=== PATIENT | male | born 1960 | race Caucasian/White ===

== ENCOUNTER 2017-12-20 05:23 | Inpatient (IN) ==
[2017-12-20 05:42] LABS: Basophils # 0.1 K/mm3 (0-0.2); Basophils % 0.7 % (0.1-2.0); Eosinophils # 0.3 K/mm3 (0.0-0.4); Eosinophils % 3.2 % (0.1-12.0); Hematocrit 41.3 % (42.0-52.0); Lymphocytes % 49.5 K/mm3 (10-50); Mean Corpuscular HGB Conc 31.5 g/dL (31.8-35.4); Mean Corpuscular Hemoglobin 30.2 pg (27.0-31.2); Mean Corpuscular Volume 95.9 fl (80-94); Mean Platelet Volume 9.1 fl (7.4-10.4); Monocytes # 0.5 K/mm3 (0.1-1.0); Monocytes % 4.7 % (1.7-9.3); Neutrophils # 4.3 K/mm3 (1.8-7.8); Neutrophils % 41.9 % (37.0-80.0); Platelet Count 260 K/mm3 (142-424); Red Cell Distribution Width 13.2 % (11.5-17.5); White Blood Count 10.2 K/mm3 (4.8-10.8)
[2017-12-20 05:54] LABS: Albumin Level 3.9 gm/dL (3.4-5.0); Albumin/Globulin Ratio 1.1 (1.1-1.8); Anion Gap 10.7 mEq/L (5-15); Bilirubin,Total 0.2 mg/dL (0.2-1.0); Calcium 9.6 mg/dL (8.5-10.1); Globulin 3.5 gm/dl (1.3-3.2); Potassium 3.7 mmoL/L (3.5-5.1); Total Protein,Serum 7.4 gm/dL (6.4-8.2)
[2017-12-20 06:07] LABS: Creatine Kinase 69 U/L (39-308)
--- NOTE | 2017-12-20 08:06 | Emergency Department Note ---
ED Disposition Clinical Impression: Spontaneous pneumothorax Disposition: Admitted As Inpatient Condition on Discharge: Good Time of Disposition: 08:30 - Critical Care Critical Care Time: No Attestation: On 12/20/17, the high probability of a clinically significant, sudden or life threatening deterioration of the following system(s) required my full and direct attention, intervention and personal management. The time I documented below is in addition to time spent performing reported procedures but includes the following listed in this critical care notation. Total Critical Care Time: 45 Vital system(s) involved:: Respiratory Failure My critical care processes included: Assessment & monitoring of V/S, Initial and Re-exams, Data Review/Interpretation, Coordinating Care, Medication Orders and management, Documentation Medical Decision Making - Medical Records Medical records reviewed: Yes: I reviewed the patient's medical records. - Dinesh Inquiry Pt receiving controlled substance: No Vital Signs: 12/20/17 05:24 12/20/17 06:25 12/20/17 07:30 Temperature 978.9 F H Temperature Source Oral Pulse Rate [Right Radial] 99 H 67 62 Respiratory Rate 13 18 16 Blood Pressure [Right Arm] 144/71 115/67 138/64 Blood Pressure Mean [Right Arm] 95 83 88 Blood Pressure Source [Right Arm] Automatic Cuff Automatic Cuff Automatic Cuff Blood Pressure Position [Right Arm] Sitting Sitting Sitting 02 Sat by Pulse Oximetry 94 L 99 97 Oxygen Delivery Method Room Air Room Air Room Air 12/20/17 07:55 12/20/17 08:25 12/20/17 08:27 Temperature 97.6 F Temperature Source Oral Pulse Rate [Right Radial] 60 72 82 Respiratory Rate 16 20 16 Blood Pressure [Right Arm] 123/63 112/70 112/70 Blood Pressure Mean [Right Arm] 83 84 84 Blood Pressure Source [Right Arm] Automatic Cuff Automatic Cuff Automatic Cuff Blood Pressure Position [Right Arm] Sitting Sitting Sitting 02 Sat by Pulse Oximetry 96 97 97 Oxygen Delivery Method Room Air Room Air Room Air - Lab Data Lab results reviewed: Yes: I reviewed the patient's lab results. Lab Results 12/20/17 05:30: WBC 10.2, RBC 4.30 L, Hgb 13.0 L, Hct 41.3 L, MCV 95.9 H, MCH 30.2, MCHC 31.5 L, RDW 13.2, Plt Count 260, MPV 9.1, Neut % (Auto) 41.9, Lymph % (Auto) 49.5, [place] % (Auto) 4.7, Eos % (Auto) 3.2, Baso % (Auto) 0.7, Neut # ( Auto) 4.3, Lymph # (Auto) 5.0 H, [place] # (Auto) 0.5, Eos # (Auto) 0.3, Baso # ( Auto) 0.1 12/20/17 05:30: Sodium 144, Potassium 3.7, Chloride 107, Carbon Dioxide 30, Anion Gap 10.7, BUN 16, Creatinine 0.93, Estimated Creat Clear 84, Estimated GFR 84, Est GFR ( Amer) 101, Glucose 134 H, Calcium 9.6, Total Bilirubin 0.2, AST 11 L, ALT 15, Alkaline Phosphatase 79, Total Protein 7.4, Albumin 3.9, Globulin 3.5 H, Albumin/Globulin Ratio 1.1 12/20/17 05:30: B-Natriuretic Peptide 28 12/20/17 05:30: Total Creatine Kinase 69, CK-MB (CK-2) 0.7, CK-MB (CK-2) Rel Index 1.0, Troponin I < 0.02 12/20/17 07:45: Troponin I < 0.02 Result diagrams: 12/20/17 05:30 12/20/17 05:30 Orders (Tests/Meds): ED MEDICATIONS Discontinued Medications Generic Name Dose Route Start Last Admin Trade Name Freq PRN Reason Stop Dose Admin Aspirin 324 mg 12/20/17 05:30 12/20/17 05:32 Aspirin 81mg Chewable Tablet PO 12/20/17 05:31 324 mg ONCE ONE Administration - Radiology Data #1 Image(s): Chest Image Reviewed: Yes I reviewed the patient's radiology image 50% spontaneous pneumothorax - ECG Data Tracing #1 I reviewed this ECG and interpreted as documented below: Heart rate 88, no acute ischemic ECG normal with no acute: arrhythmias, ischemia, conduction abnormalities, chamber hypertrophy Normal Sinus Rhythm: Yes - Physician Consults Physician Consulted: Dr Camarillo Time: 08:20 Reason -: Admission, Pt condition, Surgical Eval/Care Comment/Response: will come down to the emergency room in order to place a chest tube into patient's right thoracic cavity. The surgeon requested patient be admitted to medical service. Additional Consult: Dr Blue Time: 08:25 Reason -: Admission, Pt condition Comment/Response: Advise of patient presentation findings, agreeable with admission. - Reevaluation(s) Time: 08:06 Reevaluation #1: Patient is in no acute distress, denies any discomfort, denies any symptoms, asleep. Chest Pain HPI - General Chief Complaint: Chest Pain Stated Complaint: chest pain Time Seen by Provider: 12/20/17 06:00 Mode of Arrival: Ambulatory Source of Information: Patient Limitations: No Limitations Description of Symptoms (Recalled from ER Triage Doc. by RN): chest pain, started about 0500 - History of Present Illness HPI narrative: Patient is a 57-year-old smoker presented emergency room with chest pain onset 1 hour ago, while getting ready for work, located on the right side, exertional , described as pressure, radiates to the right jaw, right neck, without any associated diaphoresis or shortness of breath. Patient denies any previous similar episodes in the past. At time of patient's arrival to the emergency room the pain is completely resolved. He stated that he has a history of anxiety, and he believes this could have been the culprit for his chest pain this morning. MD complaint: chest pain Onset (ago): hour(s) (1) Duration: now resolved Activity at onset: light activity Pain location: right chest Severity: moderate Severity scale (1-10): 4 Quality: tightness Pain radiation: RUE, jaw/teeth Relieving factors: remaining still Exacerbating factors: movement Risk Factors for CAD: Hypertension Treatments prior to or on arrival for Cardiac Chest Pain: none - Related Data Home Medications Medication Instructions Recorded Confirmed Buprenorphine HCl/Naloxone HCl 2 tab SL DAILY 12/20/17 12/20/17 [Buprenorphin-Naloxon 8-2 mg Sl] Allergies Allergy/AdvReac Type Severity Reaction Status Date / Time No Known Allergies Allergy Unverified 05/25/17 15:01 [facility] History I have reviewed the patient's past medical history: Yes Medical History: Denies:: Cancer, Diabetes Mellitus Type 1, Diabetes Mellitus Type 2, MRSA Amputation: No Fractures: No - Social History Smoking Status: Current every day smoker Tobacco Type: cigarettes # Packs/Day (cigarettes): 1 Alcohol Intake: never Substance Use Type: prescription drug - Psychiatric History Expresses thoughts of harming self/others: None Suicide Plan Description: No Plan ROS Obtained: Yes All systems reviewed & no additional complaints, Yes Systems reviewed as appropriate & no additional complaints - Cardiovascular Cardiovascular: Reports system reviewed and no additional complaints, except as docu, Reports as per HPI, Reports chest pain Physical Exam - General General appearance: alert, in no apparent distress - Head Head exam: atraumatic, normocephalic, normal inspection - ENT ENT exam: Present: normal exam, normal oropharynx, mucous membranes moist, TM's normal bilaterally, normal external ear exam - Neck Neck exam: Present: normal inspection, full ROM, trachea midline. Absent: meningismus, lymphadenopathy - Chest Chest inspection: Present: normal inspection, symmetric chest wall rise. Absent : tenderness - Respiratory Respiratory exam: Present: normal lung sounds bilaterally. Absent: respiratory distress - Cardiovascular Cardiovascular exam: Present: regular rate, normal rhythm. Absent: JVD - Abdominal Exam Abdominal exam: Present: soft, normal bowel sounds. Absent: distention, tenderness, guarding - Extremities Exam Extremities exam: Present: normal inspection, full ROM, normal capillary refill. Absent: calf tenderness - Back Exam Back exam: Present: normal inspection. Absent: tenderness - Neurological Exam Neurological exam: Present: alert, oriented X3 - Psychiatric Psychiatric exam: Present: normal affect, normal mood - Skin Skin exam: Present: warm, dry, intact, normal color - Lymphatic Lymphatic Findings: no adenopathy
--- NOTE | 2017-12-20 09:26 | Consult Report ---
*Admission Date: 12/20/17 *Chief complaint: CHEST PAIN *History of present illness: Patient is a 57-year-old white male with a long-standing history of smoking. He states that he was in his usual state of health until approximately 430-445 this morning at which time he had some right-sided chest pain. He presented to the emergency department. Chest x-ray revealed significant right-sided pneumothorax. Surgery was consulted. Review of Systems - Constitutional Denies anorexia - Eyes Denies change in vision - ENT Denies dizziness - *Cardiovascular Reports chest pain - *Respiratory Reports cough - *Gastrointestinal Denies abdominal pain - *Genitourinary Denies difficulty urinating - *Musculoskeletal Denies abnormal walking [facility] History Medical History: Denies:: Cancer, Diabetes Mellitus Type 1, Diabetes Mellitus Type 2, MRSA Amputation: No Fractures: No - *Social History Smoking Status: Current every day smoker Tobacco Type: cigarettes # Packs/Day (cigarettes): 1 Alcohol Intake: never Substance Use Type: prescription drug - Psychiatric History Expresses thoughts of harming self/others: None Suicide Plan Description: No Plan Meds Home Medications Medication Instructions Recorded Confirmed Type Buprenorphine HCl/Naloxone HCl 2 tab SL DAILY 12/20/17 12/20/17 History [Buprenorphin-Naloxon 8-2 mg Sl] Allergies Allergy/AdvReac Type Severity Reaction Status Date / Time No Known Allergies Allergy Unverified 05/25/17 15:01 Exam Vital signs and Labs for Last 24 Hours: Temp Pulse Resp BP Pulse Ox 97.6 F 81 16 131/66 98 12/20/17 08:25 12/20/17 08:50 12/20/17 08:50 12/20/17 08:50 12/20/17 08:50 Laboratory Results - last 24 hr 12/20/17 05:30: WBC 10.2, RBC 4.30 L, Hgb 13.0 L, Hct 41.3 L, MCV 95.9 H, MCH 30.2, MCHC 31.5 L, RDW 13.2, Plt Count 260, MPV 9.1, Neut % (Auto) 41.9, Lymph % (Auto) 49.5, [place] % (Auto) 4.7, Eos % (Auto) 3.2, Baso % (Auto) 0.7, Neut # ( Auto) 4.3, Lymph # (Auto) 5.0 H, [place] # (Auto) 0.5, Eos # (Auto) 0.3, Baso # ( Auto) 0.1 12/20/17 05:30: Sodium 144, Potassium 3.7, Chloride 107, Carbon Dioxide 30, Anion Gap 10.7, BUN 16, Creatinine 0.93, Estimated Creat Clear 84, Estimated GFR 84, Est GFR ( Amer) 101, Glucose 134 H, Calcium 9.6, Total Bilirubin 0.2, AST 11 L, ALT 15, Alkaline Phosphatase 79, Total Protein 7.4, Albumin 3.9, Globulin 3.5 H, Albumin/Globulin Ratio 1.1 12/20/17 05:30: B-Natriuretic Peptide 28 12/20/17 05:30: Total Creatine Kinase 69, CK-MB (CK-2) 0.7, CK-MB (CK-2) Rel Index 1.0, Troponin I < 0.02 12/20/17 07:45: Troponin I < 0.02 I & O for Last 24 hours: Intake & Output 12/17/17 12/18/17 12/19/17 12/20/17 11:59 11:59 11:59 11:59 Weight 150 lb - Constitutional thin - *Routine Respiratory Exam Present: decreased breath sounds - *Routine Cardiovascular Exam Present: RRR - *Routine Abdominal Exam Present: soft. Absent: tenderness Results - Labs 12/20/17 05:30 12/20/17 05:30 Laboratory Results - last 24 hr 12/20/17 05:30: WBC 10.2, RBC 4.30 L, Hgb 13.0 L, Hct 41.3 L, MCV 95.9 H, MCH 30.2, MCHC 31.5 L, RDW 13.2, Plt Count 260, MPV 9.1, Neut % (Auto) 41.9, Lymph % (Auto) 49.5, [place] % (Auto) 4.7, Eos % (Auto) 3.2, Baso % (Auto) 0.7, Neut # ( Auto) 4.3, Lymph # (Auto) 5.0 H, [place] # (Auto) 0.5, Eos # (Auto) 0.3, Baso # ( Auto) 0.1 12/20/17 05:30: Sodium 144, Potassium 3.7, Chloride 107, Carbon Dioxide 30, Anion Gap 10.7, BUN 16, Creatinine 0.93, Estimated Creat Clear 84, Estimated GFR 84, Est GFR ( Amer) 101, Glucose 134 H, Calcium 9.6, Total Bilirubin 0.2, AST 11 L, ALT 15, Alkaline Phosphatase 79, Total Protein 7.4, Albumin 3.9, Globulin 3.5 H, Albumin/Globulin Ratio 1.1 12/20/17 05:30: B-Natriuretic Peptide 28 12/20/17 05:30: Total Creatine Kinase 69, CK-MB (CK-2) 0.7, CK-MB (CK-2) Rel Index 1.0, Troponin I < 0.02 12/20/17 07:45: Troponin I < 0.02 Assessment and Plan - Assessment and plan all Dx Assessment and Plan for all problems:: Patient has a relatively large symptomatic right sided pneumothorax. Plan will be for chest tube placement.
--- NOTE | 2017-12-20 09:29 | Procedure Note ---
[facility] Procedure Note Procedure Note:: Consent was obtained. Patient was given 1 mg Versed and 2 mg morphine for the procedure. He was positioned in a supine position. The right anterior lateral chest is prepped and draped in the standard surgical fashion. Local anesthetic was infiltrated superficially and then deeply to the periosteum and intercostal space. Approximately 2 cm incision was made. Dissection was carried down over the rib and the intercostal space was entered. A 24 [place] chest tube was inserted into the right pleural space. It was secured with 0 Surgilon horizontal mattress suture. Clean dry sterile dressing was applied. It was attached to Pleur-evac. There was small to moderate air leak. Portable chest x -ray revealed good position with significant reexpansion of lung.
--- NOTE | 2017-12-20 11:31 | Pharmacy Consult Notes ---
[facility] Pharmacy VTE Monitoring - Patient Demographics Admission date: 12/20/17 Report Date: 12/20/17 Time: 11:30 Allergies/Adverse Reactions: Patient Allergies No Known Allergies Allergy (Unverified 05/25/17 15:01) Height: 1.65 m Weight: 54.204 kg Patient Problems: Current Active Problems Spontaneous pneumothorax (Acute) - VTE Risk Labs: VTE Related Lab Results Hgb 13.0 g/dL (14.1-18.0) L 12/20/17 05:30 Hct 41.3 % (42.0-52.0) L 12/20/17 05:30 Plt Count 260 K/mm3 (142-424) 12/20/17 05:30 BUN 16 mg/dL (7-18) 12/20/17 05:30 Creatinine 0.93 mg/dL (0.70-1.30) 12/20/17 05:30 Estimated Creat Clear 84 mL/min (0-300) 12/20/17 05:30 Was VTE Risk Assessment Performed: No VTE Score: 1 - Prophylaxis VTE Prophylaxis Ordered?: Yes Types of VTE Prophylaxis: TEDS Knee High Location of Applied Device: Bilateral Lower Extremeties - VTE Diagnosis Confirmed Treatment or plan recommended: Continue Current Treatment
--- NOTE | 2017-12-20 13:00 | History & Physical Report ---
*Admission Date: 12/20/17 *Chief complaint: sob *History of present illness: Patient is a 57-year-old white male with a long-standing history of smoking. He states that he was in his usual state of health until approximately 430-445 this morning at which time he had some right-sided chest pain. He presented to the emergency department. Chest x-ray revealed significant right-sided pneumothorax. Surgery was consulted. [facility] History I have reviewed the patient's past medical history: Yes Medical History: Denies:: Cancer, Diabetes Mellitus Type 1, Diabetes Mellitus Type 2, MRSA Amputation: No Fractures: No - *Social History Educational Level: Attended High School Smoking Status: Current every day smoker Tobacco Type: cigarettes # Packs/Day (cigarettes): 1 Alcohol Intake: never Substance Use Type: other Last Used Substance: days (ago) Occupational Status: other Household Members: spouse - Psychiatric History Expresses thoughts of harming self/others: None Suicide Plan Description: No Plan *Family Hx:: No significant family history Review of Systems - Review of Systems Review of systems:: pertinent systems reviewed and negative unless documented below - Constitutional Denies fever(s) - Eyes Denies change in vision - ENT Denies sore throat - *Cardiovascular Reports chest pain - *Respiratory Reports shortness of breath - *Gastrointestinal Denies abdominal pain - *Genitourinary Denies blood in urine - *Musculoskeletal Denies joint pain - Integumentary/Breasts Denies rash - *Neurologic Denies abnormal walking, Denies dizziness - Psychiatric Denies anxiety Meds Home Medications Medication Instructions Recorded Confirmed Type Buprenorphine HCl/Naloxone HCl 2 tab SL DAILY 12/20/17 12/20/17 History [Buprenorphin-Naloxon 8-2 mg Sl] Allergies Allergy/AdvReac Type Severity Reaction Status Date / Time No Known Allergies Allergy Unverified 05/25/17 15:01 Exam Vital signs and Labs for Last 24 Hours: Temp Pulse Resp BP Pulse Ox 98.3 F 72 20 119/69 99 12/20/17 10:26 12/20/17 10:41 12/20/17 10:41 12/20/17 10:41 12/20/17 10:41 Laboratory Results - last 24 hr 12/20/17 05:30: WBC 10.2, RBC 4.30 L, Hgb 13.0 L, Hct 41.3 L, MCV 95.9 H, MCH 30.2, MCHC 31.5 L, RDW 13.2, Plt Count 260, MPV 9.1, Neut % (Auto) 41.9, Lymph % (Auto) 49.5, [place] % (Auto) 4.7, Eos % (Auto) 3.2, Baso % (Auto) 0.7, Neut # ( Auto) 4.3, Lymph # (Auto) 5.0 H, [place] # (Auto) 0.5, Eos # (Auto) 0.3, Baso # ( Auto) 0.1 12/20/17 05:30: Sodium 144, Potassium 3.7, Chloride 107, Carbon Dioxide 30, Anion Gap 10.7, BUN 16, Creatinine 0.93, Estimated Creat Clear 84, Estimated GFR 84, Est GFR ( Amer) 101, Glucose 134 H, Calcium 9.6, Total Bilirubin 0.2, AST 11 L, ALT 15, Alkaline Phosphatase 79, Total Protein 7.4, Albumin 3.9, Globulin 3.5 H, Albumin/Globulin Ratio 1.1 12/20/17 05:30: B-Natriuretic Peptide 28 12/20/17 05:30: Total Creatine Kinase 69, CK-MB (CK-2) 0.7, CK-MB (CK-2) Rel Index 1.0, Troponin I < 0.02 12/20/17 07:45: Troponin I < 0.02 I & O for Last 24 hours: Intake & Output 12/18/17 12/19/17 12/20/17 12/21/17 11:59 11:59 11:59 11:59 Weight 119 lb 8 oz - Constitutional no acute distress - *Routine HEENT Exam Head: Present: normocephalic Eye: Present: EOMI, PERRL ENT: Present: mucous membranes dry - *Routine Neck Exam Present: supple - *Routine Respiratory Exam Present: CTA bilaterally (has chest tube ) - *Routine Cardiovascular Exam Present: RRR, murmur - *Routine Abdominal Exam Present: soft - *Routine Extremities Exam Absent: calf tenderness - *Routine Skin Exam Present: intact - *Routine Neurological Exam Present: alert, oriented X3, CN II-XII intact - Routine Psychiatric Exam Present: normal affect H&P: Result - Labs Labs: Short CBC 12/20/17 Range/Units 05:30 WBC 10.2 (4.8-10.8) K/mm3 Hgb 13.0 L (14.1-18.0) g/dL Hct 41.3 L (42.0-52.0) % Plt Count 260 (142-424) K/mm3 BMP 12/20/17 05:30 Sodium 144 Potassium 3.7 Chloride 107 Carbon Dioxide 30 BUN 16 Creatinine 0.93 Glucose 134 H Calcium 9.6 Cardiac Enzymes 12/20/17 12/20/17 Range/Units 05:30 07:45 Total Creatine Kinase 69 (39-308) U/L CK-MB (CK-2) 0.7 (0.0-3.6) ng/ml Troponin I < 0.02 < 0.02 (0.00-0.06) ng/ml Liver Function 12/20/17 Range/Units 05:30 Total Bilirubin 0.2 (0.2-1.0) mg/dL AST 11 L (15-37) U/L ALT 15 (12-78) U/L Alkaline Phosphatase 79 (46-116) U/L Albumin 3.9 (3.4-5.0) gm/dL Assessment and Plan (1) Spontaneous pneumothorax Current visit: Yes Status: Acute Category: Medical Code(s): J93.83 - Other pneumothorax
--- NOTE | 2017-12-21 06:50 | Progress Note ---
Subjective Patient reports: no new complaints Exam Vital signs and Labs for Last 24 Hours: Temp Pulse Resp BP Pulse Ox 98.4 F 60 16 135/72 99 12/21/17 04:00 12/21/17 04:00 12/21/17 04:00 12/21/17 04:00 12/21/17 04:00 Laboratory Results - last 24 hr 12/20/17 07:45: Troponin I < 0.02 I & O for Last 24 hours: Intake & Output 12/18/17 12/19/17 12/20/17 12/21/17 11:59 11:59 11:59 11:59 Intake Total 400 / 400 420 / 420 Output Total 700 / 700 Balance 400 / 400 -280 / -280 Weight 119 lb 8 oz - *Routine Respiratory Exam Present: distant breath sounds Progress Note: A&P Assessment and Plan for All Diagnoses:: Still with relatively consistent air leak. Continue suction. Check CXR today.
--- NOTE | 2017-12-21 08:54 | Progress Note ---
Internal Medicine - PN: Subj *Date: 12/21/17 *Time: 08:52 Interval history: pt w/o c/o - dr gore has seen pt Exam Vital signs and Labs for Last 24 Hours: Temp Pulse Resp BP Pulse Ox 98.2 F 57 L 18 122/68 95 12/21/17 08:00 12/21/17 08:00 12/21/17 08:00 12/21/17 08:00 12/21/17 08:00 I & O for Last 24 hours: Intake & Output 12/18/17 12/19/17 12/20/17 12/21/17 11:59 11:59 11:59 11:59 Intake Total 400 / 400 540 / 540 Output Total 700 / 700 Balance 400 / 400 -160 / -160 Weight 119 lb 8 oz - Constitutional no acute distress - *Routine HEENT Exam Head: Present: normocephalic Eye: Present: EOMI, PERRL ENT: Present: mucous membranes dry - *Routine Neck Exam Present: supple - *Routine Respiratory Exam Comments: has rt sided chest tube - *Routine Cardiovascular Exam Present: RRR, murmur - *Routine Abdominal Exam Present: soft - *Routine Extremities Exam Absent: calf tenderness - *Routine Skin Exam Present: intact - *Routine Neurological Exam Present: alert, oriented X3, CN II-XII intact - Routine Psychiatric Exam Present: normal affect Assessment and Plan (1) Spontaneous pneumothorax Current visit: Yes Status: Acute Category: Medical Code(s): J93.83 - Other pneumothorax
[2017-12-21 10:28] LABS: Hepatitis B Core Antibody IgM Negative (Negative); Hepatitis B Surface Antigen Negative (Negative)
[2017-12-21 19:22] LABS: Hepatitis C Antibody <0.1 s/co ratio (0.0-0.9)
--- NOTE | 2017-12-22 06:56 | Progress Note ---
Subjective Patient reports: no new complaints Exam Vital signs and Labs for Last 24 Hours: Temp Pulse Resp BP Pulse Ox 98.1 F 71 20 134/75 98 12/22/17 04:00 12/22/17 04:00 12/22/17 04:00 12/22/17 04:00 12/22/17 04:00 Laboratory Results - last 24 hr 12/20/17 05:30: Hepatitis A IgM Ab Negative, Hep Bs Antigen Negative, Hep B Core IgM Ab Negative, Hepatitis C Antibody <0.1 I & O for Last 24 hours: Intake & Output 12/19/17 12/20/17 12/21/17 12/22/17 11:59 11:59 11:59 11:59 Intake Total 400 / 400 540 / 540 Output Total 700 / 700 200 / 200 Balance 400 / 400 -160 / -160 -200 / -200 Weight 119 lb 8 oz - *Routine Respiratory Exam Present: distant breath sounds Progress Note: A&P (1) Spontaneous pneumothorax Status: Acute Assessment and plan: Still with moderate air leak. Continue chest tube to suction. Current Visit: Yes
--- NOTE | 2017-12-22 08:59 | Progress Note ---
Internal Medicine - PN: Subj *Date: 12/22/17 *Time: 08:58 Interval history: doing better - reviewed dr goer note Exam Vital signs and Labs for Last 24 Hours: Temp Pulse Resp BP Pulse Ox 98.7 F 76 18 133/71 97 12/22/17 07:54 12/22/17 07:54 12/22/17 07:54 12/22/17 07:54 12/22/17 07:54 Laboratory Results - last 24 hr 12/20/17 05:30: Hepatitis A IgM Ab Negative, Hep Bs Antigen Negative, Hep B Core IgM Ab Negative, Hepatitis C Antibody <0.1 I & O for Last 24 hours: Intake & Output 12/19/17 12/20/17 12/21/17 12/22/17 11:59 11:59 11:59 11:59 Intake Total 400 / 400 540 / 540 240 / 240 Output Total 700 / 700 400 / 400 Balance 400 / 400 -160 / -160 -160 / -160 Weight 119 lb 8 oz - Constitutional no acute distress - *Routine HEENT Exam Head: Present: normocephalic Eye: Present: EOMI, PERRL ENT: Absent: mucous membranes dry - *Routine Neck Exam Present: supple - *Routine Respiratory Exam Present: CTA bilaterally Comments: has rt chest tube - *Routine Cardiovascular Exam Present: RRR - *Routine Abdominal Exam Present: soft - *Routine Extremities Exam Absent: full ROM - *Routine Skin Exam Present: intact - *Routine Neurological Exam Present: alert, CN II-XII intact - Routine Psychiatric Exam Present: normal affect Assessment and Plan (1) Spontaneous pneumothorax Current visit: Yes Status: Acute Category: Medical Code(s): J93.83 - Other pneumothorax
--- NOTE | 2017-12-23 06:37 | Progress Note ---
Subjective Patient reports: no new complaints Exam Vital signs and Labs for Last 24 Hours: Temp Pulse Resp BP Pulse Ox 98.5 F 76 22 112/71 97 12/23/17 04:00 12/23/17 04:00 12/23/17 04:00 12/23/17 04:00 12/23/17 04:00 I & O for Last 24 hours: Intake & Output 12/20/17 12/21/17 12/22/17 12/23/17 11:59 11:59 11:59 11:59 Intake Total 400 / 400 540 / 540 240 / 240 240 / 240 Output Total 700 / 700 400 / 400 200 / 200 Balance 400 / 400 -160 / -160 -160 / -160 40 / 40 Weight 119 lb 8 oz 119 lb 7.99 oz - Constitutional no acute distress - *Routine Respiratory Exam Absent: respiratory distress Comments: chest tube with continued leak on suction Progress Note: A&P (1) Spontaneous pneumothorax Status: Acute Assessment and plan: Persistent leak Continue chest tube to suction Chest x-ray this a.m. If the patient continues to have a prolonged/persistent leak, he may require transfer to a tertiary care center for thoracic surgery evaluation Current Visit: Yes
[2017-12-23 07:35] VITALS: BP 122/67
--- NOTE | 2017-12-23 09:23 | Discharge Summary ---
General - General Admission date:: 12/20/17 Discharge date: 12/23/17 HPI HPI: Patient is a 57-year-old white male with a long-standing history of smoking. He states that he was in his usual state of health until approximately 430-445 this morning at which time he had some right-sided chest pain. He presented to the emergency department. Chest x-ray revealed significant right-sided pneumothorax. Surgery was consulted. Hospital Course Hospital Course: x ray to ed:IMPRESSION: Moderate size right tension pneumothorax, surgery consult- see notes xray after chest tube shows good expansion, per surgery's note patient has a small leak and needs to be transferred to tertiary care center. Spoke with Dr. Morris office he is excepted transfer to admit to [facility]. Objective Vital signs: Temp Pulse Resp BP Pulse Ox 98.4 F 82 18 122/67 97 12/23/17 07:34 12/23/17 07:34 12/23/17 07:34 12/23/17 07:34 12/23/17 07:34 no acute distress - *Routine HEENT Exam Head: Present: normocephalic Eye: Present: PERRL ENT: Present: mucous membranes moist - *Routine Neck Exam Present: full ROM - *Routine Respiratory Exam Present: CTA bilaterally Comments: chest tube to rt chest - *Routine Cardiovascular Exam Present: RRR - *Routine Abdominal Exam Present: soft, normoactive bowel sounds - *Routine Extremities Exam Present: full ROM - Routine Back/Spine/Pelvis Exam Back/Spine: Present: full ROM - *Routine Skin Exam Present: intact - *Routine Neurological Exam Present: alert, oriented X3, CN II-XII intact - Routine Psychiatric Exam Present: normal affect, normal thought process Results - Additional Comments Rounded with Dr. Camilo all orders per Ton DS: Diagnosis - Discharge Diagnosis (1) Spontaneous pneumothorax Status: Acute Discharge Plan - Patient Discharge Instructions ACTIVITY: Continue current activity DIET: continue same diet - Follow up Plan Follow up with: Alan Camilo MD [Family Provider] - Disposition: Xfer Short-Term Hosp Home Medications: Home Medications Medication Instructions Recorded Confirmed Type Buprenorphine HCl/Naloxone HCl 2 tab SL DAILY 12/20/17 12/20/17 History [Buprenorphin-Naloxon 8-2 mg Sl] Prescriptions/Medication Reconciliation: Continue Buprenorphine HCl/Naloxone HCl [Buprenorphin-Naloxon 8-2 mg Sl] 2 tab SL DAILY
== END 2017-12-23 12:24 | disposition short-term general hospital (02) ==
LOC: ER 05:23 → 2ND 05:23 → OBSVTOIN 08:42 → 2ND 10:05
PROVIDERS: ADMIT Emergency Medicine; ATTEND Emergency Medicine

== ENCOUNTER → 2021-02-11 10:42 | Outpatient (CLI) | payer OTHER, SELFPAY ==
[2021-02-11 11:37] LABS: Adenovirus,PCR Not Detected (NotDetected); Bordetella Pertussis Not Detected (NotDetected); Chlamydophila Pneumoniae, PCR Not Detected (NotDetected); Coronavirus 229E Not Detected (NotDetected); Coronavirus NL63 Not Detected (NotDetected); Coronavirus OC43 Not Detected (NotDetected); Coronovirus HKU1,PCR Not Detected (NotDetected); Human Metapneumovirus Not Detected (NotDetected); Influenza A, PCR Not Detected (NotDetected); Influenza AH1, 2009 Not Detected (NotDetected); Influenza AH1, PCR Not Detected (NotDetected); Influenza AH3,PCR Not Detected (NotDetected); Influenza B, PCR Not Detected (NotDetected); Mycoplasma Pneumoniae, PCR Not Detected (NotDetected); Parainfluenza 1, PCR Not Detected (NotDetected); Parainfluenza 2, PCR Not Detected (NotDetected); Parainfluenza 3, PCR Not Detected (NotDetected); Parainfluenza 4, PCR Not Detected (NotDetected); Respiratory Syncytial Virus Not Detected (NotDetected); Rhinovirus/Enterovirus Not Detected (NotDetected)
[2021-02-11 19:19] LABS: Coronavirus 19, PCR Detected (NotDetected)
== END ==
PROVIDERS: PCP Nurse Practitioner Family; Visit Provider Nurse Practitioner Family
DX: Z20.822 Contact with and (suspected) exposure to COVID-19 (principal); U07.1 COVID-19
CPT/HCPCS: 87581; 87633; 87798

== ENCOUNTER 2021-02-15 10:53 | Inpatient (IN) | payer OTHER, SELFPAY ==
[2021-02-15] VITALS (14 sets, daily range): BP systolic 112–144; BP diastolic 66–78; PULSE 79–100; RESP 10–20; TEMP 36.4–36.8; O2SAT 71–100; BMI 24.3; BMI 24.5
--- NOTE | 2021-02-15 11:23 | CT_ITS ---
PROCEDURE INFORMATION: Exam: CTA Chest With Contrast Exam date and time: 02/15/2021 11:23 AM Age: 60 years old Clinical indication: Cough and shortness of breath; Chest pressure; Patient HX: Covid positive SOB and chest pain; Additional info: Concern for pe, hypoxia, covid19 diagnosis TECHNIQUE: Imaging protocol: Computed tomographic angiography of the chest with contrast. 3D rendering (Not supervised by radiologist): MIP and/or 3D reconstructed images were created by the technologist. Radiation optimization: All CT scans at this facility use at least one of these dose optimization techniques: automated exposure control; mA and/or kV adjustment per patient size (includes targeted exams where dose is matched to clinical indication); or iterative reconstruction. Contrast material: ISOVUE 370; Contrast volume: 70 ml; Contrast route: INTRAVENOUS (IV); COMPARISON: CR CXR1VP XR chest portable 12/23/2017 8:49 AM FINDINGS: Pulmonary arteries: No pulmonary emboli. Aorta: No aortic aneurysm. No aortic dissection. Lungs: There is extensive bilateral ground-glass airspace disease consistent with an atypical pneumonia including viral pneumonia. Pleural spaces: No pneumothorax. No pleural effusion. Heart: There are coronary artery calcifications. Mediastinal space: There is a small hiatal hernia. Lymph nodes: No enlarged lymph nodes. Liver: There is fatty infiltration of the liver. Bones/joints: There are degenerative changes of the spine. Soft tissues: Unremarkable. IMPRESSION: 1. No pulmonary embolism. 2. Extensive bilateral airspace disease consistent with atypical pneumonia, including viral pneumonia.
--- NOTE | 2021-02-15 11:30 | HMH.EDGENADL ---
ED Disposition Clinical Impression: Pneumonia due to COVID-19 virus Disposition: Admitted As Inpatient Condition on Discharge: Serious Referrals: Alan Camilo MD [Primary Care Provider] - - Critical Care Critical Care Time: Yes Attestation: On 02/15/21, the high probability of a clinically significant, sudden or life threatening deterioration of the following system(s) required my full and direct attention, intervention and personal management. The time I documented below is in addition to time spent performing reported procedures but includes the following listed in this critical care notation. Total Critical Care Time: 30 Vital system(s) involved:: Respiratory Failure My critical care processes included: Assessment & monitoring of V/S, Initial and Re-exams, Data Review/Interpretation, Coordinating Care, Medication Orders and management, Documentation Medical Decision Making - Medical Records Medical records reviewed: Yes: I reviewed the patient's medical records. - Dinesh Inquiry Pt receiving controlled substance: No Vital Signs: 02/15/21 10:54 02/15/21 10:55 Temperature 98.3 F Temperature Source Oral Pulse Rate [Left Radial] 91 H Respiratory Rate 12 Blood Pressure [Right Arm] 128/78 Blood Pressure Mean [Right Arm] 94 Blood Pressure Source [Right Arm] Automatic Cuff Blood Pressure Position [Right Arm] Sitting 02 Sat by Pulse Oximetry 83 L 94 L Oxygen Delivery Method Nasal Cannula Non-Rebreather - Lab Data Lab Results 02/15/21 11:23: WBC 3.9 L, RBC 4.98, Hgb 14.9, Hct 44.6, MCV 89.6, MCH 29.8, MCHC 33.3, RDW 13.1, Plt Count 176, MPV 9.2, Neut % (Auto) 67.1, Lymph % (Auto) 25.7, Montgomery % (Auto) 6.6, Eos % (Auto) 0.0 L, Baso % (Auto) 0.4, Neut # (Auto) 2.6, Lymph # (Auto) 1.0, Montgomery # (Auto) 0.3, Eos # (Auto) 0.0, Baso # (Auto) 0.0 02/15/21 11:23: D-Dimer 0.81 H 02/15/21 11:23: Sodium 136, Potassium 3.2 L, Chloride 93 L, Carbon Dioxide 32 H, Anion Gap 14.2, BUN 30 H, Creatinine 1.10, Estimated Creat Clear 73, Estimated GFR 68, Est GFR ( Amer) 83, Glucose 143 H, Calcium 8.9, Ferritin 1990 H, Total Bilirubin 0.8, AST 157 H, ALT 51, Alkaline Phosphatase 110, Total Protein 7.3, Albumin 3.9, Globulin 3.4 H, Albumin/Globulin Ratio 1.1 Result diagrams: 02/15/21 11:23 02/15/21 11:23 Orders (Tests/Meds): ED MEDICATIONS Generic Name Dose Route Start Last Admin Trade Name Atr PRN Reason Stop Dose Admin Acetaminophen 650 mg 02/15/21 13:21 Acetaminophen 325mg Tab PO 03/17/21 13:20 Q6HP PRN Mild pain,fever,headache Ascorbic Acid 500 mg 02/15/21 17:00 Ascorbic Acid 500mg Tab PO 03/17/21 16:59 QID GI Dexamethasone 6 mg 02/15/21 13:30 Dexamethasone 4mg Tablet PO 03/17/21 13:29 DAILY GI Docusate Sodium 100 mg 02/16/21 09:00 Docusate Sodium 100 Mg Capsule PO 03/18/21 08:59 DAILY GI Enoxaparin Sodium 60 mg 02/15/21 13:30 Enoxaparin 60mg/0.6ml Syringe SQ 03/17/21 13:29 DAILY GI Ergocalciferol 50,000 unit 02/15/21 13:30 Ergocalciferol 50,000 Units (1.25mg) Capsule PO 03/17/21 13:29 WEEKLY GI Famotidine 20 mg 02/15/21 13:30 Famotidine 20mg Tablet PO 03/17/21 13:29 BID GI Sodium Chloride 3 ml 02/15/21 13:21 Sodium Chloride 3% 15ml Neb IH 03/17/21 13:20 ONCE PRN INDUCE SPUTUM COLLECTION Zinc Sulfate 220 mg 02/15/21 13:30 Zinc Sulfate 220mg Capsule PO 03/17/21 13:29 DAILY GI Discontinued Medications Generic Name Dose Route Start Last Admin Trade Name Art PRN Reason Stop Dose Admin Iopamidol 70 ml 02/15/21 12:17 02/15/21 12:19 Iopamidol-370 (76%);100ml Bottle IV 02/15/21 12:18 70 ml ONCE ONE Administration Miscellaneous 0 each 02/15/21 13:21 Remdesivir Pharmacy Consult Request NOTAPPLIC 02/15/21 13:22 CONSULT PHARMACY ONE Sodium Chloride 10 ml 02/15/21 12:17 02/15/21 12:18 Sodium Chloride 0.9% 10ml Syr (Rad Only) IV 02/15/21 12:18 10 ml
[2021-02-15 11:33] LABS: Basophils % 0.4 % (0.1-2.0); Hematocrit 44.6 % (42.0-52.0); Hemoglobin 14.9 g/dL (14.1-18.0); Lymphocytes % 25.7 % (10-50); Mean Corpuscular HGB Conc 33.3 g/dL (31.8-35.4); Mean Corpuscular Hemoglobin 29.8 pg (27.0-31.2); Mean Corpuscular Volume 89.6 fl (80-94); Mean Platelet Volume 9.2 fl (7.4-10.4); Monocytes # 0.3 K/mm3 (0.1-1.0); Monocytes % 6.6 % (1.7-9.3); Neutrophils # 2.6 K/mm3 (1.8-7.8); Neutrophils % 67.1 % (37.0-80.0); Platelet Count 176 K/mm3 (142-424); Red Blood Count 4.98 M/mm3 (4.60-6.20); Red Cell Distribution Width 13.1 % (11.5-17.5); White Blood Count 3.9 K/mm3 (4.8-10.8)
[2021-02-15 11:42] LABS: Chloride 93 mmol/L (98-107); Potassium 3.2 mmoL/L (3.5-5.1); Sodium 136 mmol/L (136-145)
[2021-02-15 11:45] LABS: Alanine Aminotransferase 51 U/L (12-78); Albumin Level 3.9 g/dl (3.5-5.0); Albumin/Globulin Ratio 1.1 (1.1-1.8); Alkaline Phosphatase 110 U/L (38-126); Anion Gap 14.2 mEq/L (5-15); Aspartate Amino Transferase 157 U/L (17-59); Bilirubin,Total 0.8 mg/dl (0.2-1.3); Blood Urea Nitrogen 30 mg/dl (9-20); Carbon Dioxide 32 mmol/L (22.0-30.0); Creatinine Clearance Estimated 73 mL/min (50-200); Estimated Glomerular Filt Rate 68 ml/min (>60); GFR (African American) 83 ML/MIN (>60); Globulin 3.4 g/dL (1.3-3.2); Total Protein,Serum 7.3 g/dl (6.3-8.2)
[2021-02-15 11:46] LABS: Calcium 8.9 mg/dl (8.4-10.2); Glucose 143 mg/dl (74-100)
[2021-02-15 12:18] LABS: D-Dimer 0.81 ug/mL (0.0-0.5)
[2021-02-15 13:16] LABS: Ferritin 1990 ng/ml (17.9-464)
--- NOTE | 2021-02-15 14:13 | PC.NURSE ---
Report called to Mahad ULLOA
--- NOTE | 2021-02-15 15:05 | HMH.PHAINT ---
MEDICATION RECONCILIATION COMPLETE USING EXTERNAL PHARMACY FILL HISTORY. CONFIRMED SUBOXONE DOSE WITH CALL TO CLINIC PHARMACY.
--- NOTE | 2021-02-15 15:06 | HMH.PHAVTE ---
[facility] Pharmacy VTE Monitoring - Patient Demographics Admission date: 02/15/21 Report Date: 02/15/21 Time: 15:06 Allergies/Adverse Reactions: Patient Allergies No Known Allergies Allergy (Verified 10/25/18 11:18) Height: 1.73 m Weight: 72.575 kg Patient Problems: Current Active Problems Pneumonia due to COVID-19 virus (Acute) - VTE Risk Labs: VTE Related Lab Results Hgb 14.9 g/dL (14.1-18.0) 02/15/21 11:23 Hct 44.6 % (42.0-52.0) 02/15/21 11:23 Plt Count 176 K/mm3 (142-424) 02/15/21 11:23 BUN 30 mg/dl (9-20) H 02/15/21 11:23 Creatinine 1.10 mg/dl (0.66-1.25) 02/15/21 11:23 Estimated Creat Clear 73 mL/min (50-200) 02/15/21 11:23 Was VTE Risk Assessment Performed: No Clinical Trial Participant: No - Prophylaxis VTE Prophylaxis Ordered?: Yes Types of VTE Prophylaxis: TEDS Knee High Pharmacologic Type: Enoxaparin
--- NOTE | 2021-02-15 17:13 | PC.NURSE ---
NEW ADMIT TODAY. HE HAS REQUIRED O2 VIA NON-REBREATHER. RT ATTEMPTED TO PLACE PT ON VENTI MASK BUT HER DID NOT TOLERATED WELL AND O2 SATS DROPPED INTO THE MID 80'S. HE HAS NOT C/O PAIN AND DENIES N/V/D. VITAL SIGNS HAVE BEEN STABLE SINCE ARRIVAL TO UNIT. NO NEEDS AT THIS TIME.
--- NOTE | 2021-02-15 22:01 | PC.NURSE ---
RESPIRATORY CARE NOTE: 2200-PT WAS ENCOURAGED TO LAY PRONE, OR ROTATE SIDE TO SIDE, WHILE SLEEPING. IT WAS EXPLAINED THAT REMOVING PRESSURE FROM THE BACK SIDE OF THE LUNGS IS IMPERATIVE IN IMPROVING OXYGENATION. PT CURRENTLY LAYING ON HIS RIGHT SIDE.
[2021-02-16] VITALS (8 sets, daily range): BP systolic 98–143; BP diastolic 53–79; PULSE 67–96; RESP 15–22; TEMP 36.4–36.7; O2SAT 92–97; BMI 24.3
--- NOTE | 2021-02-16 05:25 | PC.NURSE ---
Pt had an uneventful night. He remained on 15L non-rebreather and 02 saturations remained 95-98% t/o the night. Pt had no c/o SOA, pain t/o the night. Pt call [facility] within reach, will continue to monitor.
[2021-02-16 06:09] LABS: Basophils % 0.1 % (0.1-2.0); Hematocrit 42.7 % (42.0-52.0); Lymphocytes # 0.5 K/mm3 (0.7-4.5); Lymphocytes % 11.6 % (10-50); Mean Corpuscular HGB Conc 32.8 g/dL (31.8-35.4); Mean Corpuscular Hemoglobin 29.6 pg (27.0-31.2); Mean Corpuscular Volume 90.2 fl (80-94); Mean Platelet Volume 8.6 fl (7.4-10.4); Monocytes # 0.3 K/mm3 (0.1-1.0); Monocytes % 8.2 % (1.7-9.3); Neutrophils # 3.2 K/mm3 (1.8-7.8); Neutrophils % 80.1 % (37.0-80.0); Platelet Count 195 K/mm3 (142-424); Red Blood Count 4.74 M/mm3 (4.60-6.20); Red Cell Distribution Width 13.2 % (11.5-17.5)
[2021-02-16 06:24] LABS: Alanine Aminotransferase 46 U/L (12-78); Albumin Level 3.4 g/dl (3.5-5.0); Albumin/Globulin Ratio 1.1 (1.1-1.8); Alkaline Phosphatase 102 U/L (38-126); Anion Gap 12.9 mEq/L (5-15); Aspartate Amino Transferase 135 U/L (17-59); Bilirubin,Total 0.6 mg/dl (0.2-1.3); Blood Urea Nitrogen 21 mg/dl (9-20); Calcium 8.9 mg/dl (8.4-10.2); Carbon Dioxide 34 mmol/L (22.0-30.0); Chloride 96 mmol/L (98-107); Creatinine Clearance Estimated 135 mL/min (50-200); Estimated Glomerular Filt Rate 137 ml/min (>60); GFR (African American) 166 ML/MIN (>60); Globulin 3.2 g/dL (1.3-3.2); Glucose 143 mg/dl (74-100); Potassium 3.9 mmoL/L (3.5-5.1); Sodium 139 mmol/L (136-145); Total Protein,Serum 6.6 g/dl (6.3-8.2)
--- NOTE | 2021-02-16 06:52 | XR_ITS ---
PROCEDURE INFORMATION: Exam: XR Chest Exam date and time: 02/16/2021 6:52 AM Age: 60 years old Clinical indication: Shortness of breath; Additional info: SOB TECHNIQUE: Imaging protocol: XR of the chest. Views: 1 view. COMPARISON: CT ANGIO CHEST PE PROTOCOL 02/15/2021 12:06 PM FINDINGS: Lungs: There continues to be airspace disease in both lungs, unchanged. The examination is obtained at low lung volumes. Pleural spaces: Unremarkable. No pleural effusion. No pneumothorax. Heart/Mediastinum: Unremarkable. No cardiomegaly. Bones/joints: Unremarkable. IMPRESSION: Stable chest.
--- NOTE | 2021-02-16 09:09 | HMH.HP ---
*Admission Date: 02/15/21 *Chief complaint: sob *History of present illness: this pt presented to the ed -atanna is a 60-year-old male presented to the ED today for hypoxia at home. Patient has been measuring his oxygen saturations, states they were below ED today he presents the ED today today for further evaluation of this. Patient is recently diagnosed with Covid on the seventh of this month via ER visit. States that he lives with his at home, has been otherwise well with no significant shortness of breath, chest pain, nausea or vomiting. Patient states that he is otherwise asymptomatic but comes in for his low oxygen saturation. Patient states that he has no prior heart disease, was a former smoker takes no inhalers for this currently. States that he has had a pneumothorax several years ago, but no issues with this ever since that time.yessenia is a 60-year-old male presents to the ED today for hypoxia. Differential diagnosis includes pulmonary embolism, atypical pneumonia, bacterial pneumonia. Will further evaluate with CBC CMP, blood cultures and will obtain a CT pulmonary embolism study. Patient arrives hypoxic, unwell appearing, however in no significant subjective respiratory distress. Initial oxygen saturation 71% on room air, initially placed on nasal cannula, however only carlita patient's oxygen saturations on 6 L to 83%, we have placed him on 15 L nonrebreather. Have asked respiratory for high flow nasal cannula, however we do not have any more in the hospital as they are all being used upstairs for other Covid patients. Patient is 93% on 15 L nonrebreather, will be reassessed closely, nonrebreather is not my chosen modality, however BiPAP is not required at this time, and patient is unlikely to be able to be stepdown to Ventimask, not requiring intubation at this time although we will closely reassess. On nonrebreather. CT scan of the chest has been obtained, no evidence of pulmonary embolism, groundglass opacities bilaterally on independent interpretation. No pneumothorax. Stable, mildly tachypneic on reassessment but otherwise no acute distress. Given patient's profound hypoxia will require admit to the hospital. Have discussed this case with Dr. Sesay, will start dexamethasone, remdesivir, per hospital protocol. Patient with no evidence of consolidation will defer antibiotic management at this time. pt admitted to covid-19 unit [facility] History I have reviewed the patient's past medical history: Yes Medical History: Reports:: Gastroesophageal Reflux Disease(GERD) Denies:: Cancer, Diabetes Mellitus Type 1, Diabetes Mellitus Type 2, MRSA *Have you ever received a pneumonia vaccine?: No *Have you received a flu vaccine this season?: No Other Surgeries: Yes: Other Amputation: No Fractures: No - *Social History Last grade of school completed: High school graduate Smoking Status: Former smoker # Packs/Day (cigarettes): 1 Alcohol Intake: former Substance Use Type: prescription drug *Occupational Status:: other Household Members: spouse *Travel in the last 8 weeks: None Family Hx:: No significant family history Review of Systems - Review of Systems Review of systems:: pertinent systems reviewed and negative unless documented below - Constitutional Denies fever(s) - Eyes Denies change in vision - ENT Denies dizziness - *Cardiovascular Denies chest pain - *Respiratory Denies cough - *Gastrointestinal Denies abdominal pain - *Genitourinary Denies difficulty urinating - *Musculoskeletal Denies joint pain - Integumentary/Breasts Denies rash - *Neurologic Denies seizure-like activity - Psychiatric Denies anxiety Meds Home Medications Medication Instructions Recorded Confirmed Type Buprenorphine HCl/Naloxone HCl 1.5 tab SL DAILY 12/20/17 02/15/21 History [Buprenorphine-Nalox 8-2 mg Tab] Allergies Allergy/AdvReac Type Severity Reaction Status Date / Time No Known Allergies Allergy
[2021-02-16 18:50] LABS: ABG Base Excess 2.9 mmol/L (-2.4-2.3); ABG HCO3 26.1 mmhg (22.0-26.0); ABG Oxygen Saturation 95 % (90-100); ABG PCO2 34.3 mmhg (35.0-45.0); ABG PO2 77.5 mmhg (80-100); ABG TCO2 27.1 mmhg (23-27)
[2021-02-16 18:56] LABS: Oxygen NRB %; Source R BRACHIAL
--- NOTE | 2021-02-16 19:31 | PC.NURSE ---
Addendum entered by Kevin Castro RN 02/16/21 19:36: Correction : ABG had no critical findings. Original Note: Called and spoke with Dr. Sesay in RE to pt not wanting temp taken and stating he didn't need to be here and resistive when attempting care. VSS. He agreed to do an abg, it was WNL. Pt is acting more to baseline at this time. Have encouraged po intake. Pt pulled out IV, new one placed in L hand and is saline locked at this time. Pt continues to be on nonrebreather @ 15 L. Hace update on status this shift.
--- NOTE | 2021-02-16 20:20 | PC.NURSE ---
Dr. Grissom notified of abg results.
[2021-02-17] VITALS (8 sets, daily range): BP systolic 89–117; BP diastolic 55–71; PULSE 63–86; RESP 18–20; TEMP 36.5–36.7; O2SAT 88–98; BMI 23.8; BMI 23.7
--- NOTE | 2021-02-17 02:37 | PC.NURSE ---
Pt pulled IV out at 0130. Bleeding was controlled, new 20g IV placed in R ac.
--- NOTE | 2021-02-17 05:32 | PC.NURSE ---
0519 chest x-ray r/t incorrect order.
--- NOTE | 2021-02-17 06:00 | XR_ITS ---
PROCEDURE INFORMATION: Exam: XR Chest Exam date and time: 02/17/2021 6:00 AM Age: 60 years old Clinical indication: Shortness of breath; Additional info: Covid pna TECHNIQUE: Imaging protocol: XR of the chest. Views: 1 view. COMPARISON: CR XR CHEST PORTABLE 02/16/2021 7:00 AM FINDINGS: Lungs: Stable patchy left greater than right lower lung infiltrates. Pleural spaces: Unremarkable. No pleural effusion. No pneumothorax. Heart/Mediastinum: Unremarkable. No cardiomegaly. Bones/joints: Unremarkable. IMPRESSION: Essentially stable appearance compared to exam from the previous day, with findings above.
--- NOTE | 2021-02-17 06:53 | PC.NURSE ---
Pt has been uncooperative with care and has altered LOC. Pt has been taking oxygen off, pulse ox, and IV's. Dr. Sesay notified of patients condition. Orders have been given for halidol 5mg IM once. Will continue to monitor.
--- NOTE | 2021-02-17 10:00 | CA_ITS ---
APPROVED REPORT Bilateral Lower Extremity Venous Study for DVT. Site Specialist: LYNDA SwiftT Indications Shortness of breath History of Smoking Hypoxia,COVID Risk Factors Bed Rest History of Smoking Vein Imaging CFV (R): compressive, spontaneous, phasic, augmentation FEM (R): compressive, spontaneous, phasic, augmentation POP (R): compressive, spontaneous, phasic, augmentation PTV (R): Compressible GSV (R): Compressible Peroneals (R):Compressible GAS (R): Compressible CFV (L): compressive, spontaneous, phasic, augmentation FEM (L): compressive, spontaneous, phasic, augmentation POP (L): compressive, spontaneous, phasic, augmentation PTV (L): Compressible GSV (L): Compressible Peroneals (L):Compressible GAS (L): Compressible Findings Study suggests no evidence of DVT or SVT of the bilateral lower extremities. Conclusion Study suggests no evidence of DVT or SVT of the bilateral lower extremities. Electronically signed by : Reno Alonso MD 02/17/2021 15:35:10
[2021-02-17 10:06] LABS: Alanine Aminotransferase 69 U/L (12-78); Albumin Level 3.7 g/dl (3.5-5.0); Alkaline Phosphatase 113 U/L (38-126); Aspartate Amino Transferase 135 U/L (17-59); Bilirubin,Direct 0.3 mg/dl (0.0-0.4); Bilirubin,Indirect 0.6 mg/dL (0.0-0.9); Bilirubin,Total 0.9 mg/dl (0.2-1.3); Bilirubin,Unconjugated 0.5 mg/dL (0.0-1.1)
[2021-02-17 10:42] LABS: C-Reactive Protein 21.4 mg/L (0-4)
[2021-02-17 10:52] LABS: Chloride 100 mmol/L (98-107); Potassium 3.8 mmoL/L (3.5-5.1); Sodium 143 mmol/L (136-145)
[2021-02-17 10:55] LABS: Alanine Aminotransferase 60 U/L (12-78); Albumin Level 3.6 g/dl (3.5-5.0); Albumin/Globulin Ratio 1.3 (1.1-1.8); Alkaline Phosphatase 110 U/L (38-126); Anion Gap 18.8 mEq/L (5-15); Aspartate Amino Transferase 121 U/L (17-59); Bilirubin,Total 0.8 mg/dl (0.2-1.3); Blood Urea Nitrogen 31 mg/dl (9-20); Calcium 9.1 mg/dl (8.4-10.2); Carbon Dioxide 28 mmol/L (22.0-30.0); Creatinine Clearance Estimated 99 mL/min (50-200); Estimated Glomerular Filt Rate 99 ml/min (>60); GFR (African American) 119 ML/MIN (>60); Globulin 2.8 g/dL (1.3-3.2); Glucose 138 mg/dl (74-100); Total Protein,Serum 6.4 g/dl (6.3-8.2)
[2021-02-17 11:08] LABS: Basophils % 0.3 % (0.1-2.0); Hematocrit 41.6 % (42.0-52.0); Hemoglobin 13.2 g/dL (14.1-18.0); Lymphocytes # 0.6 K/mm3 (0.7-4.5); Lymphocytes % 9.6 % (10-50); Mean Corpuscular HGB Conc 31.7 g/dL (31.8-35.4); Mean Corpuscular Hemoglobin 29.1 pg (27.0-31.2); Mean Corpuscular Volume 91.7 fl (80-94); Mean Platelet Volume 8.8 fl (7.4-10.4); Monocytes # 0.4 K/mm3 (0.1-1.0); Monocytes % 7.1 % (1.7-9.3); Neutrophils # 5.2 K/mm3 (1.8-7.8); Platelet Count 261 K/mm3 (142-424); Red Blood Count 4.53 M/mm3 (4.60-6.20); Red Cell Distribution Width 13.3 % (11.5-17.5); White Blood Count 6.3 K/mm3 (4.8-10.8)
--- NOTE | 2021-02-17 11:55 | HMH.PULMCON ---
*Admission Date: 02/15/21 *Reason for consult:: Acute hypoxic respiratory failure, COVID-19 pneumonia *History of present illness: History and physical was limited as patient was sedated as he just received Haldol and Ativan for his agitation. Much of the information obtained on HPI. Mr. Tanner is a 60-year-old male presented to the hospital with progressively worsening respiratory distress and found to be COVID-19 positive. Patient also admits remote history of pneumothorax. [facility] History Medical History: Reports:: Gastroesophageal Reflux Disease(GERD) Denies:: Cancer, Diabetes Mellitus Type 1, Diabetes Mellitus Type 2, MRSA *Have you ever received a pneumonia vaccine?: No *Have you received a flu vaccine this season?: No Other Surgeries: Yes: Other Amputation: No Fractures: No - *Social History Last grade of school completed: High school graduate Smoking Status: Former smoker # Packs/Day (cigarettes): 1 Alcohol Intake: former Substance Use Type: prescription drug *Occupational Status:: other Household Members: spouse *Travel in the last 8 weeks: None Family Hx:: No significant family history ROS - Review of Systems Unable to obtain as patient was obtunded, unable to wake up to have an appropriate meaningful conversation. Meds Home Medications Medication Instructions Recorded Confirmed Type Buprenorphine HCl/Naloxone HCl 1.5 tab SL DAILY 12/20/17 02/15/21 History [Buprenorphine-Nalox 8-2 mg Tab] Allergies Allergy/AdvReac Type Severity Reaction Status Date / Time No Known Allergies Allergy Verified 10/25/18 11:18 Exam - Constitutional Constitutional:: Present: no acute distress, comfortable - HENMT Exam HENMT: Present: normocephalic - Eye Exam Eyes:: Present: normal appearance both eyes and related structures - Neck Exam Neck:: Present: normal visual inspection - Respiratory Exam Respiratory:: Present: respiratory distress - Cardiovascular Exam Cardiac:: Present: S1, S2 - GI Exam GI:: Present: soft - Skin Exam Skin: Present: warm - Neurological Exam Neurological: Absent: alert, awake, normal cognition - Extremities Exam Extremities: Present: no cyanosis, no clubbing, no edema Internal Medicine - CN: Reslt - Labs CBC & Chem 7: 02/17/21 10:59 02/17/21 09:24 Labs: Short CBC 02/17/21 Range/Units 10:59 WBC 6.3 D (4.8-10.8) K/mm3 Hgb 13.2 L (14.1-18.0) g/dL Hct 41.6 L (42.0-52.0) % Plt Count 261 D (142-424) K/mm3 BMP 02/17/21 09:24 Sodium 143 Potassium 3.8 Chloride 100 Carbon Dioxide 28 BUN 31 H D Creatinine 0.80 D Glucose 138 H Calcium 9.1 Liver Function 02/17/21 02/17/21 Range/Units 09:24 09:24 Total Bilirubin 0.8 0.9 (0.2-1.3) mg/dl Direct Bilirubin 0.3 (0.0-0.4) mg/dl AST 121 H 135 H (17-59) U/L ALT 60 D 69 (12-78) U/L Alkaline Phosphatase 110 113 (38-126) U/L Albumin 3.6 3.7 (3.5-5.0) g/dl - ABG Interpretation ABG results: 02/16/21 18:47 ABG pH 7.50 H ABG pCO2 34.3 L ABG pO2 77.5 L ABG HCO3 26.1 H ABG Total CO2 27.1 H ABG O2 Saturation 95 ABG Base Excess 2.9 H Assessment and Plan (1) Tobacco use Status: Acute Category: Social Hx Code(s): Z72.0 - Tobacco use (2) Pneumonia due to COVID-19 virus Status: Acute Category: Medical Code(s): U07.1 - COVID-19; J12.82 - Pneumonia due to coronavirus disease 2019 (3) GERD (gastroesophageal reflux disease) Status: Acute Qualifiers: Esophagitis presence: esophagitis presence not specified Qualified Code(s): K21.9 - Gastro-esophageal reflux disease without esophagitis Category: Medical Code(s): K21.9 - Gastro-esophageal reflux disease without esophagitis (4) COPD (chronic obstructive pulmonary disease) Status: Acute Qualifiers: COPD type: unspecified COPD Qualified Code(s): J44.9 - Chronic obstructive pulmonary disease, unspecified Category: Medical Code(s): J44
--- NOTE | 2021-02-17 12:59 | HMH.ACPN2 ---
Internal Medicine - PN: Subj *Date: 02/17/21 *Time: 19:03 Interval history: Pt with confusion this morning. Containing decent saturations on a nonrebreather. Exam Vital signs and Labs for Last 24 Hours: Temp Pulse Resp BP Pulse Ox 97.9 F 63 20 93/61 L 88 L 02/17/21 04:00 02/17/21 11:50 02/17/21 11:50 02/17/21 11:50 02/17/21 11:50 Laboratory Results - last 24 hr 02/16/21 18:47: Specimen Source R brachial, O2 % Nrb, ABG pH 7.50 H, ABG pCO2 34.3 L, ABG pO2 77.5 L, ABG HCO3 26.1 H, ABG Total CO2 27.1 H, ABG O2 Saturation 95, ABG Base Excess 2.9 H 02/17/21 09:24: Sodium 143, Potassium 3.8, Chloride 100, Carbon Dioxide 28, Anion Gap 18.8 H, BUN 31 H D, Creatinine 0.80 D, Estimated Creat Clear 99, Estimated GFR 99, Est GFR ( Amer) 119 D, Glucose 138 H, Calcium 9.1, Total Bilirubin 0.8, AST 121 H, ALT 60 D, Alkaline Phosphatase 110, Total Protein 6.4, Albumin 3.6, Globulin 2.8, Albumin/Globulin Ratio 1.3 02/17/21 09:24: Total Bilirubin 0.9, Direct Bilirubin 0.3, Conjugated Bilirubin 0.0, Indirect Bilirubin 0.6, Unconjugated Bilirubin 0.5, AST 135 H, ALT 69, Alkaline Phosphatase 113, Total Protein 7.0, Albumin 3.7 02/17/21 09:24: C-Reactive Protein 21.4 H 02/17/21 10:59: WBC 6.3 D, RBC 4.53 L, Hgb 13.2 L, Hct 41.6 L, MCV 91.7, MCH 29.1, MCHC 31.7 L, RDW 13.3, Plt Count 261 D, MPV 8.8, Neut % (Auto) 83.0 H, Lymph % (Auto) 9.6 L, Parker % (Auto) 7.1, Eos % (Auto) 0.0 L, Baso % (Auto) 0.3, Neut # (Auto) 5.2, Lymph # (Auto) 0.6 L, Parker # (Auto) 0.4, Eos # (Auto) 0.0, Baso # (Auto) 0.0 I & O for Last 24 hours: Intake & Output 02/14/21 02/15/21 02/16/21 02/17/21 23:59 23:59 23:59 23:59 Intake Total 560 / 560 150 / 150 Output Total 1200 / 1400 200 / 200 Balance 560 / -140 -1050 / -1250 -200 / -200 Weight 162 lb 160 lb 6.4 oz 156 lb 8.451 oz - Constitutional no acute distress, thin, disheveled, agitated - *Routine HEENT Exam Head: Present: normocephalic Eye: Present: EOMI, PERRL ENT: Present: mucous membranes moist - *Routine Neck Exam Present: supple. Absent: lymphadenopathy - *Routine Respiratory Exam Present: rhonchi. Absent: accessory muscle use, respiratory distress, stridor, wheezes - *Routine Cardiovascular Exam Present: RRR - *Routine Abdominal Exam Present: soft, normoactive bowel sounds. Absent: tenderness - *Routine Extremities Exam Absent: cyanosis, clubbing, edema - *Routine Skin Exam Present: warm. Absent: rash - *Routine Neurological Exam Present: alert, moving all extremities. Absent: oriented X3, tremors - Routine Psychiatric Exam Present: anxious, agitated, paranoid. Absent: normal affect, normal thought process, cooperative, good insight, good judgment Assessment and Plan (1) Tobacco use Status: Acute Category: Social Hx Code(s): Z72.0 - Tobacco use (2) Pneumonia due to COVID-19 virus Status: Acute Category: Medical Code(s): U07.1 - COVID-19; J12.82 - Pneumonia due to coronavirus disease 2019 (3) GERD (gastroesophageal reflux disease) Status: Acute Qualifiers: Esophagitis presence: esophagitis presence not specified Qualified Code(s): K21.9 - Gastro-esophageal reflux disease without esophagitis Category: Medical Code(s): K21.9 - Gastro-esophageal reflux disease without esophagitis (4) COPD (chronic obstructive pulmonary disease) Status: Acute Qualifiers: COPD type: unspecified COPD Qualified Code(s): J44.9 - Chronic obstructive pulmonary disease, unspecified Category: Medical Code(s): J44.9 - Chronic obstructive pulmonary disease, unspecified (5) COVID-19 Status: Acute Category: Medical Code(s): U07.1 - COVID-19 (6) Respiratory failure with hypoxia Status: Acute Qualifiers: Chronicity: acute Qualified Code(s): J96.01 - Acute respiratory failure with hypoxia Category: Medical Code(s): J96.91 - Respiratory failure, unspecified with hypoxia - Assessment and plan all Dx Assessment
--- NOTE | 2021-02-17 18:33 | PC.NURSE ---
Pt has been restless, confused, uncooperative with staff and treatment. Pt pulling out IV's and continuously removes oxygen mask. Notified MD of patient's behavior. Alcohol withdrawl protocol initiated. Pt was medicated per MAR and has remained stable and resting in room comfortably. No distress noted. No further uncooperative behavior noted. Will continue to monitor.
--- NOTE | 2021-02-17 18:40 | PC.NURSE ---
PATIENT UNABLE TO FOLLOW DIRECTIONS FOR SPUTUM COLLECTION
[2021-02-17 22:16] LABS: Ferritin 1470 ng/ml (17.9-464)
[2021-02-18] VITALS (8 sets, daily range): BP systolic 75–113; BP diastolic 52–90; PULSE 71–114; RESP 20–22; TEMP 36.1–36.9; O2SAT 86–96; BMI 24.4
[2021-02-18 01:12] LABS: Microscopic, Urine URINE MICROSCOPIC (MICROSCOPIC)
[2021-02-18 01:22] LABS: Appearance,Urine CLEAR (Clear); Bilirubin,Urine Negative (Negative); Blood, Urine Negative (Negative); Color,Urine YELLOW (Yellow); Glucose,Urine (UA) Negative (Negative); Ketones,Urine Negative (Negative); Leukocyte Esterase,Urine Negative (Negative); Nitrate,Urine Negative (Negative); Protein,Urine TRACE (Negative); Specific Gravity, Urine 1.025 (1.005-1.030)
[2021-02-18 01:59] LABS: Bacteria,Urine Trace /lpf
--- NOTE | 2021-02-18 04:53 | PC.NURSE ---
Pt has been restless at times. Safety measures in place. F/C placed due to urinary retention. Urinary output 600 ml this shift. Pt remains on 100% NRB with O2 sats low to mid 90s. VSS. Medications administered per mar. Will continue to monitor.
--- NOTE | 2021-02-18 06:00 | XR_ITS ---
PROCEDURE INFORMATION: Exam: XR Chest Exam date and time: 02/18/2021 6:00 AM Age: 60 years old Clinical indication: Shortness of breath; Additional info: Covid pna TECHNIQUE: Imaging protocol: XR of the chest. Views: 1 view. COMPARISON: 1. CR XR CHEST PORTABLE 02/17/2021 5:[address] ANGIO CHEST PE PROTOCOL 02/15/2021 12:06:54 PM FINDINGS: Lungs: Bilateral ground-glass pulmonary infiltrates are stable and consistent with COVID-19 pneumonia. There is bilateral lower lobe involvement and extensive left upper lobe involvement on CT of 02/15/2021 explaining the asymmetric appearance. Pleural spaces: Unremarkable. No pleural effusion. No pneumothorax. Heart/Mediastinum: Unremarkable. No cardiomegaly. Bones/joints: Unremarkable. IMPRESSION: Bilateral ground-glass pulmonary infiltrates are stable and consistent with COVID-19 pneumonia. There is bilateral lower lobe involvement and extensive left upper lobe involvement on CT of 02/15/2021 explaining the asymmetric appearance.
[2021-02-18 06:46] LABS: Basophils % 0.1 % (0.1-2.0); Hematocrit 35.2 % (42.0-52.0); Lymphocytes # 0.8 K/mm3 (0.7-4.5); Lymphocytes % 17.6 % (10-50); Mean Corpuscular HGB Conc 31.9 g/dL (31.8-35.4); Mean Corpuscular Hemoglobin 29.4 pg (27.0-31.2); Mean Platelet Volume 8.9 fl (7.4-10.4); Monocytes # 0.3 K/mm3 (0.1-1.0); Monocytes % 6.9 % (1.7-9.3); Neutrophils # 3.4 K/mm3 (1.8-7.8); Neutrophils % 75.3 % (37.0-80.0); Platelet Count 288 K/mm3 (142-424); Red Blood Count 3.82 M/mm3 (4.60-6.20); Red Cell Distribution Width 13.4 % (11.5-17.5); White Blood Count 4.5 K/mm3 (4.8-10.8)
[2021-02-18 07:14] LABS: Anion Gap 6.6 mEq/L (5-15); Blood Urea Nitrogen 28 mg/dl (9-20); Calcium 7.7 mg/dl (8.4-10.2); Carbon Dioxide 34 mmol/L (22.0-30.0); Chloride 106 mmol/L (98-107); Creatinine Clearance Estimated 135 mL/min (50-200); Estimated Glomerular Filt Rate 137 ml/min (>60); GFR (African American) 166 ML/MIN (>60); Glucose 114 mg/dl (74-100); Potassium 3.6 mmoL/L (3.5-5.1); Sodium 143 mmol/L (136-145)
[2021-02-18 07:29] LABS: Hemoglobin 11.2 g/dL (14.1-18.0)
[2021-02-18 08:20] LABS: Alanine Aminotransferase 62 U/L (12-78); Albumin Level 2.7 g/dl (3.5-5.0); Alkaline Phosphatase 52 U/L (38-126); Aspartate Amino Transferase 171 U/L (17-59); Bilirubin,Direct 0.5 mg/dl (0.0-0.4); Bilirubin,Indirect 0.3 mg/dL (0.0-0.9); Bilirubin,Total 0.8 mg/dl (0.2-1.3); Bilirubin,Unconjugated 0.3 mg/dL (0.0-1.1); Total Protein,Serum 5.6 g/dl (6.3-8.2)
--- NOTE | 2021-02-18 10:22 | HMH.ACPN2 ---
Internal Medicine - PN: Subj *Date: 02/18/21 *Time: 12:52 Interval history: 60-year-old male patient sitting up in bed, oxygenation 90% on nonrebreather. He is not appropriate to most questioning, but will answer yes or no at times. Exam Vital signs and Labs for Last 24 Hours: Temp Pulse Resp BP Pulse Ox 97.2 F L 99 H 20 113/59 L 88 L 02/18/21 08:00 02/18/21 08:00 02/18/21 08:00 02/18/21 08:00 02/18/21 08:00 Laboratory Results - last 24 hr 02/17/21 09:24: Sodium 143, Potassium 3.8, Chloride 100, Carbon Dioxide 28, Anion Gap 18.8 H, BUN 31 H D, Creatinine 0.80 D, Estimated Creat Clear 99, Estimated GFR 99, Est GFR ( Amer) 119 D, Glucose 138 H, Calcium 9.1, Total Bilirubin 0.8, AST 121 H, ALT 60 D, Alkaline Phosphatase 110, Total Protein 6.4, Albumin 3.6, Globulin 2.8, Albumin/Globulin Ratio 1.3 02/17/21 09:24: AST 135 H, ALT 69, Total Protein 7.0, Albumin 3.7 02/17/21 09:24: Ferritin 1470 H D, C-Reactive Protein 21.4 H 02/17/21 10:59: WBC 6.3 D, RBC 4.53 L, Hgb 13.2 L, Hct 41.6 L, MCV 91.7, MCH 29.1, MCHC 31.7 L, RDW 13.3, Plt Count 261 D, MPV 8.8, Neut % (Auto) 83.0 H, Lymph % (Auto) 9.6 L, [place] % (Auto) 7.1, Eos % (Auto) 0.0 L, Baso % (Auto) 0.3, Neut # (Auto) 5.2, Lymph # (Auto) 0.6 L, [place] # (Auto) 0.4, Eos # (Auto) 0.0, Baso # (Auto) 0.0 02/18/21 00:46: Urine Color Yellow, Urine Appearance Clear, Urine pH 6.0, Ur Specific Sikes 1.025, Urine Protein Trace, Urine Glucose (UA) Negative, Urine Ketones Negative, Urine Blood Negative, Urine Nitrate Negative, Urine Bilirubin Negative, Urine Urobilinogen 1.0, Ur Leukocyte Esterase Negative, Urine Bacteria Trace 02/18/21 06:00: Total Bilirubin 0.8, Direct Bilirubin 0.5 H, Conjugated Bilirubin 0.0, Indirect Bilirubin 0.3, Unconjugated Bilirubin 0.3, AST 171 H D, ALT 62, Alkaline Phosphatase 52, Total Protein 5.6 L, Albumin 2.7 L D 02/18/21 06:00: WBC 4.5 L D, RBC 3.82 L, Hgb 11.2 L D, Hct 35.2 L, MCV 92.0, MCH 29.4, MCHC 31.9, RDW 13.4, Plt Count 288, MPV 8.9, Neut % (Auto) 75.3, Lymph % (Auto) 17.6, [place]atte % (Auto) 6.9, Eos % (Auto) 0.0 L, Baso % (Auto) 0.1, Neut # (Auto) 3.4, Lymph # (Auto) 0.8, [place] # (Auto) 0.3, Eos # (Auto) 0.0, Baso # (Auto) 0.0 02/18/21 06:00: Sodium 143, Potassium 3.6, Chloride 106, Carbon Dioxide 34 H, Anion Gap 6.6, BUN 28 H, Creatinine 0.60 L D, Estimated Creat Clear 135, Estimated GFR 137, Est GFR ( Amer) 166 D, Glucose 114 H, Calcium 7.7 L I & O for Last 24 hours: Intake & Output 02/15/21 02/16/21 02/17/21 02/18/21 23:59 23:59 23:59 23:59 Intake Total 560 / 560 150 / 150 540 / 540 Output Total 1200 / 1400 200 / 600 600 / 600 Balance 560 / -140 -1050 / -1250 340 / -60 -600 / -600 Weight 162 lb 160 lb 6.4 oz 156 lb 8.451 oz 161 lb - Constitutional mild distress, chronically ill appearing - *Routine HEENT Exam Head: Present: normocephalic Eye: Present: EOMI ENT: Present: mucous membranes moist - *Routine Neck Exam Present: trachea midline. Absent: tracheal deviation - *Routine Respiratory Exam Present: decreased breath sounds. Absent: accessory muscle use - *Routine Cardiovascular Exam Present: RRR - *Routine Abdominal Exam Present: soft, normoactive bowel sounds. Absent: tenderness, firm - *Routine Extremities Exam Present: full ROM, pulses intact. Absent: cyanosis, clubbing - *Routine Skin Exam Present: intact, dry, warm. Absent: cyanosis, erythema - *Routine Neurological Exam Present: alert, altered mental status - Routine Psychiatric Exam Present: unable to assess Assessment and Plan (1) Tobacco use Status: Acute Category: Social Hx Code(s): Z72.0 - Tobacco use (2) Pneumonia due to COVID-19 virus Status: Acute Category: Medical Code(s): U07.1 - COVID-19; J12.82 - Pneumonia due to coronavirus disease 2019 (3) GERD (gastroesophageal reflux disease) Status: Acute Qualifiers: Esophagitis presence: esophagitis presence not specified Qualified Code(s): K21.9 - Gastro-esoph
--- NOTE | 2021-02-18 12:25 | HMH.PULMPN ---
Internal Medicine - PN: Subj *Date: 02/18/21 *Time: 12:25 Interval history: No acute respiratory events overnight. Exam - Constitutional Constitutional:: Present: no acute distress, comfortable - HENMT Exam HENMT: Present: normocephalic, atraumatic - Eye Exam Eyes:: Present: normal appearance both eyes and related structures - Neck Exam Neck:: Present: normal visual inspection - Respiratory Exam Respiratory:: Present: no respiratory distress - Cardiovascular Exam Cardiac:: Present: S1, S2 - GI Exam GI:: Present: soft - Skin Exam Skin: Present: warm - Neurological Exam Neurological: Absent: alert, awake, normal cognition - Extremities Exam Extremities: Present: no cyanosis, no clubbing, no edema Assessment and Plan (1) Tobacco use Status: Acute Category: Social Hx Code(s): Z72.0 - Tobacco use (2) Pneumonia due to COVID-19 virus Status: Acute Category: Medical Code(s): U07.1 - COVID-19; J12.82 - Pneumonia due to coronavirus disease 2019 (3) GERD (gastroesophageal reflux disease) Status: Acute Qualifiers: Esophagitis presence: esophagitis presence not specified Qualified Code(s): K21.9 - Gastro-esophageal reflux disease without esophagitis Category: Medical Code(s): K21.9 - Gastro-esophageal reflux disease without esophagitis (4) COPD (chronic obstructive pulmonary disease) Status: Acute Qualifiers: COPD type: unspecified COPD Qualified Code(s): J44.9 - Chronic obstructive pulmonary disease, unspecified Category: Medical Code(s): J44.9 - Chronic obstructive pulmonary disease, unspecified (5) COVID-19 Status: Acute Category: Medical Code(s): U07.1 - COVID-19 (6) Respiratory failure with hypoxia Status: Acute Qualifiers: Chronicity: acute Qualified Code(s): J96.01 - Acute respiratory failure with hypoxia Category: Medical Code(s): J96.91 - Respiratory failure, unspecified with hypoxia - Assessment and plan all Dx Assessment and Plan for all problems:: #Acute hypoxic respiratory failure: #COVID-19 pneumonia: CT on admission did not show any onset pulmonary exam however showed diffuse bilateral patchy pulmonary infiltrates. D-dimer elevated at 0.81. CRP at 21.4 Patient was initiated on remdesivir and dexamethasone along with ceftriaxone and azithromycin. Patient currently needing nonrebreather to maintain his saturations at 90% and above. Resp status remianed stable from prior. No evidence of DVT Plan: Continue nonrebreather oxygen supplementation to maintain O2 saturation goal of 90 and above. We will closely monitor and escalate to BiPAP if needed Continue remdesivir and dexamethasone for COVID-19 pneumonia. Continue barcitinib Continue ceftriaxone and azithromycin for COVID-19 pneumonia. DuoNebs every 6 hours scheduled #Thank you for involving pulmonary in this patient care. We will continue to follow.
--- NOTE | 2021-02-18 17:43 | PC.NURSE ---
pt has remained restless and confused throughout the shift despite PRN medication. pt has removed nonrebreather mask and monitors very frequently despite mittens in place. O2 sats frequently dropping r/t pt being uncooperative and removing O2 mask. staff frequently in room to replace monitors and O2 mask and remind the patient to leave mask in place. pt mental status remains very confused. bed alarm activated. f/c patent and draining at bedside. IV patent and infusing to right hand. will continue to monitor.
[2021-02-19] VITALS (29 sets, daily range): BP systolic 72–165; BP diastolic 43–100; PULSE 67–115; RESP 19–30; TEMP 37.2–38.4; O2SAT 82–100; BMI 25.0
--- NOTE | 2021-02-19 04:00 | PC.NURSE ---
Pt has been less restless. He remains confused. Remains on NRB with O2 sats low to mid 90s. VSS. Will continue to monitor.
--- NOTE | 2021-02-19 06:00 | XR_ITS ---
PROCEDURE INFORMATION: Exam: XR Chest Exam date and time: 02/19/2021 6:00 AM Age: 60 years old Clinical indication: Shortness of breath; Additional info: Covid pna TECHNIQUE: Imaging protocol: XR of the chest. Views: 1 view. COMPARISON: CR XR CHEST PORTABLE 02/18/2021 5:16 AM FINDINGS: Lungs: Large, geographic airspace opacities centered in the left mid lung and right lower lung. Degree of airspace disease appears mildly worsened/more confluent since most recent prior. Pleural spaces: No pleural effusion. No pneumothorax. Heart/Mediastinum: Normal heart size. Bones/joints: Spondylosis. IMPRESSION: Bilateral pneumonia, with mild imaging progression/worsening compared to 02/18/2021.
[2021-02-19 08:03] LABS: Anion Gap 6.7 mEq/L (5-15); Blood Urea Nitrogen 18 mg/dl (9-20); Calcium 7.5 mg/dl (8.4-10.2); Carbon Dioxide 31 mmol/L (22.0-30.0); Chloride 110 mmol/L (98-107); Creatinine Clearance Estimated 139 mL/min (50-200); Estimated Glomerular Filt Rate 137 ml/min (>60); GFR (African American) 166 ML/MIN (>60); Glucose 89 mg/dl (74-100); Potassium 3.7 mmoL/L (3.5-5.1); Sodium 144 mmol/L (136-145)
--- NOTE | 2021-02-19 08:41 | P.PN_ITS ---
Internal Medicine - PN: Subj *Date: 02/19/21 *Time: 12:44 Interval history: 60-year-old male patient lying in bed does not answer questions but will occasionally say yes or no. Nonrebreather in place with oxygenation of 94% Exam Vital signs and Labs for Last 24 Hours: Temp Pulse Resp BP Pulse Ox 99.0 F 69 20 108/59 L 92 L 02/19/21 04:00 02/19/21 06:40 02/19/21 04:00 02/19/21 04:00 02/19/21 04:00 Laboratory Results - last 24 hr 02/19/21 05:55: Sodium 144, Potassium 3.7, Chloride 110 H, Carbon Dioxide 31 H, Anion Gap 6.7, BUN 18 D, Creatinine 0.60 L, Estimated Creat Clear 139, Estimated GFR 137, Est GFR ( Amer) 166, Glucose 89 D, Calcium 7.5 L I & O for Last 24 hours: Intake & Output 02/16/21 02/17/21 02/18/21 02/19/21 23:59 23:59 23:59 23:59 Intake Total 150 / 150 540 / 540 Output Total 1200 / 1400 200 / 600 1052 / 1352 900 / 900 Balance -1050 / -1250 340 / -60 -1052 / -1352 -900 / -900 Weight 160 lb 6.4 oz 156 lb 8.451 oz 161 lb 165 lb 3 oz - Constitutional no acute distress, chronically ill appearing, disheveled - *Routine HEENT Exam Head: Present: normocephalic Eye: Present: EOMI ENT: Present: mucous membranes moist - *Routine Neck Exam Present: trachea midline. Absent: tracheal deviation - *Routine Respiratory Exam Present: crackles. Absent: accessory muscle use - *Routine Cardiovascular Exam Present: RRR - *Routine Abdominal Exam Present: soft, normoactive bowel sounds. Absent: tenderness, firm - *Routine Extremities Exam Present: full ROM, pulses intact. Absent: cyanosis, clubbing, edema - *Routine Skin Exam Present: intact, dry, warm. Absent: cyanosis, erythema - *Routine Neurological Exam Present: alert, altered mental status - Routine Psychiatric Exam Present: unable to assess Assessment and Plan (1) Tobacco use Status: Acute Category: Social Hx Code(s): Z72.0 - Tobacco use (2) Pneumonia due to COVID-19 virus Status: Acute Category: Medical Code(s): U07.1 - COVID-19; J12.82 - Pneumonia due to coronavirus disease 2019 (3) GERD (gastroesophageal reflux disease) Status: Acute Qualifiers: Esophagitis presence: esophagitis presence not specified Qualified Code(s): K21.9 - Gastro-esophageal reflux disease without esophagitis Category: Medical Code(s): K21.9 - Gastro-esophageal reflux disease without esophagitis (4) COPD (chronic obstructive pulmonary disease) Status: Acute Qualifiers: COPD type: unspecified COPD Qualified Code(s): J44.9 - Chronic obstructive pulmonary disease, unspecified Category: Medical Code(s): J44.9 - Chronic obstructive pulmonary disease, unspecified (5) COVID-19 Status: Acute Category: Medical Code(s): U07.1 - COVID-19 (6) Respiratory failure with hypoxia Status: Acute Qualifiers: Chronicity: acute Qualified Code(s): J96.01 - Acute respiratory failure wi th hypoxia Category: Medical Code(s): J96.91 - Respiratory failure, unspecified with hypoxia - Assessment and plan all Dx Assessment and Plan for all problems:: Rounded with Dr. Camilo, all orders per Dr. Camilo: 1. Pulmonology following 2. Continue to wean oxygen as tolerated
[2021-02-19 08:55] LABS: Alanine Aminotransferase 98 U/L (12-78); Albumin Level 2.5 g/dl (3.5-5.0); Alkaline Phosphatase 85 U/L (38-126); Aspartate Amino Transferase 227 U/L (17-59); Bilirubin,Direct 0.2 mg/dl (0.0-0.4); Bilirubin,Indirect 0.5 mg/dL (0.0-0.9); Bilirubin,Total 0.7 mg/dl (0.2-1.3); Bilirubin,Unconjugated 0.5 mg/dL (0.0-1.1); Total Protein,Serum 5.2 g/dl (6.3-8.2)
[2021-02-19 09:16] LABS: ABG HCO3 25.9 mmhg (22.0-26.0); ABG Oxygen Saturation 83 % (90-100); ABG PCO2 33.1 mmhg (35.0-45.0); ABG PH 7.51 mmol/L (7.35-7.45)
[2021-02-19 09:17] LABS: Oxygen NRB %
[2021-02-19 09:18] LABS: ABG PO2 43.8 mmhg (80-100); Source R BRACHIAL
--- NOTE | 2021-02-19 09:23 | XR_ITS ---
PROCEDURE: XR CHEST PORTABLE CLINICAL HISTORY: SHORTNESS OF BREATH COMPARISON: CT CT ANGIO CHEST PE PROTOCOL from 02/15/2021 CR XR CHEST PORTABLE from 02/17/2021 CR XR CHEST PORTABLE from 02/18/2021 CR XR CHEST PORTABLE from 02/19/2021 FINDINGS: Two images submitted 1 at 9:50 a.m. showing an endotracheal tube 1 cm above the yandy. Image number 2 at 9:52 a.m. shows endotracheal tube 2.5 cm above the yandy. There remains bilateral pneumonia not significantly changed in the left lung and right lower lobe. IMPRESSION: Interval insertion of endotracheal tube. The tube tip is 2.5 cm above the yandy on the final image. No change bilateral pneumonia. Dictated by: Reno Alonso MD 02/19/2021 10:15 Reno Alonso MD in OV 02/19/2021 10:15
--- NOTE | 2021-02-19 09:26 | PC.NURSE ---
[id number]: DR. PRICE ARRIVED TO [facility] FOR RAPID RESPONSE.
--- NOTE | 2021-02-19 10:43 | XR_ITS ---
PROCEDURE: XR CHEST PORTABLE CLINICAL HISTORY: OG placement COMPARISON: CT CT ANGIO CHEST PE PROTOCOL from 02/15/2021 CR XR CHEST PORTABLE from 02/18/2021 CR XR CHEST PORTABLE from 02/19/2021 CR XR CHEST PORTABLE from 02/19/2021 FINDINGS: 11:46 a.m.. Endotracheal tube tip is 2 cm above the yandy. Nasogastric tube tip is in the region of the body of the stomach. No change right lower lobe left upper and left lower lobe pneumonia. No evidence of pneumothorax. No effusions. IMPRESSION: Nasogastric tube has been placed with tip in the region the body stomach. Endotracheal tube tip in good position. No change bilateral pneumonia Dictated by: Reno Alonso MD 02/19/2021 12:05 Reno Alonso MD in OV 02/19/2021 12:05
[2021-02-19 10:44] LABS: ABG Base Excess 0.1 mmol/L (-2.4-2.3); ABG HCO3 25.4 mmhg (22.0-26.0); ABG Oxygen Saturation 97 % (90-100); ABG PCO2 45.5 mmhg (35.0-45.0); ABG PH 7.37 mmol/L (7.35-7.45); ABG PO2 103.2 mmhg (80-100); ABG TCO2 26.8 mmhg (23-27)
--- NOTE | 2021-02-19 10:46 | PC.NURSE ---
0920-Perla ULLOA, primary nurse, called rapid response d/t low o2 sats and increase in agitation. 0924-Dr. Lamas, ED MD, at bedside r/t rapid response. Respiratory team at BS, PharmD, [employer]. 0934-Pt initiated on Bipap per Respiratory team. Patient continues with agitation. O2 sats 84% with Bipap. 0938-Dr Lamas ready for intubation, Etom 30mg given per IV per . 0939-Rocuronium 100mg given per IV per . 0940-Dr. Lamas intubated patient with 7.5 ET tube, 23cm at the gum. Color change confirmed and breath sounds confirmed. Vent settings: Tidal Volume 440, FiO2 100%, PEEP 16, Rate 26. 0954-Radiology at bedside for CXR with confirmation of placement. 1015-BP 165/79, HR 121, R 20, end tidal 37, 97% O2 sats. Rectal temp 101.2, PRN tylenol supp. given per rectum. 2nd 20g IV placed to left forearm. 1020-manual BP: left arm: 140/100, right arm: 155/98. 1030-18fr OG placed at bedside. 1044-Fentanyl 25mcg drip and propofol 5mcg drip initiated per VO Dr. Bates for sedation. 1045-Dark yellow urine draining to bedside catheter bag. Heel protectors in place. Pressure relieving measures in place. 1050-Dr. Bates at bedside reviewing vent settings. MD wants vent settings as follows: A/C, TV 440, RR 22, PEEP 12, FiO2 100%. Patient sedating and resting comfortably, VS as follows: BP 144/88, Pulse 100, RR 22, O2 sats 96%. [employer] consult ordered for tube feedings per verbal order.
--- NOTE | 2021-02-19 11:22 | PC.NURSE ---
1122-BP 161/100, pulse 105, pt with increased involuntary movements noted. Increased fentanyl to 30 mcg and proprfol to 15mcg. Temp 99.1 axillary.
--- NOTE | 2021-02-19 11:27 | PC.NURSE ---
1128-Pt arousable, increased propofol to 20mcg and fentanyl 50mcg. Soft mittens applied to both hands. Will continue to observe.
--- NOTE | 2021-02-19 11:30 | P.PN_ITS ---
Internal Medicine - PN: Subj *Date: 02/19/21 *Time: 11:30 Exam Vital signs and Labs for Last 24 Hours: Temp Pulse Resp BP Pulse Ox 99.1 F 115 H 22 147/100 H 95 02/19/21 11:22 02/19/21 11:00 02/19/21 11:00 02/19/21 11:00 02/19/21 11:00 Laboratory Results - last 24 hr 02/19/21 05:55: Total Bilirubin 0.7, Direct Bilirubin 0.2, Conjugated Bilirubin 0.0, Indirect Bilirubin 0.5, Unconjugated Bilirubin 0.5, AST 227 H D, ALT 98 H D , Alkaline Phosphatase 85, Total Protein 5.2 L, Albumin 2.5 L 02/19/21 05:55: Sodium 144, Potassium 3.7, Chloride 110 H, Carbon Dioxide 31 H, Anion Gap 6.7, BUN 18 D, Creatinine 0.60 L, Estimated Creat Clear 139, Estimated GFR 137, Est GFR ( Amer) 166, Glucose 89 D, Calcium 7.5 L 02/19/21 09:14: Specimen Source R brachial, O2 % Nrb, ABG pH 7.51 H, ABG pCO2 33.1 L, ABG pO2 43.8 L, ABG HCO3 25.9, ABG Total CO2 27.0, ABG O2 Saturation 83 L*, ABG Base Excess 3.0 H I & O for Last 24 hours: Intake & Output 02/16/21 02/17/21 02/18/21 02/19/21 23:59 23:59 23:59 23:59 Intake Total 150 / 150 540 / 540 Output Total 1200 / 1400 200 / 600 1052 / 1352 900 / 900 Balance -1050 / -1250 340 / -60 -1052 / -1352 -900 / -900 Weight 72.756 kg 71 kg 73.028 kg 75 kg Assessment and Plan (1) Tobacco use Status: Acute Category: Social Hx Code(s): Z72.0 - Tobacco use (2) Pneumonia due to COVID-19 virus Status: Acute Category: Medical Code(s): U07.1 - COVID-19; J12.82 - Pneumonia due to coronavirus disease 2019 (3) GERD (gastroesophageal reflux disease) Status: Acute Qualifiers: Qualified Code(s): K21.9 - Gastro-esophageal reflux disease without esophagitis Category: Medical Code(s): K21.9 - Gastro-esophageal reflux disease without esophagitis (4) COPD (chronic obstructive pulmonary disease) Status: Acute Qualifiers: Qualified Code(s): J44.9 - Chronic obstructive pulmonary disease, unspecified Category: Medical Code(s): J44.9 - Chronic obstructive pulmonary disease, unspecified (5) COVID-19 Status: Acute Category: Medical Code(s): U07.1 - COVID-19 (6) Respiratory failure with hypoxia Status: Acute Qualifiers: Qualified Code(s): J96.01 - Acute respiratory failure with hypoxia Category: Medical Code(s): J96.91 - Respiratory failure, unspecified with hypoxia The patient's infection will respond to the chosen ABx?: Yes Is the patient receiving the right drug, dose, and route?: Yes Could a more targeted ABx be ordered?: No
--- NOTE | 2021-02-19 12:03 | PC.NURSE ---
1140 -INCREASED PROPOFOL 25 & FENTANYL 55 1150-INCREASED PROPOFOL 30 & FENTANYL 60 1155 - INCREASED PROPOFOL 35 & FENTANYL 65 1200 - INCREASED PROPOFOL 40 & FENTANYL 70 1205 - INCREASED PROPOFOL 45 & FENTANYL 75
--- NOTE | 2021-02-19 13:17 | HMH.PULMPN ---
Internal Medicine - PN: Subj *Date: 02/19/21 *Time: 13:17 Interval history: Patient respiratory status continued to decline with worsening oxygen respiratory distress eventually needing mechanical ventilatory support this morning. Exam - Constitutional Constitutional:: Present: comfortable - HENMT Exam HENMT: Present: normocephalic - Eye Exam Eyes:: Present: normal appearance both eyes and related structures - Neck Exam Neck:: Present: normal visual inspection - Respiratory Exam Respiratory:: Present: crackles - Cardiovascular Exam Cardiac:: Present: S1, S2 - GI Exam GI:: Present: soft - Skin Exam Skin: Present: warm - Neurological Exam Intubated and sedated - Extremities Exam Extremities: Present: no cyanosis, no clubbing, no edema Assessment and Plan (1) Tobacco use Status: Acute Category: Social Hx Code(s): Z72.0 - Tobacco use (2) Pneumonia due to COVID-19 virus Status: Acute Category: Medical Code(s): U07.1 - COVID-19; J12.82 - Pneumonia due to coronavirus disease 2019 (3) GERD (gastroesophageal reflux disease) Status: Acute Qualifiers: Esophagitis presence: esophagitis presence not specified Qualified Code(s): K21.9 - Gastro-esophageal reflux disease without esophagitis Category: Medical Code(s): K21.9 - Gastro-esophageal reflux disease without esophagitis (4) COPD (chronic obstructive pulmonary disease) Status: Acute Qualifiers: COPD type: unspecified COPD Qualified Code(s): J44.9 - Chronic obstructive pulmonary disease, unspecified Category: Medical Code(s): J44.9 - Chronic obstructive pulmonary disease, unspecified (5) COVID-19 Status: Acute Category: Medical Code(s): U07.1 - COVID-19 (6) Respiratory failure with hypoxia Status: Acute Qualifiers: Chronicity: acute Qualified Code(s): J96.01 - Acute respiratory failure with hypoxia Category: Medical Code(s): J96.91 - Respiratory failure, unspecified with hypoxia - Assessment and plan all Dx Assessment and Plan for all problems:: #Acute hypoxic respiratory failure: #COVID-19 pneumonia: CT on admission did not show any onset pulmonary embolism however showed diffuse bilateral patchy pulmonary infiltrates. No evidence of DVT D-dimer elevated at 0.81. CRP at 21.4 Patient was initiated on remdesivir and dexamethasone along with ceftriaxone and azithromycin. Patient respiratory status continued to decline with worsening respiratory distress and worsening oxygenation status eventually needing mechanical ventilatory support this morning. Plan: - Continue mechanical ventilatory support - Continue AnalgoSedation with Propofol and Fentanyl with CPOT gal less than or euqal to 2 and RASS goal of 1 to 2 - VAP bundle Elevate head of the bed at 30 to 45 degrees Oral care with chlorhexidne GI ulcer prophylaxis - Famotidine 20mg IV BID Recommend Chemical DVT prophylaxis -F/U Trach aspirate -Blood gas post intubation showed improving oxygenation. Mild hypercarbia, rate was increased to 22 -Continue remdesivir and dexamethasone for COVID-19 pneumonia. Continue barcitinib -Continue ceftriaxone and azithromycin for COVID-19 pneumonia. -DuoNebs every 6 hours scheduled #Thank you for involving pulmonary in this patient care. We will continue to follow.
[2021-02-19 13:20] LABS: Oxygen 100 %
[2021-02-19 13:21] LABS: PEEP 12; Source R BRACHIAL; Tidal Volume 440; Vent Rate 20
--- NOTE | 2021-02-19 17:42 | DIET.NUTRFU ---
Nutrition consult receiving for Alexi Score 8. Pt has had ensure on diet order, however has been confused and refusing all nutrition since wednesday- . Please continue efforts to encourage/cue and offer supplements as needed.
--- NOTE | 2021-02-19 17:46 | DIET.NUTRFU ---
Addendum entered by Deidre Mcgee 02/21/21 17:01: Pt started on new TF orders per Dr. Bates of goal rate 30ml/h while on pressors, currently at 20ml/h and tolerating fair-well- weight up 10# and pt did have liquid BM. GRV are minimal, MAP>60, one reading of 59 today. Recommend continuing at 20ml/h next 24h and reevaluating stability/tolerance before advancing. Pt continues on IVF and Propofol. Original Note: Nutrition consults received for Alexi score 8 and for enteral nutrition orders, pt intubated. Pt has been confused and refused all nutrition past 4d. High risk refeeding syndrome, slow and low TF advancement important. Will provide high protein as tolerated. Electrolytes currently wnl. Weight up 4# past 24h, likely fluid retention rt undernutrition. Pt receiving IVF and low dose propofol. Pt not currently hemodynamically stable, recommend initiating when MAP>60 24h. Upon MD order, recommend initiating continuous TF regimen of Pulmocare 1.5 at 20ml/h and advancing by 10ml/h q 8h as tolerated to goal rate of 47ml/h. Pt receiving IVF, recommend minimal water flushes of 30-60ml q 4h. If IVF dc'd water flushes of 210ml q 6h meet additional fluid needs not provided by formula. This regimen provides 1700kcal, 71g protein, 120g cho, 106g fat, 889ml free water(1700ml total fluids with flushes). Will monitor pt tolerance, meds, fluids to alter regimen as indicated.
--- NOTE | 2021-02-19 20:12 | HMH.PROC ---
[facility] Procedure Note Procedure Note:: I was called to the ICU at approximately 922 this morning to intubate this patient. Patient is Covid pneumonia and this fatigued on NIPPV. Patient stated he did want to be intubated. Patient received etomidate 30 mg IV followed by rocuronium 100 mg IV. Sharon scope was used to pass 7.5 ET tube via direct visualization. Bilateral breath sounds were auscultated. Confirmatory chest x-ray was obtained and the tube position was was corrected by 2 cm and repeat film obtained. Patient tolerated procedure well.
[2021-02-20] VITALS (31 sets, daily range): BP systolic 92–125; BP diastolic 57–79; PULSE 48–70; RESP 20–24; TEMP 35.8–37.2; O2SAT 51–100; BMI 25.9
--- NOTE | 2021-02-20 06:00 | XR_ITS ---
PROCEDURE INFORMATION: Exam: XR Chest Exam date and time: 02/20/2021 6:00 AM Age: 60 years old Clinical indication: Device placement; Ett placement (vent status); Additional info: Covid pna TECHNIQUE: Imaging protocol: XR of the chest. Views: 1 view. COMPARISON: CR XR CHEST PORTABLE 02/19/2021 11:38 AM FINDINGS: Tubes, catheters and devices: Endotracheal tube noted with the tip above the yandy approximately 2.5 cm. The endogastric tube is noted with distal portion overlying the stomach. Multiple overlying cardiac leads are present. Lungs: Persistent bilateral interstitial and airspace opacities noted, worst in the left mid to lower and right lower lung field. Pleural spaces: Unremarkable. No pleural effusion. No pneumothorax. Heart/Mediastinum: Unremarkable. No cardiomegaly. Bones/joints: Unremarkable. IMPRESSION: 1. No significant interval change. 2. Support catheters noted, as above. No pneumothorax.
[2021-02-20 07:43] LABS: Alanine Aminotransferase 79 U/L (12-78); Albumin Level 2.4 g/dl (3.5-5.0); Albumin/Globulin Ratio 0.9 (1.1-1.8); Alkaline Phosphatase 77 U/L (38-126); Anion Gap 10.8 mEq/L (5-15); Aspartate Amino Transferase 121 U/L (17-59); Bilirubin,Total 0.7 mg/dl (0.2-1.3); Blood Urea Nitrogen 14 mg/dl (9-20); Calcium 7.6 mg/dl (8.4-10.2); Carbon Dioxide 25 mmol/L (22.0-30.0); Chloride 111 mmol/L (98-107); Creatinine Clearance Estimated 172 mL/min (50-200); Estimated Glomerular Filt Rate 170 ml/min (>60); GFR (African American) 205 ML/MIN (>60); Globulin 2.6 g/dL (1.3-3.2); Glucose 153 mg/dl (74-100); Potassium 3.8 mmoL/L (3.5-5.1); Sodium 143 mmol/L (136-145)
[2021-02-20 07:44] LABS: ABG Base Excess -0.4 mmol/L (-2.4-2.3); ABG HCO3 24.5 mmhg (22.0-26.0); ABG Oxygen Saturation 99 % (90-100); ABG PCO2 40.8 mmhg (35.0-45.0); ABG PO2 156.3 mmhg (80-100); ABG TCO2 25.7 mmhg (23-27)
[2021-02-20 07:46] LABS: Allen's Test Patient Unable; Oxygen 90 %; PEEP 12; Source Left Radial; Tidal Volume 440; Vent Rate 22
--- NOTE | 2021-02-20 09:24 | HMH.ACPN2 ---
Internal Medicine - PN: Subj *Date: 02/20/21 *Time: 15:25 Interval history: 60-year-old male patient lying in bed intubated and sedated. He expressed increased restlessness and respiratory distress and required intubation, afterwards became hypotensive norepinephrine was started and he and sedated. 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, Tidal Volume 440, PEEP 12 02/20/21 06:10: Sodium 143, Potassium 3.8, Chloride 111 H, Carbon Dioxide 25, Anion Gap 10.8, BUN 14, Creatinine 0.50 L, Estimated Creat Clear 172, Estimated GFR 170, Est GFR ( Amer) 205 D, Glucose 153 H, Calcium 7.6 L, Total Bilirubin 0.7, AST 121 H D, ALT 79 H, Alkaline Phosphatase 77, Total Protein 5.0 L, Albumin 2.4 L, Globulin 2.6, Albumin/Globulin Ratio 0.9 L 02/20/21 06:59: Specimen Source Left radial, O2 % 90, ABG pH 7.40, ABG pCO2 40.8, ABG pO2 156.3 H, ABG HCO3 24.5, ABG Total CO2 25.7, ABG O2 Saturation 99, ABG Base Excess -0.4, [place] Test Patient unable, Vent Rate 22, Tidal Volume 440, PEEP 12 I & O for Last 24 hours: Intake & Output 02/17/21 02/18/21 02/19/21 02/20/21 23:59 23:59 23:59 23:59 Intake Total 540 / 540 3051 / 3051 1639 / 1639 Output Total 200 / 600 1052 / 1352 1195 / 1205 1970 / 1970 Balance 340 / -60 -1052 / -1352 1856 / 1846 -331 / -331 Weight 156 lb 8.451 oz 161 lb 165 lb 5.547 oz 171 lb Microbiology Reports for the Last 24 Hours: Microbiology 02/17/21 10:40 Sputum - Expectorated Sputum Gram Stain - Final - Constitutional no acute distress, chronically ill appearing - *Routine HEENT Exam Head: Present: normocephalic Eye: Present: EOMI ENT: Present: mucous membranes moist - *Routine Neck Exam Present: trachea midline. Absent: tracheal deviation - *Routine Respiratory Exam Present: crackles - *Routine Cardiovascular Exam Present: RRR - *Routine Abdominal Exam Present: soft, normoactive bowel sounds. Absent: distended, firm - *Routine Extremities Exam Present: pulses intact. Absent: cyanosis, clubbing - *Routine Skin Exam Present: intact, dry, warm. Absent: cyanosis, erythema - *Routine Neurological Exam Present: altered mental status Sedated - Routine Psychiatric Exam Present: unable to assess Comments: Sedated Assessment and Plan (1) Tobacco use Status: Acute Category: Social Hx Code(s): Z72.0 - Tobacco use (2) Pneumonia due to COVID-19 virus Status: Acute Category: Medical Code(s): U07.1 - COVID-19; J12.82 - Pneumonia due to coronavirus disease 2019 (3) GERD (gastroesophageal reflux disease) Status: Acute Qualifiers: Esophagitis presence: esophagitis presence not specified Qualified Code(s): K21.9 - Gastro-esophageal reflux disease without esophagitis Category: Medical Code(s): K21.9 - Gastro-esophageal reflux disease without esophagitis (4) COPD (chronic obstructive pulmonary disease) Status: Acute Qualifiers: COPD type: unspecified COPD Qualified Code(s): J44.9 - Chronic obstructive pulmonary disease, unspecified Category: Medical Code(s): J44.9 - Chronic obstructive pulmonary disease, unspecified (5) COVID-19 Status: Acute Category: Medical Code(s): U07.1 - COVID-19 (6) Respiratory failure with hypoxia Status: Acute Qualifiers: Chronicity: acute Qualified Code(s): J96.01 - Acute respiratory failure with hypoxia Category: Medical Code(s): J96.91 - Respiratory failure, unspecified with hypoxia (7) Hypotension Status: Acute Category: Medical Code(s): I95.9 - Hypotension, unspecified - Assessment and plan
--- NOTE | 2021-02-20 10:06 | HMH.PULMPN ---
Internal Medicine - PN: Subj *Date: 02/20/21 *Time: 14:31 Interval history: No acute respiratory events overnight. Patient currently remains on stable vent settings. Exam - Constitutional Constitutional:: Present: no acute distress, comfortable - HENMT Exam HENMT: Present: normocephalic - Eye Exam Eyes:: Present: normal appearance both eyes and related structures - Neck Exam Neck:: Present: normal visual inspection - Respiratory Exam Respiratory:: Present: respiratory distress, crackles. Absent: wheezing - Cardiovascular Exam Cardiac:: Present: S1, S2 - GI Exam GI:: Present: soft - Skin Exam Skin: Present: warm, no rash - Neurological Exam Intubated and sedated - Extremities Exam Extremities: Present: no cyanosis, no clubbing, no edema Assessment and Plan (1) Tobacco use Status: Acute Category: Social Hx Code(s): Z72.0 - Tobacco use (2) Pneumonia due to COVID-19 virus Status: Acute Category: Medical Code(s): U07.1 - COVID-19; J12.82 - Pneumonia due to coronavirus disease 2019 (3) GERD (gastroesophageal reflux disease) Status: Acute Qualifiers: Esophagitis presence: esophagitis presence not specified Qualified Code(s): K21.9 - Gastro-esophageal reflux disease without esophagitis Category: Medical Code(s): K21.9 - Gastro-esophageal reflux disease without esophagitis (4) COPD (chronic obstructive pulmonary disease) Status: Acute Qualifiers: COPD type: unspecified COPD Qualified Code(s): J44.9 - Chronic obstructive pulmonary disease, unspecified Category: Medical Code(s): J44.9 - Chronic obstructive pulmonary disease, unspecified (5) COVID-19 Status: Acute Category: Medical Code(s): U07.1 - COVID-19 (6) Respiratory failure with hypoxia Status: Acute Qualifiers: Chronicity: acute Qualified Code(s): J96.01 - Acute respiratory failure with hypoxia Category: Medical Code(s): J96.91 - Respiratory failure, unspecified with hypoxia - Assessment and plan all Dx Assessment and Plan for all problems:: #Acute hypoxic respiratory failure: #COVID-19 pneumonia: CT on admission did not show any onset pulmonary embolism however showed diffuse bilateral patchy pulmonary infiltrates. No evidence of DVT D-dimer elevated at 0.81. CRP at 21.4 Patient was initiated on remdesivir and dexamethasone along with ceftriaxone and azithromycin. Patient respiratory status continued to decline with worsening respiratory distress and worsening oxygenation status eventually needing mechanical ventilatory support this morning. Plan: - Continue mechanical ventilatory support - Continue AnalgoSedation with Propofol and Fentanyl with CPOT gal less than or euqal to 2 and RASS goal of 1 to 2 - VAP bundle Elevate head of the bed at 30 to 45 degrees Oral care with chlorhexidne GI ulcer prophylaxis - Famotidine 20mg IV BID Recommend Chemical DVT prophylaxis -Continue mechanical ventilator support. ABG from this morning showed improving oxygenation. Will wean FiO2 as tolerated -Continue remdesivir and dexamethasone for COVID-19 pneumonia. Continue barcitinib -Continue ceftriaxone and azithromycin for COVID-19 pneumonia. -DuoNebs every 6 hours scheduled Hemodynamically unstable after increasing sedation, currently needing norepinephrine 5 MCG. Wean as tolerated with MAP goal of 65 and above Abdomen soft nontender. Initiate tube feeds Renal function stable with adequate urine output. #Thank you for involving pulmonary in this patient care. We will continue to follow.
--- NOTE | 2021-02-20 14:10 | PC.NURSE ---
Pulmocare started @ 10mL/hr per Dr. Bates. Goal rate of 30mL/hr while on pressors. Levo gtt currently @ 2mcg/min with MAP 68 (goal MAP [address] Bates).
[2021-02-21] VITALS (32 sets, daily range): BP systolic 83–123; BP diastolic 48–73; PULSE 48–72; RESP 22–23; TEMP 36–37.2; O2SAT 87–98; BMI 27.3
--- NOTE | 2021-02-21 04:15 | PC.NURSE ---
Pt has been bradycardic at times this shift. Pt currently remains on propofol gtt @ 45 mcg/kg/min. Fentanyl gtt@ 50 mcg/hr. Levophed @ 2 mcg/min. Vent settings: AC, FiO2 60%, TV 440, R 22, PEEP 12. 7.5 ETT and OG tube. Pulmocare remains @ 10 ml/hr at this time due to residuals of 70 ml. F/C draining to bedside. Will continue to monitor.
--- NOTE | 2021-02-21 05:02 | PC.NURSE ---
Residual of 30 noted. Pulmocare increased to 20 ml/hr
--- NOTE | 2021-02-21 06:00 | XR_ITS ---
PROCEDURE INFORMATION: Exam: XR Chest Exam date and time: 02/21/2021 6:00 AM Age: 60 years old Clinical indication: Device placement; Ett placement (vent status); Patient HX: Covid; Additional info: Intubated TECHNIQUE: Imaging protocol: XR of the chest. Views: 1 view. COMPARISON: CR XR CHEST PORTABLE 02/20/2021 5:21 AM FINDINGS: Tubes, catheters and devices: The ET tube is 1.7 cm from the yandy. Nasogastric tube is in the stomach. Lungs: Patchy bilateral left greater than right infiltrates are noted, not significantly changed from prior study. Probable right-sided effusion is noted. Pleural spaces: Unremarkable. No pleural effusion. No pneumothorax. Heart/Mediastinum: Unremarkable. No cardiomegaly. Bones/joints: Unremarkable. IMPRESSION: 1. ET tube 1.6 cm from yandy consider repositioning. 2. Stable bilateral left greater than right infiltrates.
[2021-02-21 07:03] LABS: Basophils % 0.1 % (0.1-2.0); Eosinophils # 0.1 K/mm3 (0.0-0.4); Eosinophils % 0.9 % (0.1-12.0); Hematocrit 35.3 % (42.0-52.0); Hemoglobin 11.3 g/dL (14.1-18.0); Lymphocytes % 13.7 % (10-50); Mean Corpuscular Hemoglobin 29.7 pg (27.0-31.2); Mean Corpuscular Volume 92.7 fl (80-94); Mean Platelet Volume 8.7 fl (7.4-10.4); Monocytes # 0.4 K/mm3 (0.1-1.0); Monocytes % 5.7 % (1.7-9.3); Neutrophils # 5.7 K/mm3 (1.8-7.8); Neutrophils % 79.5 % (37.0-80.0); Platelet Count 442 K/mm3 (142-424); Red Blood Count 3.81 M/mm3 (4.60-6.20); Red Cell Distribution Width 14.1 % (11.5-17.5); White Blood Count 7.2 K/mm3 (4.8-10.8)
[2021-02-21 07:14] LABS: Alanine Aminotransferase 55 U/L (12-78); Albumin Level 2.1 g/dl (3.5-5.0); Albumin/Globulin Ratio 0.9 (1.1-1.8); Alkaline Phosphatase 83 U/L (38-126); Anion Gap 6.3 mEq/L (5-15); Aspartate Amino Transferase 65 U/L (17-59); Bilirubin,Total 0.3 mg/dl (0.2-1.3); Blood Urea Nitrogen 17 mg/dl (9-20); Calcium 7.5 mg/dl (8.4-10.2); Carbon Dioxide 27 mmol/L (22.0-30.0); Chloride 111 mmol/L (98-107); Creatinine Clearance Estimated 228 mL/min (50-200); Estimated Glomerular Filt Rate 219 ml/min (>60); GFR (African American) 266 ML/MIN (>60); Globulin 2.4 g/dL (1.3-3.2); Glucose 139 mg/dl (74-100); Potassium 3.3 mmoL/L (3.5-5.1); Sodium 141 mmol/L (136-145); Total Protein,Serum 4.5 g/dl (6.3-8.2)
[2021-02-21 07:40] LABS: ABG Base Excess -0.9 mmol/L (-2.4-2.3); ABG HCO3 23.3 mmhg (22.0-26.0); ABG Oxygen Saturation 95 % (90-100); ABG PCO2 35.2 mmhg (35.0-45.0); ABG PH 7.44 mmol/L (7.35-7.45); ABG TCO2 24.4 mmhg (23-27)
[2021-02-21 07:42] LABS: Allen's Test Acceptable; Oxygen 60 %; PEEP 12; Source Left Radial; Tidal Volume 440; Vent Rate 22
--- NOTE | 2021-02-21 09:33 | HMH.ACPN2 ---
Internal Medicine - PN: Subj *Date: 02/21/21 *Time: 17:36 Interval history: 60-year-old male patient lying quietly in bed continues on ventilation and is sedated Exam Vital signs and Labs for Last 24 Hours: Temp Pulse Resp BP Pulse Ox 97.7 F 58 L 22 111/60 97 02/21/21 06:32 02/21/21 06:32 02/21/21 06:32 02/21/21 06:32 02/21/21 06:32 Laboratory Results - last 24 hr 02/21/21 06:00: Specimen Source Left radial, O2 % 60, ABG pH 7.44, ABG pCO2 35.2, ABG pO2 71.0 L, ABG HCO3 23.3, ABG Total CO2 24.4, ABG O2 Saturation 95, ABG Base Excess -0.9, [place] Test Acceptable, Vent Rate 22, Tidal Volume 440, PEEP 12 02/21/21 06:10: Sodium 141, Potassium 3.3 L, Chloride 111 H, Carbon Dioxide 27, Anion Gap 6.3, BUN 17, Creatinine 0.40 L, Estimated Creat Clear 228, Estimated GFR 219, Est GFR ( Amer) 266 D, Glucose 139 H, Calcium 7.5 L, Total Bilirubin 0.3, AST 65 H D, ALT 55 D, Alkaline Phosphatase 83, Total Protein 4.5 L, Albumin 2.1 L D, Globulin 2.4, Albumin/Globulin Ratio 0.9 L 02/21/21 06:10: WBC 7.2, RBC 3.81 L, Hgb 11.3 L, Hct 35.3 L, MCV 92.7, MCH 29.7, MCHC 32.0, RDW 14.1, Plt Count 442 H D, MPV 8.7, Neut % (Auto) 79.5, Lymph % (Auto) 13.7, [place] % (Auto) 5.7, Eos % (Auto) 0.9, Baso % (Auto) 0.1, Neut # (Auto) 5.7, Lymph # (Auto) 1.0, [place] # (Auto) 0.4, Eos # (Auto) 0.1, Baso # (Auto) 0.0 I & O for Last 24 hours: Intake & Output 02/18/21 02/19/21 02/20/21 02/21/21 23:59 23:59 23:59 23:59 Intake Total 3051 / 3051 4318.597 / 4981.597 1799.542 / 1799.542 Output Total 1052 / 1352 1195 / 1205 1721 / 1921 800 / 800 Balance -1052 / -1352 1856 / 1846 2597.597 / 3060.597 999.542 / 999.542 Weight 161 lb 165 lb 5.547 oz 171 lb 180 lb 12.8 oz Microbiology Reports for the Last 24 Hours: Microbiology 02/19/21 16:40 Blood Blood Culture - Preliminary - Constitutional no acute distress, chronically ill appearing - *Routine HEENT Exam Head: Present: normocephalic Eye: Present: EOMI ENT: Present: mucous membranes moist - *Routine Neck Exam Present: trachea midline. Absent: tracheal deviation - *Routine Respiratory Exam Present: patient mechanically ventilated, crackles. Absent: accessory muscle use - *Routine Cardiovascular Exam Present: RRR - *Routine Abdominal Exam Present: soft, normoactive bowel sounds. Absent: distended, firm - *Routine Extremities Exam Present: pulses intact. Absent: cyanosis, clubbing - *Routine Skin Exam Present: intact, warm. Absent: cyanosis, erythema - *Routine Neurological Exam Present: altered mental status Sedated - Routine Psychiatric Exam Present: unable to assess Comments: Sedated Assessment and Plan (1) Tobacco use Status: Acute Category: Social Hx Code(s): Z72.0 - Tobacco use (2) Pneumonia due to COVID-19 virus Status: Acute Category: Medical Code(s): U07.1 - COVID-19; J12.82 - Pneumonia due to coronavirus disease 2019 (3) GERD (gastroesophageal reflux disease) Status: Acute Qualifiers: Esophagitis presence: esophagitis presence not specified Qualified Code(s): K21.9 - Gastro-esophageal reflux disease without esophagitis Category: Medical Code(s): K21.9 - Gastro-esophageal reflux disease without esophagitis (4) COPD (chronic obstructive pulmonary disease) Status: Acute Qualifiers: COPD type: unspecified COPD Qualified Code(s): J44.9 - Chronic obstructive pulmonary disease, unspecified Category: Medical Code(s): J44.9 - Chronic obstructive pulmonary disease, unspecified (5) COVID-19 Status: Acute Category: Medical Code(s): U07.1 - COVID-19 (6) Respiratory failure with hypoxia Status: Acute Qualifiers: Chronicity: acute Qualified Code(s): J96.01 - Acute respiratory failure with hypoxia Category: Medical Code(s): J96.91 - Respiratory failure, unspecified with hypoxia (7) Hypotension Status: Acute Category: Medical Code(s): I95.9 - Hypotension, unspecified
--- NOTE | 2021-02-21 10:44 | HMH.PHACONS ---
- Pharmacy Consult Date: 02/21/21 Time: 10:44 Referring provider: MADI Reason for Consult:: VANCOMYCIN CONSULT Allergies and ADEs:: Allergies Allergy/AdvReac Type Severity Reaction Status Date / Time No Known Allergies Allergy Verified 10/25/18 11:18 Home Medications:: Home Medications Medication Instructions Recorded Confirmed Type Buprenorphine HCl/Naloxone HCl 1.5 tab SL DAILY 12/20/17 02/15/21 History [Buprenorphine-Nalox 8-2 mg Tab] Height: 1.73 m Weight: 82.01 kg Laboratory Results:: Laboratory Results - last 24 hr 02/21/21 06:00: Specimen Source Left radial, O2 % 60, ABG pH 7.44, ABG pCO2 35.2, ABG pO2 71.0 L, ABG HCO3 23.3, ABG Total CO2 24.4, ABG O2 Saturation 95, ABG Base Excess -0.9, [place] Test Acceptable, Vent Rate 22, Tidal Volume 440, PEEP 12 02/21/21 06:10: Sodium 141, Potassium 3.3 L, Chloride 111 H, Carbon Dioxide 27, Anion Gap 6.3, BUN 17, Creatinine 0.40 L, Estimated Creat Clear 228, Estimated GFR 219, Est GFR ( Amer) 266 D, Glucose 139 H, Calcium 7.5 L, Total Bilirubin 0.3, AST 65 H D, ALT 55 D, Alkaline Phosphatase 83, Total Protein 4.5 L, Albumin 2.1 L D, Globulin 2.4, Albumin/Globulin Ratio 0.9 L 02/21/21 06:10: WBC 7.2, RBC 3.81 L, Hgb 11.3 L, Hct 35.3 L, MCV 92.7, MCH 29.7, MCHC 32.0, RDW 14.1, Plt Count 442 H D, MPV 8.7, Neut % (Auto) 79.5, Lymph % (Auto) 13.7, [place] % (Auto) 5.7, Eos % (Auto) 0.9, Baso % (Auto) 0.1, Neut # (Auto) 5.7, Lymph # (Auto) 1.0, [place] # (Auto) 0.4, Eos # (Auto) 0.1, Baso # (Auto) 0.0 Medical History: Reports:: Gastroesophageal Reflux Disease(GERD) Denies:: Cancer, Diabetes Mellitus Type 1, Diabetes Mellitus Type 2, MRSA Assessment and Plan (1) Tobacco use Status: Acute Category: Social Hx Code(s): Z72.0 - Tobacco use (2) Pneumonia due to COVID-19 virus Status: Acute Category: Medical Code(s): U07.1 - COVID-19; J12.82 - Pneumonia due to coronavirus disease 2019 (3) GERD (gastroesophageal reflux disease) Status: Acute Qualifiers: Esophagitis presence: esophagitis presence not specified Qualified Code(s): K21.9 - Gastro-esophageal reflux disease without esophagitis Category: Medical Code(s): K21.9 - Gastro-esophageal reflux disease without esophagitis (4) COPD (chronic obstructive pulmonary disease) Status: Acute Qualifiers: COPD type: unspecified COPD Qualified Code(s): J44.9 - Chronic obstructive pulmonary disease, unspecified Category: Medical Code(s): J44.9 - Chronic obstructive pulmonary disease, unspecified (5) COVID-19 Status: Acute Category: Medical Code(s): U07.1 - COVID-19 (6) Respiratory failure with hypoxia Status: Acute Qualifiers: Chronicity: acute Qualified Code(s): J96.01 - Acute respiratory failure with hypoxia Category: Medical Code(s): J96.91 - Respiratory failure, unspecified with hypoxia (7) Hypotension Status: Acute Category: Medical Code(s): I95.9 - Hypotension, unspecified - Assessment and plan all Dx Assessment and Plan for all problems:: Subjective and Objective Data: This is a 60 year old male patient. Measured serum creatinine (SCr) is 0.4 mg/dL. Given a height of 173 cm and a weight of 82.01 kg, estimated creatinine clearance is 91.1 mL/min (using the CrCl TBW body weight). The following targets were selected for dosing: - Desired AUC = 500 mcg*h/mL - Desired Cmax = 35 mcg/mL - Desired Cmin = 12.5 mcg/mL - Vd coefficient = 0.65 L/kg - Ke equation = CrCl*0.78782+0.0044 Calculations: Based on above, the following are calculated parameters for AUC-based vancomycin dosing in this patient: - Calculated Vd = 53.3065L - Calculated Ke = 0.08 inverse hours - Calculated half-life = 8.7 hours Prescribed Dosing: PATIENT RECEIVED TWO DOSES OF 1500 MG VANCOMYCIN IV Q12H ON 02/20/21 AT 20:00 AND 02/21/21 AT 10:30 RECOMMENDED Empiric dose will be vancomycin IV 1250mg [id number] TO START ON 02/21/21 AT 22:30 Which is predic
--- NOTE | 2021-02-21 11:45 | PC.NURSE ---
Pulled ET tube back from 26cm to 24cm. Per Dr. Bates. Pt tolerated well, will continue to monitor.
--- NOTE | 2021-02-21 13:58 | HMH.PULMPN ---
Internal Medicine - PN: Subj *Date: 02/22/21 *Time: 08:21 Interval history: No acute respiratory vents overnight. Exam - Constitutional Constitutional:: Present: no acute distress, comfortable - HENMT Exam HENMT: Present: normocephalic, atraumatic - Eye Exam Eyes:: Present: normal appearance both eyes and related structures - Neck Exam Neck:: Present: normal visual inspection - Respiratory Exam Respiratory:: Present: respiratory distress, crackles. Absent: wheezing - Cardiovascular Exam Cardiac:: Present: S1, S2 - GI Exam GI:: Present: soft - Skin Exam Skin: Present: warm, no rash - Neurological Exam Intubated and sedated - Extremities Exam Extremities: Present: no cyanosis, no clubbing, no edema Assessment and Plan (1) Tobacco use Status: Acute Category: Social Hx Code(s): Z72.0 - Tobacco use (2) Pneumonia due to COVID-19 virus Status: Acute Category: Medical Code(s): U07.1 - COVID-19; J12.82 - Pneumonia due to coronavirus disease 2019 (3) GERD (gastroesophageal reflux disease) Status: Acute Qualifiers: Esophagitis presence: esophagitis presence not specified Qualified Code(s): K21.9 - Gastro-esophageal reflux disease without esophagitis Category: Medical Code(s): K21.9 - Gastro-esophageal reflux disease without esophagitis (4) COPD (chronic obstructive pulmonary disease) Status: Acute Qualifiers: COPD type: unspecified COPD Qualified Code(s): J44.9 - Chronic obstructive pulmonary disease, unspecified Category: Medical Code(s): J44.9 - Chronic obstructive pulmonary disease, unspecified (5) COVID-19 Status: Acute Category: Medical Code(s): U07.1 - COVID-19 (6) Respiratory failure with hypoxia Status: Acute Qualifiers: Chronicity: acute Qualified Code(s): J96.01 - Acute respiratory failure with hypoxia Category: Medical Code(s): J96.91 - Respiratory failure, unspecified with hypoxia (7) Hypotension Status: Acute Category: Medical Code(s): I95.9 - Hypotension, unspecified - Assessment and plan all Dx Assessment and Plan for all problems:: #Acute hypoxic respiratory failure: #COVID-19 pneumonia: CT on admission did not show any onset pulmonary embolism however showed diffuse bilateral patchy pulmonary infiltrates. No evidence of DVT D-dimer elevated at 0.81. CRP at 21.4 Patient was initiated on remdesivir and dexamethasone along with ceftriaxone and azithromycin on admission Patient respiratory status continued to decline with worsening respiratory distress and worsening oxygenation status eventually needing mechanical ventilatory support. Plan: - Continue mechanical ventilatory support - Continue AnalgoSedation with Propofol and Fentanyl with CPOT gal less than or euqal to 2 and RASS goal of 1 to 2 -No need for deep sedation - VAP bundle Elevate head of the bed at 30 to 45 degrees Oral care with chlorhexidne GI ulcer prophylaxis - Famotidine 20mg IV BID Recommend Chemical DVT prophylaxis -Continue mechanical ventilator support. ABG and CXR reviewed. retract ET tube by 2 cm -Continue remdesivir and dexamethasone for COVID-19 pneumonia. Continue barcitinib -Continue Vancomycin awaiting mecA gene status for his +ve BC. Continue Azit -DuoNebs every 6 hours scheduled Hemodynamically unstable after increasing sedation, currently needing norepinephrine 5 MCG. will gove fluid bolus and will wean as tolerated with MAP goal of 65 and above Abdomen soft nontender. Initiate tube feeds Renal function stable with adequate urine output. #Thank you for involving pulmonary in this patient care. We will continue to follow.
[2021-02-22] VITALS (30 sets, daily range): BP systolic 98–135; BP diastolic 46–75; PULSE 47–66; RESP 20–23; TEMP 36.8–37.2; O2SAT 93–98; BMI 28.5
--- NOTE | 2021-02-22 06:00 | XR_ITS ---
PROCEDURE INFORMATION: Exam: XR Chest Exam date and time: 02/22/2021 6:00 AM Age: 60 years old Clinical indication: Device placement; Ett placement (vent status); Additional info: Covid pna TECHNIQUE: Imaging protocol: XR of the chest. Views: 1 view. COMPARISON: CR XR CHEST PORTABLE 02/21/2021 5:17 AM FINDINGS: Endotracheal tube has been slightly retracted, now terminating 3.5 cm superior to the yandy. Enteric tube is subdiaphragmatic likely terminating in the stomach. Cardiac silhouette is unchanged. Similar burden extensive bilateral airspace disease. No pleural effusion or pneumothorax. IMPRESSION: Slight interval retraction of the endotracheal tube which terminates in the midthoracic trachea. Otherwise similar extensive bilateral airspace disease.
[2021-02-22 07:14] LABS: ABG Base Excess 5.3 mmol/L (-2.4-2.3); ABG HCO3 29.3 mmhg (22.0-26.0); ABG Oxygen Saturation 94 % (90-100); ABG PCO2 42.9 mmhg (35.0-45.0); ABG PH 7.45 mmol/L (7.35-7.45); ABG PO2 68.8 mmhg (80-100); ABG TCO2 30.6 mmhg (23-27)
[2021-02-22 07:35] LABS: Allen's Test Patient Unable; Oxygen 60 %; PEEP 12; Source Right Radial; Tidal Volume 440; Vent Rate 22
[2021-02-22 08:39] LABS: Chloride 111 mmol/L (98-107); Potassium 3.7 mmoL/L (3.5-5.1); Sodium 145 mmol/L (136-145)
[2021-02-22 08:42] LABS: Alanine Aminotransferase 56 U/L (12-78); Albumin Level 2.4 g/dl (3.5-5.0); Albumin/Globulin Ratio 0.9 (1.1-1.8); Alkaline Phosphatase 144 U/L (38-126); Anion Gap 6.7 mEq/L (5-15); Aspartate Amino Transferase 60 U/L (17-59); Bilirubin,Total 0.4 mg/dl (0.2-1.3); Blood Urea Nitrogen 15 mg/dl (9-20); Calcium 7.9 mg/dl (8.4-10.2); Carbon Dioxide 31 mmol/L (22.0-30.0); Creatinine Clearance Estimated 190 mL/min (50-200); Estimated Glomerular Filt Rate 170 ml/min (>60); GFR (African American) 205 ML/MIN (>60); Globulin 2.8 g/dL (1.3-3.2); Glucose 164 mg/dl (74-100); Total Protein,Serum 5.2 g/dl (6.3-8.2)
--- NOTE | 2021-02-22 09:10 | PC.NURSE ---
RESPIRATORY CARE: SPUTUM SAMPLE OBTAINED AND SENT TO LAB.
--- NOTE | 2021-02-22 11:25 | HMH.ACPN2 ---
Internal Medicine - PN: Subj *Date: 02/23/21 *Time: 01:08 Interval history: doing ok - grossly stable Exam Vital signs and Labs for Last 24 Hours: Temp Pulse Resp BP Pulse Ox 98.8 F 66 22 115/64 97 02/22/21 10:01 02/22/21 11:23 02/22/21 10:01 02/22/21 10:01 02/22/21 10:01 Laboratory Results - last 24 hr 02/22/21 06:00: Specimen Source Right radial, O2 % 60, ABG pH 7.45, ABG pCO2 42.9, ABG pO2 68.8 L, ABG HCO3 29.3 H, ABG Total CO2 30.6 H, ABG O2 Saturation 94, ABG Base Excess 5.3 H, [place] Test Patient unable, Vent Rate 22, Tidal Volume 440, PEEP 12 02/22/21 07:45: Sodium 145, Potassium 3.7, Chloride 111 H, Carbon Dioxide 31 H, Anion Gap 6.7, BUN 15, Creatinine 0.50 L D, Estimated Creat Clear 190, Estimated GFR 170, Est GFR ( Amer) 205 D, Glucose 164 H, Calcium 7.9 L, Total Bilirubin 0.4, AST 60 H, ALT 56, Alkaline Phosphatase 144 H, Total Protein 5.2 L, Albumin 2.4 L D, Globulin 2.8, Albumin/Globulin Ratio 0.9 L I & O for Last 24 hours: Intake & Output 02/19/21 02/20/21 02/21/21 02/22/21 11:59 11:59 11:59 11:59 Intake Total 4690 / 4690 4479.139 / 4479.139 1950.468 / 1950.468 Output Total 1352 / 1352 1660 / 1735 1366 / 1446 1905 / 1905 Balance -1352 / -1352 3030 / 2955 3113.139 / 3033.139 45.468 / 45.468 Weight 165 lb 5.547 oz 171 lb 180 lb 12.8 oz 188 lb 8 oz Microbiology Reports for the Last 24 Hours: Microbiology 02/19/21 16:40 Blood Blood Culture - Preliminary Gram Positive Cocci 02/17/21 10:40 Sputum - Expectorated Sputum Gram Stain - Final 02/17/21 10:40 Sputum - Expectorated Sputum Sputum Culture - Final Yeast 02/19/21 16:40 Blood Blood Culture - Preliminary NO GROWTH AFTER 48 HOURS 02/19/21 10:15 Anus CRE Surveillance Culture - Final Negative - Constitutional Comments: sedated and intubated - *Routine HEENT Exam Head: Present: normocephalic Eye: Present: EOMI, PERRL ENT: Present: mucous membranes dry - *Routine Neck Exam Absent: JVD - *Routine Respiratory Exam Present: patient mechanically ventilated - *Routine Cardiovascular Exam Present: RRR - *Routine Abdominal Exam Present: soft - *Routine Extremities Exam Present: edema - *Routine Skin Exam Present: intact - *Routine Neurological Exam no posturing - Routine Psychiatric Exam Present: unable to assess Assessment and Plan (1) Tobacco use Status: Acute Category: Social Hx Code(s): Z72.0 - Tobacco use (2) Pneumonia due to COVID-19 virus Status: Acute Category: Medical Code(s): U07.1 - COVID-19; J12.82 - Pneumonia due to coronavirus disease 2019 (3) GERD (gastroesophageal reflux disease) Status: Acute Qualifiers: Esophagitis presence: esophagitis presence not specified Qualified Code(s): K21.9 - Gastro-esophageal reflux disease without esophagitis Category: Medical Code(s): K21.9 - Gastro-esophageal reflux disease without esophagitis (4) COPD (chronic obstructive pulmonary disease) Status: Acute Qualifiers: COPD type: unspecified COPD Qualified Code(s): J44.9 - Chronic obstructive pulmonary disease, unspecified Category: Medical Code(s): J44.9 - Chronic obstructive pulmonary disease, unspecified (5) COVID-19 Status: Acute Category: Medical Code(s): U07.1 - COVID-19 (6) Respiratory failure with hypoxia Status: Acute Qualifiers: Chronicity: acute Qualified Code(s): J96.01 - Acute respiratory failure with hypoxia Category: Medical Code(s): J96.91 - Respiratory failure, unspecified with hypoxia (7) Hypotension Status: Acute Category: Medical Code(s): I95.9 - Hypotension, unspecified
[2021-02-22 11:32] LABS: Vancomycin,Trough 9.1 ug/mL (5.0-10.0)
[2021-02-22 17:57] LABS: Vancomycin,Peak 17.8 ug/ml (11-39)
[2021-02-23] VITALS (30 sets, daily range): BP systolic 90–131; BP diastolic 48–75; PULSE 49–127; RESP 9–24; TEMP 36.9–37.5; O2SAT 91–100; BMI 28.7
--- NOTE | 2021-02-23 06:00 | XR_ITS ---
PROCEDURE INFORMATION: Exam: XR Chest Exam date and time: 02/23/2021 6:00 AM Age: 60 years old Clinical indication: Device placement; Ett placement (vent status); Additional info: Intubated covid pneumonia TECHNIQUE: Imaging protocol: XR of the chest. Views: 1 view. COMPARISON: CR XR CHEST PORTABLE 02/22/2021 6:00 AM FINDINGS: There is an endotracheal tube with its tip 2.6 cm above the yandy. A nasogastric tube is noted with its tip below the diaphragm. Lungs: Bilateral patchy infiltrates are again identified within both lung mendez, with predilection for mid and lower lung zones. The degree of infiltration and distribution of infiltration is unchanged. Pleural spaces: Unremarkable. No pleural effusion. No pneumothorax. Heart/Mediastinum: Unremarkable. No cardiomegaly. Bones/joints: Degenerative changes of the thoracic spine are noted. IMPRESSION: Endotracheal tube is 2.6 cm above the yandy. Nasogastric tube is below the diaphragm. The distribution and degree of infiltration within both lung mendez is not changed since 02/22/2021.
[2021-02-23 06:23] LABS: Basophils % 0.3 % (0.1-2.0); Hematocrit 34.4 % (42.0-52.0); Hemoglobin 10.8 g/dL (14.1-18.0); Lymphocytes # 0.8 K/mm3 (0.7-4.5); Lymphocytes % 11.2 % (10-50); Mean Corpuscular HGB Conc 31.4 g/dL (31.8-35.4); Mean Corpuscular Hemoglobin 29.6 pg (27.0-31.2); Mean Corpuscular Volume 94.2 fl (80-94); Mean Platelet Volume 9.3 fl (7.4-10.4); Monocytes # 0.5 K/mm3 (0.1-1.0); Monocytes % 7.2 % (1.7-9.3); Neutrophils # 5.5 K/mm3 (1.8-7.8); Neutrophils % 81.3 % (37.0-80.0); Platelet Count 382 K/mm3 (142-424); Red Blood Count 3.65 M/mm3 (4.60-6.20); White Blood Count 6.8 K/mm3 (4.8-10.8)
[2021-02-23 06:38] LABS: Alanine Aminotransferase 65 U/L (12-78); Albumin Level 2.3 g/dl (3.5-5.0); Albumin/Globulin Ratio 0.9 (1.1-1.8); Alkaline Phosphatase 156 U/L (38-126); Anion Gap 6.9 mEq/L (5-15); Aspartate Amino Transferase 99 U/L (17-59); Bilirubin,Total 0.4 mg/dl (0.2-1.3); Blood Urea Nitrogen 24 mg/dl (9-20); Calcium 7.7 mg/dl (8.4-10.2); Carbon Dioxide 33 mmol/L (22.0-30.0); Chloride 108 mmol/L (98-107); Creatinine Clearance Estimated 191 mL/min (50-200); Estimated Glomerular Filt Rate 170 ml/min (>60); GFR (African American) 205 ML/MIN (>60); Globulin 2.6 g/dL (1.3-3.2); Glucose 142 mg/dl (74-100); Potassium 3.9 mmoL/L (3.5-5.1); Sodium 144 mmol/L (136-145); Total Protein,Serum 4.9 g/dl (6.3-8.2)
[2021-02-23 07:34] LABS: ABG Base Excess 5.9 mmol/L (-2.4-2.3); ABG HCO3 30.1 mmhg (22.0-26.0); ABG Oxygen Saturation 96 % (90-100); ABG PCO2 45.3 mmhg (35.0-45.0); ABG PH 7.44 mmol/L (7.35-7.45); ABG PO2 84.7 mmhg (80-100); ABG TCO2 31.5 mmhg (23-27)
[2021-02-23 07:46] LABS: Allen's Test Patient Unable; Oxygen 60 %; PEEP 12; Source Left Radial; Tidal Volume 440; Vent Rate 22
--- NOTE | 2021-02-23 11:42 | HMH.PHACONS ---
- Pharmacy Consult Date: 02/23/21 Time: 11:42 Referring provider: DR. BARRAZA Reason for Consult:: VANCOMYCIN TROUGH AND PEAK LEVELS Allergies and ADEs:: Allergies Allergy/AdvReac Type Severity Reaction Status Date / Time No Known Allergies Allergy Verified 10/25/18 11:18 Home Medications:: Home Medications Medication Instructions Recorded Confirmed Type Buprenorphine HCl/Naloxone HCl 1.5 tab SL DAILY 12/20/17 02/15/21 History [Buprenorphine-Nalox 8-2 mg Tab] Height: 1.73 m Weight: 85.899 kg Laboratory Results:: Laboratory Results - last 24 hr 02/22/21 16:10: Vancomycin Peak 17.8 02/23/21 05:35: WBC 6.8, RBC 3.65 L, Hgb 10.8 L, Hct 34.4 L, MCV 94.2 H, MCH 29.6, MCHC 31.4 L, RDW 14.0, Plt Count 382, MPV 9.3, Neut % (Auto) 81.3 H, Lymph % (Auto) 11.2, [place] % (Auto) 7.2, Eos % (Auto) 0.0 L, Baso % (Auto) 0.3, Neut # (Auto) 5.5, Lymph # (Auto) 0.8, [place] # (Auto) 0.5, Eos # (Auto) 0.0, Baso # (Auto) 0.0 02/23/21 05:35: Sodium 144, Potassium 3.9, Chloride 108 H, Carbon Dioxide 33 H, Anion Gap 6.9, BUN 24 H D, Creatinine 0.50 L, Estimated Creat Clear 191, Estimated GFR 170, Est GFR ( Amer) 205, Glucose 142 H, Calcium 7.7 L, Total Bilirubin 0.4, AST 99 H D, ALT 65, Alkaline Phosphatase 156 H, Total Protein 4.9 L, Albumin 2.3 L, Globulin 2.6, Albumin/Globulin Ratio 0.9 L 02/23/21 06:00: Specimen Source Left radial, O2 % 60, ABG pH 7.44, ABG pCO2 45.3 H, ABG pO2 84.7, ABG HCO3 30.1 H, ABG Total CO2 31.5 H, ABG O2 Saturation 96, ABG Base Excess 5.9 H, [place] Test Patient unable, Vent Rate 22, Tidal Volume 440, PEEP 12 Medical History: Reports:: Gastroesophageal Reflux Disease(GERD) Denies:: Cancer, Diabetes Mellitus Type 1, Diabetes Mellitus Type 2, MRSA Assessment and Plan (1) Tobacco use Status: Acute Category: Social Hx Code(s): Z72.0 - Tobacco use (2) Pneumonia due to COVID-19 virus Status: Acute Category: Medical Code(s): U07.1 - COVID-19; J12.82 - Pneumonia due to coronavirus disease 2019 (3) GERD (gastroesophageal reflux disease) Status: Acute Qualifiers: Esophagitis presence: esophagitis presence not specified Qualified Code(s): K21.9 - Gastro-esophageal reflux disease without esophagitis Category: Medical Code(s): K21.9 - Gastro-esophageal reflux disease without esophagitis (4) COPD (chronic obstructive pulmonary disease) Status: Acute Qualifiers: COPD type: unspecified COPD Qualified Code(s): J44.9 - Chronic obstructive pulmonary disease, unspecified Category: Medical Code(s): J44.9 - Chronic obstructive pulmonary disease, unspecified (5) COVID-19 Status: Acute Category: Medical Code(s): U07.1 - COVID-19 (6) Respiratory failure with hypoxia Status: Acute Qualifiers: Chronicity: acute Qualified Code(s): J96.01 - Acute respiratory failure with hypoxia Category: Medical Code(s): J96.91 - Respiratory failure, unspecified with hypoxia (7) Hypotension Status: Acute Category: Medical Code(s): I95.9 - Hypotension, unspecified - Assessment and plan all Dx Assessment and Plan for all problems:: BASED ON PATIENT FACTORS AND VANCOMYCIN TROUGH PEAK LEVELS, RECOMMEND INCREASING VANCOMYCIN DOSE TO 1,750MG EVERY 12 HOURS. CALCULATED AUC IS 506.4 WITH A CALCULATED TROUGH OF 13.04. PHARMACY WILL CONTINUE TO MONITOR AND WILL ADJUST DOSE APPROPRIATE. -DRU GREEN, KASEYD
--- NOTE | 2021-02-23 12:11 | HMH.ACPN2 ---
Internal Medicine - PN: Subj *Date: 02/23/21 *Time: 08:40 Interval history: resting on vent Exam Vital signs and Labs for Last 24 Hours: Temp Pulse Resp BP Pulse Ox 99.0 F 108 H 17 131/72 95 02/23/21 11:00 02/23/21 11:02 02/23/21 11:00 02/23/21 11:00 02/23/21 11:00 Laboratory Results - last 24 hr 02/22/21 16:10: Vancomycin Peak 17.8 02/23/21 05:35: WBC 6.8, RBC 3.65 L, Hgb 10.8 L, Hct 34.4 L, MCV 94.2 H, MCH 29.6, MCHC 31.4 L, RDW 14.0, Plt Count 382, MPV 9.3, Neut % (Auto) 81.3 H, Lymph % (Auto) 11.2, [place] % (Auto) 7.2, Eos % (Auto) 0.0 L, Baso % (Auto) 0.3, Neut # (Auto) 5.5, Lymph # (Auto) 0.8, [place] # (Auto) 0.5, Eos # (Auto) 0.0, Baso # (Auto) 0.0 02/23/21 05:35: Sodium 144, Potassium 3.9, Chloride 108 H, Carbon Dioxide 33 H, Anion Gap 6.9, BUN 24 H D, Creatinine 0.50 L, Estimated Creat Clear 191, Estimated GFR 170, Est GFR ( Amer) 205, Glucose 142 H, Calcium 7.7 L, Total Bilirubin 0.4, AST 99 H D, ALT 65, Alkaline Phosphatase 156 H, Total Protein 4.9 L, Albumin 2.3 L, Globulin 2.6, Albumin/Globulin Ratio 0.9 L 02/23/21 06:00: Specimen Source Left radial, O2 % 60, ABG pH 7.44, ABG pCO2 45.3 H, ABG pO2 84.7, ABG HCO3 30.1 H, ABG Total CO2 31.5 H, ABG O2 Saturation 96, ABG Base Excess 5.9 H, [place] Test Patient unable, Vent Rate 22, Tidal Volume 440, PEEP 12 I & O for Last 24 hours: Intake & Output 02/21/21 02/22/21 02/23/21 02/24/21 11:59 11:59 11:59 11:59 Intake Total 4479.139 / 4479.139 2227.468 / 2227.468 796.083 / 796.083 Output Total 1366 / 1446 1945 / 1945 786 / 786 Balance 3113.139 / 3033.139 282.468 / 282.468 10.083 / 10.083 Weight 180 lb 12.8 oz 188 lb 8 oz 189 lb 6 oz Microbiology Reports for the Last 24 Hours: Microbiology 02/19/21 16:40 Blood Blood Culture - Preliminary Staphylococcus epidermidis 02/22/21 09:10 Sputum - Endotracheal Tube Aspirate Gram Stain - Final - Constitutional no acute distress - *Routine HEENT Exam Head: Present: normocephalic Eye: Present: PERRL ENT: Present: mucous membranes moist - *Routine Neck Exam Present: supple. Absent: lymphadenopathy - *Routine Respiratory Exam Present: patient mechanically ventilated - *Routine Cardiovascular Exam Present: RRR - *Routine Abdominal Exam Present: soft, normoactive bowel sounds. Absent: tenderness - *Routine Extremities Exam Absent: cyanosis, clubbing, edema - *Routine Skin Exam Present: warm. Absent: rash - *Routine Neurological Exam sedated Assessment and Plan (1) Tobacco use Status: Acute Category: Social Hx Code(s): Z72.0 - Tobacco use (2) Pneumonia due to COVID-19 virus Status: Acute Category: Medical Code(s): U07.1 - COVID-19; J12.82 - Pneumonia due to coronavirus disease 2019 (3) GERD (gastroesophageal reflux disease) Status: Acute Qualifiers: Esophagitis presence: esophagitis presence not specified Qualified Code(s): K21.9 - Gastro-esophageal reflux disease without esophagitis Category: Medical Code(s): K21.9 - Gastro-esophageal reflux disease without esophagitis (4) COPD (chronic obstructive pulmonary disease) Status: Acute Qualifiers: COPD type: unspecified COPD Qualified Code(s): J44.9 - Chronic obstructive pulmonary disease, unspecified Category: Medical Code(s): J44.9 - Chronic obstructive pulmonary disease, unspecified (5) COVID-19 Status: Acute Category: Medical Code(s): U07.1 - COVID-19 (6) Respiratory failure with hypoxia Status: Acute Qualifiers: Chronicity: acute Qualified Code(s): J96.01 - Acute respiratory failure with hypoxia Category: Medical Code(s): J96.91 - Respiratory failure, unspecified with hypoxia (7) Hypotension Status: Acute Category: Medical Code(s): I95.9 - Hypotension, unspecified - Assessment and plan all Dx Assessment and Plan for all problems:: Dr Camilo rounded all orders per saul continue plan of care
--- NOTE | 2021-02-23 17:57 | PC.NURSE ---
pt remains on mechanical ventilation with settings: FiO2 60% PEEP 12 TV 440 Rate 22. Pt tolerated SBT well today for approximately 5 hours. LS are clear throughout. Pt remains sedated with propofol @ 50mcg and fenanyl 50mcg. VSS. No skin breakdown noted. Heel protectors in place and pt has been turned q2h throughout shift. Edema noted to BUE. IV's patent and infusing w/o difficulty. F/C patent and draining clear yellow urine, approximately 300ml's urine noted. OG in place with tube feedings infusing @ 40ml/hr. Pt remains NSR on telemetry. Will continue to monitor.
[2021-02-24] VITALS (35 sets, daily range): BP systolic 95–161; BP diastolic 48–95; PULSE 48–120; RESP 14–33; TEMP 36.2–37.6; O2SAT 90–100; BMI 29.2
--- NOTE | 2021-02-24 06:00 | XR_ITS ---
PROCEDURE INFORMATION: Exam: XR Chest Exam date and time: 02/24/2021 6:00 AM Age: 60 years old Clinical indication: Device placement; Ett placement (vent status); Additional info: Intubated covid TECHNIQUE: Imaging protocol: XR of the chest. Views: 1 view. COMPARISON: CR XR CHEST PORTABLE 02/23/2021 4:20 AM FINDINGS: Tubes, catheters and devices: The endotracheal tube tip is just below the thoracic inlet and approximately 3.5 cm above the yandy. The NG tube is positioned into the proximal/mid stomach. Lungs: See Heart/Mediastinum finding. Pleural spaces: Unremarkable. No pleural effusion. No pneumothorax. Heart/Mediastinum: There is hypoinflation with mild cardiomegaly and mild to moderate perihilar/basilar infiltrates. Bones/joints: The bones are grossly intact. IMPRESSION: As detailed above.
[2021-02-24 06:15] LABS: Basophils % 0.3 % (0.1-2.0); Eosinophils % 0.3 % (0.1-12.0); Hematocrit 32.8 % (42.0-52.0); Hemoglobin 10.3 g/dL (14.1-18.0); Lymphocytes # 0.8 K/mm3 (0.7-4.5); Lymphocytes % 9.9 % (10-50); Mean Corpuscular HGB Conc 31.4 g/dL (31.8-35.4); Mean Corpuscular Hemoglobin 29.6 pg (27.0-31.2); Mean Corpuscular Volume 94.3 fl (80-94); Monocytes # 0.5 K/mm3 (0.1-1.0); Neutrophils # 6.8 K/mm3 (1.8-7.8); Neutrophils % 83.6 % (37.0-80.0); Platelet Count 360 K/mm3 (142-424); Red Blood Count 3.48 M/mm3 (4.60-6.20); White Blood Count 8.1 K/mm3 (4.8-10.8)
[2021-02-24 06:33] LABS: Alanine Aminotransferase 77 U/L (12-78); Albumin Level 2.1 g/dl (3.5-5.0); Albumin/Globulin Ratio 0.8 (1.1-1.8); Alkaline Phosphatase 168 U/L (38-126); Anion Gap 5.9 mEq/L (5-15); Aspartate Amino Transferase 96 U/L (17-59); Bilirubin,Total 0.2 mg/dl (0.2-1.3); Blood Urea Nitrogen 28 mg/dl (9-20); Calcium 7.5 mg/dl (8.4-10.2); Carbon Dioxide 32 mmol/L (22.0-30.0); Chloride 107 mmol/L (98-107); Creatinine Clearance Estimated 244 mL/min (50-200); Estimated Glomerular Filt Rate 219 ml/min (>60); GFR (African American) 266 ML/MIN (>60); Globulin 2.5 g/dL (1.3-3.2); Glucose 129 mg/dl (74-100); Potassium 3.9 mmoL/L (3.5-5.1); Sodium 141 mmol/L (136-145); Total Protein,Serum 4.6 g/dl (6.3-8.2)
[2021-02-24 07:43] LABS: ABG Base Excess 7.3 mmol/L (-2.4-2.3); ABG HCO3 31.4 mmhg (22.0-26.0); ABG Oxygen Saturation 97 % (90-100); ABG PCO2 46.6 mmhg (35.0-45.0); ABG PH 7.45 mmol/L (7.35-7.45); ABG PO2 92.3 mmhg (80-100); ABG TCO2 32.8 mmhg (23-27)
[2021-02-24 07:44] LABS: Allen's Test Patient Unable; Oxygen 60 %; PEEP 12; Source Right Radial; Tidal Volume 440; Vent Rate 22
--- NOTE | 2021-02-24 10:02 | PC.NURSE ---
decreased sedation to fent 25mcg and propofol 25mcg to prepare for SBT
--- NOTE | 2021-02-24 11:13 | PC.NURSE ---
received call from lab (Sarah) reporting the following: PCR Staphylococcus positive and Meca A gene detected. Name and verified. Called Dr. Camilo's office and notified Melva Sharif RN. She will call back if he has new orders.
--- NOTE | 2021-02-24 11:30 | P.PN_ITS ---
Internal Medicine - PN: Subj *Date: 02/24/21 *Time: 15:24 Interval history: No acute respiratory vents overnight. Patient respiratory status continued to improve. Exam - HENMT Exam HENMT: Present: normocephalic, atraumatic - Eye Exam Eyes:: Present: normal appearance both eyes and related structures - Neck Exam Neck:: Present: normal visual inspection - Respiratory Exam Respiratory:: Present: respiratory distress, crackles - Cardiovascular Exam Cardiac:: Present: S1, S2 - GI Exam GI:: Present: soft, no tenderness - Skin Exam Skin: Present: warm, no rash - Neurological Exam Neurological: Absent: alert, awake, normal cognition - Extremities Exam Extremities: Present: no cyanosis, no clubbing, edema Assessment and Plan (1) Tobacco use Status: Acute Category: Social Hx Code(s): Z72.0 - Tobacco use (2) Pneumonia due to COVID-19 virus Status: Acute Category: Medical Code(s): U07.1 - COVID-19; J12.82 - Pneu monia due to coronavirus disease 2019 (3) GERD (gastroesophageal reflux disease) Status: Acute Qualifiers: Esophagitis presence: esophagitis presence not specified Qualified Code(s): K21.9 - Gastro-esophageal reflux disease without esophagitis Category: Medical Code(s): K21.9 - Gastro-esophageal reflux disease without esophagitis (4) COPD (chronic obstructive pulmonary disease) Status: Acute Qualifiers: COPD type: unspecified COPD Qualified Code(s): J44.9 - Chronic obstructive pulmonary disease, unspecified Category: Medical Code(s): J44.9 - Chronic obstructive pulmonary disease, unspecified (5) COVID-19 Status: Acute Category: Medical Code(s): U07.1 - COVID-19 (6) Respiratory failure with hypoxia Status: Acute Qualifiers: Chronicity: acute Qualified Code(s): J96.01 - Acute respiratory failure with hypoxia Category: Medical Code(s): J96.91 - Respiratory failure, unspecified with hypoxia (7) Hypotension Status: Acute Category: Medical Code(s): I95.9 - Hypotension, unspecified - Assessment and plan all Dx Assessment and Plan for all problems:: #Acute hypoxic respiratory failure: #COVID-19 pneumonia: CT on admission did not show any evidence of pulmonary embolism however showed diffuse bilateral patchy pulmonary infiltrates. No evidence of DVT D-dimer elevated at 0.81. CRP at 21.4 Patient was initiated on remdesivir and dexamethasone along with ceftriaxone and azithromycin on admission Patient respiratory status continued to decline with worsening respiratory distress and worsening oxygenation status eventually needing mechanical ventilatory support. Plan: -Respiratory status continued to improve with improving oxygenation. ABG and chest x-ray reviewed. Patient successfully perform SBT. Will extubate to nasal cannula. -Continue remdesivir and dexamethasone for COVID-19 pneumonia. Continue barcitinib -Continue Vancomycin x 10 days . Blood cultures from 1 bottle growing staph epi less than 24 hours, methicillin-resistant. Awaiting repeat blood cultures. Endotracheal aspirate numerous gram-positive cocci. -DuoNebs every 6 hours scheduled Abdomen soft nontender. Renal function stable with adequate urine output. #Thank you for involving pulmonary in this patient care. We will continue to follow.
[2021-02-24 11:52] LABS: ABG HCO3 29.5 mmhg (22.0-26.0); ABG Oxygen Saturation 94 % (90-100); ABG PCO2 40.7 mmhg (35.0-45.0); ABG PH 7.48 mmol/L (7.35-7.45); ABG PO2 68.5 mmhg (80-100); ABG TCO2 30.7 mmhg (23-27)
[2021-02-24 11:58] LABS: Allen's Test acceptable; Oxygen 60 %; PEEP 10; Pressure Support 10
[2021-02-24 11:59] LABS: Source Left Radial
--- NOTE | 2021-02-24 12:21 | XR_ITS ---
PROCEDURE: XR CHEST PORTABLE CLINICAL HISTORY: central line placement COMPARISON: CT CT ANGIO CHEST PE PROTOCOL from 02/15/2021 CR XR CHEST PORTABLE from 02/22/2021 CR XR CHEST PORTABLE from 02/23/2021 CR XR CHEST PORTABLE from 02/24/2021 FINDINGS: Left subclavian central venous line is present with the tip of the catheter in the region of the SVC in good position. No evidence of pneumothorax. Endotracheal tube tip is in good position 3 cm above the yandy. Nasogastric tube tip is in the region of the body of the stomach. Bilateral pneumonia once again noted in the right lower lobe and left mid and lower lung zone. This appears slightly worse on both sides. No evidence of pneumothorax. No acute bony abnormalities. IMPRESSION: Recently placed left subclavian CVL with the tip in good position and no evidence of pneumothorax. No change endotracheal tube and nasogastric tube. Slight worsening of bilateral pneumonia Dictated by: Reno Alonso MD 02/24/2021 13:56 Reno Alonso MD in [facility] 02/24/2021 13:56
--- NOTE | 2021-02-24 12:36 | HMH.ACPN2 ---
Internal Medicine - PN: Subj *Date: 02/24/21 *Time: 08:00 Interval history: pt doing ok - no reported changes Exam Vital signs and Labs for Last 24 Hours: Temp Pulse Resp BP Pulse Ox 97.3 F L 65 20 123/71 90 L 02/24/21 10:00 02/24/21 10:00 02/24/21 10:55 02/24/21 10:00 02/24/21 10:55 Laboratory Results - last 24 hr 02/24/21 05:50: Sodium 141, Potassium 3.9, Chloride 107, Carbon Dioxide 32 H, Anion Gap 5.9, BUN 28 H, Creatinine 0.40 L, Estimated Creat Clear 244, Estimated GFR 219, Est GFR ( Amer) 266 D, Glucose 129 H, Calcium 7.5 L, Total Bilirubin 0.2, AST 96 H, ALT 77, Alkaline Phosphatase 168 H, Total Protein 4.6 L, Albumin 2.1 L, Globulin 2.5, Albumin/Globulin Ratio 0.8 L 02/24/21 05:50: WBC 8.1, RBC 3.48 L, Hgb 10.3 L, Hct 32.8 L, MCV 94.3 H, MCH 29.6, MCHC 31.4 L, RDW 14.0, Plt Count 360, MPV 9.0, Neut % (Auto) 83.6 H, Lymph % (Auto) 9.9 L, [place] % (Auto) 6.0, Eos % (Auto) 0.3, Baso % (Auto) 0.3, Neut # (Auto) 6.8, Lymph # (Auto) 0.8, [place] # (Auto) 0.5, Eos # (Auto) 0.0, Baso # (Auto) 0.0 02/24/21 06:00: Specimen Source Right radial, O2 % 60, ABG pH 7.45, ABG pCO2 46.6 H, ABG pO2 92.3, ABG HCO3 31.4 H, ABG Total CO2 32.8 H, ABG O2 Saturation 97, ABG Base Excess 7.3 H, [place] Test Patient unable, Vent Rate 22, Tidal Volume 440, PEEP 12 02/24/21 11:41: Specimen Source Left radial, O2 % 60, ABG pH 7.48 H, ABG pCO2 40.7, ABG pO2 68.5 L, ABG HCO3 29.5 H, ABG Total CO2 30.7 H, ABG O2 Saturation 94, ABG Base Excess 6.0 H, [place] Test acceptable, PEEP 10 I & O for Last 24 hours: Intake & Output 02/22/21 02/23/21 02/24/21 02/25/21 11:59 11:59 11:59 11:59 Intake Total 2227.468 / 2227.468 796.083 / 6452.693 4249.333 / 1297.333 Output Total 1945 / 1945 786 / 786 881 / 881 Balance 282.468 / 282.468 10.083 / 431.083 416.333 / 416.333 Weight 188 lb 8 oz 189 lb 6 oz 193 lb 5 oz Microbiology Reports for the Last 24 Hours: Microbiology 02/23/21 08:28 Blood Blood Culture - Preliminary 02/22/21 09:10 Sputum - Endotracheal Tube Aspirate Gram Stain - Final 02/22/21 09:10 Sputum - Endotracheal Tube Aspirate Sputum Culture - Preliminary - Constitutional Comments: intubated and sedated - *Routine HEENT Exam Head: Present: normocephalic Eye: Present: PERRL ENT: Present: mucous membranes dry - *Routine Neck Exam Absent: JVD - *Routine Respiratory Exam Present: patient mechanically ventilated - *Routine Cardiovascular Exam Present: RRR - *Routine Abdominal Exam Present: soft - *Routine Extremities Exam Present: edema - *Routine Skin Exam Absent: rash - *Routine Neurological Exam no posturing - Routine Psychiatric Exam Present: unable to assess Assessment and Plan (1) Tobacco use Status: Acute Category: Social Hx Code(s): Z72.0 - Tobacco use (2) Pneumonia due to COVID-19 virus Status: Acute Category: Medical Code(s): U07.1 - COVID-19; J12.82 - Pneumonia due to coronavirus disease 2019 (3) GERD (gastroesophageal reflux disease) Status: Acute Qualifiers: Esophagitis presence: esophagitis presence not specified Qualified Code(s): K21.9 - Gastro-esophageal reflux disease without esophagitis Category: Medical Code(s): K21.9 - Gastro-esophageal reflux disease without esophagitis (4) COPD (chronic obstructive pulmonary disease) Status: Acute Qualifiers: COPD type: unspecified COPD Qualified Code(s): J44.9 - Chronic obstructive pulmonary disease, unspecified Category: Medical Code(s): J44.9 - Chronic obstructive pulmonary disease, unspecified (5) COVID-19 Status: Acute Category: Medical Code(s): U07.1 - COVID-19 (6) Respiratory failure with hypoxia Status: Acute Qualifiers: Chronicity: acute Qualified Code(s): J96.01 - Acute respiratory failure with hypoxia Category: Medical Code(s): J96.91 - Respiratory failure, unspecified with hypoxia (7) Hypotension Status: Acute Category: Medical Cod
--- NOTE | 2021-02-24 12:58 | DIET.NUTRFU ---
Pt TF is currently running at 40mL/hr. TF rate was running a little higher but pt had higher residuals and was bumped down to 40mL/hr per RN. Recommend slowly increasing to goal rate as tolerated. Will continue to monitor and adjust TF as needed.
--- NOTE | 2021-02-24 13:20 | HMH.GSCON ---
*Admission Date: 02/15/21 *Reason for consult:: Central line placement *History of present illness: Patient is a 60-year-old male with history of tobacco abuse, COPD, history of substance abuse on Suboxone, remote history of pneumothorax, who was diagnosed with Covid on 02/11/2021. He had been measuring oxygen saturations at home. Presented to the emergency department due to findings of low saturations on 02/15/2021. He was admitted for inpatient management. Patient ultimately required emergent intubation on the morning of 02/19/2021. He has had rather tenuous intravenous access. Surgery was consulted for central line placement. Review of Systems - Review of Systems Review of systems:: unable to obtain - *Neurologic Denies dizziness, Denies seizure-like activity [facility] History I have reviewed the patient's past medical history: Yes Medical History: Reports:: Gastroesophageal Reflux Disease(GERD) Denies:: Cancer, Diabetes Mellitus Type 1, Diabetes Mellitus Type 2, MRSA *Have you ever received a pneumonia vaccine?: No *Have you received a flu vaccine this season?: No Other Surgeries: Yes: Other Amputation: No Fractures: No - *Social History Last grade of school completed: High school graduate Smoking Status: Former smoker # Packs/Day (cigarettes): 1 Alcohol Intake: former Substance Use Type: prescription drug *Occupational Status:: other Household Members: spouse *Travel in the last 8 weeks: None Family Hx:: No significant family history Meds Home Medications Medication Instructions Recorded Confirmed Type Buprenorphine HCl/Naloxone HCl 1.5 tab SL DAILY 12/20/17 02/15/21 History [Buprenorphine-Nalox 8-2 mg Tab] Allergies Allergy/AdvReac Type Severity Reaction Status Date / Time No Known Allergies Allergy Verified 10/25/18 11:18 Exam Vital signs and Labs for Last 24 Hours: Temp Pulse Resp BP Pulse Ox 97.3 F L 97 H 20 123/71 90 L 02/24/21 10:00 02/24/21 13:01 02/24/21 10:55 02/24/21 10:00 02/24/21 10:55 Laboratory Results - last 24 hr 02/24/21 05:50: Sodium 141, Potassium 3.9, Chloride 107, Carbon Dioxide 32 H, Anion Gap 5.9, BUN 28 H, Creatinine 0.40 L, Estimated Creat Clear 244, Estimated GFR 219, Est GFR ( Amer) 266 D, Glucose 129 H, Calcium 7.5 L, Total Bilirubin 0.2, AST 96 H, ALT 77, Alkaline Phosphatase 168 H, Total Protein 4.6 L, Albumin 2.1 L, Globulin 2.5, Albumin/Globulin Ratio 0.8 L 02/24/21 05:50: WBC 8.1, RBC 3.48 L, Hgb 10.3 L, Hct 32.8 L, MCV 94.3 H, MCH 29.6, MCHC 31.4 L, RDW 14.0, Plt Count 360, MPV 9.0, Neut % (Auto) 83.6 H, Lymph % (Auto) 9.9 L, [place] % (Auto) 6.0, Eos % (Auto) 0.3, Baso % (Auto) 0.3, Neut # (Auto) 6.8, Lymph # (Auto) 0.8, [place] # (Auto) 0.5, Eos # (Auto) 0.0, Baso # (Auto) 0.0 02/24/21 06:00: Specimen Source Right radial, O2 % 60, ABG pH 7.45, ABG pCO2 46.6 H, ABG pO2 92.3, ABG HCO3 31.4 H, ABG Total CO2 32.8 H, ABG O2 Saturation 97, ABG Base Excess 7.3 H, [place] Test Patient unable, Vent Rate 22, Tidal Volume 440, PEEP 12 02/24/21 11:41: Specimen Source Left radial, O2 % 60, ABG pH 7.48 H, ABG pCO2 40.7, ABG pO2 68.5 L, ABG HCO3 29.5 H, ABG Total CO2 30.7 H, ABG O2 Saturation 94, ABG Base Excess 6.0 H, [place] Test acceptable, PEEP 10 I & O for Last 24 hours: Intake & Output 02/22/21 02/23/21 02/24/21 02/25/21 11:59 11:59 11:59 11:59 Intake Total 2227.468 / 2227.468 796.083 / 3972.821 6151.333 / 1297.333 41.083 / 41.083 Output Total 1945 / 1945 786 / 786 881 / 881 Balance 282.468 / 282.468 10.083 / 431.083 416.333 / 416.333 41.083 / 41.083 Weight 188 lb 8 oz 189 lb 6 oz 193 lb 5 oz Microbiology Reports for the Last 24 Hours: Microbiology 02/23/21 08:28 Blood Blood Culture - Preliminary 02/22/21 09:10 Sputum - Endotracheal Tube Aspirate Gram Stain - Final 02/22/21 09:10 Sputum - Endotracheal Tube Aspirate Sputum Culture - Preliminary Narrative: Patient intubated mechanically vented dilated. Somewhat agitated. Results -
--- NOTE | 2021-02-24 13:25 | P.OP_ITS ---
Date of procedure: 02/24/21 Pre-op Diagnosis:: Need for central venous access Post-op Diagnosis:: Same Procedure performed:: Placement of nontunneled 7 [place] triple-lumen left subclavian vein Surgeon:: John Camarillo MD Anesthesia: local Estimated blood loss (mL): 15 Clinical Note:: Patient is a 60-year-old male with history of tobacco abuse, COPD, history of substance abuse on Suboxone, remote history of pneumothorax, who was diagnosed with Covid on 02/11/2021. He had been measuring oxygen saturations at home. Presented to the emergency department due to findings of low saturations on 02/15/2021. He was admitted for inpatient management. Patient ultimately required emergent intubation on the morning of 02/19/2021. He has had rather tenuous intravenous access. Surgery was consulted for central line placement. Operative findings:: Seemingly unremarkable venous anatomy Operative note:: Consent was obtained. Patient was positioned in Trendelenburg position. Left neck and chest were prepped and draped in the standard surgical fashion. Local anesthetic was infiltrated inferior to left clavicle medial to the deltopectoral groove. 18-gauge needle was inserted manipulating it posterior to the clavicle. Left subclavian vein was cannulated with good return of venous blood flow. Guidewire was inserted. Small incision was made at the guidewire insertion site on the skin. Subcutaneous tissues were dilated. 7 [place] triple-lumen catheter was threaded over the guidewire using Seldinger technique. Secured to the skin at approximately the 15 cm forrest. All ports aspirated and flushed. Clean dry sterile dressing was applied. Chest x-ray pending at the time of this dictation. Condition: critical Disposition: no change Complications:: None immediately apparent
--- NOTE | 2021-02-24 19:34 | PC.NURSE ---
1800-pt pulse ox not picking up, entered patients room to evaluate and found oxygen flow meters turned off and nonrebreather mask was not hooked up. after multiple attempts pulse ox finally detected a reading of 55%. pt was responsive, talking and following commands. after turning on the O2 and hooking up non-rebreather and attempting to bag the pt, sats failed to maintain above low 80's. All other VS stable. 1821-Rapid response called. attempted nasal cannula with nonrebreather without success. 1849-Bipap applied to pt. sats immediately improved to mid 90's
[2021-02-25] VITALS (30 sets, daily range): BP systolic 131–165; BP diastolic 54–97; PULSE 86–120; RESP 14–29; TEMP 37.2–38.3; O2SAT 88–100; BMI 28.3
--- NOTE | 2021-02-25 07:28 | XR_ITS ---
PROCEDURE: XR CHEST PORTABLE CLINICAL HISTORY: resp failure Covid19 pneumonia COMPARISON: CT CT ANGIO CHEST PE PROTOCOL from 02/15/2021 CR XR CHEST PORTABLE from 02/23/2021 CR XR CHEST PORTABLE from 02/24/2021 CR XR CHEST PORTABLE from 02/24/2021 FINDINGS: Endotracheal tube has been removed. Nasogastric tube has been removed. Left subclavian central venous line remains in place with tip in the region the SVC. Bilateral pneumonia once again noted not significantly changed. No evidence of pneumothorax or pneumomediastinum. No acute bony abnormalities. IMPRESSION: Bilateral pneumonia unchanged Dictated by: Reno Alonso MD 02/25/2021 07:54 Reno Alonso MD in OV 02/25/2021 07:54
[2021-02-25 07:30] LABS: ABG Base Excess 5.2 mmol/L (-2.4-2.3); ABG HCO3 28.5 mmhg (22.0-26.0); ABG Oxygen Saturation 98 % (90-100); ABG PH 7.49 mmol/L (7.35-7.45); ABG PO2 102.1 mmhg (80-100); ABG TCO2 29.7 mmhg (23-27)
[2021-02-25 07:36] LABS: Allen's Test ACCEPTABLE; Oxygen 100 %; Source Right Radial
[2021-02-25 08:48] LABS: Basophils % 0.2 % (0.1-2.0); Eosinophils % 0.1 % (0.1-12.0); Hematocrit 36.3 % (42.0-52.0); Hemoglobin 11.4 g/dL (14.1-18.0); Lymphocytes # 0.9 K/mm3 (0.7-4.5); Lymphocytes % 5.5 % (10-50); Mean Corpuscular HGB Conc 31.3 g/dL (31.8-35.4); Mean Corpuscular Volume 92.7 fl (80-94); Mean Platelet Volume 9.5 fl (7.4-10.4); Monocytes # 0.9 K/mm3 (0.1-1.0); Monocytes % 5.6 % (1.7-9.3); Neutrophils # 14.9 K/mm3 (1.8-7.8); Neutrophils % 88.6 % (37.0-80.0); Platelet Count 424 K/mm3 (142-424); Red Blood Count 3.92 M/mm3 (4.60-6.20); Red Cell Distribution Width 14.4 % (11.5-17.5); White Blood Count 16.8 K/mm3 (4.8-10.8)
[2021-02-25 08:49] LABS: MANUAL DIFFERENTIAL MANUAL DIFFERENTIAL (MANUAL DIFF)
[2021-02-25 08:54] LABS: Chloride 105 mmol/L (98-107); Potassium 3.9 mmoL/L (3.5-5.1); Sodium 141 mmol/L (136-145)
[2021-02-25 08:56] LABS: Blood Urea Nitrogen 21 mg/dl (9-20); Creatinine Clearance Estimated 236 mL/min (50-200); Estimated Glomerular Filt Rate 219 ml/min (>60); GFR (African American) 266 ML/MIN (>60)
[2021-02-25 08:57] LABS: Alanine Aminotransferase 73 U/L (12-78); Albumin Level 2.5 g/dl (3.5-5.0); Albumin/Globulin Ratio 0.9 (1.1-1.8); Alkaline Phosphatase 171 U/L (38-126); Anion Gap 7.9 mEq/L (5-15); Aspartate Amino Transferase 93 U/L (17-59); Bilirubin,Total 0.7 mg/dl (0.2-1.3); Carbon Dioxide 32 mmol/L (22.0-30.0); Globulin 2.8 g/dL (1.3-3.2); Glucose 87 mg/dl (74-100); Total Protein,Serum 5.3 g/dl (6.3-8.2)
--- NOTE | 2021-02-25 09:07 | HMH.ACPN2 ---
Internal Medicine - PN: Subj *Date: 02/25/21 *Time: 18:45 Interval history: 60-year-old male patient lying in bed with BiPAP intact, oxygen saturation 99%. He was extubated yesterday and has tolerated BiPAP without much all night without any respiratory difficulties. He is confused and unable to answer simple questions. Exam Vital signs and Labs for Last 24 Hours: Temp Pulse Resp BP Pulse Ox 99.1 F 109 H 20 147/87 H 100 02/25/21 06:53 02/25/21 06:53 02/25/21 06:53 02/25/21 06:53 02/25/21 06:53 Laboratory Results - last 24 hr 02/24/21 11:41: Specimen Source Left radial, O2 % 60, ABG pH 7.48 H, ABG pCO2 40.7, ABG pO2 68.5 L, ABG HCO3 29.5 H, ABG Total CO2 30.7 H, ABG O2 Saturation 94, ABG Base Excess 6.0 H, [place] Test acceptable, PEEP 10 02/25/21 06:39: Specimen Source Right radial, O2 % 100, ABG pH 7.49 H, ABG pCO2 38.0, ABG pO2 102.1 H, ABG HCO3 28.5 H, ABG Total CO2 29.7 H, ABG O2 Saturation 98, ABG Base Excess 5.2 H, [place] Test Acceptable 02/25/21 08:40: WBC 16.8 H D, RBC 3.92 L, Hgb 11.4 L, Hct 36.3 L, MCV 92.7, MCH 29.0, MCHC 31.3 L, RDW 14.4, Plt Count 424, MPV 9.5, Neut % (Auto) 88.6 H, Lymph % (Auto) 5.5 L, [place] % (Auto) 5.6, Eos % (Auto) 0.1, Baso % (Auto) 0.2, Neut # (Auto) 14.9 H, Lymph # (Auto) 0.9, [place] # (Auto) 0.9, Eos # (Auto) 0.0, Baso # (Auto) 0.0 02/25/21 08:40: Sodium 141, Potassium 3.9, Chloride 105, Carbon Dioxide 32 H, Anion Gap 7.9, BUN 21 H, Creatinine 0.40 L, Estimated Creat Clear 236, Estimated GFR 219, Est GFR ( Amer) 266, Glucose 87, Calcium 8.0 L, Total Bilirubin 0.7, AST 93 H, ALT 73, Alkaline Phosphatase 171 H, Total Protein 5.3 L, Albumin 2.5 L D, Globulin 2.8, Albumin/Globulin Ratio 0.9 L I & O for Last 24 hours: Intake & Output 02/22/21 02/23/21 02/24/21 02/25/21 23:59 23:59 23:59 23:59 Intake Total 1690.385 / 2082.309 4472.416 / 1282.416 685.083 / 685.083 Output Total 1538 / 1578 839 / 914 2014 1425 / 1425 Balance 152.385 / 112.385 443.416 / 368.416 -1329.917 / -1379.917 -1425 / -1425 Weight 188 lb 8 oz 189 lb 6 oz 193 lb 5 oz 187 lb 1.6 oz Microbiology Reports for the Last 24 Hours: Microbiology 02/23/21 08:28 Blood Blood Culture - Preliminary 02/19/21 16:40 Blood Blood Culture - Final NO GROWTH AFTER 5 DAYS 02/23/21 08:28 Blood Blood Culture - Preliminary 02/22/21 09:10 Sputum - Endotracheal Tube Aspirate Gram Stain - Final 02/22/21 09:10 Sputum - Endotracheal Tube Aspirate Sputum Culture - Preliminary - Constitutional no acute distress, chronically ill appearing - *Routine HEENT Exam Head: Present: normocephalic Eye: Present: EOMI ENT: Present: mucous membranes moist - *Routine Neck Exam Present: trachea midline. Absent: JVD - *Routine Respiratory Exam Present: rales - *Routine Cardiovascular Exam Present: RRR - *Routine Abdominal Exam Present: soft, normoactive bowel sounds. Absent: tenderness, rigid - *Routine Extremities Exam Present: full ROM, pulses intact. Absent: cyanosis, clubbing - *Routine Skin Exam Present: intact, dry, warm. Absent: cyanosis, erythema - *Routine Neurological Exam Present: altered mental status - Routine Psychiatric Exam Present: unable to assess Assessment and Plan (1) Tobacco use Status: Acute Category: Social Hx Code(s): Z72.0 - Tobacco use (2) Pneumonia due to COVID-19 virus Status: Acute Category: Medical Code(s): U07.1 - COVID-19; J12.82 - Pneumonia due to coronavirus disease 2019 (3) GERD (gastroesophageal reflux disease) Status: Acute Qualifiers: Esophagitis presence: esophagitis presence not specified Qualified Code(s): K21.9 - Gastro-esophageal reflux disease without esophagitis Category: Medical Code(s): K21.9 - Gastro-esophageal reflux disease without esophagitis (4) COPD (chronic obstructive pulmonary disease) Status: Acute Qualifiers: COPD type: unspecified COPD Qualified Code(s): J44.9 -
[2021-02-25 09:12] LABS: Hypochromasia 1+; Lymphocytes % 6 % (10-50); Monocytes % 2 % (2-9); Neutrophils % 92 % (42-76); Platelet Estimate Normal; Total Cells Counted 100
--- NOTE | 2021-02-25 09:23 | HMH.PULMPN ---
Internal Medicine - PN: Subj *Date: 02/25/21 *Time: 12:13 Interval history: No acute respiratory events overnight patient has been on nonrebreather postextubation with saturations maintained at 90% above. Exam - Constitutional Constitutional:: Present: no acute distress, comfortable - HENMT Exam HENMT: Present: normocephalic, atraumatic - Eye Exam Eyes:: Present: normal appearance both eyes and related structures - Neck Exam Neck:: Present: normal visual inspection - Respiratory Exam Respiratory:: Present: able to speak in complete sentences, respiratory distress, crackles, rales. Absent: wheezing - Cardiovascular Exam Cardiac:: Present: S1, S2 - GI Exam GI:: Present: soft - Skin Exam Skin: Present: warm, no rash - Neurological Exam Neurological: Present: awake. Absent: alert, normal cognition - Extremities Exam Extremities: Present: no cyanosis, no clubbing Assessment and Plan (1) Tobacco use Status: Acute Category: Social Hx Code(s): Z72.0 - Tobacco use (2) Pneumonia due to COVID-19 virus Status: Acute Category: Medical Code(s): U07.1 - COVID-19; J12.82 - Pneumonia due to coronavirus disease 2019 (3) GERD (gastroesophageal reflux disease) Status: Acute Qualifiers: Esophagitis presence: esophagitis presence not specified Qualified Code(s): K21.9 - Gastro-esophageal reflux disease without esophagitis Category: Medical Code(s): K21.9 - Gastro-esophageal reflux disease without esophagitis (4) COPD (chronic obstructive pulmonary disease) Status: Acute Qualifiers: COPD type: unspecified COPD Qualified Code(s): J44.9 - Chronic obstructive pulmonary disease, unspecified Category: Medical Code(s): J44.9 - Chronic obstructive pulmonary disease, unspecified (5) COVID-19 Status: Acute Category: Medical Code(s): U07.1 - COVID-19 (6) Respiratory failure with hypoxia Status: Acute Qualifiers: Chronicity: acute Qualified Code(s): J96.01 - Acute respiratory failure with hypoxia Category: Medical Code(s): J96.91 - Respiratory failure, unspecified with hypoxia (7) Hypotension Status: Acute Category: Medical Code(s): I95.9 - Hypotension, unspecified - Assessment and plan all Dx Assessment and Plan for all problems:: #Acute hypoxic respiratory failure: #COVID-19 pneumonia: CT on admission did not show any evidence of pulmonary embolism however showed diffuse bilateral patchy pulmonary infiltrates. No evidence of DVT D-dimer elevated at 0.81. CRP at 21.4 Patient was initiated on remdesivir and dexamethasone along with ceftriaxone and azithromycin on admission Patient respiratory status continued to decline with worsening respiratory distress and worsening oxygenation status eventually needing mechanical ventilatory support. Plan: -Respiratory status continued to improve with improving oxygenation and was successfully extubated. ABG this morning within normal limits. On nonrebreather saturating 90% and above. Will change to high flow nasal cannula and wean as tolerated -Continue remdesivir and dexamethasone for COVID-19 pneumonia. Continue barcitinib -Repeat blood culture showing staph species in both bottles. Patient was bacteremic even before central line placement. Will recommend continue vancomycin for now pending duration of antibiotic course and obtain an echocardiogram. Continue vancomycin. -DuoNebs every 6 hours scheduled Abdomen soft nontender. Renal function stable with adequate urine output. #Thank you for involving pulmonary in this patient care. We will continue to follow.
--- NOTE | 2021-02-25 10:56 | HMH.SLDYSPHA ---
Speech & Language Evaluation Speech/Language Dysphagia Evaluation Start: 02/25/21 10:47 Freq: ONCE Status: Active Protocol: Document 02/25/21 10:47 KENROY (Rec: 02/25/21 10:56 KENROY [email or web address]) Dysphagia Assess/Goals/Plan Assessment Date of Evaluation: 02/25/21 Evaluation Type Initial Certification Assessment/Problems Determine least restrictive diet Does Patient Qualify for Service Yes Qualify/Failure Comment Patient could not masticate mechanical soft without reinforcements to continue chewing. He will be followed for diet upgrades as his health improves. Recommendations PHYSICIAN CERTIFICATION: The specified therapy services are required, authorized, and reviewed every 30 days. Pt will be seen # times/week 1 for # weeks 1 Diet Recommendations Pureed Liquid Type Recommendations Normal/Thin SL Swallow Guidelines Assist w/all meals,Standard Aspiration Prec. Crush Meds Small pills w/applesauce,Crush lge pills w/applesa,Subs. delivery (liquid?) Dysphagia Swallow Precautions/Strategies Sitting Upright (90 deg),Small Bites and Sips,Alternate Liquids/Solids Plan Anticipate reaching STG in # weeks 1 Anticipate reaching LTG in # weeks 1 Pt/Guardian verbally ack understanding Yes of dx/prognosis/goals G -code Required No STG-Bolus Prop/Oral Coordination Awareness of bolus inc thru presentation 3 of foods that req chewing #trials Senior Living Goals Pt will be able to eat foods w/more Yes normal consistency Speech & Language HPI Language Primary Language Romansh General Information General Current Food Consistancy NPO Dentition Edentulous Oxygen Status Non-Rebreather Facial Symmetry Symmetrical Patient Orientation Person Ability to Follow Directions Good Dysphagia:Food Presentation Evaluation Food Type Pureed,Mechanical Soft,Liquid, Pudding Dysphagia Evaluation Mechanical Soft Difficulty chewing,Unable to Food Behavior Response form bolus Dysphagia Evaluation Summary Mr. Tanner was given the following consistencies: thins via straw and open cup, pudding, pureed, and mechanical soft. The following signs of dysphagia were noted
[2021-02-25 11:04] LABS: Vancomycin,Trough 12.2 ug/mL (5.0-10.0)
--- NOTE | 2021-02-25 12:14 | CA_ITS ---
APPROVED REPORT EXAM: Comprehensive 2D, Doppler, and color-flow Echocardiogram Guest Laundry Attendant: Lakia Justin RVT Ht: 5 ft 8 in Wt: 187lbs BSA: 1.99 BP: 147/87 mmHg Indications: COVID PNEUMONIA,SOA,S/P SXTUBATION, BACTREMIA,COPD 2D Dimensions LVOT 2.04 cm (M/F) 1.5-2.5 M-Mode Dimensions RVDd 3.00 cm (0.9-2.6) LA Diam 3.81 cm (1.9-4.0) LVDd 4.85 cm (3.5-5.7) Ao Diam 3.37 cm (2.0-3.7) LVDs 3.34 cm (3.5-5.7) IVSd 0.80 cm (0.6-1.1) PWd 0.99 cm (0.6-1.1) EF (Teich) 58.80% FS 31.10% EDV (Teich) 110.20 mL ESV (Teich) 45.40 mL LV Diastology E Decel Time 150.00 (160-240 msec) E/A Ratio 0.9 MED E' 8.70 (< 7 cm/sec) E'/MED E' Ratio 6.45 (>14) LAT E' 13.10 (<10 cm/sec) E/LAT E' Ratio 4.28 (>14) Aortic Valve AO Peak GR. 4.40 mmHg Mitral Valve MV E Max Jcarlos. 56.00 (40-130 cm/s) MV A Velocity 65.00 (40-130 cm/s) E/A Ratio 0.86 MV Decel. Time 150.00 (160-240 ms) MV PHT 44.00 ms Pulmonary Valve PV Peak Velocity 99.00 (50-150 cm/s) Tricuspid Valve TR P. Velocity 114.00 cm/s RAP Estimate 10.00 mmHg RVSP 15.20 mmHg Left Ventricle Left atrium is mildly enlarged, left ventricle is normal size, mild concentric left ventricular hypertrophy, visually estimated ejection fraction approximately 50%, there is abnormal septal motion. Diastolic parameters are inconclusive. Right Ventricle Right atrium and right ventricle mildly enlarged with normal contractility. Aortic Valve Aortic valve is minimally thickened and fibrosed, there is no aortic stenosis or aortic insufficiency. Mitral Valve Mitral valve is grossly normal, there is trace mitral regurgitation. Tricuspid Valve Tricuspid valve grossly normal, there is trace tricuspid regurgitation, tricuspid regurgitation jet velocity is inadequate for calculation of the right ventricular systolic pressure. Pulmonic Valve Pulmonic valve is poorly visualized. Great Vessels Aortic root is normal size. Inferior vena cava is poorly visualized. Pericardium No significant pericardial effusion noted. Conclusion 1. Technically difficult study because of the patient factors and poor acoustic windows. Normal left ventricular size, mild concentric left ventricular hypertrophy, visually estimated ejection fraction approximately 50%, there is abnormal septal motion, diastolic parameters are inconclusive. 2. Mildly enlarged right ventricle with normal contractility. 3. Trace mitral and tricuspid regurgitation. 4. No significant pericardial effusion noted. Electronically signed by : Darinel Ritchie MD 02/25/2021 19:18:09
[2021-02-25 18:40] LABS: Vancomycin,Peak 18.9 ug/ml (11-39)
[2021-02-26] VITALS (28 sets, daily range): BP systolic 120–186; BP diastolic 66–95; PULSE 78–113; RESP 14–31; TEMP 37.3–38.5; O2SAT 89–97; BMI 28.3
--- NOTE | 2021-02-26 06:00 | XR_ITS ---
PROCEDURE INFORMATION: Exam: XR Chest Exam date and time: 02/26/2021 6:00 AM Age: 60 years old Clinical indication: Shortness of breath; Patient HX: Covid; Additional info: Resp failure TECHNIQUE: Imaging protocol: XR of the chest. Views: 1 view. COMPARISON: CR XR CHEST PORTABLE 02/25/2021 7:33 AM FINDINGS: Tubes, catheters and devices: Left PICC line extends to the upper SVC. Lungs: Extensive bilateral pulmonary opacities are not significantly changed. Pleural spaces: No pleural effusion. No pneumothorax. Heart/Mediastinum: Stable cardiomegaly. Bones/joints: Unremarkable. IMPRESSION: Stable chest. No new abnormalities.
[2021-02-26 06:32] LABS: Basophils % 0.2 % (0.1-2.0); Hematocrit 39.8 % (42.0-52.0); Lymphocytes # 0.7 K/mm3 (0.7-4.5); Lymphocytes % 3.9 % (10-50); Mean Corpuscular HGB Conc 31.6 g/dL (31.8-35.4); Mean Corpuscular Hemoglobin 29.4 pg (27.0-31.2); Mean Platelet Volume 10.2 fl (7.4-10.4); Monocytes # 0.7 K/mm3 (0.1-1.0); Monocytes % 4.1 % (1.7-9.3); Neutrophils # 15.4 K/mm3 (1.8-7.8); Neutrophils % 91.8 % (37.0-80.0); Platelet Count 415 K/mm3 (142-424); Red Blood Count 4.28 M/mm3 (4.60-6.20); Red Cell Distribution Width 14.5 % (11.5-17.5); White Blood Count 16.8 K/mm3 (4.8-10.8)
[2021-02-26 06:35] LABS: MANUAL DIFFERENTIAL MANUAL DIFFERENTIAL (MANUAL DIFF)
[2021-02-26 06:46] LABS: Alanine Aminotransferase 62 U/L (12-78); Albumin Level 2.7 g/dl (3.5-5.0); Albumin/Globulin Ratio 0.8 (1.1-1.8); Alkaline Phosphatase 164 U/L (38-126); Anion Gap 10.4 mEq/L (5-15); Aspartate Amino Transferase 75 U/L (17-59); Bilirubin,Total 0.9 mg/dl (0.2-1.3); Blood Urea Nitrogen 16 mg/dl (9-20); Calcium 8.4 mg/dl (8.4-10.2); Carbon Dioxide 31 mmol/L (22.0-30.0); Chloride 101 mmol/L (98-107); Creatinine Clearance Estimated 157 mL/min (50-200); Estimated Glomerular Filt Rate 137 ml/min (>60); GFR (African American) 166 ML/MIN (>60); Globulin 3.3 g/dL (1.3-3.2); Glucose 97 mg/dl (74-100); Potassium 4.4 mmoL/L (3.5-5.1); Sodium 138 mmol/L (136-145)
--- NOTE | 2021-02-26 06:48 | PC.NURSE ---
0630 - pt pulled tubing to bipap loose from his mask at this time. Staff at beside immediately after bipap alarm sounding and re-attached bipap tubing to mask at this time. RT called to bedside. Pt had desaturations to as low as 54%. Instructed on taking slow deep breaths, after 10 minutes, patient oxygen saturations increased to 91%. Will continue to monitor.
[2021-02-26 07:34] LABS: ABG Base Excess 0.3 mmol/L (-2.4-2.3); ABG HCO3 23.2 mmhg (22.0-26.0); ABG Oxygen Saturation 90 % (90-100); ABG PCO2 29.2 mmhg (35.0-45.0); ABG PH 7.52 mmol/L (7.35-7.45); ABG PO2 54.7 mmhg (80-100); ABG TCO2 24.1 mmhg (23-27)
[2021-02-26 07:37] LABS: Lactate Arterial 1.7 mmol/L (0.4-2.0)
[2021-02-26 07:39] LABS: Allen's Test Acceptable; Oxygen 100 %; Source Right Radial
[2021-02-26 08:23] LABS: Hypochromasia 1+; Lymphocytes % 5 % (10-50); Monocytes % 1 % (2-9); Neutrophils % 94 % (42-76); Platelet Estimate Normal; Total Cells Counted 100
[2021-02-26 09:01] LABS: Hemoglobin 12.6 g/dL (14.1-18.0)
--- NOTE | 2021-02-26 09:17 | HMH.PULMPN ---
Internal Medicine - PN: Subj *Date: 02/26/21 *Time: 14:57 Interval history: Patient respiratory status continued to decline post extubation, escalated to BiPAP. Exam - HENMT Exam HENMT: Present: normocephalic, atraumatic - Eye Exam Eyes:: Present: normal appearance both eyes and related structures - Neck Exam Neck:: Present: normal visual inspection - Respiratory Exam Respiratory:: Present: respiratory distress, crackles. Absent: wheezing - Cardiovascular Exam Cardiac:: Present: S1, S2 - GI Exam GI:: Present: soft - Skin Exam Skin: Present: warm - Neurological Exam Neurological: Present: awake. Absent: alert, normal cognition - Extremities Exam Extremities: Present: no cyanosis, no clubbing, edema Assessment and Plan (1) Tobacco use Status: Acute Category: Social Hx Code(s): Z72.0 - Tobacco use (2) Pneumonia due to COVID-19 virus Status: Acute Category: Medical Code(s): U07.1 - COVID-19; J12.82 - Pneumonia due to coronavirus disease 2019 (3) GERD (gastroesophageal reflux disease) Status: Acute Qualifiers: Esophagitis presence: esophagitis presence not specified Qualified Code(s): K21.9 - Gastro-esophageal reflux disease without esophagitis Category: Medical Code(s): K21.9 - Gastro-esophageal reflux disease without esophagitis (4) COPD (chronic obstructive pulmonary disease) Status: Acute Qualifiers: COPD type: unspecified COPD Qualified Code(s): J44.9 - Chronic obstructive pulmonary disease, unspecified Category: Medical Code(s): J44.9 - Chronic obstructive pulmonary disease, unspecified (5) COVID-19 Status: Acute Category: Medical Code(s): U07.1 - COVID-19 (6) Respiratory failure with hypoxia Status: Acute Qualifiers: Chronicity: acute Qualified Code(s): J96.01 - Acute respiratory failure with hypoxia Category: Medical Code(s): J96.91 - Respiratory failure, unspecified with hypoxia (7) Hypotension Status: Acute Category: Medical Code(s): I95.9 - Hypotension, unspecified (8) Hx of substance abuse Status: Acute Category: Medical Code(s): F19.11 - Other psychoactive substance abuse, in remission - Assessment and plan all Dx Assessment and Plan for all problems:: #Acute hypoxic respiratory failure: #COVID-19 pneumonia: CT on admission did not show any evidence of pulmonary embolism however showed diffuse bilateral patchy pulmonary infiltrates. No evidence of DVT D-dimer elevated at 0.81. CRP at 21.4 Patient was initiated on remdesivir and dexamethasone along with ceftriaxone and azithromycin on admission Patient respiratory status declined during admission needing intubation and mechanical ventilation patient was successfully extubated and since then patient has relatively stable but critical needing high oxygen requirements currently on BiPAP. Plan: -Continue BiPAP support to maintain O2 saturation goal of 88 to 92%. ABG this morning showed respiratory alkalosis with hypoxic respiratory failure. Chest x-ray stable with diffuse bilateral pulmonary infiltrates. We will closely monitor. -Continue remdesivir and dexamethasone for COVID-19 pneumonia. Continue barcitinib -Repeat blood culture showing staph species in both bottles. Patient was bacteremic even before central line placement. Will recommend continue vancomycin for now pending duration of antibiotic course determination. Echocardiogram did not reported to have any vegetations, though limited. If patient continued to have positive blood Cultures will consult cardiology for possible BILLIE. We will repeat blood cultures today. -DuoNebs every 6 hours scheduled Abdomen soft nontender. Renal function stable with adequate urine output. Lasix 40 IV once #Thank you for involving pulmonary in this patient care. We will continue to follow.
--- NOTE | 2021-02-26 09:38 | HMH.ACPN2 ---
Internal Medicine - PN: Subj *Date: 02/26/21 *Time: 21:39 Interval history: 60-year-old male patient lying in bed he is alert but disoriented, BiPAP intact. Oxygenation was increased yesterday from NRB to Vapotherm then to BiPAP Exam Vital signs and Labs for Last 24 Hours: Temp Pulse Resp BP Pulse Ox 100.6 F H 97 H 26 H 186/92 H 94 L 02/26/21 09:16 02/26/21 09:16 02/26/21 09:16 02/26/21 09:16 02/26/21 09:16 Laboratory Results - last 24 hr 02/25/21 10:00: Vancomycin Trough 12.2 H 02/25/21 17:22: Vancomycin Peak 18.9 02/26/21 05:45: WBC 16.8 H, RBC 4.28 L, Hgb 12.6 L D, Hct 39.8 L, MCV 93.0, MCH 29.4, MCHC 31.6 L, RDW 14.5, Plt Count 415, MPV 10.2, Neut % (Auto) 91.8 H, Lymph % (Auto) 3.9 L, [place] % (Auto) 4.1, Eos % (Auto) 0.0 L, Baso % (Auto) 0.2, Neut # (Auto) 15.4 H, Lymph # (Auto) 0.7, [place] # (Auto) 0.7, Eos # (Auto) 0.0, Baso # (Auto) 0.0, Total Counted 100, Neutrophils % (Manual) 94 H, Lymphocytes % (Manual) 5 L, Monocytes % (Manual) 1 L, Platelet Estimate Normal, Hypochromasia 1+ 02/26/21 05:45: Sodium 138, Potassium 4.4, Chloride 101, Carbon Dioxide 31 H, Anion Gap 10.4, BUN 16, Creatinine 0.60 L D, Estimated Creat Clear 157, Estimated GFR 137, Est GFR ( Amer) 166 D, Glucose 97, Calcium 8.4, Total Bilirubin 0.9, AST 75 H, ALT 62, Alkaline Phosphatase 164 H, Total Protein 6.0 L, Albumin 2.7 L, Globulin 3.3 H, Albumin/Globulin Ratio 0.8 L 02/26/21 06:00: ABG Lactate 1.7 02/26/21 06:00: Specimen Source Right radial, O2 % 100, ABG pH 7.52 H, ABG pCO2 29.2 L, ABG pO2 54.7 L, ABG HCO3 23.2, ABG Total CO2 24.1, ABG O2 Saturation 90, ABG Base Excess 0.3, [place] Test Acceptable I & O for Last 24 hours: Intake & Output 02/23/21 02/24/21 02/25/21 02/26/21 23:59 23:59 23:59 23:59 Intake Total 1282.416 / 1282.416 685.083 / 685.083 250 / 250 Output Total 839 / 914 2014 4100 / 4350 1600 / 1600 Balance 443.416 / 368.416 -1329.917 / -1379.917 -3850 / -4100 -1600 / -1600 Weight 189 lb 6 oz 193 lb 5 oz 187 lb 1.6 oz 187 lb Microbiology Reports for the Last 24 Hours: Microbiology 02/23/21 08:28 Blood Blood Culture - Preliminary Staphylococcus epidermidis 02/23/21 08:28 Blood Blood Culture - Preliminary Staphylococcus epidermidis 02/22/21 09:10 Sputum - Endotracheal Tube Aspirate Gram Stain - Final 02/22/21 09:10 Sputum - Endotracheal Tube Aspirate Sputum Culture - Final Yeast - Constitutional no acute distress, chronically ill appearing - *Routine HEENT Exam Head: Present: normocephalic Eye: Present: EOMI ENT: Present: mucous membranes moist - *Routine Neck Exam Present: trachea midline. Absent: JVD - *Routine Respiratory Exam Present: crackles - *Routine Cardiovascular Exam Present: RRR - *Routine Abdominal Exam Present: soft, normoactive bowel sounds. Absent: distended, rigid - *Routine Extremities Exam Present: full ROM, pulses intact. Absent: cyanosis, clubbing - *Routine Skin Exam Present: intact, dry, warm. Absent: cyanosis, erythema - *Routine Neurological Exam Present: alert, altered mental status - Routine Psychiatric Exam Present: unable to assess Assessment and Plan (1) Tobacco use Status: Acute Category: Social Hx Code(s): Z72.0 - Tobacco use (2) Pneumonia due to COVID-19 virus Status: Acute Category: Medical Code(s): U07.1 - COVID-19; J12.82 - Pneumonia due to coronavirus disease 2019 (3) GERD (gastroesophageal reflux disease) Status: Acute Qualifiers: Esophagitis presence: esophagitis presence not specified Qualified Code(s): K21.9 - Gastro-esophageal reflux disease without esophagitis Category: Medical Code(s): K21.9 - Gastro-esophageal reflux disease without esophagitis (4) COPD (chronic obstructive pulmonary disease) Status: Acute Qualifiers: COPD type: unspecified COPD Qualified Code(s): J44.9 - Chronic obstructi
--- NOTE | 2021-02-26 11:32 | DIET.NUTRFU ---
Pt has been successfully extubated. MANA[employer] has seen pt and advanced diet to Pureed with thin liquids. Will add ensure TID to help supplement diet. Will continue to monitor.
--- NOTE | 2021-02-26 11:37 | HMH.PHACONS ---
- Pharmacy Consult Date: 02/26/21 Time: 11:38 Referring provider: DR. BARRAZA Reason for Consult:: VANCOMYCIN LEVELS Allergies and ADEs:: Allergies Allergy/AdvReac Type Severity Reaction Status Date / Time No Known Allergies Allergy Verified 10/25/18 11:18 Home Medications:: Home Medications Medication Instructions Recorded Confirmed Type Buprenorphine HCl/Naloxone HCl 1.5 tab SL DAILY 12/20/17 02/15/21 History [Buprenorphine-Nalox 8-2 mg Tab] Height: 1.73 m Weight: 84.822 kg Laboratory Results:: Laboratory Results - last 24 hr 02/25/21 17:22: Vancomycin Peak 18.9 02/26/21 05:45: WBC 16.8 H, RBC 4.28 L, Hgb 12.6 L D, Hct 39.8 L, MCV 93.0, MCH 29.4, MCHC 31.6 L, RDW 14.5, Plt Count 415, MPV 10.2, Neut % (Auto) 91.8 H, Lymph % (Auto) 3.9 L, [place] % (Auto) 4.1, Eos % (Auto) 0.0 L, Baso % (Auto) 0.2, Neut # (Auto) 15.4 H, Lymph # (Auto) 0.7, [place] # (Auto) 0.7, Eos # (Auto) 0.0, Baso # (Auto) 0.0, Total Counted 100, Neutrophils % (Manual) 94 H, Lymphocytes % (Manual) 5 L, Monocytes % (Manual) 1 L, Platelet Estimate Normal, Hypochromasia 1+ 02/26/21 05:45: Sodium 138, Potassium 4.4, Chloride 101, Carbon Dioxide 31 H, Anion Gap 10.4, BUN 16, Creatinine 0.60 L D, Estimated Creat Clear 157, Estimated GFR 137, Est GFR ( Amer) 166 D, Glucose 97, Calcium 8.4, Total Bilirubin 0.9, AST 75 H, ALT 62, Alkaline Phosphatase 164 H, Total Protein 6.0 L, Albumin 2.7 L, Globulin 3.3 H, Albumin/Globulin Ratio 0.8 L 02/26/21 06:00: ABG Lactate 1.7 02/26/21 06:00: Specimen Source Right radial, O2 % 100, ABG pH 7.52 H, ABG pCO2 29.2 L, ABG pO2 54.7 L, ABG HCO3 23.2, ABG Total CO2 24.1, ABG O2 Saturation 90, ABG Base Excess 0.3, [place] Test Acceptable Medical History: Reports:: Gastroesophageal Reflux Disease(GERD) Denies:: Cancer, Diabetes Mellitus Type 1, Diabetes Mellitus Type 2, MRSA Assessment and Plan (1) Tobacco use Status: Acute Category: Social Hx Code(s): Z72.0 - Tobacco use (2) Pneumonia due to COVID-19 virus Status: Acute Category: Medical Code(s): U07.1 - COVID-19; J12.82 - Pneumonia due to coronavirus disease 2019 (3) GERD (gastroesophageal reflux disease) Status: Acute Qualifiers: Esophagitis presence: esophagitis presence not specified Qualified Code(s): K21.9 - Gastro-esophageal reflux disease without esophagitis Category: Medical Code(s): K21.9 - Gastro-esophageal reflux disease without esophagitis (4) COPD (chronic obstructive pulmonary disease) Status: Acute Qualifiers: COPD type: unspecified COPD Qualified Code(s): J44.9 - Chronic obstructive pulmonary disease, unspecified Category: Medical Code(s): J44.9 - Chronic obstructive pulmonary disease, unspecified (5) COVID-19 Status: Acute Category: Medical Code(s): U07.1 - COVID-19 (6) Respiratory failure with hypoxia Status: Acute Qualifiers: Chronicity: acute Qualified Code(s): J96.01 - Acute respiratory failure with hypoxia Category: Medical Code(s): J96.91 - Respiratory failure, unspecified with hypoxia (7) Hypotension Status: Acute Category: Medical Code(s): I95.9 - Hypotension, unspecified (8) Hx of substance abuse Status: Acute Category: Medical Code(s): F19.11 - Other psychoactive substance abuse, in remission - Assessment and plan all Dx Assessment and Plan for all problems:: PATIENT'S VANCOMYCIN TROUGH LEVEL WAS 12.2 YESTERDAY. RECOMMEND CONTINUING WITH VANCOMYCIN 1750 MG Q12H AT THIS TIME.
--- NOTE | 2021-02-26 11:55 | HMH.ACPN2 ---
Internal Medicine - PN: Subj *Date: 02/26/21 *Time: 11:55 Exam Vital signs and Labs for Last 24 Hours: Temp Pulse Resp BP Pulse Ox 101.3 F H 98 H 27 H 136/71 92 L 02/26/21 11:45 02/26/21 11:45 02/26/21 11:45 02/26/21 11:45 02/26/21 11:45 Laboratory Results - last 24 hr 02/25/21 17:22: Vancomycin Peak 18.9 02/26/21 05:45: WBC 16.8 H, RBC 4.28 L, Hgb 12.6 L D, Hct 39.8 L, MCV 93.0, MCH 29.4, MCHC 31.6 L, RDW 14.5, Plt Count 415, MPV 10.2, Neut % (Auto) 91.8 H, Lymph % (Auto) 3.9 L, [place] % (Auto) 4.1, Eos % (Auto) 0.0 L, Baso % (Auto) 0.2, Neut # (Auto) 15.4 H, Lymph # (Auto) 0.7, [place] # (Auto) 0.7, Eos # (Auto) 0.0, Baso # (Auto) 0.0, Total Counted 100, Neutrophils % (Manual) 94 H, Lymphocytes % (Manual) 5 L, Monocytes % (Manual) 1 L, Platelet Estimate Normal, Hypochromasia 1+ 02/26/21 05:45: Sodium 138, Potassium 4.4, Chloride 101, Carbon Dioxide 31 H, Anion Gap 10.4, BUN 16, Creatinine 0.60 L D, Estimated Creat Clear 157, Estimated GFR 137, Est GFR ( Amer) 166 D, Glucose 97, Calcium 8.4, Total Bilirubin 0.9, AST 75 H, ALT 62, Alkaline Phosphatase 164 H, Total Protein 6.0 L, Albumin 2.7 L, Globulin 3.3 H, Albumin/Globulin Ratio 0.8 L 02/26/21 06:00: ABG Lactate 1.7 02/26/21 06:00: Specimen Source Right radial, O2 % 100, ABG pH 7.52 H, ABG pCO2 29.2 L, ABG pO2 54.7 L, ABG HCO3 23.2, ABG Total CO2 24.1, ABG O2 Saturation 90, ABG Base Excess 0.3, [place] Test Acceptable I & O for Last 24 hours: Intake & Output 02/23/21 02/24/21 02/25/21 02/26/21 23:59 23:59 23:59 23:59 Intake Total 1282.416 / 1282.416 685.083 / 685.083 250 / 250 Output Total 839 / 914 2014 4100 / 4350 2074 Balance 443.416 / 368.416 -1329.917 / -1379.917 -3850 / -4100 -2074 / Weight 85.899 kg 87.685 kg 84.867 kg 84.822 kg Microbiology Reports for the Last 24 Hours: Microbiology 02/23/21 08:28 Blood Blood Culture - Preliminary Staphylococcus epidermidis 02/23/21 08:28 Blood Blood Culture - Preliminary Staphylococcus epidermidis 02/22/21 09:10 Sputum - Endotracheal Tube Aspirate Gram Stain - Final 02/22/21 09:10 Sputum - Endotracheal Tube Aspirate Sputum Culture - Final Yeast Assessment and Plan (1) Tobacco use Status: Acute Category: Social Hx Code(s): Z72.0 - Tobacco use (2) Pneumonia due to COVID-19 virus Status: Acute Category: Medical Code(s): U07.1 - COVID-19; J12.82 - Pneumonia due to coronavirus disease 2019 (3) GERD (gastroesophageal reflux disease) Status: Acute Qualifiers: Esophagitis presence: esophagitis presence not specified Qualified Code(s): K21.9 - Gastro-esophageal reflux disease without esophagitis Category: Medical Code(s): K21.9 - Gastro-esophageal reflux disease without esophagitis (4) COPD (chronic obstructive pulmonary disease) Status: Acute Qualifiers: COPD type: unspecified COPD Qualified Code(s): J44.9 - Chronic obstructive pulmonary disease, unspecified Category: Medical Code(s): J44.9 - Chronic obstructive pulmonary disease, unspecified (5) COVID-19 Status: Acute Category: Medical Code(s): U07.1 - COVID-19 (6) Respiratory failure with hypoxia Status: Acute Qualifiers: Chronicity: acute Qualified Code(s): J96.01 - Acute respiratory failure with hypoxia Category: Medical Code(s): J96.91 - Respiratory failure, unspecified with hypoxia (7) Hypotension Status: Acute Category: Medical Code(s): I95.9 - Hypotension, unspecified (8) Hx of substance abuse Status: Acute Category: Medical Code(s): F19.11 - Other psychoactive substance abuse, in remission The patient's infection will respond to the chosen ABx?: Yes Is the patient receiving the right drug, dose, and route?: Yes Could a more targeted ABx be ordered?: No
--- NOTE | 2021-02-26 17:25 | PC.NURSE ---
Remains on BIPAP, FIO2 weaned to 80% by RT @ 1400. SPO2 mid 90's. Lungs diminished. HR regular, tachy. Abdomen soft, non-tender w/ active BS. Pt did have a small BM this shift. Shahid cath to drain @ bedside w/ clear yellow urine. Skin intact. Turned and repositioned Q2H. Oral care provided. He is alert to self only, is confused but cooperative. called this afternoon and was updated on plan of care.
[2021-02-27] VITALS (22 sets, daily range): BP systolic 109–130; BP diastolic 63–88; PULSE 70–120; RESP 14–28; TEMP 37.3–37.7; O2SAT 90–99; BMI 26.1
--- NOTE | 2021-02-27 06:00 | XR_ITS ---
PROCEDURE INFORMATION: Exam: XR Chest Exam date and time: 02/27/2021 6:00 AM Age: 60 years old Clinical indication: Shortness of breath; Patient HX: Covid; Additional info: Resp failure TECHNIQUE: Imaging protocol: XR of the chest. Views: 1 view. COMPARISON: CR XR CHEST PORTABLE 02/26/2021 5:27 AM FINDINGS: Tubes, catheters and devices: Central venous catheter with tip projected over junction of brachiocephalic vein/SVC, stable. Leads overlying chest. Lungs: Mild underinflation. Moderate scattered airspace opacities, likely unchanged allowing for difference in technique and inspiration. Pleural spaces: No definite pleural effusion. No pneumothorax. Heart/Mediastinum: No cardiomegaly. Bones/joints: No displaced fracture. Soft tissues: Unremarkable. IMPRESSION: Findings compatible with multifocal pneumonia (bacterial or viral). Followup to resolution to exclude underlying pathology.
[2021-02-27 07:38] LABS: Basophils % 0.3 % (0.1-2.0); Hematocrit 37.7 % (42.0-52.0); Hemoglobin 12.1 g/dL (14.1-18.0); Lymphocytes # 0.6 K/mm3 (0.7-4.5); Lymphocytes % 3.7 % (10-50); Mean Corpuscular HGB Conc 32.2 g/dL (31.8-35.4); Mean Corpuscular Hemoglobin 29.6 pg (27.0-31.2); Mean Platelet Volume 10.6 fl (7.4-10.4); Monocytes % 5.7 % (1.7-9.3); Neutrophils # 15.7 K/mm3 (1.8-7.8); Neutrophils % 90.3 % (37.0-80.0); Platelet Count 341 K/mm3 (142-424); Red Cell Distribution Width 14.6 % (11.5-17.5); White Blood Count 17.4 K/mm3 (4.8-10.8)
[2021-02-27 07:52] LABS: MANUAL DIFFERENTIAL MANUAL DIFFERENTIAL (MANUAL DIFF)
[2021-02-27 08:01] LABS: Alanine Aminotransferase 46 U/L (12-78); Albumin Level 2.8 g/dl (3.5-5.0); Albumin/Globulin Ratio 0.8 (1.1-1.8); Alkaline Phosphatase 131 U/L (38-126); Anion Gap 12.2 mEq/L (5-15); Aspartate Amino Transferase 59 U/L (17-59); Bilirubin,Total 1.2 mg/dl (0.2-1.3); Blood Urea Nitrogen 26 mg/dl (9-20); Calcium 8.7 mg/dl (8.4-10.2); Carbon Dioxide 26 mmol/L (22.0-30.0); Chloride 104 mmol/L (98-107); Creatinine Clearance Estimated 174 mL/min (50-200); Estimated Glomerular Filt Rate 170 ml/min (>60); GFR (African American) 205 ML/MIN (>60); Globulin 3.4 g/dL (1.3-3.2); Glucose 110 mg/dl (74-100); Potassium 5.2 mmoL/L (3.5-5.1); Sodium 137 mmol/L (136-145); Total Protein,Serum 6.2 g/dl (6.3-8.2)
[2021-02-27 08:11] LABS: Lymphocytes % 2 % (10-50); Monocytes % 2 % (2-9); Neutrophils % 96 % (42-76); Total Cells Counted 100
[2021-02-27 08:12] LABS: Hypochromasia 1+; Platelet Estimate Normal
--- NOTE | 2021-02-27 09:27 | HMH.PULMPN ---
Internal Medicine - PN: Subj *Date: 02/27/21 *Time: 13:48 Interval history: No acute respiratory events overnight. Exam - Constitutional Constitutional:: Present: no acute distress, comfortable - HENMT Exam HENMT: Present: normocephalic, atraumatic - Eye Exam Eyes:: Present: normal appearance both eyes and related structures - Neck Exam Neck:: Present: normal visual inspection - Respiratory Exam Respiratory:: Present: able to speak in complete sentences, respiratory distress, crackles. Absent: wheezing - Cardiovascular Exam Cardiac:: Present: S1, S2 - GI Exam GI:: Present: soft - Skin Exam Skin: Present: warm, no rash - Neurological Exam Neurological: Present: alert, awake - Extremities Exam Extremities: Present: no cyanosis, no clubbing, no edema Assessment and Plan (1) Tobacco use Status: Acute Category: Social Hx Code(s): Z72.0 - Tobacco use (2) Pneumonia due to COVID-19 virus Status: Acute Category: Medical Code(s): U07.1 - COVID-19; J12.82 - Pneumonia due to coronavirus disease 2019 (3) GERD (gastroesophageal reflux disease) Status: Acute Qualifiers: Esophagitis presence: esophagitis presence not specified Qualified Code(s): K21.9 - Gastro-esophageal reflux disease without esophagitis Category: Medical Code(s): K21.9 - Gastro-esophageal reflux disease without esophagitis (4) COPD (chronic obstructive pulmonary disease) Status: Acute Qualifiers: COPD type: unspecified COPD Qualified Code(s): J44.9 - Chronic obstructive pulmonary disease, unspecified Category: Medical Code(s): J44.9 - Chronic obstructive pulmonary disease, unspecified (5) COVID-19 Status: Acute Category: Medical Code(s): U07.1 - COVID-19 (6) Respiratory failure with hypoxia Status: Acute Qualifiers: Chronicity: acute Qualified Code(s): J96.01 - Acute respiratory failure with hypoxia Category: Medical Code(s): J96.91 - Respiratory failure, unspecified with hypoxia (7) Hypotension Status: Acute Category: Medical Code(s): I95.9 - Hypotension, unspecified (8) Hx of substance abuse Status: Acute Category: Medical Code(s): F19.11 - Other psychoactive substance abuse, in remission - Assessment and plan all Dx Assessment and Plan for all problems:: #Acute hypoxic respiratory failure: #COVID-19 pneumonia: CT on admission did not show any evidence of pulmonary embolism however showed diffuse bilateral patchy pulmonary infiltrates. No evidence of DVT D-dimer elevated at 0.81. CRP at 21.4 Patient was initiated on remdesivir and dexamethasone along with ceftriaxone and azithromycin on admission Patient respiratory status declined during admission needing intubation and mechanical ventilation patient was successfully extubated and since then patient has relatively stable but critical needing high oxygen requirements currently on BiPAP. Plan: -Continue BiPAP support to maintain O2 saturation goal of 88 to 92%. ABG this morning showed respiratory alkalosis with hypoxic respiratory failure. Chest x-ray stable with diffuse bilateral pulmonary infiltrates. We will closely monitor and wean FiO2 as tolerated. Sputum showing yeast likely contaminant we will closely monitor -Continue remdesivir and dexamethasone for COVID-19 pneumonia. Continue barcitinib -Repeat blood culture showing staph species in both bottles. Patient was bacteremic even before central line placement. Will recommend continue vancomycin for now pending duration of antibiotic course determination. Echocardiogram did not reported to have any vegetations, though limited. If patient continued to have positive blood Cultures will consult cardiology for possible BILLIE. We will repeat blood cultures today. -DuoNebs every 6 hours scheduled Abdomen soft nontender. Renal function stable with adequate urine output. We will hold off on diuresis today. He has adequate response to 40 mg of Lasix yes
--- NOTE | 2021-02-27 10:38 | PC.NURSE ---
Addendum entered by Angie Obanod RN 02/27/21 14:36: S Sweet,RT FIO2 decreased to 50%, sat currently 93%. Original Note: Dr. Bates @ bedside, FIO2 weaned to 60%.
--- NOTE | 2021-02-27 14:49 | HMH.ACPN2 ---
Internal Medicine - PN: Subj *Date: 02/27/21 *Time: 20:46 Interval history: 60-year-old male patient sitting in bed BiPAP intact he is alert and mumbles answers when asked questions is not appropriate. Current oxygenation is 92% on BiPAP 80% Exam Vital signs and Labs for Last 24 Hours: Temp Pulse Resp BP Pulse Ox 99.1 F 84 22 127/79 92 L 02/27/21 13:39 02/27/21 13:39 02/27/21 13:39 02/27/21 13:39 02/27/21 13:39 Laboratory Results - last 24 hr 02/27/21 07:27: WBC 17.4 H, RBC 4.10 L, Hgb 12.1 L, Hct 37.7 L, MCV 92.0, MCH 29.6, MCHC 32.2, RDW 14.6, Plt Count 341, MPV 10.6 H, Neut % (Auto) 90.3 H, Lymph % (Auto) 3.7 L, Yell % (Auto) 5.7, Eos % (Auto) 0.0 L, Baso % (Auto) 0.3, Neut # (Auto) 15.7 H, Lymph # (Auto) 0.6 L, Yell # (Auto) 1.0, Eos # (Auto) 0.0, Baso # (Auto) 0.0, Total Counted 100, Neutrophils % (Manual) 96 H, Lymphocytes % (Manual) 2 L, Monocytes % (Manual) 2, Platelet Estimate Normal, Hypochromasia 1+ 02/27/21 07:27: Sodium 137, Potassium 5.2 H, Chloride 104, Carbon Dioxide 26, Anion Gap 12.2, BUN 26 H D, Creatinine 0.50 L, Estimated Creat Clear 174, Estimated GFR 170, Est GFR ( Amer) 205 D, Glucose 110 H, Calcium 8.7, Total Bilirubin 1.2, AST 59, ALT 46 D, Alkaline Phosphatase 131 H, Total Protein 6.2 L, Albumin 2.8 L, Globulin 3.4 H, Albumin/Globulin Ratio 0.8 L I & O for Last 24 hours: Intake & Output 02/24/21 02/25/21 02/26/21 02/27/21 23:59 23:59 23:59 23:59 Intake Total 685.083 / 685.083 250 / 250 250 / 250 Output Total 2014 4100 / 4350 2965 / 2965 735 / 735 Balance -1329.917 / -1379.917 -3850 / -4100 -2715 / -2715 -735 / -735 Weight 193 lb 5 oz 187 lb 1.6 oz 187 lb 172 lb 4 oz - Constitutional no acute distress, chronically ill appearing - *Routine HEENT Exam Head: Present: normocephalic Eye: Present: EOMI ENT: Present: mucous membranes moist - *Routine Neck Exam Present: trachea midline. Absent: tracheal deviation - *Routine Respiratory Exam Present: crackles. Absent: accessory muscle use - *Routine Cardiovascular Exam Present: RRR - *Routine Abdominal Exam Present: soft, normoactive bowel sounds. Absent: tenderness, firm - *Routine Extremities Exam Present: full ROM, pulses intact. Absent: cyanosis, clubbing - *Routine Skin Exam Present: intact, erythema, dry, warm. Absent: cyanosis - *Routine Neurological Exam Present: alert, altered mental status - Routine Psychiatric Exam Present: unable to assess Assessment and Plan (1) Tobacco use Status: Acute Category: Social Hx Code(s): Z72.0 - Tobacco use (2) Pneumonia due to COVID-19 virus Status: Acute Category: Medical Code(s): U07.1 - COVID-19; J12.82 - Pneumonia due to coronavirus disease 2019 (3) GERD (gastroesophageal reflux disease) Status: Acute Qualifiers: Esophagitis presence: esophagitis presence not specified Qualified Code(s): K21.9 - Gastro-esophageal reflux disease without esophagitis Category: Medical Code(s): K21.9 - Gastro-esophageal reflux disease without esophagitis (4) COPD (chronic obstructive pulmonary disease) Status: Acute Qualifiers: COPD type: unspecified COPD Qualified Code(s): J44.9 - Chronic obstructive pulmonary disease, unspecified Category: Medical Code(s): J44.9 - Chronic obstructive pulmonary disease, unspecified (5) COVID-19 Status: Acute Category: Medical Code(s): U07.1 - COVID-19 (6) Respiratory failure with hypoxia Status: Acute Qualifiers: Chronicity: acute Qualified Code(s): J96.01 - Acute respiratory failure with hypoxia Category: Medical Code(s): J96.91 - Respiratory failure, unspecified with hypoxia (7) Hypotension Status: Acute Category: Medical Code(s): I95.9 - Hypotension, unspecified (8) Hx of substance abuse Status: Acute Category: Medical Code(s): F19.11 - Other psychoactive substance abuse, in remission - Assessment and plan all Dx Assessment and Indra
[2021-02-28] VITALS (18 sets, daily range): BP systolic 106–136; BP diastolic 59–80; PULSE 70–95; RESP 14–26; TEMP 36.5–37.8; O2SAT 88–94; BMI 25.7
--- NOTE | 2021-02-28 06:00 | XR_ITS ---
PROCEDURE INFORMATION: Exam: XR Chest Exam date and time: 02/28/2021 6:00 AM Age: 60 years old Clinical indication: Shortness of breath; Patient HX: Covid; Additional info: Resp failure TECHNIQUE: Imaging protocol: XR of the chest. Views: 1 view. COMPARISON: CR XR CHEST PORTABLE 02/27/2021 5:27 AM FINDINGS: Tubes, catheters and devices: The left subclavian central line tip is roughly at the junction of the brachiocephalic vein and superior vena cava. Lungs: See Heart/Mediastinum finding. Pleural spaces: There is no pleural effusion or pneumothorax. Heart/Mediastinum: The cardiomegaly and perihilar/basilar interstitial infiltrates have not changed significantly. Bones/joints: The bones are demineralized. IMPRESSION: No definite significant interval change.
[2021-02-28 06:53] LABS: Basophils % 0.1 % (0.1-2.0); Eosinophils % 0.2 % (0.1-12.0); Hematocrit 34.1 % (42.0-52.0); Lymphocytes # 1.1 K/mm3 (0.7-4.5); Lymphocytes % 6.9 % (10-50); Mean Corpuscular HGB Conc 32.4 g/dL (31.8-35.4); Mean Corpuscular Hemoglobin 30.1 pg (27.0-31.2); Mean Corpuscular Volume 92.9 fl (80-94); Mean Platelet Volume 10.3 fl (7.4-10.4); Monocytes # 0.8 K/mm3 (0.1-1.0); Neutrophils # 14.6 K/mm3 (1.8-7.8); Neutrophils % 87.8 % (37.0-80.0); Platelet Count 335 K/mm3 (142-424); Red Blood Count 3.67 M/mm3 (4.60-6.20); Red Cell Distribution Width 14.7 % (11.5-17.5); White Blood Count 16.6 K/mm3 (4.8-10.8)
[2021-02-28 06:59] LABS: MANUAL DIFFERENTIAL MANUAL DIFFERENTIAL (MANUAL DIFF)
[2021-02-28 07:20] LABS: Hypochromasia 1+; Lymphocytes % 4 % (10-50); Monocytes % 5 % (2-9); Neutrophils % 90 % (42-76); Nucleated Red Blood Cells 1; Platelet Estimate Normal; Total Cells Counted 100
[2021-02-28 07:25] LABS: Alanine Aminotransferase 55 U/L (12-78); Albumin Level 2.6 g/dl (3.5-5.0); Albumin/Globulin Ratio 0.8 (1.1-1.8); Alkaline Phosphatase 159 U/L (38-126); Anion Gap 10.9 mEq/L (5-15); Aspartate Amino Transferase 89 U/L (17-59); Blood Urea Nitrogen 23 mg/dl (9-20); Calcium 8.3 mg/dl (8.4-10.2); Carbon Dioxide 25 mmol/L (22.0-30.0); Chloride 103 mmol/L (98-107); Creatinine Clearance Estimated 171 mL/min (50-200); Estimated Glomerular Filt Rate 170 ml/min (>60); GFR (African American) 205 ML/MIN (>60); Globulin 3.3 g/dL (1.3-3.2); Glucose 82 mg/dl (74-100); Potassium 4.9 mmoL/L (3.5-5.1); Sodium 134 mmol/L (136-145); Total Protein,Serum 5.9 g/dl (6.3-8.2)
--- NOTE | 2021-02-28 09:25 | HMH.PULMPN ---
Internal Medicine - PN: Subj *Date: 02/28/21 *Time: 13:06 Interval history: No acute respiratory vents overnight. Exam - Constitutional Constitutional:: Present: no acute distress, comfortable - HENMT Exam HENMT: Present: normocephalic - Eye Exam Eyes:: Present: normal appearance both eyes and related structures - Neck Exam Neck:: Present: normal visual inspection - Respiratory Exam Respiratory:: Present: no respiratory distress, crackles - Cardiovascular Exam Cardiac:: Present: S1, S2 - GI Exam GI:: Present: soft - Skin Exam Skin: Present: warm, no rash - Neurological Exam Neurological: Present: awake - Extremities Exam Extremities: Present: no cyanosis, no clubbing, edema - Psychiatric Exam Psychiatric: Present: normal affect Assessment and Plan (1) Tobacco use Status: Acute Category: Social Hx Code(s): Z72.0 - Tobacco use (2) Pneumonia due to COVID-19 virus Status: Acute Category: Medical Code(s): U07.1 - COVID-19; J12.82 - Pneumonia due to coronavirus disease 2019 (3) GERD (gastroesophageal reflux disease) Status: Acute Qualifiers: Esophagitis presence: esophagitis presence not specified Qualified Code(s): K21.9 - Gastro-esophageal reflux disease without esophagitis Category: Medical Code(s): K21.9 - Gastro-esophageal reflux disease without esophagitis (4) COPD (chronic obstructive pulmonary disease) Status: Acute Qualifiers: COPD type: unspecified COPD Qualified Code(s): J44.9 - Chronic obstructive pulmonary disease, unspecified Category: Medical Code(s): J44.9 - Chronic obstructive pulmonary disease, unspecified (5) COVID-19 Status: Acute Category: Medical Code(s): U07.1 - COVID-19 (6) Respiratory failure with hypoxia Status: Acute Qualifiers: Chronicity: acute Qualified Code(s): J96.01 - Acute respiratory failure with hypoxia Category: Medical Code(s): J96.91 - Respiratory failure, unspecified with hypoxia (7) Hypotension Status: Acute Category: Medical Code(s): I95.9 - Hypotension, unspecified (8) Hx of substance abuse Status: Acute Category: Medical Code(s): F19.11 - Other psychoactive substance abuse, in remission - Assessment and plan all Dx Assessment and Plan for all problems:: #Acute hypoxic respiratory failure: #COVID-19 pneumonia: CT on admission did not show any evidence of pulmonary embolism however showed diffuse bilateral patchy pulmonary infiltrates. No evidence of DVT D-dimer elevated at 0.81. CRP at 21.4 Patient was initiated on remdesivir and dexamethasone along with ceftriaxone and azithromycin on admission Patient respiratory status declined during admission needing intubation and mechanical ventilation patient was successfully extubated and since then patient has relatively stable but critical needing high oxygen requirements currently on BiPAP initially 100% FiO2 improving, decreased to 50% today. We will continue to wean as tolerated. Plan: -Continue BiPAP support to maintain O2 saturation goal of 88 to 92%. FiO2 decreased to 50% this morning, will give 40 mg of Lasix and wean FiO2 as tolerated. Most recent chest x-ray chest x-ray stable with diffuse bilateral pulmonary infiltrates. Sputum showing yeast likely contaminant we will closely monitor -Continue remdesivir and dexamethasone for COVID-19 pneumonia. Continue barcitinib -Repeat blood culture showing staph species in both bottles. Patient was bacteremic even before central line placement. Will recommend continue vancomycin for now pending duration of antibiotic course determination. Echocardiogram did not reported to have any vegetations, though limited. If patient continued to have positive blood Cultures will consult cardiology for possible BILLIE. Follow with repeat blood cultures -DuoNebs every 6 hours scheduled Abdomen soft nontender. Renal function stable with adequate urine output. 40 mg of IV Lasix today.
--- NOTE | 2021-02-28 09:36 | HMH.ACPN2 ---
Internal Medicine - PN: Subj *Date: 02/28/21 *Time: 10:42 Interval history: 60-year-old male patient sitting up in bed BiPAP intact at 80%. He does follow simple commands and denies any pain or needs at present. Exam Vital signs and Labs for Last 24 Hours: Temp Pulse Resp BP Pulse Ox 100.0 F H 80 20 136/61 94 L 02/28/21 00:00 02/28/21 08:00 02/28/21 06:00 02/28/21 06:00 02/28/21 06:00 Laboratory Results - last 24 hr 02/28/21 06:39: WBC 16.6 H, RBC 3.67 L, Hgb 11.0 L, Hct 34.1 L, MCV 92.9, MCH 30.1, MCHC 32.4, RDW 14.7, Plt Count 335, MPV 10.3, Neut % (Auto) 87.8 H, Lymph % (Auto) 6.9 L, [place] % (Auto) 5.0, Eos % (Auto) 0.2, Baso % (Auto) 0.1, Neut # (Auto) 14.6 H, Lymph # (Auto) 1.1, [place] # (Auto) 0.8, Eos # (Auto) 0.0, Baso # (Auto) 0.0, Total Counted 100, Neutrophils % (Manual) 90 H, Lymphocytes % (Manual) 4 L, Monocytes % (Manual) 5, Blast Cells % 1.0, Nucleated RBCs 1, Platelet Estimate Normal, Hypochromasia 1+ 02/28/21 06:39: Sodium 134 L, Potassium 4.9, Chloride 103, Carbon Dioxide 25, Anion Gap 10.9, BUN 23 H, Creatinine 0.50 L, Estimated Creat Clear 171, Estimated GFR 170, Est GFR ( Amer) 205, Glucose 82 D, Calcium 8.3 L, Total Bilirubin 1.0, AST 89 H D, ALT 55, Alkaline Phosphatase 159 H, Total Protein 5.9 L, Albumin 2.6 L, Globulin 3.3 H, Albumin/Globulin Ratio 0.8 L I & O for Last 24 hours: Intake & Output 02/25/21 02/26/21 02/27/21 02/28/21 23:59 23:59 23:59 23:59 Intake Total 250 / 250 250 / 250 260 / 260 Output Total 4100 / 4350 2965 / 2965 1235 / 1385 400 / 400 Balance -3850 / -4100 -2715 / -2715 -975 / -1125 -400 / -400 Weight 187 lb 1.6 oz 187 lb 172 lb 4 oz 170 lb 1 oz - Constitutional no acute distress - *Routine HEENT Exam Head: Present: normocephalic Eye: Present: EOMI ENT: Present: mucous membranes moist - *Routine Neck Exam Present: trachea midline. Absent: tracheal deviation - *Routine Respiratory Exam Present: decreased breath sounds, crackles. Absent: accessory muscle use - *Routine Cardiovascular Exam Present: RRR - *Routine Abdominal Exam Present: soft, normoactive bowel sounds. Absent: tenderness, firm - *Routine Extremities Exam Present: full ROM, pulses intact. Absent: cyanosis, clubbing, edema - *Routine Skin Exam Present: intact, dry. Absent: cyanosis, erythema - *Routine Neurological Exam Present: alert Follows commands - Routine Psychiatric Exam Present: cooperative Comments: Follows commands Assessment and Plan (1) Tobacco use Status: Acute Category: Social Hx Code(s): Z72.0 - Tobacco use (2) Pneumonia due to COVID-19 virus Status: Acute Category: Medical Code(s): U07.1 - COVID-19; J12.82 - Pneumonia due to coronavirus disease 2019 (3) GERD (gastroesophageal reflux disease) Status: Acute Qualifiers: Esophagitis presence: esophagitis presence not specified Qualified Code(s): K21.9 - Gastro-esophageal reflux disease without esophagitis Category: Medical Code(s): K21.9 - Gastro-esophageal reflux disease without esophagitis (4) COPD (chronic obstructive pulmonary disease) Status: Acute Qualifiers: COPD type: unspecified COPD Qualified Code(s): J44.9 - Chronic obstructive pulmonary disease, unspecified Category: Medical Code(s): J44.9 - Chronic obstructive pulmonary disease, unspecified (5) COVID-19 Status: Acute Category: Medical Code(s): U07.1 - COVID-19 (6) Respiratory failure with hypoxia Status: Acute Qualifiers: Chronicity: acute Qualified Code(s): J96.01 - Acute respiratory failure with hypoxia Category: Medical Code(s): J96.91 - Respiratory failure, unspecified with hypoxia (7) Hypotension Status: Acute Category: Medical Code(s): I95.9 - Hypotension, unspecified (8) Hx of substance abuse Status: Acute Category: Medical Code(s): F19.11 - Other psychoactive substance abuse, in remission - Assessment and plan all Dx Assessmen
--- NOTE | 2021-02-28 15:10 | DIET.NUTRFU ---
Addendum entered by Deidre Mcgee 03/10/21 14:33: Remains with poor intakes though somewhat improved 0-25%. Please continue to encourage/cue. Addendum entered by Deidre Mcgee 03/07/21 08:52: Pt with poor intakes 10%. Diet upgraded to soft mechanical per verbal order from Dr. Camilo. Ensure removed and TID protein fortified foods with daily protein shake added to order. Weight stable. Renal function stable. Addendum entered by Deidre Mcgee 03/05/21 11:38: Pt tolerating pureed diet, PO intakes 50% + TID ensure. Suspect inaccuracy in documented 24# weight loss past 24h. This may be rt switching beds when pt was admit to med/surg from ICU. Bowels normal. Renal function stable. Addendum entered by Deidre Mcgee 03/03/21 14:23: Pt given pureed diet per [employer] TABLE [employer]. Renal function stable. Ensure TID added to order. Original Note: Pt has been made NPO at this time. Pt is currently on BiPAP. Renal function remains stable. Pt to receive ensure TID when diet is advanced. Will continue to monitor.
--- NOTE | 2021-02-28 17:44 | PC.NURSE ---
NO ACUTE CHANGES THIS SHIFT. PT IS ALERT TO NAME. ABLE TO FOLLOW SIMPLE COMMANDS, HE REMAINS ON BIPAP. HAS REMIANEDNPO SINCE PT HAS DIFFICULTY SWALLOWING. ORAL CARE HAS BEEN PROVIDED THIS SHIFT NEEDED. HE HAS BEEN TURNING SELF IN BED BUT NEEDS SOME ASSISTANCE AT TIMES. HE HAS BEEN NSR ON TELEMETRY. DENIES N/V/D. NO PAIN VOICED. VITAL SIGNS STABLE.
[2021-03-01] VITALS (20 sets, daily range): BP systolic 120–154; BP diastolic 68–87; PULSE 60–99; RESP 14–24; TEMP 36.7–37.4; O2SAT 88–98; BMI 25.4
--- NOTE | 2021-03-01 03:07 | PC.NURSE ---
No acute changes noted this shift pt alert to self. Pt remains on Bipap with sats between 89-92%. Shahid cath in place draining clear yellow urine. No reports of pain or SOA this shift. CB in reach will continue to monitor.
--- NOTE | 2021-03-01 06:00 | XR_ITS ---
PROCEDURE INFORMATION: Exam: XR Chest Exam date and time: 03/01/2021 6:00 AM Age: 60 years old Clinical indication: Condition or disease; Other: Covid respiratory failure; Additional info: Resp failure covid TECHNIQUE: Imaging protocol: XR of the chest. Views: 1 view. COMPARISON: CR XR CHEST PORTABLE 02/28/2021 5:52 AM FINDINGS: Tubes, catheters and devices: The left upper extremity central line is grossly unchanged with the tip roughly at the junction of the brachiocephalic vein and superior vena cava. Lungs: See Heart/Mediastinum finding. Pleural spaces: No pleural effusion or pneumothorax is seen. Heart/Mediastinum: The cardiomegaly and perihilar/basilar interstitial infiltrates are unchanged. Bones/joints: The bones are demineralized but grossly intact. IMPRESSION: No definite interval change.
--- NOTE | 2021-03-01 08:40 | HMH.ACPN2 ---
Internal Medicine - PN: Subj *Date: 03/01/21 *Time: 08:41 Interval history: doing better -feels better - on vent but still on high flow - labs pending Exam Vital signs and Labs for Last 24 Hours: Temp Pulse Resp BP Pulse Ox 98.9 F 85 22 144/68 H 90 L 03/01/21 08:00 03/01/21 08:00 03/01/21 08:00 03/01/21 08:00 03/01/21 08:00 I & O for Last 24 hours: Intake & Output 02/26/21 02/27/21 02/28/21 03/01/21 11:59 11:59 11:59 11:59 Intake Total 250 / 250 250 / 250 260 / 260 Output Total 4075 / 4075 1505 / 1505 1020 / 1020 2300 / 2300 Balance -3825 / -3825 -1255 / -1255 -760 / -760 -2300 / -2300 Weight 187 lb 172 lb 4 oz 170 lb 1 oz 168 lb 4.8 oz Microbiology Reports for the Last 24 Hours: Microbiology 02/26/21 12:15 Blood Blood Culture - Preliminary NO GROWTH AFTER 48 HOURS 02/26/21 12:15 Blood Blood Culture - Preliminary NO GROWTH AFTER 48 HOURS - Constitutional no acute distress - *Routine HEENT Exam Head: Present: normocephalic Eye: Present: EOMI, PERRL ENT: Present: mucous membranes dry - *Routine Neck Exam Absent: JVD - *Routine Respiratory Exam Present: decreased breath sounds - *Routine Cardiovascular Exam Present: RRR, murmur - *Routine Abdominal Exam Present: soft - *Routine Extremities Exam Absent: calf tenderness - *Routine Skin Exam Present: intact - *Routine Neurological Exam Present: alert, CN II-XII intact - Routine Psychiatric Exam Present: cooperative Assessment and Plan (1) Tobacco use Status: Acute Category: Social Hx Code(s): Z72.0 - Tobacco use (2) Pneumonia due to COVID-19 virus Status: Acute Category: Medical Code(s): U07.1 - COVID-19; J12.82 - Pneumonia due to coronavirus disease 2019 (3) GERD (gastroesophageal reflux disease) Status: Acute Qualifiers: Esophagitis presence: esophagitis presence not specified Qualified Code(s): K21.9 - Gastro-esophageal reflux disease without esophagitis Category: Medical Code(s): K21.9 - Gastro-esophageal reflux disease without esophagitis (4) COPD (chronic obstructive pulmonary disease) Status: Acute Qualifiers: COPD type: unspecified COPD Qualified Code(s): J44.9 - Chronic obstructive pulmonary disease, unspecified Category: Medical Code(s): J44.9 - Chronic obstructive pulmonary disease, unspecified (5) COVID-19 Status: Acute Category: Medical Code(s): U07.1 - COVID-19 (6) Respiratory failure with hypoxia Status: Acute Qualifiers: Chronicity: acute Qualified Code(s): J96.01 - Acute respiratory failure with hypoxia Category: Medical Code(s): J96.91 - Respiratory failure, unspecified with hypoxia (7) Hypotension Status: Acute Category: Medical Code(s): I95.9 - Hypotension, unspecified (8) Hx of substance abuse Status: Acute Category: Medical Code(s): F19.11 - Other psychoactive substance abuse, in remission
[2021-03-01 08:49] LABS: Basophils % 0.2 % (0.1-2.0); Eosinophils % 0.1 % (0.1-12.0); Hematocrit 33.8 % (42.0-52.0); Lymphocytes # 0.5 K/mm3 (0.7-4.5); Lymphocytes % 6.3 % (10-50); Mean Corpuscular HGB Conc 32.5 g/dL (31.8-35.4); Mean Corpuscular Hemoglobin 29.6 pg (27.0-31.2); Mean Corpuscular Volume 91.1 fl (80-94); Mean Platelet Volume 9.8 fl (7.4-10.4); Monocytes # 0.5 K/mm3 (0.1-1.0); Monocytes % 6.2 % (1.7-9.3); Neutrophils # 7.4 K/mm3 (1.8-7.8); Neutrophils % 87.2 % (37.0-80.0); Platelet Count 336 K/mm3 (142-424); Red Cell Distribution Width 14.5 % (11.5-17.5); White Blood Count 8.5 K/mm3 (4.8-10.8)
[2021-03-01 08:50] LABS: MANUAL DIFFERENTIAL MANUAL DIFFERENTIAL (MANUAL DIFF)
[2021-03-01 09:03] LABS: Chloride 103 mmol/L (98-107)
[2021-03-01 09:04] LABS: Potassium 4.1 mmoL/L (3.5-5.1); Sodium 136 mmol/L (136-145)
[2021-03-01 09:06] LABS: Alanine Aminotransferase 61 U/L (12-78); Albumin Level 2.7 g/dl (3.5-5.0); Albumin/Globulin Ratio 0.8 (1.1-1.8); Alkaline Phosphatase 187 U/L (38-126); Anion Gap 12.1 mEq/L (5-15); Aspartate Amino Transferase 75 U/L (17-59); Bilirubin,Total 0.9 mg/dl (0.2-1.3); Blood Urea Nitrogen 24 mg/dl (9-20); Carbon Dioxide 25 mmol/L (22.0-30.0); Creatinine Clearance Estimated 170 mL/min (50-200); Estimated Glomerular Filt Rate 170 ml/min (>60); GFR (African American) 205 ML/MIN (>60); Globulin 3.6 g/dL (1.3-3.2); Total Protein,Serum 6.3 g/dl (6.3-8.2)
[2021-03-01 09:07] LABS: Calcium 8.5 mg/dl (8.4-10.2); Glucose 114 mg/dl (74-100)
[2021-03-01 09:58] LABS: Lymphocytes % 14 % (10-50); Monocytes % 2 % (2-9); Neutrophils % 84 % (42-76); Platelet Estimate Normal; RBC Morphology Normal; Total Cells Counted 100
[2021-03-01 11:34] LABS: Vancomycin,Trough 10.6 ug/mL (5.0-10.0)
--- NOTE | 2021-03-01 12:16 | HMH.PHACONS ---
- Pharmacy Consult Date: 03/01/21 Time: 12:16 Referring provider: DR. BARRAZA Reason for Consult:: VANCOMYCIN TROUGH LEVEL Allergies and ADEs:: Allergies Allergy/AdvReac Type Severity Reaction Status Date / Time No Known Allergies Allergy Verified 10/25/18 11:18 Home Medications:: Home Medications Medication Instructions Recorded Confirmed Type Buprenorphine HCl/Naloxone HCl 1.5 tab SL DAILY 12/20/17 02/15/21 History [Buprenorphine-Nalox 8-2 mg Tab] Height: 1.73 m Weight: 76.34 kg Laboratory Results:: Laboratory Results - last 24 hr 03/01/21 08:42: WBC 8.5 D, RBC 3.70 L, Hgb 11.0 L, Hct 33.8 L, MCV 91.1, MCH 29.6, MCHC 32.5, RDW 14.5, Plt Count 336, MPV 9.8, Neut % (Auto) 87.2 H, Lymph % (Auto) 6.3 L, [place] % (Auto) 6.2, Eos % (Auto) 0.1, Baso % (Auto) 0.2, Neut # (Auto) 7.4, Lymph # (Auto) 0.5 L, [place] # (Auto) 0.5, Eos # (Auto) 0.0, Baso # (Auto) 0.0, Total Counted 100, Neutrophils % (Manual) 84 H, Lymphocytes % (Manual) 14, Monocytes % (Manual) 2, Platelet Estimate Normal, RBC Morphology Normal 03/01/21 08:42: Sodium 136, Potassium 4.1, Chloride 103, Carbon Dioxide 25, Anion Gap 12.1, BUN 24 H, Creatinine 0.50 L, Estimated Creat Clear 170, Estimated GFR 170, Est GFR ( Amer) 205, Glucose 114 H, Calcium 8.5, Total Bilirubin 0.9, AST 75 H, ALT 61, Alkaline Phosphatase 187 H, Total Protein 6.3, Albumin 2.7 L, Globulin 3.6 H, Albumin/Globulin Ratio 0.8 L 03/01/21 10:32: Vancomycin Trough 10.6 H Medical History: Reports:: Gastroesophageal Reflux Disease(GERD) Denies:: Cancer, Diabetes Mellitus Type 1, Diabetes Mellitus Type 2, MRSA Assessment and Plan (1) Tobacco use Status: Acute Category: Social Hx Code(s): Z72.0 - Tobacco use (2) Pneumonia due to COVID-19 virus Status: Acute Category: Medical Code(s): U07.1 - COVID-19; J12.82 - Pneumonia due to coronavirus disease 2019 (3) GERD (gastroesophageal reflux disease) Status: Acute Qualifiers: Esophagitis presence: esophagitis presence not specified Qualified Code(s): K21.9 - Gastro-esophageal reflux disease without esophagitis Category: Medical Code(s): K21.9 - Gastro-esophageal reflux disease without esophagitis (4) COPD (chronic obstructive pulmonary disease) Status: Acute Qualifiers: COPD type: unspecified COPD Qualified Code(s): J44.9 - Chronic obstructive pulmonary disease, unspecified Category: Medical Code(s): J44.9 - Chronic obstructive pulmonary disease, unspecified (5) COVID-19 Status: Acute Category: Medical Code(s): U07.1 - COVID-19 (6) Respiratory failure with hypoxia Status: Acute Qualifiers: Chronicity: acute Qualified Code(s): J96.01 - Acute respiratory failure with hypoxia Category: Medical Code(s): J96.91 - Respiratory failure, unspecified with hypoxia (7) Hypotension Status: Acute Category: Medical Code(s): I95.9 - Hypotension, unspecified (8) Hx of substance abuse Status: Acute Category: Medical Code(s): F19.11 - Other psychoactive substance abuse, in remission - Assessment and plan all Dx Assessment and Plan for all problems:: PATIENT'S VANCOMYCIN TROUGH LEVEL WAS 10.6 MCG/ML THIS AM. RECOMMEND CONTINUING WITH VANCOMYCIN 1750 MG Q12H AT THIS TIME.
--- NOTE | 2021-03-01 18:24 | PC.NURSE ---
NO ACUTE CHANGES THIS SHIFT, REMAINS ON BIPAP FOR O2 SUPPORT 70% WITH RATE OF 14. PT HAS TOLERATED BIPAP WELL. HE HAS REMOVED HIS MONITORS MULTIPLE TIMES AND DID TRY TO REMOVE MASK BUT WAS EDUCATED ON PLAN OF CARE. SPOKE WITH SPEECH THERAPIST REGARDING DIETARY COSULT, THEY SAID PT WOULD NEED TO BE OFF BIPAP FOR SWALLOW EVAL. THEREFORE PO MEDS WERE HELD. ORAL CARE PERFORMED TOLERATED. VITAL SIGNS HAVE REMAINED STABLE.
[2021-03-02] VITALS (28 sets, daily range): BP systolic 107–139; BP diastolic 50–86; PULSE 63–100; RESP 0–22; TEMP 36.6–37.2; O2SAT 91–99; BMI 25.4
--- NOTE | 2021-03-02 06:00 | XR_ITS ---
PROCEDURE INFORMATION: Exam: XR Chest Exam date and time: 03/02/2021 6:00 AM Age: 60 years old Clinical indication: Shortness of breath and other: Covid, ; additional info: Resp failure covid SOA TECHNIQUE: Imaging protocol: XR of the chest. Views: 1 view. COMPARISON: CR XR CHEST PORTABLE 03/01/2021 5:46 AM FINDINGS: Tubes, catheters and devices: A left peripherally inserted central venous catheter lies with its tip in the superior vena cava. Overlying EKG wires Lungs: Patchy bilateral opacities may represent multifocal pneumonia. Pleural spaces: Unremarkable. No pleural effusion. No pneumothorax. Heart/Mediastinum: Unremarkable. No cardiomegaly. Bones/joints: Unremarkable. IMPRESSION: Patchy bilateral opacities may represent multifocal pneumonia.
--- NOTE | 2021-03-02 07:00 | PC.NURSE ---
Patient had an uneventful night this shift. No s/s of acute distress noted, call light within reach, bed at lowest level for safety; will continue to monitor.
--- NOTE | 2021-03-02 09:43 | HMH.ACPN2 ---
Internal Medicine - PN: Subj *Date: 03/03/21 *Time: 06:38 Interval history: looks better -more alert Exam Vital signs and Labs for Last 24 Hours: Temp Pulse Resp BP Pulse Ox 97.8 F 79 18 139/74 95 03/02/21 08:00 03/02/21 08:00 03/02/21 08:00 03/02/21 08:00 03/02/21 08:00 Laboratory Results - last 24 hr 03/01/21 08:42: Total Counted 100, Neutrophils % (Manual) 84 H, Lymphocytes % (Manual) 14, Monocytes % (Manual) 2, Platelet Estimate Normal, RBC Morphology Normal 03/01/21 10:32: Vancomycin Trough 10.6 H I & O for Last 24 hours: Intake & Output 02/27/21 02/28/21 03/01/21 03/02/21 11:59 11:59 11:59 11:59 Intake Total 250 / 250 260 / 260 250 / 250 Output Total 1505 / 1505 1020 / 1020 2500 / 2500 675 / 675 Balance -1255 / -1255 -760 / -760 -2500 / -2500 -425 / -425 Weight 172 lb 4 oz 170 lb 1 oz 168 lb 4.8 oz 168 lb Microbiology Reports for the Last 24 Hours: Microbiology 02/23/21 08:28 Blood Blood Culture - Final Staphylococcus epidermidis 02/23/21 08:28 Blood Blood Culture - Final Staphylococcus epidermidis 02/19/21 16:40 Blood Blood Culture - Final Staphylococcus epidermidis - Constitutional no acute distress - *Routine HEENT Exam Head: Present: normocephalic Eye: Present: EOMI, PERRL ENT: Present: mucous membranes dry - *Routine Neck Exam Present: supple. Absent: JVD - *Routine Respiratory Exam Present: decreased breath sounds - *Routine Cardiovascular Exam Present: RRR - *Routine Abdominal Exam Present: soft - *Routine Extremities Exam Present: edema - *Routine Skin Exam Present: intact - *Routine Neurological Exam Present: alert - Routine Psychiatric Exam Present: cooperative Assessment and Plan (1) Tobacco use Status: Acute Category: Social Hx Code(s): Z72.0 - Tobacco use (2) Pneumonia due to COVID-19 virus Status: Acute Category: Medical Code(s): U07.1 - COVID-19; J12.82 - Pneumonia due to coronavirus disease 2019 (3) GERD (gastroesophageal reflux disease) Status: Acute Qualifiers: Esophagitis presence: esophagitis presence not specified Qualified Code(s): K21.9 - Gastro-esophageal reflux disease without esophagitis Category: Medical Code(s): K21.9 - Gastro-esophageal reflux disease without esophagitis (4) COPD (chronic obstructive pulmonary disease) Status: Acute Qualifiers: COPD type: unspecified COPD Qualified Code(s): J44.9 - Chronic obstructive pulmonary disease, unspecified Category: Medical Code(s): J44.9 - Chronic obstructive pulmonary disease, unspecified (5) COVID-19 Status: Acute Category: Medical Code(s): U07.1 - COVID-19 (6) Respiratory failure with hypoxia Status: Acute Qualifiers: Chronicity: acute Qualified Code(s): J96.01 - Acute respiratory failure with hypoxia Category: Medical Code(s): J96.91 - Respiratory failure, unspecified with hypoxia (7) Hypotension Status: Acute Category: Medical Code(s): I95.9 - Hypotension, unspecified (8) Hx of substance abuse Status: Acute Category: Medical Code(s): F19.11 - Other psychoactive substance abuse, in remission
[2021-03-02 11:14] LABS: Basophils % 0.3 % (0.1-2.0); Hematocrit 36.9 % (42.0-52.0); Hemoglobin 11.6 g/dL (14.1-18.0); Lymphocytes # 0.8 K/mm3 (0.7-4.5); Lymphocytes % 6.5 % (10-50); Mean Corpuscular HGB Conc 31.4 g/dL (31.8-35.4); Mean Corpuscular Hemoglobin 29.7 pg (27.0-31.2); Mean Corpuscular Volume 94.5 fl (80-94); Mean Platelet Volume 9.5 fl (7.4-10.4); Monocytes # 0.9 K/mm3 (0.1-1.0); Monocytes % 7.1 % (1.7-9.3); Neutrophils # 10.2 K/mm3 (1.8-7.8); Neutrophils % 86.1 % (37.0-80.0); Platelet Count 358 K/mm3 (142-424); Red Cell Distribution Width 14.3 % (11.5-17.5); White Blood Count 11.9 K/mm3 (4.8-10.8)
[2021-03-02 11:18] LABS: MANUAL DIFFERENTIAL MANUAL DIFFERENTIAL (MANUAL DIFF)
[2021-03-02 11:24] LABS: Chloride 101 mmol/L (98-107); Potassium 3.9 mmoL/L (3.5-5.1); Sodium 135 mmol/L (136-145)
[2021-03-02 11:27] LABS: Alanine Aminotransferase 74 U/L (12-78); Albumin/Globulin Ratio 0.8 (1.1-1.8); Alkaline Phosphatase 200 U/L (38-126); Anion Gap 11.9 mEq/L (5-15); Aspartate Amino Transferase 80 U/L (17-59); Bilirubin,Total 0.8 mg/dl (0.2-1.3); Blood Urea Nitrogen 31 mg/dl (9-20); Carbon Dioxide 26 mmol/L (22.0-30.0); Creatinine Clearance Estimated 169 mL/min (50-200); Estimated Glomerular Filt Rate 170 ml/min (>60); GFR (African American) 205 ML/MIN (>60); Globulin 3.6 g/dL (1.3-3.2); Glucose 111 mg/dl (74-100); Total Protein,Serum 6.6 g/dl (6.3-8.2)
[2021-03-02 13:07] LABS: Eosinophils % 1 % (0-3); Lymphocytes % 13 % (10-50); Monocytes % 3 % (2-9); Neutrophils % 83 % (42-76); Platelet Estimate Normal; RBC Morphology Normal; Total Cells Counted 100
--- NOTE | 2021-03-02 16:38 | PC.NURSE ---
Patient remains on bipap at 70% and tolerating well, o2 saturations 92-97%, L SC TLDL in place, denies any soa or pain, no s/s of distress noted, vss.
[2021-03-03] VITALS (16 sets, daily range): BP systolic 91–134; BP diastolic 55–90; PULSE 60–103; RESP 12–20; TEMP 36.7–37.8; O2SAT 88–98; BMI 25.2
--- NOTE | 2021-03-03 03:13 | PC.NURSE ---
Pt received total bath and bed change this shift. Pt did have desaturations as low as 80% during his bath, with the bipap in place. He was given approx 30 min rest period to get his oxygen back up, and the rest of his bath/bed change was completed. He has been cooperative this shift. Remains alert to self, place, and time, but does need to be frequently reoriented to situation. LS remain cta t/o with diminished bases. No bm this shift. Voiding per f/c. VSS. No other acute changes noted from initial assessment, will continue to monitor.
--- NOTE | 2021-03-03 06:00 | XR_ITS ---
PROCEDURE INFORMATION: Exam: XR Chest Exam date and time: 03/03/2021 6:00 AM Age: 60 years old Clinical indication: Shortness of breath and other: Respiratory failure; Additional info: Resp failure covid TECHNIQUE: Imaging protocol: XR of the chest. Views: 1 view. COMPARISON: CR XR CHEST PORTABLE 03/02/2021 5:46 AM FINDINGS: Tubes, catheters and devices: Central venous catheter distal tip is in the superior vena cava. Lungs: Patchy airspace disease is present bilaterally somewhat more prominent on the left as well as the right lung base. Pleural spaces: Unremarkable. No pleural effusion. No pneumothorax. Heart/Mediastinum: Unremarkable. No cardiomegaly. Bones/joints: Unremarkable. IMPRESSION: Stable patchy bilateral left greater than right airspace disease
[2021-03-03 06:07] LABS: Basophils % 0.3 % (0.1-2.0); Eosinophils # 0.1 K/mm3 (0.0-0.4); Eosinophils % 1.2 % (0.1-12.0); Hematocrit 36.5 % (42.0-52.0); Hemoglobin 11.4 g/dL (14.1-18.0); Lymphocytes # 0.6 K/mm3 (0.7-4.5); Lymphocytes % 5.5 % (10-50); Mean Corpuscular HGB Conc 31.2 g/dL (31.8-35.4); Mean Corpuscular Hemoglobin 29.3 pg (27.0-31.2); Mean Corpuscular Volume 93.9 fl (80-94); Mean Platelet Volume 9.7 fl (7.4-10.4); Monocytes # 0.7 K/mm3 (0.1-1.0); Monocytes % 6.1 % (1.7-9.3); Neutrophils # 9.9 K/mm3 (1.8-7.8); Platelet Count 319 K/mm3 (142-424); Red Blood Count 3.89 M/mm3 (4.60-6.20); Red Cell Distribution Width 14.4 % (11.5-17.5); White Blood Count 11.4 K/mm3 (4.8-10.8)
[2021-03-03 06:16] LABS: MANUAL DIFFERENTIAL MANUAL DIFFERENTIAL (MANUAL DIFF)
[2021-03-03 06:38] LABS: Alanine Aminotransferase 66 U/L (12-78); Albumin Level 2.5 g/dl (3.5-5.0); Albumin/Globulin Ratio 0.8 (1.1-1.8); Alkaline Phosphatase 158 U/L (38-126); Anion Gap 7.2 mEq/L (5-15); Aspartate Amino Transferase 67 U/L (17-59); Bilirubin,Total 0.9 mg/dl (0.2-1.3); Blood Urea Nitrogen 27 mg/dl (9-20); Calcium 8.2 mg/dl (8.4-10.2); Carbon Dioxide 28 mmol/L (22.0-30.0); Chloride 104 mmol/L (98-107); Creatinine Clearance Estimated 168 mL/min (50-200); Estimated Glomerular Filt Rate 170 ml/min (>60); GFR (African American) 205 ML/MIN (>60); Globulin 3.1 g/dL (1.3-3.2); Glucose 83 mg/dl (74-100); Potassium 4.2 mmoL/L (3.5-5.1); Sodium 135 mmol/L (136-145); Total Protein,Serum 5.6 g/dl (6.3-8.2)
[2021-03-03 06:53] LABS: Hypochromasia 1+; Lymphocytes % 11 % (10-50); Neutrophils % 86 % (42-76); Platelet Estimate Normal; Total Cells Counted 100
--- NOTE | 2021-03-03 12:59 | HMH.SLDYSPHA ---
Speech & Language Evaluation Speech/Language Dysphagia Evaluation Start: 02/25/21 10:47 Freq: ONCE Status: Active Protocol: Document 03/03/21 12:48 [email or web address] (Rec: 03/03/21 12:59 CHENG [id number]) Dysphagia Assess/Goals/Plan Assessment Date of Evaluation: 03/03/21 Evaluation Type Initial Certification Assessment/Problems Dysphagia/COVID Does Patient Qualify for Service No Qualify/Failure Comment Given results of clinical swallow evaluation. Recommendations PHYSICIAN CERTIFICATION: The specified therapy services are required, authorized, and reviewed every 30 days. Diet Recommendations Pureed Liquid Type Recommendations Normal/Thin SL Swallow Guidelines Assist w/all meals,Standard Aspiration Prec.,Crush meds as allowed*,Eat at slow rate Crush Meds Crush all meds Dysphagia Swallow Precautions/Strategies Sitting Upright (90 deg),Small Bites and Sips Place Food on Either side of Mouth Plan Pt/Guardian verbally ack understanding Yes of dx/prognosis/goals Pt/Guardian verbally ack understanding Yes of/consent to tx prog G -code Required No Speech & Language HPI Language Primary Language Azeri General Information General Current Food Consistancy NPO Oxygen Status Nasal Cannula Facial Symmetry Symmetrical Ability to Follow Directions Fair Communication Ability Moderate Impairment Dysphagia:Food Presentation Evaluation Food Type Pureed,Mechanical Soft,Liquid, Pudding Dysphagia Evaluation Mechanical Soft Difficulty chewing Food Behavior Response Dysphagia Evaluation Summary Clinical swallow evaluation completed to analyze and assess oropharyngeal swallow. Pt showed no overt s/sxs of aspiration with thin liquids. O2 SATs remained between 87-88 , which is where he was prior to PO trials. Pt the trialed pudding and puree x 3 each with no visible residue and no overt s/sxs of aspiration. Pt trialed small bite of mechanical soft x1. Extremely prolonged mastication time noted and patient required multiple liquid washes to clear. Pt's OT dropped to 86 while
--- NOTE | 2021-03-03 15:02 | HMH.PULMPN ---
Internal Medicine - PN: Subj *Date: 03/03/21 *Time: 15:02 Interval history: No acute respiratory vents over the weekend. Patient can remain on nasal ventilation. Exam - Constitutional Constitutional:: Present: no acute distress, comfortable - HENMT Exam HENMT: Present: normocephalic - Eye Exam Eyes:: Present: normal appearance both eyes and related structures - Neck Exam Neck:: Present: normal visual inspection - Respiratory Exam Respiratory:: Present: able to speak in complete sentences, respiratory distress, crackles, rales - Cardiovascular Exam Cardiac:: Present: S1, S2 - GI Exam GI:: Present: soft - Skin Exam Skin: Present: warm, no rash, dry - Neurological Exam Neurological: Present: awake - Extremities Exam Extremities: Present: no cyanosis, no clubbing, edema Assessment and Plan (1) Tobacco use Status: Acute Category: Social Hx Code(s): Z72.0 - Tobacco use (2) Pneumonia due to COVID-19 virus Status: Acute Category: Medical Code(s): U07.1 - COVID-19; J12.82 - Pneumonia due to coronavirus disease 2019 (3) GERD (gastroesophageal reflux disease) Status: Acute Qualifiers: Esophagitis presence: esophagitis presence not specified Qualified Code(s): K21.9 - Gastro-esophageal reflux disease without esophagitis Category: Medical Code(s): K21.9 - Gastro-esophageal reflux disease without esophagitis (4) COPD (chronic obstructive pulmonary disease) Status: Acute Qualifiers: COPD type: unspecified COPD Qualified Code(s): J44.9 - Chronic obstructive pulmonary disease, unspecified Category: Medical Code(s): J44.9 - Chronic obstructive pulmonary disease, unspecified (5) COVID-19 Status: Acute Category: Medical Code(s): U07.1 - COVID-19 (6) Respiratory failure with hypoxia Status: Acute Qualifiers: Chronicity: acute Qualified Code(s): J96.01 - Acute respiratory failure with hypoxia Category: Medical Code(s): J96.91 - Respiratory failure, unspecified with hypoxia (7) Hypotension Status: Acute Category: Medical Code(s): I95.9 - Hypotension, unspecified (8) Hx of substance abuse Status: Acute Category: Medical Code(s): F19.11 - Other psychoactive substance abuse, in remission - Assessment and plan all Dx Assessment and Plan for all problems:: #Acute hypoxic respiratory failure: #COVID-19 pneumonia: CT on admission did not show any evidence of pulmonary embolism however showed diffuse bilateral patchy pulmonary infiltrates. No evidence of DVT D-dimer elevated at 0.81. CRP at 21.4 Patient was initiated on remdesivir and dexamethasone along with ceftriaxone and azithromycin on admission Patient respiratory status declined during admission needing intubation and mechanical ventilation patient was successfully extubated and since then patient has relatively stable but critical needing high oxygen requirements currently on BiPAP. Plan: -Continue BiPAP support to maintain O2 saturation goal of 88 to 92%. Repeat chest x-ray remained stable, diffuse left left lung prominent interstitial infiltrates. Patient this morning wean to nasal cannula 6 daily with saturations maintained at 88% and above. We will closely monitor. Lasix 40 mg IV once today. -Continue remdesivir and dexamethasone for COVID-19 pneumonia. Continue barcitinib -Blood cultures from 02/26 resulted negative. Will recommend continue vancomycin for 14 days from 922 -DuoNebs every 6 hours scheduled
--- NOTE | 2021-03-03 19:33 | HMH.ACPN2 ---
Internal Medicine - PN: Subj *Date: 03/03/21 *Time: 08:15 Interval history: pt laying in bed. on bipap states doing ok Exam Vital signs and Labs for Last 24 Hours: Temp Pulse Resp BP Pulse Ox 99.5 F 93 H 16 112/61 93 L 03/03/21 16:00 03/03/21 19:12 03/03/21 16:00 03/03/21 16:00 03/03/21 19:12 Laboratory Results - last 24 hr 03/03/21 05:40: WBC 11.4 H, RBC 3.89 L, Hgb 11.4 L, Hct 36.5 L, MCV 93.9, MCH 29.3, MCHC 31.2 L, RDW 14.4, Plt Count 319, MPV 9.7, Neut % (Auto) 87.0 H, Lymph % (Auto) 5.5 L, [place] % (Auto) 6.1, Eos % (Auto) 1.2, Baso % (Auto) 0.3, Neut # (Auto) 9.9 H, Lymph # (Auto) 0.6 L, [place] # (Auto) 0.7, Eos # (Auto) 0.1, Baso # (Auto) 0.0, Total Counted 100, Neutrophils % (Manual) 86 H, Band Neutrophils % 3.0, Lymphocytes % (Manual) 11, Platelet Estimate Normal, Hypochromasia 1+ 03/03/21 05:40: Sodium 135 L, Potassium 4.2, Chloride 104, Carbon Dioxide 28, Anion Gap 7.2, BUN 27 H, Creatinine 0.50 L, Estimated Creat Clear 168, Estimated GFR 170, Est GFR ( Amer) 205, Glucose 83 D, Calcium 8.2 L, Total Bilirubin 0.9, AST 67 H, ALT 66, Alkaline Phosphatase 158 H, Total Protein 5.6 L, Albumin 2.5 L D, Globulin 3.1, Albumin/Globulin Ratio 0.8 L I & O for Last 24 hours: Intake & Output 03/01/21 03/02/21 03/03/21 03/04/21 11:59 11:59 11:59 11:59 Intake Total 250 / 250 500 / 500 Output Total 2500 / 2500 675 / 675 2004 / 2004 1000 / 1000 Balance -2500 / -2500 -425 / -425 -1505 / -1505 -1000 / -1000 Weight 168 lb 4.8 oz 168 lb 167 lb Microbiology Reports for the Last 24 Hours: Microbiology 02/26/21 12:15 Blood Blood Culture - Final NO GROWTH AFTER 5 DAYS 02/26/21 12:15 Blood Blood Culture - Final NO GROWTH AFTER 5 DAYS - Constitutional mild distress, cooperative - *Routine HEENT Exam Head: Present: normocephalic Eye: Present: PERRL ENT: Present: mucous membranes moist - *Routine Neck Exam Present: supple. Absent: lymphadenopathy - *Routine Respiratory Exam Present: decreased breath sounds, rhonchi - *Routine Cardiovascular Exam Present: RRR - *Routine Abdominal Exam Present: soft, normoactive bowel sounds. Absent: tenderness - *Routine Extremities Exam Absent: cyanosis, clubbing, edema - *Routine Skin Exam Present: warm. Absent: rash - *Routine Neurological Exam Present: alert, oriented X3 Assessment and Plan (1) Tobacco use Status: Acute Category: Social Hx Code(s): Z72.0 - Tobacco use (2) Pneumonia due to COVID-19 virus Status: Acute Category: Medical Code(s): U07.1 - COVID-19; J12.82 - Pneumonia due to coronavirus disease 2019 (3) GERD (gastroesophageal reflux disease) Status: Acute Qualifiers: Esophagitis presence: esophagitis presence not specified Qualified Code(s): K21.9 - Gastro-esophageal reflux disease without esophagitis Category: Medical Code(s): K21.9 - Gastro-esophageal reflux disease without esophagitis (4) COPD (chronic obstructive pulmonary disease) Status: Acute Qualifiers: COPD type: unspecified COPD Qualified Code(s): J44.9 - Chronic obstructive pulmonary disease, unspecified Category: Medical Code(s): J44.9 - Chronic obstructive pulmonary disease, unspecified (5) COVID-19 Status: Acute Category: Medical Code(s): U07.1 - COVID-19 (6) Respiratory failure with hypoxia Status: Acute Qualifiers: Chronicity: acute Qualified Code(s): J96.01 - Acute respiratory failure with hypoxia Category: Medical Code(s): J96.91 - Respiratory failure, unspecified with hypoxia (7) Hypotension Status: Acute Category: Medical Code(s): I95.9 - Hypotension, unspecified (8) Hx of substance abuse Status: Acute Category: Medical Code(s): F19.11 - Other psychoactive substance abuse, in remission - Assessment and plan all Dx Assessment and Plan for all problems:: rounded with dr hughes all orders per dr falcon
[2021-03-04] VITALS (19 sets, daily range): BP systolic 103–131; BP diastolic 59–74; PULSE 74–105; RESP 14–26; TEMP 36.2–37.4; O2SAT 88–98; BMI 25.1
--- NOTE | 2021-03-04 06:00 | XR_ITS ---
PROCEDURE INFORMATION: Exam: XR Chest Exam date and time: 03/04/2021 6:00 AM Age: 60 years old Clinical indication: Shortness of breath; Patient HX: Covid; Additional info: Resp failure TECHNIQUE: Imaging protocol: XR of the chest. Views: 1 view. COMPARISON: CR XR CHEST PORTABLE 03/03/2021 5:44 AM FINDINGS: Tubes, catheters and devices: Central venous catheter, stable in position. Leads overlying chest. Lungs: Mild underinflation. Scattered moderate patchy airspace opacities, likely unchanged allowing for difference in positioning/technique. Pleural spaces: No definite pleural effusion. No pneumothorax. Heart/Mediastinum: No cardiomegaly. Bones/joints: No displaced fracture. Soft tissues: Unremarkable. IMPRESSION: No significant interval change.
--- NOTE | 2021-03-04 06:24 | PC.NURSE ---
Patient rested well t/o the night. No c/o pain or SOA this shift. Remains on 10L nasal canula and 50% venti mask, has tolerated it well with sats in the low to mid 90s. Central line dressing changed this shift. Shahid cath in place draining clear yellow urine. Call garrison within reach, will continue to monitor.
[2021-03-04 07:03] LABS: Basophils % 0.1 % (0.1-2.0); Eosinophils % 0.1 % (0.1-12.0); Hematocrit 36.2 % (42.0-52.0); Hemoglobin 11.5 g/dL (14.1-18.0); Lymphocytes # 0.5 K/mm3 (0.7-4.5); Lymphocytes % 6.5 % (10-50); Mean Corpuscular HGB Conc 31.8 g/dL (31.8-35.4); Mean Corpuscular Hemoglobin 29.6 pg (27.0-31.2); Mean Platelet Volume 8.8 fl (7.4-10.4); Monocytes # 0.5 K/mm3 (0.1-1.0); Monocytes % 5.6 % (1.7-9.3); Neutrophils # 7.3 K/mm3 (1.8-7.8); Neutrophils % 87.8 % (37.0-80.0); Platelet Count 336 K/mm3 (142-424); Red Blood Count 3.89 M/mm3 (4.60-6.20); Red Cell Distribution Width 14.4 % (11.5-17.5); White Blood Count 8.3 K/mm3 (4.8-10.8)
[2021-03-04 07:26] LABS: Alanine Aminotransferase 60 U/L (12-78); Albumin Level 2.9 g/dl (3.5-5.0); Albumin/Globulin Ratio 0.9 (1.1-1.8); Alkaline Phosphatase 152 U/L (38-126); Anion Gap 8.2 mEq/L (5-15); Aspartate Amino Transferase 48 U/L (17-59); Bilirubin,Total 0.8 mg/dl (0.2-1.3); Blood Urea Nitrogen 22 mg/dl (9-20); Calcium 8.5 mg/dl (8.4-10.2); Carbon Dioxide 29 mmol/L (22.0-30.0); Chloride 102 mmol/L (98-107); Creatinine Clearance Estimated 167 mL/min (50-200); Estimated Glomerular Filt Rate 170 ml/min (>60); GFR (African American) 205 ML/MIN (>60); Globulin 3.4 g/dL (1.3-3.2); Glucose 116 mg/dl (74-100); Potassium 4.2 mmoL/L (3.5-5.1); Sodium 135 mmol/L (136-145); Total Protein,Serum 6.3 g/dl (6.3-8.2)
[2021-03-04 07:35] LABS: MANUAL DIFFERENTIAL MANUAL DIFFERENTIAL (MANUAL DIFF)
[2021-03-04 08:19] LABS: Lymphocytes % 5 % (10-50); Monocytes % 2 % (2-9); Neutrophils % 93 % (42-76); Total Cells Counted 100
[2021-03-04 08:20] LABS: Hypochromasia 1+; Platelet Estimate Normal
--- NOTE | 2021-03-04 08:47 | HMH.ACPN2 ---
Internal Medicine - PN: Subj *Date: 03/04/21 *Time: 08:47 Interval history: looks much better - awake on 4l - labs ok Exam Vital signs and Labs for Last 24 Hours: Temp Pulse Resp BP Pulse Ox 98.6 F 90 14 118/68 90 L 03/04/21 07:41 03/04/21 08:00 03/04/21 07:41 03/04/21 07:41 03/04/21 07:41 Laboratory Results - last 24 hr 03/04/21 06:38: WBC 8.3 D, RBC 3.89 L, Hgb 11.5 L, Hct 36.2 L, MCV 93.0, MCH 29.6, MCHC 31.8, RDW 14.4, Plt Count 336, MPV 8.8, Neut % (Auto) 87.8 H, Lymph % (Auto) 6.5 L, [place] % (Auto) 5.6, Eos % (Auto) 0.1, Baso % (Auto) 0.1, Neut # (Auto) 7.3, Lymph # (Auto) 0.5 L, [place] # (Auto) 0.5, Eos # (Auto) 0.0, Baso # (Auto) 0.0, Total Counted 100, Neutrophils % (Manual) 93 H, Lymphocytes % (Manual) 5 L, Monocytes % (Manual) 2, Platelet Estimate Normal, Hypochromasia 1+ 03/04/21 06:38: Sodium 135 L, Potassium 4.2, Chloride 102, Carbon Dioxide 29, Anion Gap 8.2, BUN 22 H, Creatinine 0.50 L, Estimated Creat Clear 167, Estimated GFR 170, Est GFR ( Amer) 205, Glucose 116 H, Calcium 8.5, Total Bilirubin 0.8, AST 48 D, ALT 60, Alkaline Phosphatase 152 H, Total Protein 6.3, Albumin 2.9 L D, Globulin 3.4 H, Albumin/Globulin Ratio 0.9 L I & O for Last 24 hours: Intake & Output 03/01/21 03/02/21 03/03/21 03/04/21 11:59 11:59 11:59 11:59 Intake Total 250 / 250 500 / 500 360 / 360 Output Total 2500 / 2500 675 / 675 2004 / 2004 1900 / 1900 Balance -2500 / -2500 -425 / -425 -1505 / -1505 -1540 / -1540 Weight 168 lb 4.8 oz 168 lb 167 lb 165 lb 12.602 oz Microbiology Reports for the Last 24 Hours: Microbiology 02/26/21 12:15 Blood Blood Culture - Final NO GROWTH AFTER 5 DAYS 02/26/21 12:15 Blood Blood Culture - Final NO GROWTH AFTER 5 DAYS - Constitutional no acute distress - *Routine HEENT Exam Head: Present: normocephalic Eye: Present: EOMI, PERRL ENT: Present: mucous membranes dry - *Routine Neck Exam Absent: JVD - *Routine Respiratory Exam Present: CTA bilaterally - *Routine Cardiovascular Exam Present: RRR - *Routine Abdominal Exam Present: soft - *Routine Extremities Exam Absent: calf tenderness - *Routine Skin Exam Present: intact - *Routine Neurological Exam Present: alert, CN II-XII intact - Routine Psychiatric Exam Present: normal affect Assessment and Plan (1) Tobacco use Status: Acute Category: Social Hx Code(s): Z72.0 - Tobacco use (2) Pneumonia due to COVID-19 virus Status: Acute Category: Medical Code(s): U07.1 - COVID-19; J12.82 - Pneumonia due to coronavirus disease 2019 (3) GERD (gastroesophageal reflux disease) Status: Acute Qualifiers: Esophagitis presence: esophagitis presence not specified Qualified Code(s): K21.9 - Gastro-esophageal reflux disease without esophagitis Category: Medical Code(s): K21.9 - Gastro-esophageal reflux disease without esophagitis (4) COPD (chronic obstructive pulmonary disease) Status: Acute Qualifiers: COPD type: unspecified COPD Qualified Code(s): J44.9 - Chronic obstructive pulmonary disease, unspecified Category: Medical Code(s): J44.9 - Chronic obstructive pulmonary disease, unspecified (5) COVID-19 Status: Acute Category: Medical Code(s): U07.1 - COVID-19 (6) Respiratory failure with hypoxia Status: Acute Qualifiers: Chronicity: acute Qualified Code(s): J96.01 - Acute respiratory failure with hypoxia Category: Medical Code(s): J96.91 - Respiratory failure, unspecified with hypoxia (7) Hypotension Status: Acute Category: Medical Code(s): I95.9 - Hypotension, unspecified (8) Hx of substance abuse Status: Acute Category: Medical Code(s): F19.11 - Other psychoactive substance abuse, in remission
--- NOTE | 2021-03-04 09:29 | HMH.PULMPN ---
Internal Medicine - PN: Subj *Date: 03/04/21 *Time: 11:09 Interval history: No acute respiratory events overnight. Exam - Constitutional Constitutional:: Present: no acute distress, comfortable - HENMT Exam HENMT: Present: normocephalic, moist mucous membranes - Eye Exam Eyes:: Present: normal appearance both eyes and related structures - Neck Exam Neck:: Present: normal visual inspection - Respiratory Exam Respiratory:: Present: able to speak in complete sentences, rales - Cardiovascular Exam Cardiac:: Present: S1, S2 - GI Exam GI:: Present: soft, no hepatosplenomegaly - Skin Exam Skin: Present: warm, no rash - Neurological Exam Neurological: Present: awake - Extremities Exam Extremities: Present: no cyanosis, no clubbing Assessment and Plan (1) Tobacco use Status: Acute Category: Social Hx Code(s): Z72.0 - Tobacco use (2) Pneumonia due to COVID-19 virus Status: Acute Category: Medical Code(s): U07.1 - COVID-19; J12.82 - Pneumonia due to coronavirus disease 2019 (3) GERD (gastroesophageal reflux disease) Status: Acute Qualifiers: Esophagitis presence: esophagitis presence not specified Qualified Code(s): K21.9 - Gastro-esophageal reflux disease without esophagitis Category: Medical Code(s): K21.9 - Gastro-esophageal reflux disease without esophagitis (4) COPD (chronic obstructive pulmonary disease) Status: Acute Qualifiers: COPD type: unspecified COPD Qualified Code(s): J44.9 - Chronic obstructive pulmonary disease, unspecified Category: Medical Code(s): J44.9 - Chronic obstructive pulmonary disease, unspecified (5) COVID-19 Status: Acute Category: Medical Code(s): U07.1 - COVID-19 (6) Respiratory failure with hypoxia Status: Acute Qualifiers: Chronicity: acute Qualified Code(s): J96.01 - Acute respiratory failure with hypoxia Category: Medical Code(s): J96.91 - Respiratory failure, unspecified with hypoxia (7) Hypotension Status: Acute Category: Medical Code(s): I95.9 - Hypotension, unspecified (8) Hx of substance abuse Status: Acute Category: Medical Code(s): F19.11 - Other psychoactive substance abuse, in remission - Assessment and plan all Dx Assessment and Plan for all problems:: #Acute hypoxic respiratory failure: #COVID-19 pneumonia: CT on admission did not show any evidence of pulmonary embolism however showed diffuse bilateral patchy pulmonary infiltrates. No evidence of DVT D-dimer elevated at 0.81. CRP at 21.4 Patient respiratory status declined during admission needing intubation and mechanical ventilation patient was successfully extubated and since then patient has relatively stable but critical needing high oxygen requirements currently on BiPAP post extubation, successfully weaned to nasal cannula. Plan: -Continue nasal cannula oxygen supplementation to maintain O2 saturation goal of 88% and above. -Encourage ambulation, out of bed to chair. Will initiate incentive spirometry -Continue remdesivir and dexamethasone for COVID-19 pneumonia. Continue barcitinib -Blood cultures from 02/26 resulted negative. Will recommend continue vancomycin for 14 days from 02/26 -DuoNebs every 6 hours scheduled #Thank you for involving pulmonary in this patient care. We will continue to follow.
--- NOTE | 2021-03-04 14:58 | PC.NURSE ---
Resp Care Note: Pt instructed on incentive spirometer. He did achieve a goal of 750 ml times 10 repetitions. 03/03/2021 2215
[2021-03-05] VITALS (14 sets, daily range): BP systolic 93–134; BP diastolic 62–73; PULSE 64–105; RESP 17–22; TEMP 36.5–37.1; O2SAT 90–100; BMI 21.6
--- NOTE | 2021-03-05 05:31 | PC.NURSE ---
Patient is alert to person and place at times. Patient was turned down to 10LNC by RT where patient was unable to tolerate, patient was turned up to 13LNC where he remained below 90% oxygen saturation, RT applied venti mask at 40% and patient has tolerated and maintained oxygen saturation above 90%. VSS, call light within reach, will continue to monitor.
--- NOTE | 2021-03-05 09:02 | HMH.ACPN2 ---
Internal Medicine - PN: Subj *Date: 03/05/21 *Time: 08:30 Interval history: pt sitting up in bed, o2 at 10 liters per nrb. Exam Vital signs and Labs for Last 24 Hours: Temp Pulse Resp BP Pulse Ox 97.9 F 80 18 93/69 L 92 L 03/05/21 04:00 03/05/21 07:00 03/05/21 04:00 03/05/21 04:00 03/05/21 07:00 I & O for Last 24 hours: Intake & Output 03/02/21 03/03/21 03/04/21 03/05/21 11:59 11:59 11:59 11:59 Intake Total 250 / 250 500 / 500 480 / 480 600 / 600 Output Total 675 / 675 2004 / 2004 1900 / 1900 800 / 800 Balance -425 / -425 -1505 / -1505 -1420 / -1420 -200 / -200 Weight 168 lb 167 lb 165 lb 12.602 oz 142 lb 11.2 oz - Constitutional mild distress, thin, chronically ill appearing - *Routine HEENT Exam Head: Present: normocephalic Eye: Present: PERRL ENT: Present: mucous membranes moist - *Routine Neck Exam Present: supple. Absent: lymphadenopathy - *Routine Respiratory Exam Present: decreased breath sounds, wheezes - *Routine Cardiovascular Exam Present: RRR - *Routine Abdominal Exam Present: soft, normoactive bowel sounds. Absent: tenderness - *Routine Extremities Exam Present: normal capillary refill. Absent: cyanosis, clubbing, edema - *Routine Skin Exam Present: warm. Absent: rash - *Routine Neurological Exam Present: alert, oriented X3 Assessment and Plan (1) Tobacco use Status: Acute Category: Social Hx Code(s): Z72.0 - Tobacco use (2) Pneumonia due to COVID-19 virus Status: Acute Category: Medical Code(s): U07.1 - COVID-19; J12.82 - Pneumonia due to coronavirus disease 2019 (3) GERD (gastroesophageal reflux disease) Status: Acute Qualifiers: Esophagitis presence: esophagitis presence not specified Qualified Code(s): K21.9 - Gastro-esophageal reflux disease without esophagitis Category: Medical Code(s): K21.9 - Gastro-esophageal reflux disease without esophagitis (4) COPD (chronic obstructive pulmonary disease) Status: Acute Qualifiers: COPD type: unspecified COPD Qualified Code(s): J44.9 - Chronic obstructive pulmonary disease, unspecified Category: Medical Code(s): J44.9 - Chronic obstructive pulmonary disease, unspecified (5) COVID-19 Status: Acute Category: Medical Code(s): U07.1 - COVID-19 (6) Respiratory failure with hypoxia Status: Acute Qualifiers: Chronicity: acute Qualified Code(s): J96.01 - Acute respiratory failure with hypoxia Category: Medical Code(s): J96.91 - Respiratory failure, unspecified with hypoxia (7) Hypotension Status: Acute Category: Medical Code(s): I95.9 - Hypotension, unspecified (8) Hx of substance abuse Status: Acute Category: Medical Code(s): F19.11 - Other psychoactive substance abuse, in remission - Assessment and plan all Dx Assessment and Plan for all problems:: roundedc with dr hughes all orders per dr saul armstrong remove naranjo out of bed
--- NOTE | 2021-03-05 09:34 | HMH.PULMPN ---
Internal Medicine - PN: Subj *Date: 03/05/21 *Time: 13:37 Interval history: Patient respiratory status worsened this morning with progressive hypoxia was escalated to high flow nasal cannula. He personally denies any worsening respiratory symptoms. Exam - Constitutional Constitutional:: Present: no acute distress, comfortable - HENMT Exam HENMT: Present: normocephalic, moist mucous membranes - Eye Exam Eyes:: Present: normal appearance both eyes and related structures - Neck Exam Neck:: Present: normal visual inspection - Respiratory Exam Respiratory:: Present: able to speak in complete sentences, no respiratory distress - Cardiovascular Exam Cardiac:: Present: S1, S2 - GI Exam GI:: Present: soft - Skin Exam Skin: Present: warm, no rash - Neurological Exam Neurological: Present: awake Assessment and Plan (1) Tobacco use Status: Acute Category: Social Hx Code(s): Z72.0 - Tobacco use (2) Pneumonia due to COVID-19 virus Status: Acute Category: Medical Code(s): U07.1 - COVID-19; J12.82 - Pneumonia due to coronavirus disease 2019 (3) GERD (gastroesophageal reflux disease) Status: Acute Qualifiers: Esophagitis presence: esophagitis presence not specified Qualified Code(s): K21.9 - Gastro-esophageal reflux disease without esophagitis Category: Medical Code(s): K21.9 - Gastro-esophageal reflux disease without esophagitis (4) COPD (chronic obstructive pulmonary disease) Status: Acute Qualifiers: COPD type: unspecified COPD Qualified Code(s): J44.9 - Chronic obstructive pulmonary disease, unspecified Category: Medical Code(s): J44.9 - Chronic obstructive pulmonary disease, unspecified (5) COVID-19 Status: Acute Category: Medical Code(s): U07.1 - COVID-19 (6) Respiratory failure with hypoxia Status: Acute Qualifiers: Chronicity: acute Qualified Code(s): J96.01 - Acute respiratory failure with hypoxia Category: Medical Code(s): J96.91 - Respiratory failure, unspecified with hypoxia (7) Hypotension Status: Acute Category: Medical Code(s): I95.9 - Hypotension, unspecified (8) Hx of substance abuse Status: Acute Category: Medical Code(s): F19.11 - Other psychoactive substance abuse, in remission - Assessment and plan all Dx Assessment and Plan for all problems:: #Acute hypoxic respiratory failure: #COVID-19 pneumonia: CT on admission did not show any evidence of pulmonary embolism however showed diffuse bilateral patchy pulmonary infiltrates. No evidence of DVT D-dimer elevated at 0.81. CRP at 21.4 Patient respiratory status declined during admission needing intubation and mechanical ventilation patient was successfully extubated and since then patient has relatively stable but critical needing high oxygen requirements currently on BiPAP post extubation, successfully weaned to nasal cannula. Interval update: Patient respiratory status declined this morning eventually needing high flow nasal cannula. Plan: -Encourage ambulation, out of bed to chair. Will initiate incentive spirometry -Continue high flow nasal cannula can supplementation to maintain O2 saturation goal of 90 and above. His FiO2 decreased to 60% this morning. We will continue to wean as tolerated -Continue remdesivir and dexamethasone for COVID-19 pneumonia. Continue barcitinib -Blood cultures from 02/26 resulted negative. Will recommend continue vancomycin for 14 days from 02/26 -DuoNebs every 6 hours scheduled #Thank you for involving pulmonary in this patient care. We will continue to follow.
[2021-03-05 09:51] LABS: ABG Base Excess 3.2 mmol/L (-2.4-2.3); ABG HCO3 26.3 mmhg (22.0-26.0); ABG Oxygen Saturation 79 % (90-100); ABG PCO2 34.1 mmhg (35.0-45.0); ABG PH 7.51 mmol/L (7.35-7.45); ABG TCO2 27.3 mmhg (23-27)
[2021-03-05 09:56] LABS: ABG PO2 41.9 mmhg (80-100); Allen's Test ACCEPTABLE; Oxygen 6 LPM NC %; Source Right Radial
[2021-03-05 11:25] LABS: Chloride 100 mmol/L (98-107); Sodium 136 mmol/L (136-145)
[2021-03-05 11:28] LABS: Blood Urea Nitrogen 24 mg/dl (9-20); Calcium 8.8 mg/dl (8.4-10.2); Carbon Dioxide 28 mmol/L (22.0-30.0); Creatinine Clearance Estimated 180 mL/min (50-200); Estimated Glomerular Filt Rate 219 ml/min (>60); GFR (African American) 266 ML/MIN (>60); Glucose 99 mg/dl (74-100)
[2021-03-05 12:40] LABS: Vancomycin,Trough 11.2 ug/mL (5.0-10.0)
[2021-03-05 15:35] LABS: Vancomycin,Peak 32.2 ug/ml (11-39)
[2021-03-06] VITALS (10 sets, daily range): BP systolic 124–136; BP diastolic 64–73; PULSE 71–110; RESP 16–26; TEMP 36.6–37.2; O2SAT 91–99; BMI 21.5
--- NOTE | 2021-03-06 05:53 | PC.NURSE ---
pt has repeatedly taken vapotherm off, respiratory placed non rebreather over top to increase O2 sats, when patient removed o2 sats will drop to low 70's, quick to return to low 90's, patient has remained confused t/o shift, no complaints of pain
[2021-03-06 06:34] LABS: Basophils % 0.1 % (0.1-2.0); Eosinophils % 0.1 % (0.1-12.0); Hematocrit 39.8 % (42.0-52.0); Lymphocytes # 0.9 K/mm3 (0.7-4.5); Lymphocytes % 8.4 % (10-50); Mean Corpuscular HGB Conc 32.6 g/dL (31.8-35.4); Mean Corpuscular Hemoglobin 29.8 pg (27.0-31.2); Mean Corpuscular Volume 91.6 fl (80-94); Monocytes # 0.5 K/mm3 (0.1-1.0); Monocytes % 4.3 % (1.7-9.3); Neutrophils # 9.7 K/mm3 (1.8-7.8); Platelet Count 434 K/mm3 (142-424); Red Blood Count 4.35 M/mm3 (4.60-6.20); Red Cell Distribution Width 14.5 % (11.5-17.5); White Blood Count 11.2 K/mm3 (4.8-10.8)
[2021-03-06 06:36] LABS: MANUAL DIFFERENTIAL MANUAL DIFFERENTIAL (MANUAL DIFF)
[2021-03-06 06:42] LABS: Anion Gap 11.1 mEq/L (5-15); Blood Urea Nitrogen 22 mg/dl (9-20); Calcium 8.7 mg/dl (8.4-10.2); Carbon Dioxide 28 mmol/L (22.0-30.0); Chloride 102 mmol/L (98-107); Creatinine Clearance Estimated 143 mL/min (50-200); Estimated Glomerular Filt Rate 170 ml/min (>60); GFR (African American) 205 ML/MIN (>60); Glucose 96 mg/dl (74-100); Potassium 4.1 mmoL/L (3.5-5.1); Sodium 137 mmol/L (136-145)
[2021-03-06 07:41] LABS: Lymphocytes % 9 % (10-50); Monocytes % 4 % (2-9); Neutrophils % 86 % (42-76); Platelet Estimate Normal; RBC Morphology Normal; Total Cells Counted 100
--- NOTE | 2021-03-06 10:31 | XR_ITS ---
PROCEDURE: XR CHEST PORTABLE CLINICAL HISTORY: increase need for o2 COMPARISON: CT CT ANGIO CHEST PE PROTOCOL from 02/15/2021 CR XR CHEST PORTABLE from 03/02/2021 CR XR CHEST PORTABLE from 03/03/2021 CR XR CHEST PORTABLE from 03/04/2021 FINDINGS: The cardiomediastinal silhouette and pulmonary vascularity are within normal limits. Left subclavian central venous line has been removed. Bilateral pneumonia once again noted overall not significantly changed. There are mild atelectatic changes in the right lung base. No acute bony findings. No evidence of pneumothorax IMPRESSION: No significant change bilateral pneumonia with right basilar atelectasis. Dictated by: Reno Alonso MD 03/06/2021 11:43 Reno Alonso MD in [facility] 03/06/2021 11:43
--- NOTE | 2021-03-06 10:33 | HMH.ACPN2 ---
Internal Medicine - PN: Subj *Date: 03/06/21 *Time: 08:50 Interval history: pt laying in bed, o2 sat 77% added more o2 and o2 sat increased to 89% Exam Vital signs and Labs for Last 24 Hours: Temp Pulse Resp BP Pulse Ox 98.2 F 93 H 16 124/73 93 L 03/06/21 08:00 03/06/21 08:00 03/06/21 08:00 03/06/21 08:00 03/06/21 08:00 Laboratory Results - last 24 hr 03/05/21 11:09: Sodium 136, Potassium 4.0, Chloride 100, Carbon Dioxide 28, Anion Gap 12.0, BUN 24 H, Creatinine 0.40 L, Estimated Creat Clear 180, Estimated GFR 219, Est GFR ( Amer) 266 D, Glucose 99, Calcium 8.8 03/05/21 11:09: Vancomycin Trough 11.2 H 03/05/21 15:00: Vancomycin Peak 32.2 03/06/21 05:39: WBC 11.2 H D, RBC 4.35 L, Hgb 13.0 L, Hct 39.8 L, MCV 91.6, MCH 29.8, MCHC 32.6, RDW 14.5, Plt Count 434 H D, MPV 9.0, Neut % (Auto) 87.0 H, Lymph % (Auto) 8.4 L, [place] % (Auto) 4.3, Eos % (Auto) 0.1, Baso % (Auto) 0.1, Neut # (Auto) 9.7 H, Lymph # (Auto) 0.9, [place] # (Auto) 0.5, Eos # (Auto) 0.0, Baso # (Auto) 0.0, Total Counted 100, Neutrophils % (Manual) 86 H, Lymphocytes % (Manual) 9 L, Monocytes % (Manual) 4, Metamyelocytes % 1.0, Platelet Estimate Normal, RBC Morphology Normal 03/06/21 05:39: Sodium 137, Potassium 4.1, Chloride 102, Carbon Dioxide 28, Anion Gap 11.1, BUN 22 H, Creatinine 0.50 L D, Estimated Creat Clear 143, Estimated GFR 170, Est GFR ( Amer) 205 D, Glucose 96, Calcium 8.7 I & O for Last 24 hours: Intake & Output 09/03/04/21 03/05/21 03/06/21 11:59 11:59 11:59 11:59 Intake Total 500 / 500 480 / 480 660 / 660 240 / 240 Output Total 2004 1900 / 1900 800 / 800 750 / 750 Balance -1505 / -1505 -1420 / -1420 -140 / -140 -510 / -510 Weight 167 lb 165 lb 12.602 oz 142 lb 11.2 oz 142 lb 5 oz - Constitutional no acute distress, chronically ill appearing - *Routine HEENT Exam Head: Present: normocephalic Eye: Present: PERRL ENT: Present: mucous membranes moist - *Routine Neck Exam Present: supple. Absent: lymphadenopathy - *Routine Respiratory Exam Present: decreased breath sounds, rhonchi, wheezes - *Routine Cardiovascular Exam Present: RRR - *Routine Abdominal Exam Present: soft, normoactive bowel sounds. Absent: tenderness - *Routine Extremities Exam Absent: cyanosis, clubbing, edema - *Routine Skin Exam Present: warm. Absent: rash - *Routine Neurological Exam Present: alert, oriented X3 Assessment and Plan (1) Tobacco use Status: Acute Category: Social Hx Code(s): Z72.0 - Tobacco use (2) Pneumonia due to COVID-19 virus Status: Acute Category: Medical Code(s): U07.1 - COVID-19; J12.82 - Pneumonia due to coronavirus disease 2019 (3) GERD (gastroesophageal reflux disease) Status: Acute Qualifiers: Esophagitis presence: esophagitis presence not specified Qualified Code(s): K21.9 - Gastro-esophageal reflux disease without esophagitis Category: Medical Code(s): K21.9 - Gastro-esophageal reflux disease without esophagitis (4) COPD (chronic obstructive pulmonary disease) Status: Acute Qualifiers: COPD type: unspecified COPD Qualified Code(s): J44.9 - Chronic obstructive pulmonary disease, unspecified Category: Medical Code(s): J44.9 - Chronic obstructive pulmonary disease, unspecified (5) COVID-19 Status: Acute Category: Medical Code(s): U07.1 - COVID-19 (6) Respiratory failure with hypoxia Status: Acute Qualifiers: Chronicity: acute Qualified Code(s): J96.01 - Acute respiratory failure with hypoxia Category: Medical Code(s): J96.91 - Respiratory failure, unspecified with hypoxia (7) Hypotension Status: Acute Category: Medical Code(s): I95.9 - Hypotension, unspecified (8) Hx of substance abuse Status: Acute Category: Medical Code(s): F19.11 - Other psychoactive substance abuse, in remission - Assessment and plan all Dx Assessment and Plan for all problems:: rounded with dr hughes all orders per d
--- NOTE | 2021-03-06 16:45 | HMH.PULMPN ---
Internal Medicine - PN: Subj *Date: 03/06/21 *Time: 16:45 Interval history: No acute respiratory events overnight. Exam - Constitutional Constitutional:: Present: no acute distress, comfortable - HENMT Exam HENMT: Present: normocephalic, atraumatic - Eye Exam Eyes:: Present: normal appearance both eyes and related structures - Neck Exam Neck:: Present: normal visual inspection - Respiratory Exam Respiratory:: Present: able to speak in complete sentences, decreased breath sounds, crackles - Cardiovascular Exam Cardiac:: Present: S1, S2 - GI Exam GI:: Present: soft - Skin Exam Skin: Present: warm - Neurological Exam Neurological: Present: awake - Extremities Exam Extremities: Present: no cyanosis, no clubbing, no edema Assessment and Plan (1) Tobacco use Status: Acute Category: Social Hx Code(s): Z72.0 - Tobacco use (2) Pneumonia due to COVID-19 virus Status: Acute Category: Medical Code(s): U07.1 - COVID-19; J12.82 - Pneumonia due to coronavirus disease 2019 (3) GERD (gastroesophageal reflux disease) Status: Acute Qualifiers: Esophagitis presence: esophagitis presence not specified Qualified Code(s): K21.9 - Gastro-esophageal reflux disease without esophagitis Category: Medical Code(s): K21.9 - Gastro-esophageal reflux disease without esophagitis (4) COPD (chronic obstructive pulmonary disease) Status: Acute Qualifiers: COPD type: unspecified COPD Qualified Code(s): J44.9 - Chronic obstructive pulmonary disease, unspecified Category: Medical Code(s): J44.9 - Chronic obstructive pulmonary disease, unspecified (5) COVID-19 Status: Acute Category: Medical Code(s): U07.1 - COVID-19 (6) Respiratory failure with hypoxia Status: Acute Qualifiers: Chronicity: acute Qualified Code(s): J96.01 - Acute respiratory failure with hypoxia Category: Medical Code(s): J96.91 - Respiratory failure, unspecified with hypoxia (7) Hypotension Status: Acute Category: Medical Code(s): I95.9 - Hypotension, unspecified (8) Hx of substance abuse Status: Acute Category: Medical Code(s): F19.11 - Other psychoactive substance abuse, in remission - Assessment and plan all Dx Assessment and Plan for all problems:: #Acute hypoxic respiratory failure: #COVID-19 pneumonia: CT on admission did not show any evidence of pulmonary embolism however showed diffuse bilateral patchy pulmonary infiltrates. No evidence of DVT D-dimer elevated at 0.81. CRP at 21.4 Patient respiratory status declined during admission needing intubation and mechanical ventilation patient was successfully extubated and since then patient has relatively stable but critical needing high oxygen requirements currently on BiPAP post extubation, successfully weaned to nasal cannula. Interval update: Patient respiratory remained stable from yesterday. We will continue high flow nasal cannula. Patient has a brief moment where he desaturated significantly improved with nonrebreather likely secondary to displaced high flow nasal cannula. Plan: -Encourage ambulation, out of bed to chair and incentive spirometry -Continue high flow nasal cannula can supplementation to maintain O2 saturation goal of 90 and above. Wean as tolerated. -Completed 10-day course of remdesivir and dexamethasone. -Blood cultures from 02/26 resulted negative. Will recommend continue vancomycin for 14 days from 02/26 -DuoNebs every 6 hours scheduled #Thank you for involving pulmonary in this patient care. We will continue to follow.
[2021-03-07] VITALS (10 sets, daily range): BP systolic 103–136; BP diastolic 61–74; PULSE 100–123; RESP 17–22; TEMP 36.3–36.7; O2SAT 90–100; BMI 21.2
--- NOTE | 2021-03-07 03:18 | PC.NURSE ---
A&O TO PERSON AND BIRTHDAY. CONFUSED TO WHERE HE IS AND HIS SITUATION. PT REPEATEDLY REMOVES NON-REBREATHER AND VAPOTHERM, DESATS TO HIGH 70S. PT REQUIRING LOTS OF REDIRECTION. QUICKLY BOUNCES BACK TO 90S ONCE O2 IS REPLACED. PT HAS OTHERWISE SLEPT MAJORITY OF SHIFT. DID RECEIVE BED BATH AND LINEN CHANGE, TOLERATED WELL. PT REMAINS INCONTINENT, BRIEF IN PLACE, KEPT CLEAN AND DRY. NO OTHER C/O THUS FAR. VSS WILL CONTINUE TO MONITOR.
[2021-03-07 06:29] LABS: Basophils % 0.4 % (0.1-2.0); Eosinophils # 0.2 K/mm3 (0.0-0.4); Eosinophils % 1.7 % (0.1-12.0); Hematocrit 38.3 % (42.0-52.0); Hemoglobin 12.7 g/dL (14.1-18.0); Lymphocytes # 0.9 K/mm3 (0.7-4.5); Mean Corpuscular HGB Conc 33.1 g/dL (31.8-35.4); Mean Corpuscular Hemoglobin 30.1 pg (27.0-31.2); Mean Platelet Volume 8.8 fl (7.4-10.4); Monocytes # 0.5 K/mm3 (0.1-1.0); Monocytes % 3.8 % (1.7-9.3); Neutrophils # 10.7 K/mm3 (1.8-7.8); Neutrophils % 87.1 % (37.0-80.0); Platelet Count 466 K/mm3 (142-424); Red Blood Count 4.21 M/mm3 (4.60-6.20); Red Cell Distribution Width 14.6 % (11.5-17.5); White Blood Count 12.3 K/mm3 (4.8-10.8)
[2021-03-07 06:41] LABS: Chloride 101 mmol/L (98-107); Potassium 3.7 mmoL/L (3.5-5.1); Sodium 136 mmol/L (136-145)
[2021-03-07 06:44] LABS: Anion Gap 9.7 mEq/L (5-15); Blood Urea Nitrogen 21 mg/dl (9-20); Calcium 8.7 mg/dl (8.4-10.2); Carbon Dioxide 29 mmol/L (22.0-30.0); Creatinine Clearance Estimated 141 mL/min (50-200); Estimated Glomerular Filt Rate 170 ml/min (>60); GFR (African American) 205 ML/MIN (>60); Glucose 87 mg/dl (74-100)
[2021-03-07 06:55] LABS: MANUAL DIFFERENTIAL MANUAL DIFFERENTIAL (MANUAL DIFF)
[2021-03-07 07:05] LABS: Hypochromasia 1+; Lymphocytes % 7 % (10-50); Monocytes % 4 % (2-9); Neutrophils % 89 % (42-76); Platelet Estimate Normal; Total Cells Counted 100
--- NOTE | 2021-03-07 09:33 | HMH.ACPN2 ---
Internal Medicine - PN: Subj *Date: 03/08/21 *Time: 09:11 Interval history: confused at this time but doing better Exam Vital signs and Labs for Last 24 Hours: Temp Pulse Resp BP Pulse Ox 97.3 F L 104 H 20 111/70 98 03/07/21 08:00 03/07/21 08:00 03/07/21 08:00 03/07/21 08:00 03/07/21 08:00 Laboratory Results - last 24 hr 03/07/21 05:30: WBC 12.3 H, RBC 4.21 L, Hgb 12.7 L, Hct 38.3 L, MCV 91.0, MCH 30.1, MCHC 33.1, RDW 14.6, Plt Count 466 H, MPV 8.8, Neut % (Auto) 87.1 H, Lymph % (Auto) 7.0 L, [place] % (Auto) 3.8, Eos % (Auto) 1.7, Baso % (Auto) 0.4, Neut # (Auto) 10.7 H, Lymph # (Auto) 0.9, [place] # (Auto) 0.5, Eos # (Auto) 0.2, Baso # (Auto) 0.0, Total Counted 100, Neutrophils % (Manual) 89 H, Lymphocytes % (Manual) 7 L, Monocytes % (Manual) 4, Platelet Estimate Normal, Hypochromasia 1+ 03/07/21 05:30: Sodium 136, Potassium 3.7, Chloride 101, Carbon Dioxide 29, Anion Gap 9.7, BUN 21 H, Creatinine 0.50 L, Estimated Creat Clear 141, Estimated GFR 170, Est GFR ( Amer) 205, Glucose 87, Calcium 8.7 I & O for Last 24 hours: Intake & Output 03/04/21 03/05/21 03/06/21 03/07/21 11:59 11:59 11:59 11:59 Intake Total 480 / 480 660 / 660 240 / 240 250 / 250 Output Total 1900 / 1900 800 / 800 750 / 750 350 / 350 Balance -1420 / -1420 -140 / -140 -510 / -510 -100 / -100 Weight 165 lb 12.602 oz 142 lb 11.2 oz 142 lb 5 oz 140 lb - Constitutional no acute distress, chronically ill appearing - *Routine HEENT Exam Head: Present: normocephalic Eye: Present: EOMI, PERRL ENT: Present: mucous membranes dry - *Routine Neck Exam Absent: JVD - *Routine Respiratory Exam Present: decreased breath sounds, other (has trach) - *Routine Cardiovascular Exam Present: RRR, murmur - *Routine Abdominal Exam Present: soft - *Routine Extremities Exam Absent: calf tenderness - *Routine Skin Exam Present: intact - *Routine Neurological Exam Present: alert no focal changes - Routine Psychiatric Exam Present: unable to assess Assessment and Plan (1) Tobacco use Status: Acute Category: Social Hx Code(s): Z72.0 - Tobacco use (2) Pneumonia due to COVID-19 virus Status: Acute Category: Medical Code(s): U07.1 - COVID-19; J12.82 - Pneumonia due to coronavirus disease 2019 (3) GERD (gastroesophageal reflux disease) Status: Acute Qualifiers: Esophagitis presence: esophagitis presence not specified Qualified Code(s): K21.9 - Gastro-esophageal reflux disease without esophagitis Category: Medical Code(s): K21.9 - Gastro-esophageal reflux disease without esophagitis (4) COPD (chronic obstructive pulmonary disease) Status: Acute Qualifiers: COPD type: unspecified COPD Qualified Code(s): J44.9 - Chronic obstructive pulmonary disease, unspecified Category: Medical Code(s): J44.9 - Chronic obstructive pulmonary disease, unspecified (5) COVID-19 Status: Acute Category: Medical Code(s): U07.1 - COVID-19 (6) Respiratory failure with hypoxia Status: Acute Qualifiers: Chronicity: acute Qualified Code(s): J96.01 - Acute respiratory failure with hypoxia Category: Medical Code(s): J96.91 - Respiratory failure, unspecified with hypoxia (7) Hypotension Status: Acute Category: Medical Code(s): I95.9 - Hypotension, unspecified (8) Hx of substance abuse Status: Acute Category: Medical Code(s): F19.11 - Other psychoactive substance abuse, in remission
--- NOTE | 2021-03-07 15:38 | PC.NURSE ---
Pt has been pleasant and somewhat cooperative this shift. Alert to self. Bilateral mittens in place due to pt frequently removing oxygenation. Pt is currently receiving O2 via Vapotherm @ 30 LPM and a non-rebreather @ 15 LPM. Lung sounds reveal expiratory rhonchi. No edema noted. Skin is C/D/I. Pt ambulates with assistance X2 and has sat up in the recliner for several hours today. Pt is incontinent and a brief is in place. Urine is clear and yellow. No BM thus far this shift. 20 G peripheral IV in the LT upper arm is patent and SL. VSS. Call light within reach. Will continue to monitor.
--- NOTE | 2021-03-07 16:56 | P.PN_ITS ---
Internal Medicine - PN: Subj *Date: 03/07/21 *Time: 16:56 Interval history: NO acute events overnight Exam - Constitutional Constitutional:: Present: no acute distress, comfortable - HENMT Exam HENMT: Present: normocephalic - Eye Exam Eyes:: Present: normal appearance both eyes and related structures - Neck Exam Neck:: Present: normal visual inspection - Respiratory Exam Respiratory:: Present: respiratory distress, crackles - Cardiovascular Exam Cardiac:: Present: S1, S2 - GI Exam GI:: Present: soft - Skin Exam Skin: Present: warm - Neurological Exam Neurological: Present: alert, awake - Extremities Exam Extremities: Present: no cyanosis, no clubbing, edema Assessment and Plan (1) Tobacco use Status: Acute Category: Social Hx Code(s): Z72.0 - Tobacco use (2) Pneumonia due to COVID-19 virus Status: Acute Category: Medical Code(s): U07.1 - COVID-19; J12.82 - Pneumo [place] due to coronavirus disease 2019 (3) GERD (gastroesophageal reflux disease) Status: Acute Qualifiers: Esophagitis presence: esophagitis presence not specified Qualified Code(s): K21.9 - Gastro-esophageal reflux disease without esophagitis Category: Medical Code(s): K21.9 - Gastro-esophageal reflux disease without esophagitis (4) COPD (chronic obstructive pulmonary disease) Status: Acute Qualifiers: COPD type: unspecified COPD Qualified Code(s): J44.9 - Chronic obstructive pulmonary disease, unspecified Category: Medical Code(s): J44.9 - Chronic obstructive pulmonary disease, unspecified (5) COVID-19 Status: Acute Category: Medical Code(s): U07.1 - COVID-19 (6) Respiratory failure with hypoxia Status: Acute Qualifiers: Chronicity: acute Qualified Code(s): J96.01 - Acute respiratory failure with hypoxia Category: Medical Code(s): J96.91 - Respiratory failure, unspecified with hypoxia (7) Hypotension Status: Acute Category: Medical Code(s): I95.9 - Hypotension, unspecified (8) Hx of substance abuse Status: Acute Category: Medical Code(s): F19.11 - Other psychoactive substance abuse, in remission - Assessment and plan all Dx Assessment and Plan for all problems:: #Acute hypoxic respiratory failure: #COVID-19 pneumonia: CT on admission did not show any evidence of pulmonary embolism however showed diffuse bilateral patchy pulmonary infiltrates. No evidence of DVT D-dimer elevated at 0.81. CRP at 21.4 Patient respiratory status declined during admission needing intubation and mechanical ventilation patient was successfully extubated and since then patient has relatively stable but critical needing high oxygen requirements currently on BiPAP post extubation, successfully weaned to nasal cannula. Interval update: Patient respiratory slightly improved from yesterday. We will continue high flow nasal cannula, weaned to FiO2 at 70%. Plan: -Lasix 40mg IV once -Encourage ambulation, out of bed to chair and incentive spirometry -Continue high flow nasal cannula can supplementation to maintain O2 saturation goal of 90 and above. Wean as tolerated. -Completed 10-day course of remdesivir and dexamethasone. -Blood cultures from 02/26 resulted negative. Will recommend continue vancomycin for 14 days from 02/26 -DuoNebs every 6 hours scheduled #Thank you for involving pulmonary in this patient care. We will continue to follow.
--- NOTE | 2021-03-07 17:03 | HMH.PULMPN ---
Internal Medicine - PN: Subj *Date: 03/07/21 *Time: 17:03 Interval history: No new complaints. Admits improvement. Exam - Constitutional Constitutional:: Present: no acute distress, comfortable - HENMT Exam HENMT: Present: normocephalic, atraumatic - Eye Exam Eyes:: Present: normal appearance both eyes and related structures - Neck Exam Neck:: Present: normal visual inspection - Respiratory Exam Respiratory:: Present: no respiratory distress, rales - Cardiovascular Exam Cardiac:: Present: S1, S2 - GI Exam GI:: Present: soft - Skin Exam Skin: Present: warm, no rash - Neurological Exam Neurological: Present: alert, awake, normal cognition - Extremities Exam Extremities: Present: no cyanosis, no clubbing, no edema Assessment and Plan (1) Tobacco use Status: Acute Category: Social Hx Code(s): Z72.0 - Tobacco use (2) Pneumonia due to COVID-19 virus Status: Acute Category: Medical Code(s): U07.1 - COVID-19; J12.82 - Pneumonia due to coronavirus disease 2019 (3) GERD (gastroesophageal reflux disease) Status: Acute Qualifiers: Esophagitis presence: esophagitis presence not specified Qualified Code(s): K21.9 - Gastro-esophageal reflux disease without esophagitis Category: Medical Code(s): K21.9 - Gastro-esophageal reflux disease without esophagitis (4) COPD (chronic obstructive pulmonary disease) Status: Acute Qualifiers: COPD type: unspecified COPD Qualified Code(s): J44.9 - Chronic obstructive pulmonary disease, unspecified Category: Medical Code(s): J44.9 - Chronic obstructive pulmonary disease, unspecified (5) COVID-19 Status: Acute Category: Medical Code(s): U07.1 - COVID-19 (6) Respiratory failure with hypoxia Status: Acute Qualifiers: Chronicity: acute Qualified Code(s): J96.01 - Acute respiratory failure with hypoxia Category: Medical Code(s): J96.91 - Respiratory failure, unspecified with hypoxia (7) Hypotension Status: Acute Category: Medical Code(s): I95.9 - Hypotension, unspecified (8) Hx of substance abuse Status: Acute Category: Medical Code(s): F19.11 - Other psychoactive substance abuse, in remission - Assessment and plan all Dx Assessment and Plan for all problems:: #Acute hypoxic respiratory failure: #COVID-19 pneumonia: #Pulmonary embolism 75-year-old male no prior respiratory complaints admitted to the hospital ion 02/25 been receiving ceftriaxone azithromycin along with remdesivir and dexamethasone for COVID-19 pneumonia noted to have gradually worsening respiratory distress eventually escalating oxygen requirement from nasal cannula to high flow nasal cannula and pulmonary was called for further management on 02/28. His antibiotics were escalated to cefepime and azithromycin after decompensation. Chest x-ray from 02/27 compared to 1 from on showed significantly worsening bilateral prominent lower lobe airspace disease evidence of volume overload. CRP on admission significant elevated 165.8. BNP also elevated at 2480. CTA performed showed pulmonary embolism and patient was initiated on heparin drip. Troponins within normal limits on diagnosis. Echocardiogram not show any RV strain. Interval update: Overall patient status continued to improve, his oxygen levels significantly improved on the monitor after changing the pulse oximetry. FiO2 was decreased 35% on 10 L , will wean to NC if tolerated Encouraged to continue awake proning protocol. Plan: -Completed 5-day course of antibiotics with ceftriaxone and azithromycin. -Continue awake proning protocol, -Continue Xarelto -Continue remdesivir and dexamethasone x 10 days and [id number] days for COVID-19 pneumonia -DuoNeb every 6 hours scheduled. #Thank you for involving pulmonary in this patient care. We will continue to monitor.
[2021-03-08] VITALS (12 sets, daily range): BP systolic 100–127; BP diastolic 54–82; PULSE 76–110; RESP 18–22; TEMP 36.6–36.8; O2SAT 80–97; BMI 20.5
--- NOTE | 2021-03-08 04:52 | PC.NURSE ---
PT ALERT TO SELF. PT CONTINUES TO PULL OXYGEN OFF. PT HAD VAPOTHERM IN A KNOT AT ONE POINT. MITTENS REAPPLIED THIS SHIFT. PT REMAINS INCONTINENT TO BOWEL AND BLADDER. NO C/O THUS FAR. VSS WILL CONTINUE TO MONITOR.
[2021-03-08 08:27] LABS: Basophils # 0.1 K/mm3 (0-0.2); Basophils % 0.4 % (0.1-2.0); Eosinophils # 0.1 K/mm3 (0.0-0.4); Hematocrit 38.8 % (42.0-52.0); Hemoglobin 12.5 g/dL (14.1-18.0); Lymphocytes # 0.9 K/mm3 (0.7-4.5); Lymphocytes % 7.1 % (10-50); Mean Corpuscular HGB Conc 32.2 g/dL (31.8-35.4); Mean Corpuscular Hemoglobin 29.5 pg (27.0-31.2); Mean Corpuscular Volume 91.8 fl (80-94); Monocytes # 0.5 K/mm3 (0.1-1.0); Monocytes % 3.8 % (1.7-9.3); Neutrophils # 10.9 K/mm3 (1.8-7.8); Neutrophils % 87.7 % (37.0-80.0); Platelet Count 505 K/mm3 (142-424); Red Blood Count 4.23 M/mm3 (4.60-6.20); Red Cell Distribution Width 14.7 % (11.5-17.5); White Blood Count 12.4 K/mm3 (4.8-10.8)
[2021-03-08 08:30] LABS: MANUAL DIFFERENTIAL MANUAL DIFFERENTIAL (MANUAL DIFF)
[2021-03-08 08:52] LABS: Lymphocytes % 11 % (10-50); Monocytes % 3 % (2-9); Neutrophils % 86 % (42-76); Platelet Estimate Moderate Increase; RBC Morphology Normal; Total Cells Counted 100
[2021-03-08 09:28] LABS: Anion Gap 11.7 mEq/L (5-15); Blood Urea Nitrogen 26 mg/dl (9-20); Calcium 8.8 mg/dl (8.4-10.2); Carbon Dioxide 28 mmol/L (22.0-30.0); Chloride 100 mmol/L (98-107); Creatinine Clearance Estimated 137 mL/min (50-200); Estimated Glomerular Filt Rate 170 ml/min (>60); GFR (African American) 205 ML/MIN (>60); Glucose 97 mg/dl (74-100); Potassium 3.7 mmoL/L (3.5-5.1); Sodium 136 mmol/L (136-145)
--- NOTE | 2021-03-08 10:26 | HMH.ACPN2 ---
Internal Medicine - PN: Subj *Date: 03/08/21 *Time: 10:26 Interval history: looks better this am Exam Vital signs and Labs for Last 24 Hours: Temp Pulse Resp BP Pulse Ox 97.8 F 102 H 18 114/82 97 03/08/21 08:00 03/08/21 08:00 03/08/21 08:00 03/08/21 08:00 03/08/21 08:00 Laboratory Results - last 24 hr 03/08/21 07:53: WBC 12.4 H, RBC 4.23 L, Hgb 12.5 L, Hct 38.8 L, MCV 91.8, MCH 29.5, MCHC 32.2, RDW 14.7, Plt Count 505 H, MPV 9.0, Neut % (Auto) 87.7 H, Lymph % (Auto) 7.1 L, [place] % (Auto) 3.8, Eos % (Auto) 1.0, Baso % (Auto) 0.4, Neut # (Auto) 10.9 H, Lymph # (Auto) 0.9, [place] # (Auto) 0.5, Eos # (Auto) 0.1, Baso # (Auto) 0.1, Total Counted 100, Neutrophils % (Manual) 86 H, Lymphocytes % (Manual) 11, Monocytes % (Manual) 3, Platelet Estimate Moderate increase, RBC Morphology Normal 03/08/21 07:53: Sodium 136, Potassium 3.7, Chloride 100, Carbon Dioxide 28, Anion Gap 11.7, BUN 26 H, Creatinine 0.50 L, Estimated Creat Clear 137, Estimated GFR 170, Est GFR ( Amer) 205, Glucose 97, Calcium 8.8 I & O for Last 24 hours: Intake & Output 03/05/21 03/06/21 03/07/21 03/08/21 11:59 11:59 11:59 11:59 Intake Total 660 / 660 240 / 240 250 / 250 250 / 250 Output Total 800 / 800 750 / 750 350 / 350 Balance -140 / -140 -510 / -510 -100 / -100 250 / 250 Weight 142 lb 11.2 oz 142 lb 5 oz 140 lb 135 lb 8 oz - Constitutional chronically ill appearing - *Routine HEENT Exam Head: Present: normocephalic Eye: Present: EOMI, PERRL ENT: Present: mucous membranes dry - *Routine Neck Exam Absent: JVD - *Routine Respiratory Exam Present: decreased breath sounds - *Routine Cardiovascular Exam Present: RRR - *Routine Abdominal Exam Present: soft - *Routine Extremities Exam Absent: calf tenderness - *Routine Skin Exam Present: dry - *Routine Neurological Exam no focal changes - Routine Psychiatric Exam Present: cooperative. Absent: good insight Assessment and Plan (1) Tobacco use Status: Acute Category: Social Hx Code(s): Z72.0 - Tobacco use (2) Pneumonia due to COVID-19 virus Status: Acute Category: Medical Code(s): U07.1 - COVID-19; J12.82 - Pneumonia due to coronavirus disease 2019 (3) GERD (gastroesophageal reflux disease) Status: Acute Qualifiers: Esophagitis presence: esophagitis presence not specified Qualified Code(s): K21.9 - Gastro-esophageal reflux disease without esophagitis Category: Medical Code(s): K21.9 - Gastro-esophageal reflux disease without esophagitis (4) COPD (chronic obstructive pulmonary disease) Status: Acute Qualifiers: COPD type: unspecified COPD Qualified Code(s): J44.9 - Chronic obstructive pulmonary disease, unspecified Category: Medical Code(s): J44.9 - Chronic obstructive pulmonary disease, unspecified (5) COVID-19 Status: Acute Category: Medical Code(s): U07.1 - COVID-19 (6) Respiratory failure with hypoxia Status: Acute Qualifiers: Chronicity: acute Qualified Code(s): J96.01 - Acute respiratory failure with hypoxia Category: Medical Code(s): J96.91 - Respiratory failure, unspecified with hypoxia (7) Hypotension Status: Acute Category: Medical Code(s): I95.9 - Hypotension, unspecified (8) Hx of substance abuse Status: Acute Category: Medical Code(s): F19.11 - Other psychoactive substance abuse, in remission
--- NOTE | 2021-03-08 10:28 | XR_ITS ---
PROCEDURE INFORMATION: Exam: XR Chest Exam date and time: 03/08/2021 10:28 AM Age: 60 years old Clinical indication: Shortness of breath; Patient HX: SOB follow up covid pneumonia TECHNIQUE: Imaging protocol: XR of the chest. Views: 1 view. COMPARISON: CR XR CHEST PORTABLE 03/06/2021 11:10 AM FINDINGS: Lungs: Patchy opacities in the mid and lower lung zones bilaterally, may demonstrate slight improvement on the left. Pleural spaces: Unremarkable. No pleural effusion. No pneumothorax. Heart/Mediastinum: Unremarkable. No cardiomegaly. Bones/joints: Unremarkable. IMPRESSION: Patchy opacities in the mid and lower lung zones bilaterally, may demonstrate slight improvement on the left.
--- NOTE | 2021-03-08 13:46 | PC.NURSE ---
pt has been up to chair this morning. He tolerated it well. No distress noted @ this time. Will continue to monitor
[2021-03-09] VITALS (9 sets, daily range): BP systolic 90–124; BP diastolic 47–74; PULSE 93–108; RESP 20–24; TEMP 36.3–36.9; O2SAT 89–97; BMI 20.5
[2021-03-09 06:17] LABS: Basophils # 0.1 K/mm3 (0-0.2); Basophils % 0.4 % (0.1-2.0); Eosinophils # 0.3 K/mm3 (0.0-0.4); Eosinophils % 1.9 % (0.1-12.0); Hematocrit 35.3 % (42.0-52.0); Hemoglobin 11.3 g/dL (14.1-18.0); Lymphocytes # 0.8 K/mm3 (0.7-4.5); Lymphocytes % 5.8 % (10-50); Mean Corpuscular HGB Conc 32.1 g/dL (31.8-35.4); Mean Corpuscular Hemoglobin 29.7 pg (27.0-31.2); Mean Corpuscular Volume 92.4 fl (80-94); Mean Platelet Volume 8.7 fl (7.4-10.4); Monocytes # 0.5 K/mm3 (0.1-1.0); Neutrophils # 11.9 K/mm3 (1.8-7.8); Neutrophils % 88.1 % (37.0-80.0); Platelet Count 426 K/mm3 (142-424); Red Blood Count 3.82 M/mm3 (4.60-6.20); White Blood Count 13.5 K/mm3 (4.8-10.8)
[2021-03-09 06:21] LABS: MANUAL DIFFERENTIAL MANUAL DIFFERENTIAL (MANUAL DIFF)
[2021-03-09 06:41] LABS: Chloride 102 mmol/L (98-107); Potassium 3.6 mmoL/L (3.5-5.1); Sodium 136 mmol/L (136-145)
[2021-03-09 06:44] LABS: Blood Urea Nitrogen 25 mg/dl (9-20); Creatinine Clearance Estimated 68 mL/min (50-200); Estimated Glomerular Filt Rate 219 ml/min (>60); GFR (African American) 265 ML/MIN (>60)
[2021-03-09 06:45] LABS: Anion Gap 10.6 mEq/L (5-15); Calcium 8.5 mg/dl (8.4-10.2); Carbon Dioxide 27 mmol/L (22.0-30.0); Glucose 99 mg/dl (74-100)
[2021-03-09 07:17] LABS: Eosinophils % 1 % (0-3); Lymphocytes % 9 % (10-50); Neutrophils % 87 % (42-76); Platelet Estimate Normal; RBC Morphology Normal; Total Cells Counted 100
--- NOTE | 2021-03-09 08:52 | CT_ITS ---
PROCEDURE INFORMATION: Exam: CTA Chest With Contrast Exam date and time: 03/09/2021 8:52 AM Age: 61 years old Clinical indication: Shortness of breath; Patient HX: Hypoxia covid follow up pe protocol ordered TECHNIQUE: Imaging protocol: Computed tomographic angiography of the chest with contrast. 3D rendering (Not supervised by radiologist): MIP and/or 3D reconstructed images were created by the technologist. Radiation optimization: All CT scans at this facility use at least one of these dose optimization techniques: automated exposure control; mA and/or kV adjustment per patient size (includes targeted exams where dose is matched to clinical indication); or iterative reconstruction. Contrast material: ISOVUE 370; Contrast volume: 75 ml; Contrast route: INTRAVENOUS (IV); COMPARISON: CT ANGIO CHEST PE PROTOCOL 02/15/2021 12:06 PM FINDINGS: Pulmonary arteries: Negative for acute pulmonary embolism. Aorta: Unremarkable. No aortic aneurysm. No aortic dissection. Lungs: Interval worsening of bilateral ground-glass and airspace densities, involving larger percentage of lungs than previous examination. Findings consistent with frequently reported features of Covid-19 pneumonia. Pleural spaces: Unremarkable. No pneumothorax. No pleural effusion. Heart: Unremarkable. No cardiomegaly. No pericardial effusion. Lymph nodes: Unremarkable. No enlarged lymph nodes. Bones/joints: Unremarkable. No acute fracture. Soft tissues: Previous granulomatous exposure. IMPRESSION: 1. Negative for acute pulmonary embolism. 2. Interval worsening of bilateral ground-glass and airspace densities, involving larger percentage of lungs than previous examination. Findings consistent with frequently reported features of Covid-19 pneumonia.
--- NOTE | 2021-03-09 10:03 | HMH.ITSTN ---
patient is on by-pap and requires respiratory to come with him. I called Chandni in resp. and we are coordinating bringing him down for CT. She will call when ready. She is working with another patient on the floor
--- NOTE | 2021-03-09 13:13 | HMH.ACPN2 ---
Internal Medicine - PN: Subj *Date: 03/09/21 *Time: 08:30 Interval history: more alert Exam Vital signs and Labs for Last 24 Hours: Temp Pulse Resp BP Pulse Ox 97.4 F L 93 H 20 106/63 L 89 L 03/09/21 12:00 03/09/21 12:00 03/09/21 12:00 03/09/21 12:00 03/09/21 12:00 Laboratory Results - last 24 hr 03/09/21 05:50: WBC 13.5 H, RBC 3.82 L, Hgb 11.3 L, Hct 35.3 L, MCV 92.4, MCH 29.7, MCHC 32.1, RDW 15.0, Plt Count 426 H, MPV 8.7, Neut % (Auto) 88.1 H, Lymph % (Auto) 5.8 L, [place] % (Auto) 4.0, Eos % (Auto) 1.9, Baso % (Auto) 0.4, Neut # (Auto) 11.9 H, Lymph # (Auto) 0.8, [place] # (Auto) 0.5, Eos # (Auto) 0.3, Baso # (Auto) 0.1, Total Counted 100, Neutrophils % (Manual) 87 H, Band Neutrophils % 3.0, Lymphocytes % (Manual) 9 L, Eosinophils % (Manual) 1, Platelet Estimate Normal, RBC Morphology Normal 03/09/21 05:50: Sodium 136, Potassium 3.6, Chloride 102, Carbon Dioxide 27, Anion Gap 10.6, BUN 25 H, Creatinine 0.40 L, Estimated Creat Clear 68, Estimated GFR 219, Est GFR ( Amer) 265 D, Glucose 99, Calcium 8.5 I & O for Last 24 hours: Intake & Output 03/07/21 03/08/21 03/09/21 03/10/21 11:59 11:59 11:59 11:59 Intake Total 250 / 250 370 / 370 120 / 120 20 / 20 Output Total 350 / 350 400 / 400 Balance -100 / -100 -30 / -30 120 / 120 20 / 20 Weight 140 lb 135 lb 8 oz 135 lb 12.8 oz - Constitutional no acute distress - *Routine HEENT Exam Head: Present: normocephalic Eye: Present: PERRL ENT: Present: mucous membranes moist - *Routine Neck Exam Present: supple. Absent: lymphadenopathy - *Routine Respiratory Exam Present: rhonchi - *Routine Cardiovascular Exam Present: RRR - *Routine Abdominal Exam Present: soft, normoactive bowel sounds. Absent: tenderness - *Routine Extremities Exam Absent: cyanosis, clubbing, edema - *Routine Skin Exam Present: warm. Absent: rash - *Routine Neurological Exam Present: alert Assessment and Plan (1) Tobacco use Status: Acute Category: Social Hx Code(s): Z72.0 - Tobacco use (2) Pneumonia due to COVID-19 virus Status: Acute Category: Medical Code(s): U07.1 - COVID-19; J12.82 - Pneumonia due to coronavirus disease 2019 (3) GERD (gastroesophageal reflux disease) Status: Acute Qualifiers: Esophagitis presence: esophagitis presence not specified Qualified Code(s): K21.9 - Gastro-esophageal reflux disease without esophagitis Category: Medical Code(s): K21.9 - Gastro-esophageal reflux disease without esophagitis (4) COPD (chronic obstructive pulmonary disease) Status: Acute Qualifiers: COPD type: unspecified COPD Qualified Code(s): J44.9 - Chronic obstructive pulmonary disease, unspecified Category: Medical Code(s): J44.9 - Chronic obstructive pulmonary disease, unspecified (5) COVID-19 Status: Acute Category: Medical Code(s): U07.1 - COVID-19 (6) Respiratory failure with hypoxia Status: Acute Qualifiers: Chronicity: acute Qualified Code(s): J96.01 - Acute respiratory failure with hypoxia Category: Medical Code(s): J96.91 - Respiratory failure, unspecified with hypoxia (7) Hypotension Status: Acute Category: Medical Code(s): I95.9 - Hypotension, unspecified (8) Hx of substance abuse Status: Acute Category: Medical Code(s): F19.11 - Other psychoactive substance abuse, in remission - Assessment and plan all Dx Assessment and Plan for all problems:: all orders per dr hughes
--- NOTE | 2021-03-09 16:08 | PC.NURSE ---
PT IS SITTING UP IN THE CHAIR. ALERT AND ORIENTED X4. APPETITE CONTINUES TO BE POOR BUT WITH SOME ENCOURAGEMENT PT DID DRINK HALF OF A MILKSHAKE THIS AFTERNOON. PT WAS ABLE TO AMBULATE WITH 2 ASSIST FROM BED TO WINDOW TO LOOK OUTSIDE TO SEE HIS GRANDCHILDREN THIS SHIFT. PT WAS ONLY ABLE TO STAND FOR A FEW SECONDS BEFORE HE GOT TIRED/SOA AND STATED HE NEEDED TO SIT BACK DOWN. VERY ILL APPEARING. O2 SATURATION MAINTAINS 90-95% AT REST ON VAPOTHERM 80% AND 30 L BUT PT WILL DESAT WITH VERY MINIMAL EXERTION. BATH AND BED CHANGE THIS SHIFT. VSS. WILL CONTINUE TO MONITOR.
[2021-03-10] VITALS (11 sets, daily range): BP systolic 97–108; BP diastolic 55–66; PULSE 89–114; RESP 18–24; TEMP 36.5–37.2; O2SAT 91–98; BMI 20.5
--- NOTE | 2021-03-10 04:55 | PC.NURSE ---
pt has been pleasant this shift, has been compliant with wearing O2, remains on vapotherm with O2 sats 94-96%, no complaints of pain or SOA
[2021-03-10 06:11] LABS: Basophils % 0.3 % (0.1-2.0); Eosinophils # 0.3 K/mm3 (0.0-0.4); Eosinophils % 2.3 % (0.1-12.0); Hematocrit 35.3 % (42.0-52.0); Hemoglobin 11.4 g/dL (14.1-18.0); Lymphocytes # 0.8 K/mm3 (0.7-4.5); Lymphocytes % 6.2 % (10-50); Mean Corpuscular HGB Conc 32.1 g/dL (31.8-35.4); Mean Corpuscular Hemoglobin 29.6 pg (27.0-31.2); Mean Corpuscular Volume 91.9 fl (80-94); Mean Platelet Volume 8.6 fl (7.4-10.4); Monocytes # 0.5 K/mm3 (0.1-1.0); Monocytes % 3.8 % (1.7-9.3); Neutrophils % 87.5 % (37.0-80.0); Platelet Count 491 K/mm3 (142-424); Red Blood Count 3.84 M/mm3 (4.60-6.20); Red Cell Distribution Width 15.2 % (11.5-17.5); White Blood Count 12.6 K/mm3 (4.8-10.8)
[2021-03-10 06:17] LABS: MANUAL DIFFERENTIAL MANUAL DIFFERENTIAL (MANUAL DIFF)
[2021-03-10 06:22] LABS: Anion Gap 8.2 mEq/L (5-15); Blood Urea Nitrogen 21 mg/dl (9-20); Calcium 8.5 mg/dl (8.4-10.2); Carbon Dioxide 29 mmol/L (22.0-30.0); Chloride 102 mmol/L (98-107); Creatinine Clearance Estimated 68 mL/min (50-200); Estimated Glomerular Filt Rate 219 ml/min (>60); GFR (African American) 265 ML/MIN (>60); Glucose 94 mg/dl (74-100); Potassium 3.2 mmoL/L (3.5-5.1); Sodium 136 mmol/L (136-145)
[2021-03-10 07:08] LABS: Eosinophils % 6 % (0-3); Lymphocytes % 4 % (10-50); Macrocytosis 1+; Neutrophils % 90 % (42-76); Platelet Estimate Normal; Total Cells Counted 100
--- NOTE | 2021-03-10 11:35 | XR_ITS ---
PROCEDURE INFORMATION: Exam: XR Chest Exam date and time: 03/10/2021 11:35 AM Age: 61 years old Clinical indication: Shortness of breath; Patient HX: 1 month ago tested positive for covid; Additional info: Pneumonia TECHNIQUE: Imaging protocol: XR of the chest. Views: 1 view. COMPARISON: CR XR CHEST PORTABLE 03/08/2021 11:18 AM COMPARISON MORE: CT ANGIO CHEST PE PROTOCOL 03/09/2021 10:28:21 AM FINDINGS: Lungs: Bilateral opacity/consolidation left greater than right. No significant interval change. Pleural spaces: No definite pleural effusion. No pneumothorax. Heart/Mediastinum: Unremarkable. No cardiomegaly. Bones/joints: No acute findings. IMPRESSION: Bilateral pneumonia, unchanged.
--- NOTE | 2021-03-10 11:36 | HMH.ACPN2 ---
Internal Medicine - PN: Subj *Date: 03/10/21 *Time: 08:40 Interval history: pt laying in bed Exam Vital signs and Labs for Last 24 Hours: Temp Pulse Resp BP Pulse Ox 98.3 F 101 H 20 100/55 L 98 03/10/21 08:00 03/10/21 08:00 03/10/21 08:00 03/10/21 08:00 03/10/21 08:00 Laboratory Results - last 24 hr 03/10/21 05:21: WBC 12.6 H, RBC 3.84 L, Hgb 11.4 L, Hct 35.3 L, MCV 91.9, MCH 29.6, MCHC 32.1, RDW 15.2, Plt Count 491 H, MPV 8.6, Neut % (Auto) 87.5 H, Lymph % (Auto) 6.2 L, [place] % (Auto) 3.8, Eos % (Auto) 2.3, Baso % (Auto) 0.3, Neut # (Auto) 11.0 H, Lymph # (Auto) 0.8, [place] # (Auto) 0.5, Eos # (Auto) 0.3, Baso # (Auto) 0.0, Total Counted 100, Neutrophils % (Manual) 90 H, Lymphocytes % (Manual) 4 L, Eosinophils % (Manual) 6 H, Platelet Estimate Normal, Macrocytosis 1+ 03/10/21 05:21: Sodium 136, Potassium 3.2 L, Chloride 102, Carbon Dioxide 29, Anion Gap 8.2, BUN 21 H, Creatinine 0.40 L, Estimated Creat Clear 68, Estimated GFR 219, Est GFR ( Amer) 265, Glucose 94, Calcium 8.5 I & O for Last 24 hours: Intake & Output 03/07/21 03/08/21 03/09/21 03/10/21 11:59 11:59 11:59 11:59 Intake Total 250 / 250 370 / 370 120 / 120 140 / 140 Output Total 350 / 350 400 / 400 400 / 400 Balance -100 / -100 -30 / -30 120 / 120 -260 / -260 Weight 140 lb 135 lb 8 oz 135 lb 12.8 oz 135 lb 12.805 oz - Constitutional no acute distress, chronically ill appearing - *Routine HEENT Exam Head: Present: normocephalic Eye: Present: PERRL ENT: Present: mucous membranes moist - *Routine Neck Exam Present: supple. Absent: lymphadenopathy - *Routine Respiratory Exam Present: decreased breath sounds, wheezes - *Routine Cardiovascular Exam Present: RRR - *Routine Abdominal Exam Present: soft, normoactive bowel sounds. Absent: tenderness - *Routine Extremities Exam Present: normal capillary refill. Absent: cyanosis, clubbing, edema - *Routine Skin Exam Present: warm. Absent: rash - *Routine Neurological Exam Present: alert Assessment and Plan (1) Tobacco use Status: Acute Category: Social Hx Code(s): Z72.0 - Tobacco use (2) Pneumonia due to COVID-19 virus Status: Acute Category: Medical Code(s): U07.1 - COVID-19; J12.82 - Pneumonia due to coronavirus disease 2019 (3) GERD (gastroesophageal reflux disease) Status: Acute Qualifiers: Esophagitis presence: esophagitis presence not specified Qualified Code(s): K21.9 - Gastro-esophageal reflux disease without esophagitis Category: Medical Code(s): K21.9 - Gastro-esophageal reflux disease without esophagitis (4) COPD (chronic obstructive pulmonary disease) Status: Acute Qualifiers: COPD type: unspecified COPD Qualified Code(s): J44.9 - Chronic obstructive pulmonary disease, unspecified Category: Medical Code(s): J44.9 - Chronic obstructive pulmonary disease, unspecified (5) COVID-19 Status: Acute Category: Medical Code(s): U07.1 - COVID-19 (6) Respiratory failure with hypoxia Status: Acute Qualifiers: Chronicity: acute Qualified Code(s): J96.01 - Acute respiratory failure with hypoxia Category: Medical Code(s): J96.91 - Respiratory failure, unspecified with hypoxia (7) Hypotension Status: Acute Category: Medical Code(s): I95.9 - Hypotension, unspecified (8) Hx of substance abuse Status: Acute Category: Medical Code(s): F19.11 - Other psychoactive substance abuse, in remission - Assessment and plan all Dx Assessment and Plan for all problems:: rounded with dr hughes all orders per dr hughes chest xray pulm consult
--- NOTE | 2021-03-10 12:04 | HMH.PULMPN ---
Internal Medicine - PN: Subj *Date: 03/10/21 *Time: 12:04 Interval history: No acute respiratory vents overnight. Patient denies any new respiratory complaints. Exam - Constitutional Constitutional:: Present: no acute distress, comfortable - HENMT Exam HENMT: Present: normocephalic - Eye Exam Eyes:: Present: normal appearance both eyes and related structures - Neck Exam Neck:: Present: normal visual inspection - Respiratory Exam Respiratory:: Present: no respiratory distress, decreased breath sounds, rales - Cardiovascular Exam Cardiac:: Present: S1, S2 - GI Exam GI:: Present: soft - Skin Exam Skin: Present: warm, no rash - Neurological Exam Neurological: Present: awake - Extremities Exam Extremities: Present: no cyanosis, no clubbing, no edema Assessment and Plan (1) Tobacco use Status: Acute Category: Social Hx Code(s): Z72.0 - Tobacco use (2) Pneumonia due to COVID-19 virus Status: Acute Category: Medical Code(s): U07.1 - COVID-19; J12.82 - Pneumonia due to coronavirus disease 2019 (3) GERD (gastroesophageal reflux disease) Status: Acute Qualifiers: Esophagitis presence: esophagitis presence not specified Qualified Code(s): K21.9 - Gastro-esophageal reflux disease without esophagitis Category: Medical Code(s): K21.9 - Gastro-esophageal reflux disease without esophagitis (4) COPD (chronic obstructive pulmonary disease) Status: Acute Qualifiers: COPD type: unspecified COPD Qualified Code(s): J44.9 - Chronic obstructive pulmonary disease, unspecified Category: Medical Code(s): J44.9 - Chronic obstructive pulmonary disease, unspecified (5) COVID-19 Status: Acute Category: Medical Code(s): U07.1 - COVID-19 (6) Respiratory failure with hypoxia Status: Acute Qualifiers: Chronicity: acute Qualified Code(s): J96.01 - Acute respiratory failure with hypoxia Category: Medical Code(s): J96.91 - Respiratory failure, unspecified with hypoxia (7) Hypotension Status: Acute Category: Medical Code(s): I95.9 - Hypotension, unspecified (8) Hx of substance abuse Status: Acute Category: Medical Code(s): F19.11 - Other psychoactive substance abuse, in remission - Assessment and plan all Dx Assessment and Plan for all problems:: #Acute hypoxic respiratory failure: #COVID-19 pneumonia: CT on admission did not show any evidence of pulmonary embolism however showed diffuse bilateral patchy pulmonary infiltrates. No evidence of DVT D-dimer elevated at 0.81. CRP at 21.4 -Completed 10-day course of remdesivir and dexamethasone. Patient respiratory status declined during admission needing intubation and mechanical ventilation patient was successfully extubated and since then patient has relatively stable but critical needing high oxygen requirements currently on BiPAP post extubation, successfully weaned to nasal cannula and then escalated to high flow nasal cannula. Interval update: Patient respiratory status slightly improved from prior. Repeat CTA showed bilateral diffuse groundglass opacities with dense fibrotic changes, left greater than right, slightly worsened in the left upper lobe from prior. No evidence of pulmonary embolism noted. Plan: -Lasix 40mg IV once again today after replacing 40 mg of IV KCl -Encourage ambulation, out of bed to chair and incentive spirometry -Continue high flow nasal cannula can supplementation to maintain O2 saturation goal of 90 and above. Wean as tolerated. Currently at 30 L 70% -Blood cultures from 02/26 resulted negative. Will recommend continue vancomycin for 14 days from 02/26 -DuoNebs every 6 hours scheduled #Thank you for involving pulmonary in this patient care. We will continue to follow.
--- NOTE | 2021-03-10 13:56 | HMH.OTEV ---
OT Inpatient Evaluation Rehab OT IP Evaluation Start: 03/10/21 11:35 Freq: ONCE Status: Complete Protocol: [facility] 03[facility]10/21 13:[facility] (Rec: 03/10/21 13:55 [facility] [id number]) Rehab OT IP Assessment Subjective History Pt oriented x 3 on arrival. Pt agreeable to engage in therapy evaluation. Pt was admitted via ED on 02/15/21 due to SOB/hypoxia. He had been diagnosed with COVID on 02/11/21 and was experiencing worsening symptoms. Pt has a past medical history of Gastroesophageal Reflux Disease(GERD). Pt was intubated on 02/19/21 and extubated on 02/26/21. Pt has had a long hospital stay due to medical status. Pt reports prior to becoming ill, he lived with his and three granddaughters. Pt claims she was independent with all ADLs and IADLS. Pt did not use o2 at home. Pt did not use a walker at home. Subjective I didn't need any help. Pt resting in bed on arrival. Pt o2 at 86% on vapotherm. Pt had had a BM in bed and required clean up. Pt completed bed mobility with min assist and went from supine to sitting at eob. Pt was able to stand from eob with cga. Pt was dependent upon staff to complete toileting hygiene; pt stood from ~2 min while being cleaned up. Pt completed transfer from bed to chair with cga. Pt sat down in chair with cga. Pt's o2 dropped to 70% while standing and transferferring. Pt educated in deep breathing. Objective Patient Orientation Person,Place,Birthday Upper Extremity Gross ROM WFL Bed Mobility bed mobility-scooting,bed mobility - supine/sit,bed mobility - cliff
--- NOTE | 2021-03-10 18:44 | PC.NURSE ---
Pt is alert to self. Some crackles noted to lungs. He remains on vapotherm 30L/80% with O2 sats running in the mid to upper 90's. Appetite has been poor. He has been up to the chair for several hours and tolerated well. He has been insistent this afternoon that someone needs to give him a ride to town because he's ready to go home. He has had a bm this shift. Family has been updated on poc and are supportive.
[2021-03-11] VITALS (11 sets, daily range): BP systolic 91–124; BP diastolic 53–78; PULSE 89–110; RESP 16–21; TEMP 36.6–37.3; O2SAT 86–100; BMI 20.6
--- NOTE | 2021-03-11 08:41 | PC.NURSE ---
Shift Summary: Pt. able to state name, , place; unable to state year. Follows commands and states needs, however intermittently t/o the night pt. became noncompliant with wearing vapotherm and refused to wear o2. Haldol x1 administered and effectiveness noted. Pt. 92-95% on vapotherm 30/75%. Pt. desat to 80's upon movement. No c/o pain, n/v/d, dizziness.
--- NOTE | 2021-03-11 09:18 | P.PN_ITS ---
Internal Medicine - PN: Subj *Date: 03/11/21 *Time: 19:06 Interval history: 61-year-old male patient sitting up to the side of the bed Vapotherm intact at 35 L at 75% O2. He reports he is feeling a little better today than yesterday, encouraged to participate in physical therapy and be up out of bed. Exam Vital signs and Labs for Last 24 Hours: Temp Pulse Resp BP Pulse Ox 98.2 F 102 H 21 97/53 L 88 L 03/11/21 08:00 03/11/21 08:00 03/11/21 08:00 03/11/21 08:00 03/11/21 08:00 I & O for Last 24 hours: Intake & Output 03/08/21 03/09/21 03/10/21 03/11/21 23:59 23:59 23:59 23:59 Intake Total 240 / 240 140 / 140 470 / 470 0 / 0 Output Total 400 / 400 400 / 400 115 / 115 0 / 0 Balance -160 / -160 -260 / -260 355 / 355 0 / 0 Weight 135 lb 8 oz 135 lb 12.8 oz 135 lb 12.805 oz 136 lb - Constitutional no acute distress, thin, chronically ill appearing - *Routine HEENT Exam Head: Present: normocephalic Eye: Present: EOMI ENT: Present: mucous membranes moist - *Routine Neck Exam Present: trachea midline. Absent: tracheal deviation - *Routine Respiratory Exam Present: decreased breath sounds, rales. Absent: accessory muscle use - *Routine Cardiovascular Exam Present: RRR - *Routine Abdominal Exam Present: soft, normoactive bowel sounds. Absent: tenderness, firm - *Routine Extremities Exam Present: clubbing, full ROM, pulses intact. Absent: cyanosis - *Routine Skin Exam Present: intact, dry. Absent: cyanosis - *Routine Neurological Exam Present: alert, altered mental status. Absent: motor deficit - Routine Psychiatric Exam Present: unable to assess Assessment and Plan (1) Tobacco use Status: Acute Category: Social Hx Code(s): Z72.0 - Tobacco use (2) Pneumonia due to COVID-19 virus Status: Acute Category: Medical Code(s): U07.1 - COVID-19; J12.82 - Pneumonia due to coronavirus disease 2019 (3) GERD (gastroesophageal reflux disease) Status: Acute Qualifiers: Esophagitis presence: esophagitis presence not specified Qualified Code(s): K21.9 - Gastro-esophageal reflux disease without esophagitis Category: Medical Code(s): K21.9 - Gastro-esophageal reflux disease without esophagitis (4) COPD (chronic obstructive pulmonary disease) Status: Acute Qualifiers: COPD type: unspecified COPD Qualified Code(s): J44.9 - Chronic obstructive pulmonary disease, unspecified Category: Medical Code(s): J44.9 - Chronic obstructive pulmonary disease, unspecified (5) COVID-19 Status: Acute Category: Medical Code(s): U07.1 - COVID-19 (6) Respiratory failure with hypoxia Status: Acute Qualifiers: Chronicity: acute Qualified Code(s): J96.01 - Acute respiratory failure with hypoxia Category: Medical Code(s): J96.91 - Respiratory failure, unspecified with hypo aislinn (7) Hypotension Status: Acute Category: Medical Code(s): I95.9 - Hypotension, unspecified (8) Hx of substance abuse Status: Acute Category: Medical Code(s): F19.11 - Other psychoactive substance abuse, in remission - Assessment and plan all Dx Assessment and Plan for all problems:: Rounded with Dr. Camilo, all orders per Dr. Camilo: 1. Continue current medical regimen 2. Up out of bed as tolerated 3. Pulmonology following 4. Wean O2 as tolerated
--- NOTE | 2021-03-11 09:23 | HMH.PULMPN ---
Internal Medicine - PN: Subj *Date: 03/11/21 *Time: 12:16 Interval history: No acute respiratory events overnight. Exam - Constitutional Constitutional:: Present: no acute distress - HENMT Exam HENMT: Present: normocephalic - Eye Exam Eyes:: Present: normal appearance both eyes and related structures - Neck Exam Neck:: Present: normal visual inspection - Respiratory Exam Respiratory:: Present: able to speak in complete sentences, respiratory distress, rales - Cardiovascular Exam Cardiac:: Present: S1, S2 - GI Exam GI:: Present: soft - Skin Exam Skin: Present: warm, no rash - Neurological Exam Neurological: Present: alert, awake - Extremities Exam Extremities: Present: no cyanosis, no clubbing, no edema Assessment and Plan (1) Tobacco use Status: Acute Category: Social Hx Code(s): Z72.0 - Tobacco use (2) Pneumonia due to COVID-19 virus Status: Acute Category: Medical Code(s): U07.1 - COVID-19; J12.82 - Pneumonia due to coronavirus disease 2019 (3) GERD (gastroesophageal reflux disease) Status: Acute Qualifiers: Esophagitis presence: esophagitis presence not specified Qualified Code(s): K21.9 - Gastro-esophageal reflux disease without esophagitis Category: Medical Code(s): K21.9 - Gastro-esophageal reflux disease without esophagitis (4) COPD (chronic obstructive pulmonary disease) Status: Acute Qualifiers: COPD type: unspecified COPD Qualified Code(s): J44.9 - Chronic obstructive pulmonary disease, unspecified Category: Medical Code(s): J44.9 - Chronic obstructive pulmonary disease, unspecified (5) COVID-19 Status: Acute Category: Medical Code(s): U07.1 - COVID-19 (6) Respiratory failure with hypoxia Status: Acute Qualifiers: Chronicity: acute Qualified Code(s): J96.01 - Acute respiratory failure with hypoxia Category: Medical Code(s): J96.91 - Respiratory failure, unspecified with hypoxia (7) Hypotension Status: Acute Category: Medical Code(s): I95.9 - Hypotension, unspecified (8) Hx of substance abuse Status: Acute Category: Medical Code(s): F19.11 - Other psychoactive substance abuse, in remission - Assessment and plan all Dx Assessment and Plan for all problems:: #Acute hypoxic respiratory failure: #COVID-19 pneumonia: CT on admission did not show any evidence of pulmonary embolism however showed diffuse bilateral patchy pulmonary infiltrates. No evidence of DVT D-dimer elevated at 0.81. CRP at 21.4 -Completed 10-day course of remdesivir and dexamethasone. Patient respiratory status declined during admission needing intubation and mechanical ventilation patient was successfully extubated and since then patient has relatively stable but critical needing high oxygen requirements currently on BiPAP post extubation, successfully weaned to nasal cannula and then escalated to high flow nasal cannula. Repeat CTA showed bilateral diffuse groundglass opacities with dense fibrotic changes, left greater than right, slightly worsened in the left upper lobe from prior. No evidence of pulmonary embolism noted. Interval update: Received 40 mg of IV KCl along with 40 mg IV Lasix yesterday. Only minimal improvement in his symptoms. FiO2 decreased from 75 to 70. Plan: -Methylprednisolone 125 mg IV every 8 hours -40 mg IV Lasix once -Encourage ambulation, out of bed to chair and incentive spirometry -Continue high flow nasal cannula can supplementation to maintain O2 saturation goal of 90 and above. Wean as tolerated. Currently at 30 L 70% -Blood cultures from 02/26 resulted negative. Will recommend continue vancomycin for 14 days from 02/26 -DuoNebs every 6 hours scheduled #Thank you for involving pulmonary in this patient care. We will continue to follow.
[2021-03-12] VITALS (9 sets, daily range): BP systolic 101–118; BP diastolic 58–72; PULSE 77–107; RESP 16–24; TEMP 36.6–36.8; O2SAT 89–96; BMI 20.6
--- NOTE | 2021-03-12 06:38 | PC.NURSE ---
pt AxOx4 this shift, has remained on vapotherm, has only taken it off one time this shift, O2 sats 89-96%, no complaints of SOA or pain
[2021-03-12 06:55] LABS: Basophils % 0.1 % (0.1-2.0); Hematocrit 35.9 % (42.0-52.0); Hemoglobin 11.7 g/dL (14.1-18.0); Lymphocytes # 0.8 K/mm3 (0.7-4.5); Lymphocytes % 8.1 % (10-50); Mean Corpuscular HGB Conc 32.6 g/dL (31.8-35.4); Mean Corpuscular Hemoglobin 29.4 pg (27.0-31.2); Mean Corpuscular Volume 90.3 fl (80-94); Monocytes # 0.3 K/mm3 (0.1-1.0); Monocytes % 3.6 % (1.7-9.3); Neutrophils # 8.4 K/mm3 (1.8-7.8); Neutrophils % 88.1 % (37.0-80.0); Platelet Count 553 K/mm3 (142-424); Red Blood Count 3.97 M/mm3 (4.60-6.20); Red Cell Distribution Width 15.1 % (11.5-17.5); White Blood Count 9.5 K/mm3 (4.8-10.8)
[2021-03-12 07:00] LABS: Chloride 97 mmol/L (98-107); Potassium 3.6 mmoL/L (3.5-5.1); Sodium 136 mmol/L (136-145)
[2021-03-12 07:03] LABS: Blood Urea Nitrogen 25 mg/dl (9-20); Carbon Dioxide 31 mmol/L (22.0-30.0); Creatinine Clearance Estimated 68 mL/min (50-200); Estimated Glomerular Filt Rate 169 ml/min (>60); GFR (African American) 205 ML/MIN (>60)
[2021-03-12 07:04] LABS: Calcium 8.8 mg/dl (8.4-10.2); Glucose 139 mg/dl (74-100)
[2021-03-12 07:05] LABS: Anion Gap 11.6 mEq/L (5-15); MANUAL DIFFERENTIAL MANUAL DIFFERENTIAL (MANUAL DIFF)
[2021-03-12 07:43] LABS: Lymphocytes % 5 % (10-50); Monocytes % 2 % (2-9); Neutrophils % 93 % (42-76); Total Cells Counted 100
[2021-03-12 07:44] LABS: Platelet Estimate Normal
--- NOTE | 2021-03-12 12:51 | HMH.PULMPN ---
Internal Medicine - PN: Subj *Date: 03/12/21 *Time: 12:51 Interval history: No acute respirations overnight. Patient oxygen recommends increased to 100% again overnight. Exam - Constitutional Constitutional:: Present: no acute distress, comfortable - HENMT Exam HENMT: Present: normocephalic, atraumatic - Eye Exam Eyes:: Present: normal appearance both eyes and related structures - Neck Exam Neck:: Present: normal visual inspection - Respiratory Exam Respiratory:: Present: respiratory distress, crackles, rales - Cardiovascular Exam Cardiac:: Present: S1, S2 - GI Exam GI:: Present: soft - Skin Exam Skin: Present: warm - Neurological Exam Neurological: Present: alert, awake - Extremities Exam Extremities: Present: no cyanosis, no clubbing, no edema Assessment and Plan (1) Tobacco use Status: Acute Category: Social Hx Code(s): Z72.0 - Tobacco use (2) Pneumonia due to COVID-19 virus Status: Acute Category: Medical Code(s): U07.1 - COVID-19; J12.82 - Pneumonia due to coronavirus disease 2019 (3) GERD (gastroesophageal reflux disease) Status: Acute Qualifiers: Esophagitis presence: esophagitis presence not specified Qualified Code(s): K21.9 - Gastro-esophageal reflux disease without esophagitis Category: Medical Code(s): K21.9 - Gastro-esophageal reflux disease without esophagitis (4) COPD (chronic obstructive pulmonary disease) Status: Acute Qualifiers: COPD type: unspecified COPD Qualified Code(s): J44.9 - Chronic obstructive pulmonary disease, unspecified Category: Medical Code(s): J44.9 - Chronic obstructive pulmonary disease, unspecified (5) COVID-19 Status: Acute Category: Medical Code(s): U07.1 - COVID-19 (6) Respiratory failure with hypoxia Status: Acute Qualifiers: Chronicity: acute Qualified Code(s): J96.01 - Acute respiratory failure with hypoxia Category: Medical Code(s): J96.91 - Respiratory failure, unspecified with hypoxia (7) Hypotension Status: Acute Category: Medical Code(s): I95.9 - Hypotension, unspecified (8) Hx of substance abuse Status: Acute Category: Medical Code(s): F19.11 - Other psychoactive substance abuse, in remission - Assessment and plan all Dx Assessment and Plan for all problems:: #Acute hypoxic respiratory failure: #COVID-19 pneumonia: CT on admission did not show any evidence of pulmonary embolism however showed diffuse bilateral patchy pulmonary infiltrates. No evidence of DVT D-dimer elevated at 0.81. CRP at 21.4 Completed 10-day course of remdesivir and dexamethasone. Patient respiratory status declined during admission needing intubation and mechanical ventilation patient was successfully extubated and since then patient has relatively stable but critical needing high oxygen requirements currently on BiPAP post extubation, successfully weaned to nasal cannula and then escalated to high flow nasal cannula. Repeat CTA showed bilateral diffuse groundglass opacities with dense fibrotic changes, left greater than right, slightly worsened in the left upper lobe from prior. No evidence of pulmonary embolism noted. Interval update: Patient respiratory status remain relatively stable/slightly worsened from yesterday FiO2 increased to 100% overnight, having been to 90% this morning. We will continue to wean as tolerated. Completed vancomycin for his bacteremia Plan: -Continue methylprednisolone 125 mg IV every 8 hours -Encourage ambulation, out of bed to chair and incentive spirometry -Continue high flow nasal cannula can supplementation to maintain O2 saturation goal of 90 and above. Wean as tolerated. Currently at 30 L 70% -DuoNebs every 6 hours scheduled -Budesonide every 12 scheduled #Thank you for involving pulmonary in this patient care. We will continue to follow.
--- NOTE | 2021-03-12 13:14 | HMH.ACPN2 ---
Internal Medicine - PN: Subj *Date: 03/12/21 *Time: 08:20 Interval history: pt sitting up in bed states no c/o Exam Vital signs and Labs for Last 24 Hours: Temp Pulse Resp BP Pulse Ox 97.8 F 107 H 24 107/58 L 95 03/12/21 12:00 03/12/21 12:04 03/12/21 12:00 03/12/21 12:00 03/12/21 12:00 Laboratory Results - last 24 hr 03/12/21 05:43: WBC 9.5, RBC 3.97 L, Hgb 11.7 L, Hct 35.9 L, MCV 90.3, MCH 29.4, MCHC 32.6, RDW 15.1, Plt Count 553 H, MPV 9.0, Neut % (Auto) 88.1 H, Lymph % (Auto) 8.1 L, Tama % (Auto) 3.6, Eos % (Auto) 0.0 L, Baso % (Auto) 0.1, Neut # (Auto) 8.4 H, Lymph # (Auto) 0.8, Tama # (Auto) 0.3, Eos # (Auto) 0.0, Baso # (Auto) 0.0, Total Counted 100, Neutrophils % (Manual) 93 H, Lymphocytes % (Manual) 5 L, Monocytes % (Manual) 2, Platelet Estimate Normal 03/12/21 05:43: Sodium 136, Potassium 3.6, Chloride 97 L, Carbon Dioxide 31 H, Anion Gap 11.6, BUN 25 H, Creatinine 0.50 L D, Estimated Creat Clear 68, Estimated GFR 169, Est GFR ( Amer) 205 D, Glucose 139 H, Calcium 8.8 I & O for Last 24 hours: Intake & Output 03/10/21 03/11/21 03/12/21 03/13/21 11:59 11:59 11:59 11:59 Intake Total 140 / 140 470 / 470 550 / 550 Output Total 400 / 400 115 / 115 1300 / 1300 Balance -260 / -260 355 / 355 -750 / -750 Weight 135 lb 12.805 oz 136 lb 136 lb 1.6 oz - Constitutional no acute distress, chronically ill appearing - *Routine HEENT Exam Head: Present: normocephalic Eye: Present: PERRL ENT: Present: mucous membranes moist - *Routine Neck Exam Present: supple. Absent: lymphadenopathy - *Routine Respiratory Exam Present: decreased breath sounds, rhonchi - *Routine Cardiovascular Exam Present: RRR - *Routine Abdominal Exam Present: soft, normoactive bowel sounds. Absent: tenderness - *Routine Extremities Exam Absent: cyanosis, clubbing, edema - *Routine Skin Exam Present: warm. Absent: rash - *Routine Neurological Exam Present: alert, oriented X3 Assessment and Plan (1) Tobacco use Status: Acute Category: Social Hx Code(s): Z72.0 - Tobacco use (2) Pneumonia due to COVID-19 virus Status: Acute Category: Medical Code(s): U07.1 - COVID-19; J12.82 - Pneumonia due to coronavirus disease 2019 (3) GERD (gastroesophageal reflux disease) Status: Acute Qualifiers: Esophagitis presence: esophagitis presence not specified Qualified Code(s): K21.9 - Gastro-esophageal reflux disease without esophagitis Category: Medical Code(s): K21.9 - Gastro-esophageal reflux disease without esophagitis (4) COPD (chronic obstructive pulmonary disease) Status: Acute Qualifiers: COPD type: unspecified COPD Qualified Code(s): J44.9 - Chronic obstructive pulmonary disease, unspecified Category: Medical Code(s): J44.9 - Chronic obstructive pulmonary disease, unspecified (5) COVID-19 Status: Acute Category: Medical Code(s): U07.1 - COVID-19 (6) Respiratory failure with hypoxia Status: Acute Qualifiers: Chronicity: acute Qualified Code(s): J96.01 - Acute respiratory failure with hypoxia Category: Medical Code(s): J96.91 - Respiratory failure, unspecified with hypoxia (7) Hypotension Status: Acute Category: Medical Code(s): I95.9 - Hypotension, unspecified (8) Hx of substance abuse Status: Acute Category: Medical Code(s): F19.11 - Other psychoactive substance abuse, in remission - Assessment and plan all Dx Assessment and Plan for all problems:: rounded with dr hughes all orders per dr hughes continue care try to wean o2
--- NOTE | 2021-03-12 14:05 | DIET.NUTRFU ---
Addendum entered by Deidre Mcgee 03/21/21 14:37: Pt was continuing to do well with intakes increased to 75%. However, pt very upset today that his discharge has been delayed dt increasing oxygen requirements and only ate 10% both meals. Weight is stable. Please continue encouragement/cueing. Addendum entered by Deidre Mcgee 03/19/21 11:34: Pt has continued to improve nutritionally, PO intakes 50% + TID supplements and TID protein fortified foods. Weight is up 2#. Please continue excellent efforts encouragement/cueing. Addendum entered by Deidre Mcgee 03/17/21 15:21: Pt refused most nourishment t/o the weekend. Diet edu and importance nutrition reviewed with pt this am and he voiced understanding, ate 75% breakfast and 100% lunch which is the most he has eaten t/o stay. He states he is tired of the same things, discussed with care team possibility of being upgraded to regular consistency for more options. He has been drinking his protein shakes on diet order TID, pt also reminded he has protein fortified foods TID on trays and to prioritize these along with the shakes. Weight is down another 10# in the past 48h. Please continue encouragement/cueing at meal times and offering snacks t/o the day. Addendum entered by Deidre Mcgee 03/14/21 16:49: Pt with more confusion and increasingly poor intakes 0-10%, please continue to encourage/cue Original Note: Pt has continued with minimal PO intakes 0-25% and now meets criteria for severe malnutrition with loss of >20% body weight t/o stay. Please continue to encourage/cue at meal times and offer supplements/snacks t/o the day. Diet edu provided for importance nutrition/high energy+protein diet and will continue t/o stay. TID protein fortified foods and BID supplements on diet order.
[2021-03-13] VITALS (10 sets, daily range): BP systolic 98–130; BP diastolic 47–83; PULSE 90–104; RESP 16–22; TEMP 36.7–37.2; O2SAT 92–100; BMI 20.6
[2021-03-13 06:43] LABS: Basophils % 0.1 % (0.1-2.0); Hematocrit 37.1 % (42.0-52.0); Lymphocytes # 0.9 K/mm3 (0.7-4.5); Lymphocytes % 5.5 % (10-50); Mean Corpuscular HGB Conc 32.3 g/dL (31.8-35.4); Mean Corpuscular Volume 92.7 fl (80-94); Mean Platelet Volume 9.3 fl (7.4-10.4); Monocytes # 0.6 K/mm3 (0.1-1.0); Monocytes % 3.3 % (1.7-9.3); Neutrophils # 15.4 K/mm3 (1.8-7.8); Neutrophils % 91.2 % (37.0-80.0); Platelet Count 549 K/mm3 (142-424); Red Cell Distribution Width 15.6 % (11.5-17.5); White Blood Count 16.9 K/mm3 (4.8-10.8)
[2021-03-13 06:48] LABS: MANUAL DIFFERENTIAL MANUAL DIFFERENTIAL (MANUAL DIFF)
[2021-03-13 06:57] LABS: Chloride 98 mmol/L (98-107); Potassium 3.7 mmoL/L (3.5-5.1); Sodium 137 mmol/L (136-145)
--- NOTE | 2021-03-13 06:59 | PC.NURSE ---
Pt is confused this AM. He is only alert to self this am. Has had to be redirected multiple times this AM. He is currently on 40 L 100% Vapotherm. Has not slept well this shift. VS are currently stable. Medications administered per mar. No other concerns. Will continue to monitor.
[2021-03-13 07:00] LABS: Anion Gap 9.7 mEq/L (5-15); Blood Urea Nitrogen 34 mg/dl (9-20); Calcium 9.2 mg/dl (8.4-10.2); Carbon Dioxide 33 mmol/L (22.0-30.0); Creatinine Clearance Estimated 68 mL/min (50-200); Estimated Glomerular Filt Rate 169 ml/min (>60); GFR (African American) 205 ML/MIN (>60); Glucose 143 mg/dl (74-100)
[2021-03-13 08:18] LABS: Lymphocytes % 12 % (10-50); Monocytes % 4 % (2-9); Neutrophils % 84 % (42-76); Platelet Estimate Moderate Increase; RBC Morphology Normal; Total Cells Counted 100
--- NOTE | 2021-03-13 09:10 | HMH.PULMPN ---
Internal Medicine - PN: Subj *Date: 03/13/21 *Time: 11:32 Interval history: No acute respiratory events overnight. Exam - Constitutional Constitutional:: Present: no acute distress, comfortable - HENMT Exam HENMT: Present: normocephalic, atraumatic - Eye Exam Eyes:: Present: normal appearance both eyes and related structures - Neck Exam Neck:: Present: normal visual inspection - Respiratory Exam Respiratory:: Present: respiratory distress, crackles, rales - Cardiovascular Exam Cardiac:: Present: S1, S2 - GI Exam GI:: Present: soft - Skin Exam Skin: Present: warm, no rash - Neurological Exam Neurological: Present: alert, awake - Extremities Exam Extremities: Present: no cyanosis, no clubbing, no edema Assessment and Plan (1) Tobacco use Status: Acute Category: Social Hx Code(s): Z72.0 - Tobacco use (2) Pneumonia due to COVID-19 virus Status: Acute Category: Medical Code(s): U07.1 - COVID-19; J12.82 - Pneumonia due to coronavirus disease 2019 (3) GERD (gastroesophageal reflux disease) Status: Acute Qualifiers: Esophagitis presence: esophagitis presence not specified Qualified Code(s): K21.9 - Gastro-esophageal reflux disease without esophagitis Category: Medical Code(s): K21.9 - Gastro-esophageal reflux disease without esophagitis (4) COPD (chronic obstructive pulmonary disease) Status: Acute Qualifiers: COPD type: unspecified COPD Qualified Code(s): J44.9 - Chronic obstructive pulmonary disease, unspecified Category: Medical Code(s): J44.9 - Chronic obstructive pulmonary disease, unspecified (5) COVID-19 Status: Acute Category: Medical Code(s): U07.1 - COVID-19 (6) Respiratory failure with hypoxia Status: Acute Qualifiers: Chronicity: acute Qualified Code(s): J96.01 - Acute respiratory failure with hypoxia Category: Medical Code(s): J96.91 - Respiratory failure, unspecified with hypoxia (7) Hypotension Status: Acute Category: Medical Code(s): I95.9 - Hypotension, unspecified (8) Hx of substance abuse Status: Acute Category: Medical Code(s): F19.11 - Other psychoactive substance abuse, in remission - Assessment and plan all Dx Assessment and Plan for all problems:: #Acute hypoxic respiratory failure: #COVID-19 pneumonia: #Organizing Pneumonia CT on admission did not show any evidence of pulmonary embolism however showed diffuse bilateral patchy pulmonary infiltrates. No evidence of DVT D-dimer elevated at 0.81. CRP at 21.4 Completed 10-day course of remdesivir and dexamethasone. Patient respiratory status declined during admission needing intubation and mechanical ventilation patient was successfully extubated and since then patient has relatively stable but critical needing high oxygen requirements currently on BiPAP post extubation, successfully weaned to nasal cannula and then escalated to high flow nasal cannula. Repeat CTA showed bilateral diffuse groundglass opacities with dense fibrotic changes, left greater than right, slightly worsened in the left upper lobe from prior. No evidence of pulmonary embolism noted. Interval update: Hemodynamically stable. Slight worsening leukocytosis, neutrophil predominant. Afebrile Completed vancomycin for his bacteremia. Oxygenation significantly improved from yesterday, patient saturating 100% 40 L, wean to 65% 35 L. We will closely monitor his respiratory status. CRP today at 11.6. Real function stable Plan: -Continue methylprednisolone 125 mg IV every 8 hours. Closely monitor -Encourage ambulation, out of bed to chair and incentive spirometry -Continue high flow nasal cannula can supplementation to maintain O2 saturation goal of 90 and above. Wean as tolerated. -DuoNebs every 6 hours scheduled -Budesonide every 12 scheduled #Thank you for involving pulmonary in this patient care. We will continue to follow.
--- NOTE | 2021-03-13 09:11 | HMH.ACPN2 ---
Internal Medicine - PN: Subj *Date: 03/13/21 *Time: 09:22 Interval history: pt sitting up in bed states he feels better, on vapertherm. alert Exam Vital signs and Labs for Last 24 Hours: Temp Pulse Resp BP Pulse Ox 98.9 F 94 H 16 130/79 99 03/13/21 08:00 03/13/21 08:00 03/13/21 08:00 03/13/21 08:00 03/13/21 08:00 Laboratory Results - last 24 hr 03/13/21 06:03: WBC 16.9 H D, RBC 4.00 L, Hgb 12.0 L, Hct 37.1 L, MCV 92.7, MCH 30.0, MCHC 32.3, RDW 15.6, Plt Count 549 H, MPV 9.3, Neut % (Auto) 91.2 H, Lymph % (Auto) 5.5 L, [place] % (Auto) 3.3, Eos % (Auto) 0.0 L, Baso % (Auto) 0.1, Neut # (Auto) 15.4 H, Lymph # (Auto) 0.9, [place] # (Auto) 0.6, Eos # (Auto) 0.0, Baso # (Auto) 0.0, Total Counted 100, Neutrophils % (Manual) 84 H, Lymphocytes % (Manual) 12, Monocytes % (Manual) 4, Platelet Estimate Moderate increase, RBC Morphology Normal 03/13/21 06:03: Sodium 137, Potassium 3.7, Chloride 98, Carbon Dioxide 33 H, Anion Gap 9.7, BUN 34 H D, Creatinine 0.50 L, Estimated Creat Clear 68, Estimated GFR 169, Est GFR ( Amer) 205, Glucose 143 H, Calcium 9.2 I & O for Last 24 hours: Intake & Output 03/10/21 03/11/21 03/12/21 03/13/21 11:59 11:59 11:59 11:59 Intake Total 140 / 140 470 / 470 550 / 550 300 / 300 Output Total 400 / 400 115 / 115 1300 / 1300 300 / 300 Balance -260 / -260 355 / 355 -750 / -750 0 / 0 Weight 135 lb 12.805 oz 136 lb 136 lb 1.6 oz 136 lb - Constitutional no acute distress, chronically ill appearing - *Routine HEENT Exam Head: Present: normocephalic Eye: Present: PERRL ENT: Present: mucous membranes moist - *Routine Neck Exam Present: supple. Absent: lymphadenopathy - *Routine Respiratory Exam Present: CTA bilaterally - *Routine Cardiovascular Exam Present: RRR - *Routine Abdominal Exam Present: soft, normoactive bowel sounds. Absent: tenderness - *Routine Extremities Exam Present: normal capillary refill. Absent: cyanosis, clubbing, edema - *Routine Skin Exam Present: warm. Absent: rash - *Routine Neurological Exam Present: alert, oriented X3 Assessment and Plan (1) Tobacco use Status: Acute Category: Social Hx Code(s): Z72.0 - Tobacco use (2) Pneumonia due to COVID-19 virus Status: Acute Category: Medical Code(s): U07.1 - COVID-19; J12.82 - Pneumonia due to coronavirus disease 2019 (3) GERD (gastroesophageal reflux disease) Status: Acute Qualifiers: Esophagitis presence: esophagitis presence not specified Qualified Code(s): K21.9 - Gastro-esophageal reflux disease without esophagitis Category: Medical Code(s): K21.9 - Gastro-esophageal reflux disease without esophagitis (4) COPD (chronic obstructive pulmonary disease) Status: Acute Qualifiers: COPD type: unspecified COPD Qualified Code(s): J44.9 - Chronic obstructive pulmonary disease, unspecified Category: Medical Code(s): J44.9 - Chronic obstructive pulmonary disease, unspecified (5) COVID-19 Status: Acute Category: Medical Code(s): U07.1 - COVID-19 (6) Respiratory failure with hypoxia Status: Acute Qualifiers: Chronicity: acute Qualified Code(s): J96.01 - Acute respiratory failure with hypoxia Category: Medical Code(s): J96.91 - Respiratory failure, unspecified with hypoxia (7) Hypotension Status: Acute Category: Medical Code(s): I95.9 - Hypotension, unspecified (8) Hx of substance abuse Status: Acute Category: Medical Code(s): F19.11 - Other psychoactive substance abuse, in remission - Assessment and plan all Dx Assessment and Plan for all problems:: rounded with dr mukherjee all orders per dr mukherjee continue to wean
--- NOTE | 2021-03-13 09:19 | XR_ITS ---
PROCEDURE: XR CHEST PORTABLE CLINICAL HISTORY: PNM Change left mid and lower lung field COMPARISON: CR XR CHEST PORTABLE from 03/06/2021 CR XR CHEST PORTABLE from 03/08/[address] ANGIO CHEST PE PROTOCOL from 03/09/2021 CR XR CHEST PORTABLE from 03/10/2021 FINDINGS: When compared to the recent studies there has been partial clearing of the ill-defined opacities in the right infrahilar region right base. Mild diffuse infiltrate remains in the left perihilar region and left lower lobe. Cardiac size is normal considering a somewhat poor inspiration. There is no definite pleural fluid. IMPRESSION: Interval partial clearing of the diffuse pneumonic infiltrate right lower lobe, no significant change mid and left lower lung field Dictated by: Dr. Tom Arredondo MD 03/13/2021 10:50 Dr. Tom Arredondo MD in [facility] 03/13/2021 10:50
[2021-03-13 09:34] LABS: C-Reactive Protein 11.6 mg/L (0-4)
[2021-03-14] VITALS (11 sets, daily range): BP systolic 106–116; BP diastolic 61–88; PULSE 85–108; RESP 16–20; TEMP 36.5–37.2; O2SAT 87–100; BMI 20.6
[2021-03-14 06:38] LABS: Basophils % 0.1 % (0.1-2.0); Hematocrit 37.2 % (42.0-52.0); Hemoglobin 11.9 g/dL (14.1-18.0); Lymphocytes # 0.5 K/mm3 (0.7-4.5); Lymphocytes % 3.7 % (10-50); Mean Corpuscular HGB Conc 31.9 g/dL (31.8-35.4); Mean Corpuscular Hemoglobin 29.5 pg (27.0-31.2); Mean Corpuscular Volume 92.4 fl (80-94); Mean Platelet Volume 8.9 fl (7.4-10.4); Monocytes # 0.4 K/mm3 (0.1-1.0); Monocytes % 2.9 % (1.7-9.3); Neutrophils # 11.8 K/mm3 (1.8-7.8); Neutrophils % 93.3 % (37.0-80.0); Platelet Count 485 K/mm3 (142-424); Red Blood Count 4.03 M/mm3 (4.60-6.20); White Blood Count 12.7 K/mm3 (4.8-10.8)
[2021-03-14 06:50] LABS: Chloride 100 mmol/L (98-107); Sodium 140 mmol/L (136-145)
[2021-03-14 06:51] LABS: Potassium 3.7 mmoL/L (3.5-5.1)
[2021-03-14 06:53] LABS: Blood Urea Nitrogen 32 mg/dl (9-20); Creatinine Clearance Estimated 68 mL/min (50-200); Estimated Glomerular Filt Rate 169 ml/min (>60); GFR (African American) 205 ML/MIN (>60)
[2021-03-14 06:54] LABS: Anion Gap 9.7 mEq/L (5-15); Calcium 9.1 mg/dl (8.4-10.2); Carbon Dioxide 34 mmol/L (22.0-30.0); Glucose 132 mg/dl (74-100)
[2021-03-14 07:05] LABS: MANUAL DIFFERENTIAL MANUAL DIFFERENTIAL (MANUAL DIFF)
[2021-03-14 07:47] LABS: Lymphocytes % 3 % (10-50); Monocytes % 2 % (2-9); Neutrophils % 95 % (42-76); Total Cells Counted 100
[2021-03-14 07:48] LABS: Anisocytosis 1+; Hypochromasia 1+; Macrocytosis 1+; Platelet Estimate Normal
--- NOTE | 2021-03-14 07:58 | HMH.ACPN2 ---
Internal Medicine - PN: Subj *Date: 03/14/21 *Time: 11:57 Interval history: Patient sitting up in bed resting quietly. Alert and oriented to name only, denies any pain or needs at present. Vapotherm intact Exam Vital signs and Labs for Last 24 Hours: Temp Pulse Resp BP Pulse Ox 98.9 F 93 H 18 114/72 100 03/14/21 03:55 03/14/21 06:40 03/14/21 03:55 03/14/21 03:55 03/14/21 06:40 Laboratory Results - last 24 hr 03/13/21 06:03: Total Counted 100, Neutrophils % (Manual) 84 H, Lymphocytes % (Manual) 12, Monocytes % (Manual) 4, Platelet Estimate Moderate increase, RBC Morphology Normal 03/13/21 06:03: C-Reactive Protein 11.6 H 03/14/21 05:43: WBC 12.7 H, RBC 4.03 L, Hgb 11.9 L, Hct 37.2 L, MCV 92.4, MCH 29.5, MCHC 31.9, RDW 16.0, Plt Count 485 H, MPV 8.9, Neut % (Auto) 93.3 H, Lymph % (Auto) 3.7 L, [place] % (Auto) 2.9, Eos % (Auto) 0.0 L, Baso % (Auto) 0.1, Neut # (Auto) 11.8 H, Lymph # (Auto) 0.5 L, [place] # (Auto) 0.4, Eos # (Auto) 0.0, Baso # (Auto) 0.0, Total Counted 100, Neutrophils % (Manual) 95 H, Lymphocytes % (Manual) 3 L, Monocytes % (Manual) 2, Platelet Estimate Normal, Hypochromasia 1+, Anisocytosis 1+, Macrocytosis 1+ 03/14/21 05:43: Sodium 140, Potassium 3.7, Chloride 100, Carbon Dioxide 34 H, Anion Gap 9.7, BUN 32 H, Creatinine 0.50 L, Estimated Creat Clear 68, Estimated GFR 169, Est GFR ( Amer) 205, Glucose 132 H, Calcium 9.1 I & O for Last 24 hours: Intake & Output 03/11/21 03/12/21 03/13/21 03/14/21 23:59 23:59 23:59 23:59 Intake Total 550 / 550 240 / 240 60 / 60 Output Total 1300 / 1300 300 / 300 Balance -750 / -750 -60 / -60 60 / 60 Weight 136 lb 136 lb 1.6 oz 136 lb 136 lb 0.015 oz - Constitutional no acute distress, chronically ill appearing - *Routine HEENT Exam Head: Present: normocephalic Eye: Present: EOMI ENT: Present: mucous membranes moist - *Routine Neck Exam Present: trachea midline. Absent: tracheal deviation - *Routine Respiratory Exam Present: decreased breath sounds, crackles. Absent: accessory muscle use - *Routine Cardiovascular Exam Present: RRR - *Routine Abdominal Exam Present: soft, normoactive bowel sounds. Absent: tenderness - *Routine Extremities Exam Present: full ROM, pulses intact. Absent: cyanosis, calf tenderness - *Routine Skin Exam Present: intact, dry. Absent: cyanosis, erythema - *Routine Neurological Exam Present: alert. Absent: oriented X3, motor deficit - Routine Psychiatric Exam Present: cooperative. Absent: anxious Assessment and Plan (1) Tobacco use Status: Acute Category: Social Hx Code(s): Z72.0 - Tobacco use (2) Pneumonia due to COVID-19 virus Status: Acute Category: Medical Code(s): U07.1 - COVID-19; J12.82 - Pneumonia due to coronavirus disease 2019 (3) GERD (gastroesophageal reflux disease) Status: Acute Qualifiers: Esophagitis presence: esophagitis presence not specified Qualified Code(s): K21.9 - Gastro-esophageal reflux disease without esophagitis Category: Medical Code(s): K21.9 - Gastro-esophageal reflux disease without esophagitis (4) COPD (chronic obstructive pulmonary disease) Status: Acute Qualifiers: COPD type: unspecified COPD Qualified Code(s): J44.9 - Chronic obstructive pulmonary disease, unspecified Category: Medical Code(s): J44.9 - Chronic obstructive pulmonary disease, unspecified (5) COVID-19 Status: Acute Category: Medical Code(s): U07.1 - COVID-19 (6) Respiratory failure with hypoxia Status: Acute Qualifiers: Chronicity: acute Qualified Code(s): J96.01 - Acute respiratory failure with hypoxia Category: Medical Code(s): J96.91 - Respiratory failure, unspecified with hypoxia (7) Hypotension Status: Acute Category: Medical Code(s): I95.9 - Hypotension, unspecified (8) Hx of substance abuse Status: Acute Category: Medical Code(s): F19.11 - Other psychoactive substance abuse, in remission - Ass
--- NOTE | 2021-03-14 11:36 | SW/DCPLANNER ---
Addendum entered by [facility] 03/18/21 14:58: Minal with [facility] has stated that she can not accept this patient. Yuly with [facility] and Enriqueta with [facility] are reviewing information. CM will follow up with [facility], MD, patient and family once updated. Addendum entered by [facility] 03/18/21 13:09: At this time [facility] and [facility] have denied this patient due to insurance purposes. [facility] and [facility] are reviewing patient information. I have updated patients (Lisa) regarding situation. Addendum entered by [facility] 03/18/21 08:41: Patient information has also been faxed to Lynsey Ziegler with [facility]. Addendum entered by [facility] 03/17/21 12:50: Lanette graves/ [facility] has stated that she can not accept this patient at this time. Enriqueta graves/ [facility] along with Minal at [facility] are both currently reviewing this patients information. Addendum entered by [facility] 03/14/21 14:33: Sondra graves/ [facility] has stated she can accept this patient pending that she speaks with patients . I will follow up with Sondra and patients Wednesday morning. Original Note: I spoke with patients regarding discharge plans for this patient. Patient admitted to [facility] on 02/15 with COVID + diagnosis. Per PT/OT and MD patient will need SNF level of care at time of discharge. Patient will not be medically stable for discharge until he is off Vapotherm. Patients concurred with placement and stated that patient appears to be very confused. I explained to that patient will have to go to a skilled facility under Medicaid pending and is agreeable to search local and surrounding counties. Patient information will be faxed to [facility] and [facility]. I will follow up with facilities once patient information is reviewed.
--- NOTE | 2021-03-14 15:43 | HMH.PULMPN ---
Internal Medicine - PN: Subj *Date: 03/14/21 *Time: 16:47 Interval history: Denies any new complaints. Admits continued improvement in his symptoms. Exam - Constitutional Constitutional:: Present: no acute distress, comfortable - HENMT Exam HENMT: Present: normocephalic, atraumatic - Eye Exam Eyes:: Present: normal appearance both eyes and related structures - Neck Exam Neck:: Present: normal visual inspection - Respiratory Exam Respiratory:: Present: able to speak in complete sentences, rales - Cardiovascular Exam Cardiac:: Present: S1, S2 - GI Exam GI:: Present: soft - Skin Exam Skin: Present: warm, no rash, dry - Neurological Exam Neurological: Present: alert, awake Assessment and Plan (1) Tobacco use Status: Acute Category: Social Hx Code(s): Z72.0 - Tobacco use (2) Pneumonia due to COVID-19 virus Status: Acute Category: Medical Code(s): U07.1 - COVID-19; J12.82 - Pneumonia due to coronavirus disease 2019 (3) GERD (gastroesophageal reflux disease) Status: Acute Qualifiers: Esophagitis presence: esophagitis presence not specified Qualified Code(s): K21.9 - Gastro-esophageal reflux disease without esophagitis Category: Medical Code(s): K21.9 - Gastro-esophageal reflux disease without esophagitis (4) COPD (chronic obstructive pulmonary disease) Status: Acute Qualifiers: COPD type: unspecified COPD Qualified Code(s): J44.9 - Chronic obstructive pulmonary disease, unspecified Category: Medical Code(s): J44.9 - Chronic obstructive pulmonary disease, unspecified (5) COVID-19 Status: Acute Category: Medical Code(s): U07.1 - COVID-19 (6) Respiratory failure with hypoxia Status: Acute Qualifiers: Chronicity: acute Qualified Code(s): J96.01 - Acute respiratory failure with hypoxia Category: Medical Code(s): J96.91 - Respiratory failure, unspecified with hypoxia (7) Hypotension Status: Acute Category: Medical Code(s): I95.9 - Hypotension, unspecified (8) Hx of substance abuse Status: Acute Category: Medical Code(s): F19.11 - Other psychoactive substance abuse, in remission - Assessment and plan all Dx Assessment and Plan for all problems:: #Acute hypoxic respiratory failure: #COVID-19 pneumonia: #Organizing Pneumonia CT on admission did not show any evidence of pulmonary embolism however showed diffuse bilateral patchy pulmonary infiltrates. No evidence of DVT D-dimer elevated at 0.81. CRP at 21.4 Completed 10-day course of remdesivir and dexamethasone. Patient respiratory status declined during admission needing intubation and mechanical ventilation patient was successfully extubated and since then patient has relatively stable but critical needing high oxygen requirements currently on BiPAP post extubation, successfully weaned to nasal cannula and then escalated to high flow nasal cannula. Repeat CTA showed bilateral diffuse groundglass opacities with dense fibrotic changes, left greater than right, slightly worsened in the left upper lobe from prior. No evidence of pulmonary embolism noted. Completed [id number] days for his bacteremia. Interval update: Oxygen requirements and respiratory status improved, weaned to 25 L 45% with oxygen saturations remained at 95% and above. We will continue to wean as tolerated. Hemodynamically stable. Improving leukocytosis. Afebrile. Chest x-ray bilateral improving pulmonary infiltrate post diuresis and steroid initiation. Improvement more on right side than compared to left. CRP after steroid initiation was 11.6. Renal function stable. No evidence of volume overload noted on examination. We will hold off on diuresis today. Plan: -Continue methylprednisolone 125 mg IV every 8 hours. Closely monitor -Encourage ambulation, out of bed to chair and incentive spirometry -Continue high flow nasal cannula can supplementation to maintain O2 saturation goal of 90 and above. Wean as tolerat
--- NOTE | 2021-03-14 19:04 | PC.NURSE ---
HE REMAINS CONFUSED. VAPOTHERM TITRATED TOLERATED. VSS THIS SHIFT.
[2021-03-15] VITALS (11 sets, daily range): BP systolic 106–130; BP diastolic 58–76; PULSE 93–107; RESP 15–21; TEMP 36.4–36.9; O2SAT 88–97; BMI 20.6
--- NOTE | 2021-03-15 04:57 | PC.NURSE ---
pt has rested intermittently t/o shift, has not complained of any pain or SOA, remains on vapotherm, non rebreather had to be put on at beginning of shift to achieve O2 sat of 90%, has been up to chair this shift
--- NOTE | 2021-03-15 06:59 | PC.NURSE ---
pt did refuse adamantly to have lab draw blood this morning
--- NOTE | 2021-03-15 09:57 | HMH.ACPN2 ---
Internal Medicine - PN: Subj *Date: 03/15/21 *Time: 09:57 Interval history: doing better - oob and still on vapotherm Exam Vital signs and Labs for Last 24 Hours: Temp Pulse Resp BP Pulse Ox 97.6 F 96 H 16 106/61 L 93 L 03/15/21 08:00 03/15/21 08:00 03/15/21 08:00 03/15/21 08:00 03/15/21 08:00 I & O for Last 24 hours: Intake & Output 03/12/21 03/13/21 03/14/21 03/15/21 11:59 11:59 11:59 11:59 Intake Total 550 / 550 300 / 300 180 / 180 360 / 360 Output Total 1300 / 1300 300 / 300 250 / 250 420 / 420 Balance -750 / -750 0 / 0 -70 / -70 -60 / -60 Weight 136 lb 1.6 oz 136 lb 136 lb 0.015 oz 136 lb 0.015 oz - Constitutional no acute distress, thin - *Routine HEENT Exam Head: Present: normocephalic Eye: Present: EOMI, PERRL ENT: Present: mucous membranes dry - *Routine Neck Exam Absent: JVD - *Routine Respiratory Exam Present: decreased breath sounds - *Routine Cardiovascular Exam Present: RRR, murmur - *Routine Abdominal Exam Present: soft - *Routine Extremities Exam Absent: edema - *Routine Skin Exam Present: intact - *Routine Neurological Exam Present: alert, CN II-XII intact - Routine Psychiatric Exam Present: cooperative Assessment and Plan (1) Tobacco use Status: Acute Category: Social Hx Code(s): Z72.0 - Tobacco use (2) Pneumonia due to COVID-19 virus Status: Acute Category: Medical Code(s): U07.1 - COVID-19; J12.82 - Pneumonia due to coronavirus disease 2019 (3) GERD (gastroesophageal reflux disease) Status: Acute Qualifiers: Esophagitis presence: esophagitis presence not specified Qualified Code(s): K21.9 - Gastro-esophageal reflux disease without esophagitis Category: Medical Code(s): K21.9 - Gastro-esophageal reflux disease without esophagitis (4) COPD (chronic obstructive pulmonary disease) Status: Acute Qualifiers: COPD type: unspecified COPD Qualified Code(s): J44.9 - Chronic obstructive pulmonary disease, unspecified Category: Medical Code(s): J44.9 - Chronic obstructive pulmonary disease, unspecified (5) COVID-19 Status: Acute Category: Medical Code(s): U07.1 - COVID-19 (6) Respiratory failure with hypoxia Status: Acute Qualifiers: Chronicity: acute Qualified Code(s): J96.01 - Acute respiratory failure with hypoxia Category: Medical Code(s): J96.91 - Respiratory failure, unspecified with hypoxia (7) Hypotension Status: Acute Category: Medical Code(s): I95.9 - Hypotension, unspecified (8) Hx of substance abuse Status: Acute Category: Medical Code(s): F19.11 - Other psychoactive substance abuse, in remission
--- NOTE | 2021-03-15 15:31 | PC.NURSE ---
Patient has been confused this shift, alert to person and birthday only, anxious to go home, has been up to chair for most of shift, has refused po medications and labwork this am, remains on vapotherm at 25L/45%, using NRB mask as needed, denies any pain or soa this shift, vss, will continue to monitor for changes.
[2021-03-16] VITALS (11 sets, daily range): BP systolic 116–130; BP diastolic 68–88; PULSE 59–106; RESP 18–23; TEMP 36.5–36.7; O2SAT 90–98; BMI 18.9
[2021-03-16 07:25] LABS: Basophils % 0.1 % (0.1-2.0); Hematocrit 38.1 % (42.0-52.0); Hemoglobin 12.4 g/dL (14.1-18.0); Lymphocytes # 0.6 K/mm3 (0.7-4.5); Lymphocytes % 5.3 % (10-50); Mean Corpuscular HGB Conc 32.5 g/dL (31.8-35.4); Mean Corpuscular Hemoglobin 29.9 pg (27.0-31.2); Mean Corpuscular Volume 92.2 fl (80-94); Mean Platelet Volume 8.2 fl (7.4-10.4); Monocytes # 0.3 K/mm3 (0.1-1.0); Monocytes % 2.6 % (1.7-9.3); Neutrophils # 10.9 K/mm3 (1.8-7.8); Platelet Count 394 K/mm3 (142-424); Red Blood Count 4.13 M/mm3 (4.60-6.20); Red Cell Distribution Width 15.4 % (11.5-17.5); White Blood Count 11.9 K/mm3 (4.8-10.8)
[2021-03-16 07:28] LABS: MANUAL DIFFERENTIAL MANUAL DIFFERENTIAL (MANUAL DIFF)
[2021-03-16 08:03] LABS: Chloride 101 mmol/L (98-107); Sodium 138 mmol/L (136-145)
[2021-03-16 08:04] LABS: Potassium 4.4 mmoL/L (3.5-5.1)
[2021-03-16 08:06] LABS: Blood Urea Nitrogen 35 mg/dl (9-20); Creatinine Clearance Estimated 62 mL/min (50-200); Estimated Glomerular Filt Rate 219 ml/min (>60); GFR (African American) 265 ML/MIN (>60)
[2021-03-16 08:07] LABS: Anion Gap 11.4 mEq/L (5-15); Carbon Dioxide 30 mmol/L (22.0-30.0); Glucose 134 mg/dl (74-100)
[2021-03-16 08:08] LABS: Lymphocytes % 7 % (10-50); Macrocytosis 1+; Monocytes % 2 % (2-9); Neutrophils % 91 % (42-76); Platelet Estimate Normal; Total Cells Counted 100
--- NOTE | 2021-03-16 13:13 | HMH.ACPN2 ---
Internal Medicine - PN: Subj *Date: 03/16/21 *Time: 13:13 Interval history: Saturating in the high 80s, low 90s, has been alternating between Vapotherm and nasal cannula. He is alert lucid looks good no respiratory distress Exam Vital signs and Labs for Last 24 Hours: Temp Pulse Resp BP Pulse Ox 98.1 F 59 L 22 116/68 98 03/16/21 08:00 03/16/21 08:00 03/16/21 08:00 03/16/21 08:00 03/16/21 12:20 Laboratory Results - last 24 hr 03/16/21 07:00: WBC 11.9 H, RBC 4.13 L, Hgb 12.4 L, Hct 38.1 L, MCV 92.2, MCH 29.9, MCHC 32.5, RDW 15.4, Plt Count 394, MPV 8.2, Neut % (Auto) 92.0 H, Lymph % (Auto) 5.3 L, [place] % (Auto) 2.6, Eos % (Auto) 0.0 L, Baso % (Auto) 0.1, Neut # (Auto) 10.9 H, Lymph # (Auto) 0.6 L, [place] # (Auto) 0.3, Eos # (Auto) 0.0, Baso # (Auto) 0.0, Total Counted 100, Neutrophils % (Manual) 91 H, Lymphocytes % (Manual) 7 L, Monocytes % (Manual) 2, Platelet Estimate Normal, Macrocytosis 1+ 03/16/21 07:00: Sodium 138, Potassium 4.4, Chloride 101, Carbon Dioxide 30, Anion Gap 11.4, BUN 35 H, Creatinine 0.40 L, Estimated Creat Clear 62, Estimated GFR 219, Est GFR ( Amer) 265 D, Glucose 134 H, Calcium 9.0 I & O for Last 24 hours: Intake & Output 03/13/21 03/14/21 03/15/21 03/16/21 23:59 23:59 23:59 23:59 Intake Total 60 / 60 420 / 420 660 / 660 Output Total 670 / 670 475 / 475 Balance 60 / 60 -250 / -250 185 / 185 Weight 136 lb 136 lb 0.015 oz 136 lb 0.015 oz 125 lb - Constitutional no acute distress - *Routine HEENT Exam Head: Present: normocephalic Eye: Present: EOMI, PERRL ENT: Present: mucous membranes moist - *Routine Neck Exam Present: supple. Absent: lymphadenopathy - *Routine Respiratory Exam Present: CTA bilaterally - *Routine Cardiovascular Exam Present: RRR - *Routine Abdominal Exam Present: soft, normoactive bowel sounds. Absent: tenderness - *Routine Extremities Exam Absent: cyanosis, clubbing, edema - *Routine Skin Exam Present: warm. Absent: rash - *Routine Neurological Exam Present: alert, oriented X3 Assessment and Plan (1) Tobacco use Status: Acute Category: Social Hx Code(s): Z72.0 - Tobacco use (2) Pneumonia due to COVID-19 virus Status: Acute Category: Medical Code(s): U07.1 - COVID-19; J12.82 - Pneumonia due to coronavirus disease 2019 (3) GERD (gastroesophageal reflux disease) Status: Acute Qualifiers: Esophagitis presence: esophagitis presence not specified Qualified Code(s): K21.9 - Gastro-esophageal reflux disease without esophagitis Category: Medical Code(s): K21.9 - Gastro-esophageal reflux disease without esophagitis (4) COPD (chronic obstructive pulmonary disease) Status: Acute Qualifiers: COPD type: unspecified COPD Qualified Code(s): J44.9 - Chronic obstructive pulmonary disease, unspecified Category: Medical Code(s): J44.9 - Chronic obstructive pulmonary disease, unspecified (5) COVID-19 Status: Acute Category: Medical Code(s): U07.1 - COVID-19 (6) Respiratory failure with hypoxia Status: Acute Qualifiers: Chronicity: acute Qualified Code(s): J96.01 - Acute respiratory failure with hypoxia Category: Medical Code(s): J96.91 - Respiratory failure, unspecified with hypoxia (7) Hypotension Status: Acute Category: Medical Code(s): I95.9 - Hypotension, unspecified (8) Hx of substance abuse Status: Acute Category: Medical Code(s): F19.11 - Other psychoactive substance abuse, in remission - Assessment and plan all Dx Assessment and Plan for all problems:: We will continue to mobilize patient, wean O2 as feasible
--- NOTE | 2021-03-16 20:03 | PC.NURSE ---
No acute changes this shift. Pt is on 6 L NC and sats mid to high 90's. CB in reach. VSS
[2021-03-17] VITALS (10 sets, daily range): BP systolic 115–140; BP diastolic 67–83; PULSE 73–114; RESP 15–22; TEMP 36.6–37.1; O2SAT 90–99; BMI 18.9
[2021-03-17 06:15] LABS: Basophils % 0.2 % (0.1-2.0); Hematocrit 38.5 % (42.0-52.0); Hemoglobin 12.3 g/dL (14.1-18.0); Lymphocytes % 6.7 % (10-50); Mean Corpuscular HGB Conc 31.9 g/dL (31.8-35.4); Mean Corpuscular Hemoglobin 29.6 pg (27.0-31.2); Mean Corpuscular Volume 92.9 fl (80-94); Mean Platelet Volume 8.9 fl (7.4-10.4); Monocytes # 0.4 K/mm3 (0.1-1.0); Monocytes % 2.9 % (1.7-9.3); Neutrophils # 13.2 K/mm3 (1.8-7.8); Neutrophils % 90.2 % (37.0-80.0); Platelet Count 355 K/mm3 (142-424); Red Blood Count 4.14 M/mm3 (4.60-6.20); Red Cell Distribution Width 15.4 % (11.5-17.5); White Blood Count 14.6 K/mm3 (4.8-10.8)
[2021-03-17 06:33] LABS: MANUAL DIFFERENTIAL MANUAL DIFFERENTIAL (MANUAL DIFF)
[2021-03-17 07:09] LABS: Carbon Dioxide 30 mmol/L (22.0-30.0); Creatinine Clearance Estimated 62 mL/min (50-200)
[2021-03-17 07:47] LABS: Anion Gap 11.4 mEq/L (5-15); Calcium 9.1 mg/dl (8.4-10.2); Chloride 100 mmol/L (98-107); Glucose 140 mg/dl (74-100); Potassium 4.4 mmoL/L (3.5-5.1); Sodium 137 mmol/L (136-145)
--- NOTE | 2021-03-17 09:07 | XR_ITS ---
PROCEDURE: XR CHEST PORTABLE CLINICAL HISTORY: pnm Follow-up pneumonia COMPARISON: CR XR CHEST PORTABLE from 03/08/[address] ANGIO CHEST PE PROTOCOL from 03/09/2021 CR XR CHEST PORTABLE from 03/10/2021 CR XR CHEST PORTABLE from 03/13/2021 FINDINGS: The cardiomediastinal silhouette and pulmonary vascularity are within normal limits. Patchy areas of infiltrate present in the right upper lobe, right lower lobe, left upper lobe, and left lower lobe. Pneumonia appears slightly worse on the right and unchanged on the left. Suture line is present in the right apex. No acute bony abnormalities. IMPRESSION: Bilateral pneumonia consistent with Covid19 pneumonia slightly worse on the right Dictated by: Reno Alonso MD 03/17/2021 10:23 Reno Alonso MD in [facility] 03/17/2021 10:23
--- NOTE | 2021-03-17 09:37 | P.PN_ITS ---
Internal Medicine - PN: Subj *Date: 03/17/21 *Time: 08:00 Interval history: pt sitting up on side of bed. o2 sat dropped to 74%, Exam Vital signs and Labs for Last 24 Hours: Temp Pulse Resp BP Pulse Ox 98.2 F 102 H 20 135/78 92 L 03/17/21 08:00 03/17/21 08:00 03/17/21 08:00 03/17/21 08:00 03/17/21 08:00 Laboratory Results - last 24 hr 03/17/21 05:17: WBC 14.6 H, RBC 4.14 L, Hgb 12.3 L, Hct 38.5 L, MCV 92.9, MCH 29.6, MCHC 31.9, RDW 15.4, Plt Count 355, MPV 8.9, Neut % (Auto) 90.2 H, Lymph % (Auto) 6.7 L, [place] % (Auto) 2.9, Eos % (Auto) 0.0 L, Baso % (Auto) 0.2, Neut # (Auto) 13.2 H, Lymph # (Auto) 1.0, [place] # (Auto) 0.4, Eos # (Auto) 0.0, Baso # (Auto) 0.0 03/17/21 05:17: Sodium 137, Potassium 4.4, Chloride 100, Carbon Dioxide 30, Anion Gap 11.4, Creatinine 0.50 L D, Estimated Creat Clear 62, Glucose 140 H, Calcium 9.1 I & O for Last 24 hours: Intake & Output 03/14/21 03/15/21 03/16/21 03/17/21 11:59 11:59 11:59 11:59 Intake Total 180 / 180 360 / 360 540 / 540 770 / 770 Output Total 250 / 250 420 / 420 475 / 475 900 / 900 Balance -70 / -70 -60 / -60 65 / 65 -130 / -130 Weight 136 lb 0.015 oz 136 lb 0.015 oz 125 lb 125 lb - Constitutional mild distress, chronically ill appearing - *Routine HEENT Exam Head: Present: normocephalic Eye: Present: PERRL ENT: Present: mucous membranes moist - *Routine Neck Exam Present: supple. Absent: lymphadenopathy - *Routine Respiratory Exam Present: CTA bilaterally - *Routine Extremities Exam Absent: cyanosis, clubbing, edema - *Routine Skin Exam Present: warm. Absent: rash - *Routine Neurological Exam Present: alert, oriented X3 Assessment and Plan (1) Tobacco use Status: Acute Category: Social Hx Code(s): Z72.0 - Tobacco use (2) Pneumonia due to COVID-19 virus Status: Acute Category: Medical Code(s): U07.1 - COVID-19; J12.82 - Pneumonia due to coronavirus disease 2019 (3) GERD (gastroesophageal reflux disease) Status: Acute Qualifiers: Esophagitis presence: esophagitis presence not specified Qualified Code(s): K21.9 - Gastro-esophageal reflux disease without esophagitis Category: Medical Code(s): K21.9 - Gastro-esophageal reflux disease without esophagitis (4) COPD (chronic obstructive pulmonary disease) Status: Acute Qualifiers: COPD type: unspecified COPD Qualified Code(s): J44.9 - Chronic obstructive pulmonary disease, unspecified Category: Medical Code(s): J44.9 - Chronic obstructive pulmonary disease, unspecified (5) COVID-19 Status: Acute Category: Medical Code(s): U07.1 - COVID-19 (6) Respiratory failure with hypoxia Status: Acute Qualifiers: Chronicity: acute Qualified Code(s): J96.01 - Acute respiratory failure with hypoxia Category: Medical Code(s): J96.91 - Respiratory failure, unspecified with hypoxia (7) Hypotension Status: Acute Category: Medical Code(s): I95.9 - Hypotension, unspecified (8) Hx of substance abuse Status: Acute Category: Medical Code(s): F19.11 - Other psychoactive substance abuse, in remission - Assessment and plan all Dx Assessment and Plan for all problems:: rounded with dr hughes all orders per dr hughes pulclint consult continue plan care
[2021-03-17 10:28] LABS: Hypochromasia 1+; Lymphocytes % 4 % (10-50); Macrocytosis 1+; Monocytes % 2 % (2-9); Neutrophils % 94 % (42-76); Platelet Estimate Normal; Total Cells Counted 100
--- NOTE | 2021-03-17 13:26 | HMH.PULMPN ---
Internal Medicine - PN: Subj *Date: 03/17/21 *Time: 13:26 Interval history: No acute respiratory events overnight patient did complain that he is getting tired of staying in the hospital for such a prolonged duration. Admits improvement in his breathing. Assessment and Plan (1) Tobacco use Status: Acute Category: Social Hx Code(s): Z72.0 - Tobacco use (2) Pneumonia due to COVID-19 virus Status: Acute Category: Medical Code(s): U07.1 - COVID-19; J12.82 - Pneumonia due to coronavirus disease 2019 (3) GERD (gastroesophageal reflux disease) Status: Acute Qualifiers: Esophagitis presence: esophagitis presence not specified Qualified Code(s): K21.9 - Gastro-esophageal reflux disease without esophagitis Category: Medical Code(s): K21.9 - Gastro-esophageal reflux disease without esophagitis (4) COPD (chronic obstructive pulmonary disease) Status: Acute Qualifiers: COPD type: unspecified COPD Qualified Code(s): J44.9 - Chronic obstructive pulmonary disease, unspecified Category: Medical Code(s): J44.9 - Chronic obstructive pulmonary disease, unspecified (5) COVID-19 Status: Acute Category: Medical Code(s): U07.1 - COVID-19 (6) Respiratory failure with hypoxia Status: Acute Qualifiers: Chronicity: acute Qualified Code(s): J96.01 - Acute respiratory failure with hypoxia Category: Medical Code(s): J96.91 - Respiratory failure, unspecified with hypoxia (7) Hypotension Status: Acute Category: Medical Code(s): I95.9 - Hypotension, unspecified (8) Hx of substance abuse Status: Acute Category: Medical Code(s): F19.11 - Other psychoactive substance abuse, in remission - Assessment and plan all Dx Assessment and Plan for all problems:: #Acute hypoxic respiratory failure: #COVID-19 pneumonia: #Organizing Pneumonia CT on admission did not show any evidence of pulmonary embolism however showed diffuse bilateral patchy pulmonary infiltrates. No evidence of DVT D-dimer elevated at 0.81. CRP at 21.4 Completed 10-day course of remdesivir and dexamethasone. Patient respiratory status declined during admission needing intubation and mechanical ventilation patient was successfully extubated and since then patient has relatively stable but critical needing high oxygen requirements currently on BiPAP post extubation, successfully weaned to nasal cannula and then escalated to high flow nasal cannula. Repeat CTA showed bilateral diffuse groundglass opacities with dense fibrotic changes, left greater than right, slightly worsened in the left upper lobe from prior. No evidence of pulmonary embolism noted. Completed [id number] days for his bacteremia. CRP after steroid initiation was 11.6. Renal function stable. Oxygen requirements continued to improve along with improving pulmonary infiltrates at large, slight worsening on today's imaging Plan: -Lasix 60mg IV once -Wean methylprednisolone 125 mg IV every 8 hours to Prednisone 60mg daily -Encourage ambulation, out of bed to chair and incentive spirometry -Continue nasal cannula can supplementation to maintain O2 saturation goal of 90 and above. Wean as tolerated. -DuoNebs every 6 hours scheduled -Budesonide every 12 scheduled #Thank you for involving pulmonary in this patient care. We will continue to follow.
--- NOTE | 2021-03-17 18:53 | PC.NURSE ---
PT IS RESTING IN BED. PT TOLERATED SITTING UP IN THE CHAIR FOR 1 HOUR THIS MORNING BUT DID PARTICIPATE WITH PHYSICAL THERAPY EACH TIME. O2 SATURATION HAS MAINTAINED 90-93% ON 6 L NC BUT WITH ANY ACTIVITY PT REQUIRES THE NON REBREATHER OR HE WILL DESAT QUICKLY IN THE 70'S. APPETITE CONTINUES TO BE POOR. DRINKING FAIR. LUNG SOUNDS DIMINISHED. ABDOMEN SOFT/NON TENDER WITH ACTIVE BOWEL SOUNDS. WILL CONTINUE TO MONITOR.
[2021-03-17 22:16] LABS: Blood Urea Nitrogen 27 mg/dl (9-20); Estimated Glomerular Filt Rate 169 ml/min (>60); GFR (African American) 205 ML/MIN (>60)
[2021-03-18] VITALS (9 sets, daily range): BP systolic 100–120; BP diastolic 57–75; PULSE 106–129; RESP 17–22; TEMP 36.6–37.1; O2SAT 89–95; BMI 19.3
--- NOTE | 2021-03-18 05:47 | PC.NURSE ---
Pt has been awake most of the night, he has had some periods of 02 dropping below 90% but was able to recover after applying non-rebreather. Pt currently at 96% on 6L NC. At 0530 lab came in for AM labs and pt refused stating he did not want to be stuck. Call garrison within reach will continue to monitor.
--- NOTE | 2021-03-18 08:57 | HMH.ACPN2 ---
Internal Medicine - PN: Subj *Date: 03/18/21 *Time: 08:58 Interval history: 61-year-old male patient sitting up in bed denies any needs at present oxygen 8 L per nasal cannula oxygenation 91%. [employer] currently in discussion with multiple rehab facilities for eventual discharge Exam Vital signs and Labs for Last 24 Hours: Temp Pulse Resp BP Pulse Ox 98 F 109 H 22 109/71 L 91 L 03/18/21 07:49 03/18/21 07:49 03/18/21 07:49 03/18/21 07:49 03/18/21 07:49 Laboratory Results - last 24 hr 03/17/21 05:17: Total Counted 100, Neutrophils % (Manual) 94 H, Lymphocytes % (Manual) 4 L, Monocytes % (Manual) 2, Platelet Estimate Normal, Hypochromasia 1+, Macrocytosis 1+ 03/17/21 05:17: BUN 27 H, Creatinine 0.50 L D, Estimated GFR 169, Est GFR ( Amer) 205 D I & O for Last 24 hours: Intake & Output 03/15/21 03/16/21 03/17/21 03/18/21 23:59 23:59 23:59 23:59 Intake Total 660 / 660 240 / 240 1010 / 1010 Output Total 475 / 475 600 / 600 350 / 350 0 / 0 Balance 185 / 185 -360 / -360 660 / 660 0 / 0 Weight 136 lb 0.015 oz 125 lb 125 lb 127 lb 4 oz - Constitutional no acute distress, thin, chronically ill appearing - *Routine HEENT Exam Head: Present: normocephalic Eye: Present: EOMI ENT: Present: mucous membranes moist - *Routine Neck Exam Present: trachea midline. Absent: tracheal deviation - *Routine Respiratory Exam Present: crackles. Absent: accessory muscle use - *Routine Cardiovascular Exam Present: RRR, murmur - *Routine Abdominal Exam Present: soft, normoactive bowel sounds. Absent: tenderness, firm - *Routine Extremities Exam Present: pulses intact. Absent: cyanosis, clubbing, calf tenderness - *Routine Skin Exam Present: intact, dry, warm. Absent: cyanosis, erythema - *Routine Neurological Exam Present: alert, altered mental status. Absent: oriented X3, motor deficit - Routine Psychiatric Exam Present: normal affect, unable to assess Assessment and Plan (1) Tobacco use Status: Acute Category: Social Hx Code(s): Z72.0 - Tobacco use (2) Pneumonia due to COVID-19 virus Status: Acute Category: Medical Code(s): U07.1 - COVID-19; J12.82 - Pneumonia due to coronavirus disease 2019 (3) GERD (gastroesophageal reflux disease) Status: Acute Qualifiers: Esophagitis presence: esophagitis presence not specified Qualified Code(s): K21.9 - Gastro-esophageal reflux disease without esophagitis Category: Medical Code(s): K21.9 - Gastro-esophageal reflux disease without esophagitis (4) COPD (chronic obstructive pulmonary disease) Status: Acute Qualifiers: COPD type: unspecified COPD Qualified Code(s): J44.9 - Chronic obstructive pulmonary disease, unspecified Category: Medical Code(s): J44.9 - Chronic obstructive pulmonary disease, unspecified (5) COVID-19 Status: Acute Category: Medical Code(s): U07.1 - COVID-19 (6) Respiratory failure with hypoxia Status: Acute Qualifiers: Chronicity: acute Qualified Code(s): J96.01 - Acute respiratory failure with hypoxia Category: Medical Code(s): J96.91 - Respiratory failure, unspecified with hypoxia (7) Hypotension Status: Acute Category: Medical Code(s): I95.9 - Hypotension, unspecified (8) Hx of substance abuse Status: Acute Category: Medical Code(s): F19.11 - Other psychoactive substance abuse, in remission - Assessment and plan all Dx Assessment and Plan for all problems:: Rounded with Dr. Camilo, all orders per Dr. Camilo: 1. Continue current medical regimen 2. Wean O2 as tolerated 3. Pulmonology following 4. Planning for discharge
--- NOTE | 2021-03-18 09:30 | HMH.PULMPN ---
Internal Medicine - PN: Subj *Date: 03/18/21 *Time: 13:15 Interval history: Patient denies any new respiratory complaints. Exam - Constitutional Constitutional:: Present: no acute distress, comfortable - HENMT Exam HENMT: Present: normocephalic - Eye Exam Eyes:: Present: normal appearance both eyes and related structures - Neck Exam Neck:: Present: normal visual inspection - Respiratory Exam Respiratory:: Present: respiratory distress, rales - Cardiovascular Exam Cardiac:: Present: S1, S2 - GI Exam GI:: Present: soft - Skin Exam Skin: Present: warm, no rash - Neurological Exam Neurological: Present: alert, awake, normal cognition - Extremities Exam Extremities: Present: no cyanosis, no clubbing, no edema Assessment and Plan (1) Tobacco use Status: Acute Category: Social Hx Code(s): Z72.0 - Tobacco use (2) Pneumonia due to COVID-19 virus Status: Acute Category: Medical Code(s): U07.1 - COVID-19; J12.82 - Pneumonia due to coronavirus disease 2019 (3) GERD (gastroesophageal reflux disease) Status: Acute Qualifiers: Esophagitis presence: esophagitis presence not specified Qualified Code(s): K21.9 - Gastro-esophageal reflux disease without esophagitis Category: Medical Code(s): K21.9 - Gastro-esophageal reflux disease without esophagitis (4) COPD (chronic obstructive pulmonary disease) Status: Acute Qualifiers: COPD type: unspecified COPD Qualified Code(s): J44.9 - Chronic obstructive pulmonary disease, unspecified Category: Medical Code(s): J44.9 - Chronic obstructive pulmonary disease, unspecified (5) COVID-19 Status: Acute Category: Medical Code(s): U07.1 - COVID-19 (6) Respiratory failure with hypoxia Status: Acute Qualifiers: Chronicity: acute Qualified Code(s): J96.01 - Acute respiratory failure with hypoxia Category: Medical Code(s): J96.91 - Respiratory failure, unspecified with hypoxia (7) Hypotension Status: Acute Category: Medical Code(s): I95.9 - Hypotension, unspecified (8) Hx of substance abuse Status: Acute Category: Medical Code(s): F19.11 - Other psychoactive substance abuse, in remission - Assessment and plan all Dx Assessment and Plan for all problems:: #Acute hypoxic respiratory failure: #COVID-19 pneumonia: #Organizing Pneumonia CT on admission did not show any evidence of pulmonary embolism however showed diffuse bilateral patchy pulmonary infiltrates. No evidence of DVT D-dimer elevated at 0.81. CRP at 21.4 Completed 10-day course of remdesivir and dexamethasone. Patient respiratory status declined during admission needing intubation and mechanical ventilation patient was successfully extubated and since then patient has relatively stable but critical needing high oxygen requirements currently on BiPAP post extubation, successfully weaned to nasal cannula and then escalated to high flow nasal cannula. Repeat CTA showed bilateral diffuse groundglass opacities with dense fibrotic changes, left greater than right, slightly worsened in the left upper lobe from prior. No evidence of pulmonary embolism noted. Completed [id number] days for his bacteremia. CRP after steroid initiation was 11.6. Renal function stable. Oxygen requirements continued to improve along with improving pulmonary infiltrates at large, slight worsening on today's imaging. Also receiving intermittent diuretics Plan: -Continue PT OT -Incentive spirometry every 2 hours - CRP -Continue nasal cannula can supplementation to maintain O2 saturation goal of 90 and above. Patient continued to maintain saturations at 88% and above with oxygen requirements at 4 to 6 L except episodes of desaturations with exertion during which he is using a nonrebreather. -Prednisone 60mg daily x 5 days followed by 30mg daily x 5 days--> 10mg x5 days and discontinue. -DuoNebs every 6 hours scheduled -Budesonide every 12 scheduled -Volume optimization a
[2021-03-19] VITALS (11 sets, daily range): BP systolic 102–118; BP diastolic 58–77; PULSE 106–121; RESP 16–28; TEMP 36.6–36.9; O2SAT 88–98; BMI 19.2
[2021-03-19 06:04] LABS: Basophils % 0.3 % (0.1-2.0); Eosinophils # 0.1 K/mm3 (0.0-0.4); Hematocrit 41.4 % (42.0-52.0); Hemoglobin 13.6 g/dL (14.1-18.0); Lymphocytes # 0.9 K/mm3 (0.7-4.5); Lymphocytes % 6.9 % (10-50); Mean Corpuscular HGB Conc 32.9 g/dL (31.8-35.4); Mean Corpuscular Hemoglobin 30.2 pg (27.0-31.2); Mean Corpuscular Volume 91.8 fl (80-94); Mean Platelet Volume 8.7 fl (7.4-10.4); Monocytes # 0.5 K/mm3 (0.1-1.0); Monocytes % 3.5 % (1.7-9.3); Neutrophils # 11.3 K/mm3 (1.8-7.8); Neutrophils % 88.2 % (37.0-80.0); Platelet Count 262 K/mm3 (142-424); Red Blood Count 4.51 M/mm3 (4.60-6.20); Red Cell Distribution Width 15.2 % (11.5-17.5); White Blood Count 12.8 K/mm3 (4.8-10.8)
[2021-03-19 06:37] LABS: MANUAL DIFFERENTIAL MANUAL DIFFERENTIAL (MANUAL DIFF)
[2021-03-19 07:10] LABS: Chloride 98 mmol/L (98-107); Sodium 135 mmol/L (136-145)
[2021-03-19 07:13] LABS: Blood Urea Nitrogen 32 mg/dl (9-20); Calcium 9.3 mg/dl (8.4-10.2); Carbon Dioxide 30 mmol/L (22.0-30.0); Creatinine Clearance Estimated 63 mL/min (50-200); Estimated Glomerular Filt Rate 169 ml/min (>60); GFR (African American) 205 ML/MIN (>60); Glucose 109 mg/dl (74-100)
[2021-03-19 07:52] LABS: Lymphocytes % 6 % (10-50); Monocytes % 4 % (2-9); Neutrophils % 90 % (42-76); Platelet Estimate Normal; RBC Morphology Normal; Total Cells Counted 100
--- NOTE | 2021-03-19 10:21 | HMH.ACPN2 ---
Internal Medicine - PN: Subj *Date: 03/19/21 *Time: 09:00 Interval history: pt sitting in chair, states no c/o. o2 at 4 liters nc Exam Vital signs and Labs for Last 24 Hours: Temp Pulse Resp BP Pulse Ox 98.4 F 115 H 28 H 103/60 L 90 L 03/19/21 08:00 03/19/21 08:00 03/19/21 08:00 03/19/21 08:00 03/19/21 08:00 Laboratory Results - last 24 hr 03/19/21 05:28: WBC 12.8 H, RBC 4.51 L, Hgb 13.6 L, Hct 41.4 L, MCV 91.8, MCH 30.2, MCHC 32.9, RDW 15.2, Plt Count 262 D, MPV 8.7, Neut % (Auto) 88.2 H, Lymph % (Auto) 6.9 L, [place] % (Auto) 3.5, Eos % (Auto) 1.0, Baso % (Auto) 0.3, Neut # (Auto) 11.3 H, Lymph # (Auto) 0.9, [place] # (Auto) 0.5, Eos # (Auto) 0.1, Baso # (Auto) 0.0, Total Counted 100, Neutrophils % (Manual) 90 H, Lymphocytes % (Manual) 6 L, Monocytes % (Manual) 4, Platelet Estimate Normal, RBC Morphology Normal 03/19/21 05:28: Sodium 135 L, Potassium 4.0, Chloride 98, Carbon Dioxide 30, Anion Gap 11.0, BUN 32 H, Creatinine 0.50 L, Estimated Creat Clear 63, Estimated GFR 169, Est GFR ( Amer) 205, Glucose 109 H, Calcium 9.3 I & O for Last 24 hours: Intake & Output 03/16/21 03/17/21 03/18/21 03/19/21 11:59 11:59 11:59 11:59 Intake Total 540 / 540 770 / 770 600 / 600 780 / 780 Output Total 475 / 475 900 / 900 50 / 50 800 / 800 Balance 65 / 65 -130 / -130 550 / 550 -20 / -20 Weight 125 lb 125 lb 127 lb 4 oz 127 lb - Constitutional no acute distress, chronically ill appearing - *Routine HEENT Exam Head: Present: normocephalic Eye: Present: PERRL ENT: Present: mucous membranes moist - *Routine Neck Exam Present: supple. Absent: lymphadenopathy - *Routine Respiratory Exam Present: CTA bilaterally - *Routine Cardiovascular Exam Present: RRR - *Routine Abdominal Exam Present: soft, normoactive bowel sounds. Absent: tenderness - *Routine Extremities Exam Present: normal capillary refill. Absent: cyanosis, clubbing, edema - *Routine Skin Exam Present: warm. Absent: rash - *Routine Neurological Exam Present: alert, oriented X3 Assessment and Plan (1) Tobacco use Status: Acute Category: Social Hx Code(s): Z72.0 - Tobacco use (2) Pneumonia due to COVID-19 virus Status: Acute Category: Medical Code(s): U07.1 - COVID-19; J12.82 - Pneumonia due to coronavirus disease 2019 (3) GERD (gastroesophageal reflux disease) Status: Acute Qualifiers: Esophagitis presence: esophagitis presence not specified Qualified Code(s): K21.9 - Gastro-esophageal reflux disease without esophagitis Category: Medical Code(s): K21.9 - Gastro-esophageal reflux disease without esophagitis (4) COPD (chronic obstructive pulmonary disease) Status: Acute Qualifiers: COPD type: unspecified COPD Qualified Code(s): J44.9 - Chronic obstructive pulmonary disease, unspecified Category: Medical Code(s): J44.9 - Chronic obstructive pulmonary disease, unspecified (5) COVID-19 Status: Acute Category: Medical Code(s): U07.1 - COVID-19 (6) Respiratory failure with hypoxia Status: Acute Qualifiers: Chronicity: acute Qualified Code(s): J96.01 - Acute respiratory failure with hypoxia Category: Medical Code(s): J96.91 - Respiratory failure, unspecified with hypoxia (7) Hypotension Status: Acute Category: Medical Code(s): I95.9 - Hypotension, unspecified (8) Hx of substance abuse Status: Acute Category: Medical Code(s): F19.11 - Other psychoactive substance abuse, in remission - Assessment and plan all Dx Assessment and Plan for all problems:: rounded with dr hughes all orders per dr hughes continue to titrate 02 poss dc home with family
--- NOTE | 2021-03-19 11:10 | PC.NURSE ---
1047 - Spoke to pt's @ this time updated on plan of care.
--- NOTE | 2021-03-19 11:22 | SW/DCPLANNER ---
Addendum entered by Enedelia Carroll 03/20/21 06:23: DID FOLLOW UP CALLS TO NUMEROUS FACILITIES YESTERDAY IN [place] TO FIND SOME PLACE FOR THIS PATIENT TO BE ABLE TO GO..LAST EVENING WHEN I WAS HOME I HAD CALLS FROM [facility] AND [facility] THEY COULD NOT ACCEPT THIS PATIENT.. [facility]ISHAA[facility] CALLED AND LEFT A VOICE MESSAGE YESTERDAY MORNING THEY COULD NOT MEET HIS NEEDS AT THIS TIME... DR BARRAZA IS AWARE AND STATED DURING ROUNDS IF A BED CAN NOT BE OBTAINED HE WILL DISCHARGE HIM AND I SUGGESTED HOME HEALTH TO BE INVOLVED A LAST RESORT.. IF DISCHARGED WITHOUT A BED HE WILL NEED SERVICES AT HOME. MAY DISCHARGE TODAY OR TMRW... Original Note: SENT REFERRAL BACK TO [facility] WHEN I DID A FOLLOW UP TO SEE IF THEY CAN TAKE HIM.. THEY HAD CONCERNS ABOUT HIM BEING ON [employer] WHICH OUR RECORDS DOESN'T INDICATE HE IS ON IT... I HAVE RESENT IT TO [facility] FOR REVIEW, IF ACCEPTED HE CAN DISCHARGE THERE TODAY SINCE HE IS NOW MEDICALLY STABLE TO GO TO AN ICF LEVEL OF CARE.. WAITING TO HEAR BACK..
--- NOTE | 2021-03-19 15:21 | PC.NURSE ---
Pt sat up in chair majority of morning, tolerating well. SPO2 mid 90's on 4 L O2 per nasal cannula @ rest. He does require use of non-rebreather w/ activity but recovers quickly. Lungs w/ fine crackles in bilat lower lobes. Cont pulse ox in place. Has at about 25% of meals this shift. Encouraged to drink protein shakes. No BM this shift. Voiding per urinal w/o difficulty, urine aspen in color. No complaints voiced. Call garrison w/in reach. Bed alarm in place.
[2021-03-20] VITALS (8 sets, daily range): BP systolic 105–130; BP diastolic 70–81; PULSE 111–121; RESP 19–28; TEMP 36.5–36.9; O2SAT 86–98; BMI 19.1
[2021-03-20 07:08] LABS: Basophils % 0.2 % (0.1-2.0); Eosinophils # 0.3 K/mm3 (0.0-0.4); Eosinophils % 2.2 % (0.1-12.0); Hematocrit 40.4 % (42.0-52.0); Hemoglobin 13.1 g/dL (14.1-18.0); Lymphocytes % 8.9 % (10-50); Mean Corpuscular HGB Conc 32.3 g/dL (31.8-35.4); Mean Corpuscular Hemoglobin 29.8 pg (27.0-31.2); Mean Corpuscular Volume 92.1 fl (80-94); Monocytes # 0.4 K/mm3 (0.1-1.0); Monocytes % 3.1 % (1.7-9.3); Neutrophils # 9.8 K/mm3 (1.8-7.8); Neutrophils % 85.5 % (37.0-80.0); Platelet Count 243 K/mm3 (142-424); Red Blood Count 4.39 M/mm3 (4.60-6.20); Red Cell Distribution Width 15.4 % (11.5-17.5); White Blood Count 11.4 K/mm3 (4.8-10.8)
[2021-03-20 07:09] LABS: MANUAL DIFFERENTIAL MANUAL DIFFERENTIAL (MANUAL DIFF)
[2021-03-20 07:24] LABS: Chloride 98 mmol/L (98-107)
[2021-03-20 07:25] LABS: Potassium 4.3 mmoL/L (3.5-5.1); Sodium 133 mmol/L (136-145)
[2021-03-20 07:28] LABS: Anion Gap 11.3 mEq/L (5-15); Blood Urea Nitrogen 27 mg/dl (9-20); Calcium 8.7 mg/dl (8.4-10.2); Carbon Dioxide 28 mmol/L (22.0-30.0); Creatinine Clearance Estimated 63 mL/min (50-200); Estimated Glomerular Filt Rate 219 ml/min (>60); GFR (African American) 265 ML/MIN (>60); Glucose 95 mg/dl (74-100)
[2021-03-20 07:40] LABS: Eosinophils % 3 % (0-3); Lymphocytes % 8 % (10-50); Macrocytosis 1+; Monocytes % 5 % (2-9); Neutrophils % 84 % (42-76); Platelet Estimate Normal; Total Cells Counted 100
--- NOTE | 2021-03-20 08:00 | PC.NURSE ---
No acute changes. Pt has remained on 4L O2 NC this shift. Has not slept well this shift. Pt has c/o burning to his stomach. No other complaints. VSS. Pt remains tachy. No other concerns. Will continue to monitor.
--- NOTE | 2021-03-20 08:06 | SW/DCPLANNER ---
Addendum entered by Enedelia Carroll 03/24/21 13:38: PATIENT HAS BEEN MEDICALLY CLEARED TO GO [facility] TODAY PER DR BURDEN... HAS BEEN NOTIFIED BY NURSE, DEBORA NARANJO. HE WILL TRANSPORT VIA AMBULANCE... Addendum entered by Rubi Serrano 03/21/21 09:16: Yuly Hobson has requested that due to patients O2 requirement that patient not discharge to [facility] till Wednesday. I have informed MD, patient and patients . Addendum entered by Rubi Serrano 03/20/21 11:15: Per Gonzales he is not going to discharge this patient till tomorrow: I have informed patients nurse (Diana), Yuly at [facility] and patients . Addendum entered by Rubi Serrano 03/20/21 10:51: Per Yuly she can accept this patient to [facility] today: I have informed Dr Burden/Gonzales. I will also contact patients . Original Note: Yuly Hobson has expressed an interest in this patient at this time. Update patient information has been faxed to Yuly. Yuly has stated that she will need to get final approval from [facility] then will follow up with me. Patient is only requiring 4L of home O2 at this time. I will continue to follow up with nav, [facility] and patients family.
--- NOTE | 2021-03-20 08:23 | HMH.DCSUM ---
General - General Admission date:: 02/15/21 Discharge date: 03/20/21 HPI HPI: [facility] 60[facility] presented to the ED today for hypoxia at home. Patient has been measuring his oxygen saturations, states they were below ED today he presents the ED today today for further evaluation of this. Patient is recently diagnosed with Covid on the seventh of this month via ER visit. States that he lives with his at home, has been otherwise well with no significant shortness of breath, chest pain, nausea or vomiting. Patient states that he is otherwise asymptomatic but comes in for his low oxygen saturation. Patient states that he has no prior heart disease, was a former smoker takes no inhalers for this currently. States that he has had a pneumothorax several years ago, but no issues with this ever since that time.yessenia is a 60-year-old male presents to the ED today for hypoxia. Differential diagnosis includes pulmonary embolism, atypical pneumonia, bacterial pneumonia. Will further evaluate with CBC CMP, blood cultures and will obtain a CT pulmonary embolism study. Patient arrives hypoxic, unwell appearing, however in no significant subjective respiratory distress. Initial oxygen saturation 71% on room air, initially placed on nasal cannula, however only carlita patient's oxygen saturations on 6 L to 83%, we have placed him on 15 L nonrebreather. Have asked respiratory for high flow nasal cannula, however we do not have any more in the hospital as they are all being used upstairs for other Covid patients. Patient is 93% on 15 L nonrebreather, will be reassessed closely, nonrebreather is not my chosen modality, however BiPAP is not required at this time, and patient is unlikely to be able to be stepdown to Ventimask, not requiring intubation at this time although we will closely reassess. On nonrebreather. CT scan of the chest has been obtained, no evidence of pulmonary embolism, groundglass opacities bilaterally on independent interpretation. No pneumothorax. Stable, mildly tachypneic on reassessment but otherwise no acute distress. Given patient's profound hypoxia will require admit to the hospital. Have discussed this case with Dr. Sesay, will start dexamethasone, remdesivir, per hospital protocol. Patient with no evidence of consolidation will defer antibiotic management at this time. pt admitted to covid-19 unit Hospital Course Hospital Course: 61 YOM presented to the ed -atient is a 60-year-old male presented to the ED today for hypoxia at home. Patient has been measuring his oxygen saturations, states they were below ED today he presents the ED today today for further evaluation of this. Patient is recently diagnosed with Covid on the seventh of this month via ER visit. States that he lives with his at home, has been otherwise well with no significant shortness of breath, chest pain, nausea or vomiting. Patient states that he is otherwise asymptomatic but comes in for his low oxygen saturation. Patient states that he has no prior heart disease, was a former smoker takes no inhalers for this currently. States that he has had a pneumothorax several years ago, but no issues with this ever since that time.yessenia is a 60-year-old male presents to the ED today for hypoxia. Differential diagnosis includes pulmonary embolism, atypical pneumonia, bacterial pneumonia. Will further evaluate with CBC CMP, blood cultures and will obtain a CT pulmonary embolism study. Patient arrives hypoxic, unwell appearing, however in no significant subjective respiratory distress. Initial oxygen saturation 71% on room air, initially placed on nasal cannula, however only carlita patient's oxygen saturations on 6 L to 83%, we have placed him on 15 L nonrebreather. Have asked respiratory for high flow nasal cannula, however we do not have any more in the hospital as they are all being used upstairs for other Covid patients. Raman
--- NOTE | 2021-03-20 11:16 | PC.NURSE ---
LM for to call back for update in re to d/c being cancelled today.
--- NOTE | 2021-03-20 11:20 | CT_ITS ---
PROCEDURE: CT ABDOMEN PELVIS WO CON CLINICAL INDICATION: Abd pain COMPARISON: CT CT ANGIO CHEST PE PROTOCOL from 03/09/2021 CR XR CHEST PORTABLE from 03/17/2021 TECHNIQUE: Axial images obtained with sagittal and coronal reformats. All CT scans at the facility use one or more dose reduction, viz: automated exposure control, ma/kV adjustment per patient size (including targeted exams where dose is matched to indication, i.e. head), or iterative reconstruction technique. FINDINGS: LOWER THORAX: Diffuse ground-glass attenuation once again noted in the right and left lower lobes. Coronary artery calcification is present. There is mild pericardial thickening. ABDOMEN & PELVIS: Moderate motion artifact somewhat obscures fine detail. No focal liver lesion. The spleen has an unremarkable appearance. The pancreas and adrenal glands are unremarkable. No renal or ureteral calculi. No hydronephrosis. No intestinal obstruction or free air. No evidence of appendicitis. No evidence of diverticulitis. There is central prostate calcifications. No acute bony anomalies. IMPRESSION: No acute abdominal or pelvic findings. Persistent diffuse ground-glass attenuation in the lower lobes with interstitial thickening Dictated by: Reno Alonso MD 03/20/2021 13:25 Reno Alonso MD in [facility] 03/20/2021 13:25
--- NOTE | 2021-03-20 12:11 | PC.NURSE ---
Pt down for ct at this time.
--- NOTE | 2021-03-20 13:11 | PC.NURSE ---
Pt is alert and oriented and able to make needs known. Did make Dr. Sesay and Joi Padgett aware of pt's c/o of abd discomfort. He states it is feeling better at this time. Awaiting ct results. Pt does desat easily. Had to apply nonrebreather this am after pt up to have a bm. Sats are 90 % on 4 L NC at this time. VSS.
--- NOTE | 2021-03-20 13:25 | PC.WOUNDNOTE ---
Addendum entered by Kevin Castro RN 03/20/21 13:26: This RN also called and LM for to update on pts d/c status. Original Note: Pt did also spit am meds out this MD silvia aware.
--- NOTE | 2021-03-20 17:04 | HMH.ACPN2 ---
Internal Medicine - PN: Subj *Date: 03/20/21 *Time: 10:04 Interval history: This morning this 61-year-old male patient resting in bed quietly, no respiratory distress noted. Oxygenation was 95% on 4 L per nasal cannula. He did report some left-sided abdominal pain states I am just very hungry. He was to be discharged to [facility] today, but after increasing respiratory demands and being placed on nonrebreather discharge was postponed. Exam Vital signs and Labs for Last 24 Hours: Temp Pulse Resp BP Pulse Ox 97.9 F 121 H 20 114/70 93 L 03/20/21 16:00 03/20/21 16:00 03/20/21 16:00 03/20/21 16:00 03/20/21 16:00 Laboratory Results - last 24 hr 03/20/21 05:47: WBC 11.4 H, RBC 4.39 L, Hgb 13.1 L, Hct 40.4 L, MCV 92.1, MCH 29.8, MCHC 32.3, RDW 15.4, Plt Count 243, MPV 9.0, Neut % (Auto) 85.5 H, Lymph % (Auto) 8.9 L, [place] % (Auto) 3.1, Eos % (Auto) 2.2, Baso % (Auto) 0.2, Neut # (Auto) 9.8 H, Lymph # (Auto) 1.0, [place] # (Auto) 0.4, Eos # (Auto) 0.3, Baso # (Auto) 0.0, Total Counted 100, Neutrophils % (Manual) 84 H, Lymphocytes % (Manual) 8 L, Monocytes % (Manual) 5, Eosinophils % (Manual) 3, Platelet Estimate Normal, Macrocytosis 1+ 03/20/21 05:47: Sodium 133 L, Potassium 4.3, Chloride 98, Carbon Dioxide 28, Anion Gap 11.3, BUN 27 H, Creatinine 0.40 L, Estimated Creat Clear 63, Estimated GFR 219, Est GFR ( Amer) 265 D, Glucose 95, Calcium 8.7 I & O for Last 24 hours: Intake & Output 03/17/21 03/18/21 03/19/21 03/20/21 23:59 23:59 23:59 23:59 Intake Total 1010 / 1010 780 / 780 360 / 360 600 / 600 Output Total 350 / 350 0 / 0 1460 / 1460 200 / 200 Balance 660 / 660 780 / 780 -1100 / -1100 400 / 400 Weight 125 lb 127 lb 4 oz 127 lb 126 lb 9 oz - Constitutional no acute distress, thin - *Routine HEENT Exam Head: Present: normocephalic Eye: Present: EOMI ENT: Present: mucous membranes moist - *Routine Neck Exam Present: trachea midline. Absent: tracheal deviation - *Routine Respiratory Exam Present: decreased breath sounds, rales. Absent: accessory muscle use - *Routine Cardiovascular Exam Present: RRR - *Routine Abdominal Exam Present: soft, normoactive bowel sounds. Absent: tenderness, firm - *Routine Extremities Exam Present: full ROM, pulses intact. Absent: cyanosis, clubbing, edema - *Routine Skin Exam Present: intact, dry. Absent: cyanosis, erythema - *Routine Neurological Exam Present: alert, altered mental status. Absent: motor deficit - Routine Psychiatric Exam Present: cooperative. Absent: anxious Assessment and Plan (1) Tobacco use Status: Acute Category: Social Hx Code(s): Z72.0 - Tobacco use (2) Pneumonia due to COVID-19 virus Status: Acute Category: Medical Code(s): U07.1 - COVID-19; J12.82 - Pneumonia due to coronavirus disease 2019 (3) GERD (gastroesophageal reflux disease) Status: Acute Qualifiers: Esophagitis presence: esophagitis presence not specified Qualified Code(s): K21.9 - Gastro-esophageal reflux disease without esophagitis Category: Medical Code(s): K21.9 - Gastro-esophageal reflux disease without esophagitis (4) COPD (chronic obstructive pulmonary disease) Status: Acute Qualifiers: COPD type: unspecified COPD Qualified Code(s): J44.9 - Chronic obstructive pulmonary disease, unspecified Category: Medical Code(s): J44.9 - Chronic obstructive pulmonary disease, unspecified (5) COVID-19 Status: Acute Category: Medical Code(s): U07.1 - COVID-19 (6) Respiratory failure with hypoxia Status: Acute Qualifiers: Chronicity: acute Qualified Code(s): J96.01 - Acute respiratory failure with hypoxia Category: Medical Code(s): J96.91 - Respiratory failure, unspecified with hypoxia (7) Hypotension Status: Acute Category: Medical Code(s): I95.9 - Hypotension, unspecified (8) Hx of substance abuse Status: Acute Category: Medical Code(s): F19.11 - Other psychoactive
[2021-03-21] VITALS (8 sets, daily range): BP systolic 92–132; BP diastolic 56–79; PULSE 72–114; RESP 16–24; TEMP 36.1–37.2; O2SAT 88–98; BMI 19.1
--- NOTE | 2021-03-21 05:25 | PC.NURSE ---
NO acute changes t/o shift. Pt has not voiced any complaints to staff t/o shift. Pt has rested well. Bed alarm on for safety. CB in reach. Will continue to moniotr.
[2021-03-21 06:30] LABS: Chloride 98 mmol/L (98-107)
[2021-03-21 06:31] LABS: Potassium 4.1 mmoL/L (3.5-5.1); Sodium 132 mmol/L (136-145)
[2021-03-21 06:33] LABS: Blood Urea Nitrogen 26 mg/dl (9-20); Creatinine Clearance Estimated 63 mL/min (50-200); Estimated Glomerular Filt Rate 219 ml/min (>60); GFR (African American) 265 ML/MIN (>60)
[2021-03-21 06:34] LABS: Anion Gap 9.1 mEq/L (5-15); Calcium 8.6 mg/dl (8.4-10.2); Carbon Dioxide 29 mmol/L (22.0-30.0); Glucose 101 mg/dl (74-100)
[2021-03-21 06:52] LABS: Basophils % 0.4 % (0.1-2.0); Eosinophils # 0.2 K/mm3 (0.0-0.4); Eosinophils % 2.3 % (0.1-12.0); Hematocrit 40.1 % (42.0-52.0); Hemoglobin 13.2 g/dL (14.1-18.0); Lymphocytes # 0.9 K/mm3 (0.7-4.5); Lymphocytes % 9.9 % (10-50); Mean Corpuscular HGB Conc 32.8 g/dL (31.8-35.4); Mean Corpuscular Hemoglobin 30.1 pg (27.0-31.2); Mean Corpuscular Volume 91.7 fl (80-94); Mean Platelet Volume 8.4 fl (7.4-10.4); Monocytes # 0.4 K/mm3 (0.1-1.0); Monocytes % 3.9 % (1.7-9.3); Neutrophils # 7.8 K/mm3 (1.8-7.8); Neutrophils % 83.5 % (37.0-80.0); Platelet Count 226 K/mm3 (142-424); Red Blood Count 4.37 M/mm3 (4.60-6.20); Red Cell Distribution Width 15.4 % (11.5-17.5); White Blood Count 9.3 K/mm3 (4.8-10.8)
--- NOTE | 2021-03-21 11:29 | HMH.ACPN2 ---
Internal Medicine - PN: Subj *Date: 03/21/21 *Time: 08:15 Interval history: pt laying in bed states he is feeling better. o2 at 5 liters per nc Exam Vital signs and Labs for Last 24 Hours: Temp Pulse Resp BP Pulse Ox 98.1 F 110 H 22 103/71 L 98 03/21/21 08:00 03/21/21 08:00 03/21/21 08:00 03/21/21 08:00 03/21/21 08:00 Laboratory Results - last 24 hr 03/21/21 06:11: WBC 9.3, RBC 4.37 L, Hgb 13.2 L, Hct 40.1 L, MCV 91.7, MCH 30.1, MCHC 32.8, RDW 15.4, Plt Count 226, MPV 8.4, Neut % (Auto) 83.5 H, Lymph % (Auto) 9.9 L, [place] % (Auto) 3.9, Eos % (Auto) 2.3, Baso % (Auto) 0.4, Neut # (Auto) 7.8, Lymph # (Auto) 0.9, [place] # (Auto) 0.4, Eos # (Auto) 0.2, Baso # (Auto) 0.0 03/21/21 06:11: Sodium 132 L, Potassium 4.1, Chloride 98, Carbon Dioxide 29, Anion Gap 9.1, BUN 26 H, Creatinine 0.40 L, Estimated Creat Clear 63, Estimated GFR 219, Est GFR ( Amer) 265, Glucose 101 H, Calcium 8.6 I & O for Last 24 hours: Intake & Output 03/18/21 03/19/21 03/20/21 03/21/21 11:59 11:59 11:59 11:59 Intake Total 600 / 600 780 / 780 840 / 840 420 / 420 Output Total 50 / 50 800 / 800 860 / 860 50 / 50 Balance 550 / 550 -20 / -20 -20 / -20 370 / 370 Weight 127 lb 4 oz 127 lb 126 lb 9 oz 126 lb 9.007 oz - Constitutional no acute distress, chronically ill appearing - *Routine HEENT Exam Head: Present: normocephalic Eye: Present: PERRL ENT: Present: mucous membranes moist - *Routine Neck Exam Present: supple. Absent: lymphadenopathy - *Routine Respiratory Exam Present: wheezes - *Routine Cardiovascular Exam Present: RRR - *Routine Abdominal Exam Present: soft, normoactive bowel sounds. Absent: tenderness - *Routine Extremities Exam Absent: cyanosis, clubbing, edema - *Routine Skin Exam Present: warm. Absent: rash - *Routine Neurological Exam Present: alert, oriented X3 Assessment and Plan (1) Tobacco use Status: Acute Category: Social Hx Code(s): Z72.0 - Tobacco use (2) Pneumonia due to COVID-19 virus Status: Acute Category: Medical Code(s): U07.1 - COVID-19; J12.82 - Pneumonia due to coronavirus disease 2019 (3) GERD (gastroesophageal reflux disease) Status: Acute Qualifiers: Esophagitis presence: esophagitis presence not specified Qualified Code(s): K21.9 - Gastro-esophageal reflux disease without esophagitis Category: Medical Code(s): K21.9 - Gastro-esophageal reflux disease without esophagitis (4) COPD (chronic obstructive pulmonary disease) Status: Acute Qualifiers: COPD type: unspecified COPD Qualified Code(s): J44.9 - Chronic obstructive pulmonary disease, unspecified Category: Medical Code(s): J44.9 - Chronic obstructive pulmonary disease, unspecified (5) COVID-19 Status: Acute Category: Medical Code(s): U07.1 - COVID-19 (6) Respiratory failure with hypoxia Status: Acute Qualifiers: Chronicity: acute Qualified Code(s): J96.01 - Acute respiratory failure with hypoxia Category: Medical Code(s): J96.91 - Respiratory failure, unspecified with hypoxia (7) Hypotension Status: Acute Category: Medical Code(s): I95.9 - Hypotension, unspecified (8) Hx of substance abuse Status: Acute Category: Medical Code(s): F19.11 - Other psychoactive substance abuse, in remission - Assessment and plan all Dx Assessment and Plan for all problems:: rounded with dr hughes all orders per dr hughes continue treatment plan pt
[2021-03-22] VITALS (9 sets, daily range): BP systolic 108–135; BP diastolic 64–87; PULSE 86–113; RESP 17–25; TEMP 36.5–36.8; O2SAT 92–97; BMI 19.1
--- NOTE | 2021-03-22 06:33 | PC.NURSE ---
Shift summary. Pt was on 4 L nc at beginning of shift sat 85%. Pt titrated up to 6 L nc with sat 92%. Pt has not voiced any complaints to staff t/o shift. Rested well t/o shift. Currently resting in bed. VSS. CB in reach. Will continue to monitor.
[2021-03-22 06:34] LABS: Chloride 97 mmol/L (98-107); Potassium 3.7 mmoL/L (3.5-5.1); Sodium 133 mmol/L (136-145)
[2021-03-22 06:37] LABS: Anion Gap 10.7 mEq/L (5-15); Blood Urea Nitrogen 22 mg/dl (9-20); Calcium 8.5 mg/dl (8.4-10.2); Carbon Dioxide 29 mmol/L (22.0-30.0); Creatinine Clearance Estimated 63 mL/min (50-200); Estimated Glomerular Filt Rate 169 ml/min (>60); GFR (African American) 205 ML/MIN (>60); Glucose 127 mg/dl (74-100)
[2021-03-22 06:39] LABS: Basophils % 0.4 % (0.1-2.0); Eosinophils # 0.2 K/mm3 (0.0-0.4); Eosinophils % 2.3 % (0.1-12.0); Hematocrit 37.5 % (42.0-52.0); Hemoglobin 12.4 g/dL (14.1-18.0); Lymphocytes % 10.1 % (10-50); Mean Corpuscular HGB Conc 33.1 g/dL (31.8-35.4); Mean Corpuscular Hemoglobin 29.9 pg (27.0-31.2); Mean Corpuscular Volume 90.4 fl (80-94); Mean Platelet Volume 8.7 fl (7.4-10.4); Monocytes # 0.4 K/mm3 (0.1-1.0); Monocytes % 3.9 % (1.7-9.3); Neutrophils # 7.8 K/mm3 (1.8-7.8); Neutrophils % 83.3 % (37.0-80.0); Platelet Count 243 K/mm3 (142-424); Red Blood Count 4.15 M/mm3 (4.60-6.20); Red Cell Distribution Width 15.3 % (11.5-17.5); White Blood Count 9.4 K/mm3 (4.8-10.8)
--- NOTE | 2021-03-22 09:14 | HMH.ACPN2 ---
Internal Medicine - PN: Subj *Date: 03/22/21 *Time: 08:15 Interval history: pt sitting up in bed no c/o, o2 at 4 liters nc Exam Vital signs and Labs for Last 24 Hours: Temp Pulse Resp BP Pulse Ox 98.3 F 110 H 25 H 108/64 L 93 L 03/22/21 08:00 03/22/21 08:00 03/22/21 08:00 03/22/21 08:00 03/22/21 08:00 Laboratory Results - last 24 hr 03/22/21 05:51: WBC 9.4, RBC 4.15 L, Hgb 12.4 L, Hct 37.5 L, MCV 90.4, MCH 29.9, MCHC 33.1, RDW 15.3, Plt Count 243, MPV 8.7, Neut % (Auto) 83.3 H, Lymph % (Auto) 10.1, [place] % (Auto) 3.9, Eos % (Auto) 2.3, Baso % (Auto) 0.4, Neut # (Auto) 7.8, Lymph # (Auto) 1.0, [place] # (Auto) 0.4, Eos # (Auto) 0.2, Baso # (Auto) 0.0 03/22/21 05:51: Sodium 133 L, Potassium 3.7, Chloride 97 L, Carbon Dioxide 29, Anion Gap 10.7, BUN 22 H, Creatinine 0.50 L D, Estimated Creat Clear 63, Estimated GFR 169, Est GFR ( Amer) 205 D, Glucose 127 H D, Calcium 8.5 I & O for Last 24 hours: Intake & Output 03/19/21 03/20/21 03/21/21 03/22/21 11:59 11:59 11:59 11:59 Intake Total 780 / 780 840 / 840 420 / 420 300 / 300 Output Total 800 / 800 860 / 860 50 / 50 250 / 250 Balance -20 / -20 -20 / -20 370 / 370 50 / 50 Weight 127 lb 126 lb 9 oz 126 lb 9.007 oz 126 lb 3.2 oz - Constitutional no acute distress, chronically ill appearing - *Routine HEENT Exam Head: Present: normocephalic Eye: Present: PERRL ENT: Present: mucous membranes moist - *Routine Neck Exam Present: supple. Absent: lymphadenopathy - *Routine Respiratory Exam Present: CTA bilaterally - *Routine Cardiovascular Exam Present: RRR - *Routine Abdominal Exam Present: soft, normoactive bowel sounds. Absent: tenderness - *Routine Extremities Exam Absent: cyanosis, clubbing, edema - *Routine Skin Exam Present: warm. Absent: rash - *Routine Neurological Exam Present: alert, oriented X3 Assessment and Plan (1) Tobacco use Status: Acute Category: Social Hx Code(s): Z72.0 - Tobacco use (2) Pneumonia due to COVID-19 virus Status: Acute Category: Medical Code(s): U07.1 - COVID-19; J12.82 - Pneumonia due to coronavirus disease 2019 (3) GERD (gastroesophageal reflux disease) Status: Acute Qualifiers: Esophagitis presence: esophagitis presence not specified Qualified Code(s): K21.9 - Gastro-esophageal reflux disease without esophagitis Category: Medical Code(s): K21.9 - Gastro-esophageal reflux disease without esophagitis (4) COPD (chronic obstructive pulmonary disease) Status: Acute Qualifiers: COPD type: unspecified COPD Qualified Code(s): J44.9 - Chronic obstructive pulmonary disease, unspecified Category: Medical Code(s): J44.9 - Chronic obstructive pulmonary disease, unspecified (5) COVID-19 Status: Acute Category: Medical Code(s): U07.1 - COVID-19 (6) Respiratory failure with hypoxia Status: Acute Qualifiers: Chronicity: acute Qualified Code(s): J96.01 - Acute respiratory failure with hypoxia Category: Medical Code(s): J96.91 - Respiratory failure, unspecified with hypoxia (7) Hypotension Status: Acute Category: Medical Code(s): I95.9 - Hypotension, unspecified (8) Hx of substance abuse Status: Acute Category: Medical Code(s): F19.11 - Other psychoactive substance abuse, in remission - Assessment and plan all Dx Assessment and Plan for all problems:: rounded with dr hughes all orders per dr hughes continue plan try to wean o2 oob
--- NOTE | 2021-03-22 09:54 | PC.NURSE ---
RESP CARE NOTE: Pt O2 weaned to 4 lpm n/c, SPO2 remains at 93%. 0650 03/22/2021
--- NOTE | 2021-03-22 16:15 | PC.NURSE ---
Patient is non tele and on 6L NC. Patient is up with assist to bedside commode, gets very fatigued and oxygen levels drop. It takes a few minutes for the patient to recover after getting up. Plan of care is to decrease oxygen for discharge. Bed in lowest position and call light and phone in reach.
--- NOTE | 2021-03-22 21:45 | PC.NURSE ---
Gave report to Mona RN
[2021-03-23] VITALS (11 sets, daily range): BP systolic 111–127; BP diastolic 62–70; PULSE 90–112; RESP 16–26; TEMP 36.5–36.8; O2SAT 92–98; BMI 19.1
--- NOTE | 2021-03-23 04:19 | PC.NURSE ---
pt A&Ox4, has remained on 6L NC with O2 sats 94-97%,
[2021-03-23 07:18] LABS: Basophils # 0.1 K/mm3 (0-0.2); Basophils % 0.5 % (0.1-2.0); Eosinophils # 0.2 K/mm3 (0.0-0.4); Eosinophils % 1.8 % (0.1-12.0); Hematocrit 38.2 % (42.0-52.0); Hemoglobin 12.4 g/dL (14.1-18.0); Lymphocytes % 10.6 % (10-50); Mean Corpuscular HGB Conc 32.4 g/dL (31.8-35.4); Mean Corpuscular Hemoglobin 29.9 pg (27.0-31.2); Mean Corpuscular Volume 92.1 fl (80-94); Mean Platelet Volume 8.5 fl (7.4-10.4); Monocytes # 0.3 K/mm3 (0.1-1.0); Monocytes % 3.1 % (1.7-9.3); Neutrophils # 7.6 K/mm3 (1.8-7.8); Neutrophils % 83.9 % (37.0-80.0); Platelet Count 246 K/mm3 (142-424); Red Blood Count 4.15 M/mm3 (4.60-6.20); Red Cell Distribution Width 15.5 % (11.5-17.5); White Blood Count 9.1 K/mm3 (4.8-10.8)
[2021-03-23 07:25] LABS: Chloride 97 mmol/L (98-107); Potassium 3.8 mmoL/L (3.5-5.1); Sodium 132 mmol/L (136-145)
[2021-03-23 07:28] LABS: Blood Urea Nitrogen 18 mg/dl (9-20); Creatinine Clearance Estimated 63 mL/min (50-200); Estimated Glomerular Filt Rate 169 ml/min (>60); GFR (African American) 205 ML/MIN (>60)
[2021-03-23 07:29] LABS: Anion Gap 7.8 mEq/L (5-15); Calcium 8.6 mg/dl (8.4-10.2); Carbon Dioxide 31 mmol/L (22.0-30.0); Glucose 110 mg/dl (74-100)
--- NOTE | 2021-03-23 10:24 | P.PN_ITS ---
Internal Medicine - PN: Subj *Date: 03/24/21 *Time: 05:19 Interval history: pt with ongoing sob but doing better Exam Vital signs and Labs for Last 24 Hours: Temp Pulse Resp BP Pulse Ox 97.8 F 112 H 26 H 127/70 98 03/23/21 08:00 03/23/21 08:00 03/23/21 08:00 03/23/21 08:00 03/23/21 08:00 Laboratory Results - last 24 hr 03/23/21 06:52: WBC 9.1, RBC 4.15 L, Hgb 12.4 L, Hct 38.2 L, MCV 92.1, MCH 29.9, MCHC 32.4, RDW 15.5, Plt Count 246, MPV 8.5, Neut % (Auto) 83.9 H, Lymph % (Auto) 10.6, [place] % (Auto) 3.1, Eos % (Auto) 1.8, Baso % (Auto) 0.5, Neut # (Auto) 7.6, Lymph # (Auto) 1.0, [place] # (Auto) 0.3, Eos # (Auto) 0.2, Baso # (Auto) 0.1 03/23/21 06:52: Sodium 132 L, Potassium 3.8, Chloride 97 L, Carbon Dioxide 31 H, Anion Gap 7.8, BUN 18, Creatinine 0.50 L, Estimated Creat Clear 63, Estimated GF R 169, Est GFR ( Amer) 205, Glucose 110 H, Calcium 8.6 I & O for Last 24 hours: Intake & Output 03/20/21 03/21/21 03/22/21 03/23/21 11:59 11:59 11:59 11:59 Intake Total 840 / 840 420 / 420 300 / 300 240 / 240 Output Total 860 / 860 50 / 50 250 / 250 Balance -20 / -20 370 / 370 50 / 50 240 / 240 Weight 126 lb 9 oz 126 lb 9.007 oz 126 lb 3.2 oz 126 lb 3.187 oz - Constitutional no acute distress - *Routine HEENT Exam Head: Present: normocephalic Eye: Present: EOMI, PERRL ENT: Present: mucous membranes dry - *Routine Neck Exam Absent: JVD - *Routine Respiratory Exam Present: decreased breath sounds, prolonged expiratory phase - *Routine Cardiovascular Exam Present: RRR - *Routine Abdominal Exam Present: soft - *Routine Extremities Exam Present: pulses intact - *Routine Skin Exam Present: intact - *Routine Neurological Exam Present: alert, CN II-XII intact - Routine Psychiatric Exam Present: normal affect Assessment and Plan (1) Tobacco use Status: Acute Category: Social Hx Code(s): Z72.0 - Tobacco use (2) Pneumonia due to COVID-19 virus Status: Acute Category: Medical Code(s): U07.1 - COVID-19; J12.82 - Pneumonia due to coronavirus disease 2019 (3) GERD (gastroesophageal reflux disease) Status: Acute Qualifiers: Esophagitis presence: esophagitis presence not specified Qualified Code(s): K21.9 - Gastro-esophageal reflux disease without esophagitis Category: Medical Code(s): K21.9 - Gastro-esophageal reflux disease without esophagitis (4) COPD (chronic obstructive pulmonary disease) Status: Acute Qualifiers: COPD type: unspecified COPD Qualified Code(s): J44.9 - Chronic obstructive pulmonary disease, unspecified Category: Medical Code(s): J44.9 - Chronic obstructive pulmonary disease, unspecified (5) COVID-19 Status: Acute Category: Medical Code(s): U07.1 - COVID-19 (6) Respiratory failure with hypoxia Status: Acute Qualifiers: Chronicity: acute Qualified Code(s): J96.01 - Acute respiratory failure with hypoxia Category: Medical Code(s): J96.91 - Respiratory failure, unspecified with hypoxia (7) Hypotension Status: Acute Category: Medical Code(s): I95.9 - Hypotension, unspecified (8) Hx of substance abuse Status: Acute Category: Medical Code(s): F19.11 - Other psychoactive substan ce abuse, in remission
--- NOTE | 2021-03-23 16:39 | PC.NURSE ---
pt has refused meds x2 today. States he doesnt need them as he is feeling better
[2021-03-24] VITALS: BP 130/68; PULSE 92; RESP 18; TEMP 36.7; O2SAT 96
[2021-03-24 04:00] VITALS: BP 122/74; PULSE 108; RESP 17; TEMP 36.6; O2SAT 96
[2021-03-24 05:00] VITALS: BMI 19.0
[2021-03-24 06:00] VITALS: PULSE 107; PULSE 111; O2SAT 92
--- NOTE | 2021-03-24 06:09 | PC.NURSE ---
pt has been pleasant but did refuse 2100 medications tonight, has remained on 5L NC with sats 94-96%, no complaints of pain or SOA
[2021-03-24 06:47] LABS: Basophils # 0.1 K/mm3 (0-0.2); Basophils % 0.4 % (0.1-2.0); Eosinophils # 0.1 K/mm3 (0.0-0.4); Eosinophils % 1.3 % (0.1-12.0); Hematocrit 35.8 % (42.0-52.0); Hemoglobin 11.6 g/dL (14.1-18.0); Lymphocytes # 1.1 K/mm3 (0.7-4.5); Lymphocytes % 10.2 % (10-50); Mean Corpuscular HGB Conc 32.3 g/dL (31.8-35.4); Mean Corpuscular Hemoglobin 30.1 pg (27.0-31.2); Mean Corpuscular Volume 93.1 fl (80-94); Mean Platelet Volume 7.9 fl (7.4-10.4); Monocytes # 0.6 K/mm3 (0.1-1.0); Monocytes % 5.2 % (1.7-9.3); Neutrophils # 8.9 K/mm3 (1.8-7.8); Neutrophils % 82.9 % (37.0-80.0); Platelet Count 253 K/mm3 (142-424); Red Blood Count 3.85 M/mm3 (4.60-6.20); Red Cell Distribution Width 15.6 % (11.5-17.5); White Blood Count 10.8 K/mm3 (4.8-10.8)
[2021-03-24 07:15] LABS: Chloride 99 mmol/L (98-107); Potassium 3.5 mmoL/L (3.5-5.1); Sodium 134 mmol/L (136-145)
[2021-03-24 07:18] LABS: Anion Gap 9.5 mEq/L (5-15); Blood Urea Nitrogen 16 mg/dl (9-20); Calcium 8.5 mg/dl (8.4-10.2); Carbon Dioxide 29 mmol/L (22.0-30.0); Creatinine Clearance Estimated 63 mL/min (50-200); Estimated Glomerular Filt Rate 219 ml/min (>60); GFR (African American) 265 ML/MIN (>60); Glucose 109 mg/dl (74-100)
[2021-03-24 08:00] VITALS: BP 116/72; PULSE 111; RESP 18; TEMP 36.9; O2SAT 94
--- NOTE | 2021-03-24 09:40 | XR_ITS ---
PROCEDURE: XR CHEST PORTABLE CLINICAL HISTORY: PNM COMPARISON: CT CT ANGIO CHEST PE PROTOCOL from 03/09/2021 CR XR CHEST PORTABLE from 03/10/2021 CR XR CHEST PORTABLE from 03/13/2021 CR XR CHEST PORTABLE from 03/17/2021 FINDINGS: The cardiomediastinal silhouette and pulmonary vascularity are within normal limits. There are low lung volumes with atelectatic changes in the right lower lobe. Bilateral pneumonia present in the left upper and left lower lobe and right lung base probably not significantly changed considering the atelectatic changes in the right lung base superimposed upon the pneumonia. No acute bony abnormalities. IMPRESSION: No change bilateral pneumonia with right basilar atelectasis. Dictated by: Reno Alonso MD 03/24/2021 11:14 Reno Alonso MD in [facility] 03/24/2021 11:14
--- NOTE | 2021-03-24 10:20 | HMH.DCSUM ---
General - General Admission date:: 02/15/21 Discharge date: 03/24/21 Hospital Course Hospital Course: Laboratory Tests 02/15/21 02/15/21 02/15/21 11:23 11:23 11:23 WBC 3.9 L RBC 4.98 Hgb 14.9 Hct 44.6 MCV 89.6 MCH 29.8 MCHC 33.3 RDW 13.1 Plt Count 176 MPV 9.2 Neut % (Auto) 67.1 Lymph % (Auto) 25.7 [place] % (Auto) 6.6 Eos % (Auto) 0.0 L Baso % (Auto) 0.4 Neut # (Auto) 2.6 Lymph # (Auto) 1.0 [place] # (Auto) 0.3 Eos # (Auto) 0.0 Baso # (Auto) 0.0 Total Counted Neutrophils % (Manual) Band Neutrophils % Lymphocytes % (Manual) Monocytes % (Manual) Eosinophils % (Manual) Metamyelocytes % Blast Cells % Nucleated RBCs Platelet Estimate RBC Morphology Hypochromasia Anisocytosis Macrocytosis D-Dimer 0.81 H Specimen Source O2 % ABG pH ABG pCO2 ABG pO2 ABG HCO3 ABG Total CO2 ABG O2 Saturation ABG Base Excess [place] Test ABG Lactate Vent Rate Tidal Volume PEEP Sodium 136 Potassium 3.2 L Chloride 93 L Carbon Dioxide 32 H Anion Gap 14.2 BUN 30 H Creatinine 1.10 Estimated Creat Clear 73 Estimated GFR 68 Est GFR ( Amer) 83 Glucose 143 H Calcium 8.9 Ferritin 1990 H Total Bilirubin 0.8 Direct Bilirubin Conjugated Bilirubin Indirect Bilirubin Unconjugated Bilirubin AST 157 H ALT 51 Alkaline Phosphatase 110 C-Reactive Protein Total Protein 7.3 Albumin 3.9 Globulin 3.4 H Albumin/Globulin Ratio 1.1 Urine Color Urine Appearance Urine pH Ur Specific [place] Urine Protein Urine Glucose (UA) Urine Ketones Urine Blood Urine Nitrate Urine Bilirubin Urine Urobilinogen Ur Leukocyte Esterase Urine Bacteria Vancomycin Peak Vancomycin Trough 02/16/21 02/16/21 02/16/21 05:05 05:05 18:47 WBC 4.0 L RBC 4.74 Hgb 14.0 L Hct 42.7 MCV 90.2 MCH 29.6 MCHC 32.8 RDW 13.2 Plt Count 195 MPV 8.6 Neut % (Auto) 80.1 H Lymph % (Auto) 11.6 [place] % (Auto) 8.2 Eos % (Auto) 0.0 L Baso % (Auto) 0.1 Neut # (Auto) 3.2 Lymph # (Auto) 0.5 L [place] # (Auto) 0.3 Eos # (Auto) 0.0 Baso # (Auto) 0.0 Total Counted Neutrophils % (Manual) Band Neutrophils % Lymphocytes % (Manual) Monocytes % (Manual) Eosinophils % (Manual) Metamyelocytes % Blast Cells % Nucleated RBCs Platelet Estimate RBC Morphology Hypochromasia Anisocytosis Macrocytosis D-Dimer Specimen Source R brachial O2 % Nrb ABG pH 7.50 H ABG pCO2 34.3 L ABG pO2 77.5 L ABG HCO3 26.1 H ABG Total CO2 27.1 H ABG O2 Saturation 95 ABG Base Excess 2.9 H [place] Test ABG Lactate Vent Rate Tidal Volume PEEP Sodium 139 Potassium 3.9 D Chloride 96 L Carbon Dioxide 34 H Anion Gap 12.9 BUN 21 H D Creatinine 0.60 L D Estimated Creat Clear 135 Estimated GFR 137 Est GFR ( Amer) 166 D Glucose 143 H Calcium 8.9 Ferritin Total Bilirubin 0.6 Direct Bilirubin Conjugated Bilirubin Indirect Bilirubin Unconjugated Bilirubin AST 135 H ALT 46 Alkaline Phosphatase 102 C-Reactive Protein Total Protein 6.6 Albumin 3.4 L D Globulin 3.2 Albumin/Globulin Ratio 1.1 Urine Color Urine Appearance Urine pH Ur Specific [place] Urine Protein Urine Glucose (UA) Urine Ketones Urine Blood Urine Nitrate Urine Bilirubin Urine Urobilinogen Ur Leukocyte Esterase Urine Bacteria Vancomycin Peak Vancomycin Trough 02/17/21 02/17/21 02/17/21 09:24 09:24 09:24 WBC RBC Hgb Hct MCV MCH MCHC RDW Plt Count MPV Neut % (Auto) Lymph % (Auto) [place] % (Auto) Eos % (Auto) Baso % (Au
--- NOTE | 2021-03-24 10:59 | HMH.ITSTN ---
xray not done within 30 minutes due to staffing, mammography did this when she had a break in her schedule
[2021-03-24 12:05] VITALS: PULSE 100; PULSE 101; O2SAT 91
--- NOTE | 2021-03-24 14:05 | HMH.PULMPN ---
Internal Medicine - PN: Subj *Date: 03/24/21 *Time: 14:05 Interval history: No acute respiratory vents overnight. Patient admits continued improvement in symptoms. Exam - Constitutional Constitutional:: Present: no acute distress, comfortable - HENMT Exam HENMT: Present: normocephalic, atraumatic - Eye Exam Eyes:: Present: normal appearance both eyes and related structures - Neck Exam Neck:: Present: normal visual inspection - Respiratory Exam Respiratory:: Present: able to speak in complete sentences, no respiratory distress, rales - Cardiovascular Exam Cardiac:: Present: S1, S2 - GI Exam GI:: Present: soft - Skin Exam Skin: Present: warm, no rash - Neurological Exam Neurological: Present: alert, awake, normal cognition - Extremities Exam Extremities: Present: no cyanosis, no clubbing, no edema Assessment and Plan (1) Tobacco use Status: Acute Category: Social Hx Code(s): Z72.0 - Tobacco use (2) Pneumonia due to COVID-19 virus Status: Acute Category: Medical Code(s): U07.1 - COVID-19; J12.82 - Pneumonia due to coronavirus disease 2019 (3) GERD (gastroesophageal reflux disease) Status: Acute Qualifiers: Esophagitis presence: esophagitis presence not specified Qualified Code(s): K21.9 - Gastro-esophageal reflux disease without esophagitis Category: Medical Code(s): K21.9 - Gastro-esophageal reflux disease without esophagitis (4) COPD (chronic obstructive pulmonary disease) Status: Acute Qualifiers: COPD type: unspecified COPD Qualified Code(s): J44.9 - Chronic obstructive pulmonary disease, unspecified Category: Medical Code(s): J44.9 - Chronic obstructive pulmonary disease, unspecified (5) COVID-19 Status: Acute Category: Medical Code(s): U07.1 - COVID-19 (6) Respiratory failure with hypoxia Status: Acute Qualifiers: Chronicity: acute Qualified Code(s): J96.01 - Acute respiratory failure with hypoxia Category: Medical Code(s): J96.91 - Respiratory failure, unspecified with hypoxia (7) Hypotension Status: Acute Category: Medical Code(s): I95.9 - Hypotension, unspecified (8) Hx of substance abuse Status: Acute Category: Medical Code(s): F19.11 - Other psychoactive substance abuse, in remission - Assessment and plan all Dx Assessment and Plan for all problems:: #Acute hypoxic respiratory failure: #COVID-19 pneumonia: #Organizing Pneumonia CT on admission did not show any evidence of pulmonary embolism however showed diffuse bilateral patchy pulmonary infiltrates. No evidence of DVT D-dimer elevated at 0.81. CRP at 21.4 Completed 10-day course of remdesivir and dexamethasone. Patient respiratory status declined during admission needing intubation and mechanical ventilation patient was successfully extubated and since then patient has relatively stable but critical needing high oxygen requirements currently on BiPAP post extubation, successfully weaned to nasal cannula and then escalated to high flow nasal cannula. Repeat CTA showed bilateral diffuse groundglass opacities with dense fibrotic changes, left greater than right, slightly worsened in the left upper lobe from prior. No evidence of pulmonary embolism noted. Completed [id number] days for his bacteremia. CRP after steroid initiation was 11.6. Renal function stable. Oxygen equipments continued to improve, this morning in 3 and half liter oxygen supplementation. He is on day 5 of prednisone milligrams daily, will wean as previously planned. Plan: -Incentive spirometry every 8 hours -Continue nasal cannula can supplementation to maintain O2 saturation goal of 90 and above. -Prednisone 60mg daily x 1 day followed by 30mg daily x 5 days--> 10mg x5 days and discontinue. -DuoNebs every 6 hours scheduled and budesonide every 12 scheduled. discharge on triple inhaler therapy scheduled along with albuterol every 6 hours as needed Thank you for involving pulmonar
== END 2021-03-24 14:32 | DRG 207 ==
LOC: ER 13:28 → ICU 02-16 07:11 → 2ND 03-04 16:35
PROVIDERS: Internal Medicine Pulmonary Disease; Nurse Practitioner Family; Admitting Provider Family Medicine; Emergency Provider Student in an Organized Health Care Education/Training Program; PCP Emergency Medicine; Visit Provider Emergency Medicine
DX: U07.1 COVID-19 (principal); J12.82 Pneumonia due to coronavirus disease 2019; J96.01 Acute respiratory failure with hypoxia; J44.0 Chronic obstructive pulmonary disease with (acute) lower respiratory infection; R78.81 Bacteremia; I95.9 Hypotension, unspecified; Z87.891 Personal history of nicotine dependence; K21.9 Gastro-esophageal reflux disease without esophagitis; F19.11 Other psychoactive substance abuse, in remission; J84.89 Other specified interstitial pulmonary diseases
CPT/HCPCS: 31500; 94002; 36556; 36415; 71045; 71275; 74176; 80048; 80053; 80076; 80202; 81001; 82728; 82803; 83605; 85007; 85025; 85378; 86140; 87040; 87070; 87077; 87081; 87186; 87205; 92610; 93306; 93970; 94003; 94640; 94660; 94760; 94761; 97110; 97166; 97530; 97535; 99284; C1751; J0574; J2704; J3370; Q9967

== ENCOUNTER → 2021-07-15 12:48 | Outpatient (CLI) | payer OTHER, SELFPAY ==
[2021-07-15 13:55] VITALS: PULSE 88; PULSE 92
== END ==
PROVIDERS: PCP Emergency Medicine; Visit Provider Internal Medicine Pulmonary Disease
DX: J12.82 Pneumonia due to coronavirus disease 2019 (principal); U07.1 COVID-19
CPT/HCPCS: 94060; 94618; 94640; 94727; 94729

== ENCOUNTER → 2022-01-05 08:38 | Outpatient (CLI) | payer OTHER, SELFPAY ==
[2022-01-05 09:30] VITALS: PULSE 85; PULSE 88
[2022-01-05 10:05] VITALS: BP 142/88; BP 148/82; PULSE 79; PULSE 85; RESP 18; RESP 22; O2SAT 95; O2SAT 98
== END ==
PROVIDERS: PCP Emergency Medicine; Visit Provider Internal Medicine Pulmonary Disease
DX: R06.09 Other forms of dyspnea (principal)
CPT/HCPCS: 94060; 94618; 94640; 94727; 94729

== ENCOUNTER → 2022-07-27 15:10 | Outpatient (CLI) | payer OTHER, SELFPAY ==
--- NOTE | 2022-07-27 15:23 | CT_ITS ---
FINAL REPORT CLINICAL HISTORY: lung cancer screening Patient quit smoking 6 years ago, prior to that he had smoked a pack and a half a day. States he has copd. Recently had covid 19. COMPARISON: 03/09/2021 and 02/15/2021 FINDINGS: Low-Dose Chest CT Axial images were obtained from the lung apex to the mid abdomen by computed tomography. Low-dose protocol was utilized. CTDI vol (mGy): 2.90 DLP (mGy-cm): 93.51 There is no axillary adenopathy. There is no hilar or mediastinal adenopathy. The heart is proper size. There is no pericardial or pleural effusion. Lung window images demonstrate moderate changes of emphysema with mild to moderate pulmonary scarring. There is a 3 mm anterior left lower lobe nodule which was not definitely seen on the prior exam but could have been obscured by pulmonary opacity . This is well seen on axial image 27. Limited images of the upper abdomen are unremarkable. IMPRESSION: 3 mm left lower lobe nodule Lung RADS category 2. Recommend 12 month follow-up low-dose chest CT. Reviewed, Interpreted and Dictated by John Decker III, MD Transcribed by Kya Ivy Authenticated and [facility]
== END ==
PROVIDERS: PCP Emergency Medicine; Visit Provider Internal Medicine Pulmonary Disease
DX: Z87.891 Personal history of nicotine dependence (principal); Z12.2 Encounter for screening for malignant neoplasm of respiratory organs
CPT/HCPCS: 71271

== ENCOUNTER → 2022-12-22 14:50 | Outpatient (CLI) | payer OTHER, SELFPAY ==
[2022-12-22 18:32] LABS: Basophils # 0.1 K/mm3 (0-0.2); Basophils % 0.5 % (0.1-2.0); Eosinophils # 0.1 K/mm3 (0.0-0.4); Eosinophils % 0.5 % (0.1-12.0); Hematocrit 47.1 % (42.0-52.0); Hemoglobin 15.5 g/dL (14.1-18.0); Lymphocytes # 3.8 K/mm3 (0.7-4.5); Lymphocytes % 38.8 % (10-50); Mean Corpuscular HGB Conc 32.9 g/dL (31.8-35.4); Mean Corpuscular Hemoglobin 30.4 pg (27.0-31.2); Mean Corpuscular Volume 92.5 fl (80-94); Mean Platelet Volume 9.6 fl (7.4-10.4); Monocytes # 0.5 K/mm3 (0.1-1.0); Monocytes % 4.7 % (1.7-9.3); Neutrophils # 5.4 K/mm3 (1.8-7.8); Neutrophils % 55.6 % (37.0-80.0); Platelet Count 317 K/mm3 (142-424); Red Cell Distribution Width 13.6 % (11.5-17.5); White Blood Count 9.7 K/mm3 (4.8-10.8)
[2022-12-22 19:02] LABS: Alanine Aminotransferase 25 U/L (12-78); Albumin Level 4.7 g/dl (3.5-5.0); Albumin/Globulin Ratio 1.6 (1.1-1.8); Alkaline Phosphatase 110 U/L (38-126); Anion Gap 15.3 mEq/L (5-15); Aspartate Amino Transferase 30 U/L (17-59); Bilirubin,Total 0.2 mg/dl (0.2-1.3); Blood Urea Nitrogen 19 mg/dl (9-20); Calcium 9.7 mg/dl (8.4-10.2); Carbon Dioxide 25 mmol/L (22.0-30.0); Chloride 105 mmol/L (98-107); Chol/HDL Ratio 7.9 (1-3.5); Cholesterol 237 mg/dl (140-200); Estimated Glomerular Filt Rate 76 ml/min (>60); GFR (African American) 92 ML/MIN (>60); Globulin 2.9 g/dL (1.3-3.2); Glucose 153 mg/dl (74-100); HDL Cholesterol 30 mg/dl (40-60); Potassium 4.3 mmoL/L (3.5-5.1); Sodium 141 mmol/L (136-145); Total Protein,Serum 7.6 g/dl (6.3-8.2); Triglycerides 317 mg/dl (30-150); VLDL Cholesterol 63 mg/dL (0-40)
[2022-12-22 19:13] LABS: Direct LDL Cholesterol 140.92 mg/dL (100-129)
[2022-12-22 19:18] LABS: 25-OH Vitamin D, Total 23.7 ng/mL (30-100)
[2022-12-22 19:19] LABS: T4 (Thyroxine) 6.2 ug/dl (5.53-11.0)
[2022-12-22 19:33] LABS: Prostate Specific Ag Screen 1.1 ng/ml (0.0-4.0); Thyroid Stimulating Hormone 3.08 uIU/mL (0.465-4.68)
== END ==
PROVIDERS: PCP Emergency Medicine; Visit Provider Emergency Medicine
DX: J44.9 Chronic obstructive pulmonary disease, unspecified (principal); K21.9 Gastro-esophageal reflux disease without esophagitis; E55.9 Vitamin D deficiency, unspecified; E66.9 Obesity, unspecified; Z68.38 Body mass index [BMI] 38.0-38.9, adult; Z12.5 Encounter for screening for malignant neoplasm of prostate
CPT/HCPCS: 80053; 80061; 82306; 84436; 84443; 85025; G0103

== ENCOUNTER → 2023-02-02 12:50 | Outpatient (CLI) | payer OTHER, SELFPAY ==
[2023-02-02 13:30] VITALS: PULSE 71
== END ==
PROVIDERS: PCP Emergency Medicine; Visit Provider Internal Medicine Pulmonary Disease
DX: R06.02 Shortness of breath (principal)
CPT/HCPCS: 94060; 94640

== ENCOUNTER 2023-08-06 14:55 | Outpatient (CLI) | payer OTHER, SELFPAY ==
--- NOTE | 2023-08-06 14:56 | CT_ITS ---
FINAL REPORT CLINICAL HISTORY: lung cancer screening former smoker quit 8 years ago. smoked 1.5 ppd. total 20 years smoker COMPARISON: 07/27/2022 FINDINGS: Axial images were obtained from the lung apex to the mid abdomen by computed tomography. Low-dose protocol was utilized. CTDl vol(mGy): 2.90 DLP (mGy-cm): 87.25 FINDINGS: There is no axillary adenopathy. There is no hilar or mediastinal adenopathy. Vascular calcifications are noted. The heart size is normal. There is no pericardial or pleural effusion. Lung window images demonstrate a stable 3 mm left lower lobe nodule. There are mild emphysematous changes. There is evidence of old calcified granulomatous disease. Limited images of the upper abdomen are unremarkable. There is no acute osseous abnormality. IMPRESSION: Stable 3 mm left lower lobe nodule. Lung RADS category 2. Recommend 12 month follow-up low-dose chest CT. Reviewed, Interpreted and Dictated by Carlota Nova MD Transcribed by Mary Alejandro Authenticated and [facility]
== END 2023-08-06 23:59 ==
LOC: RAD 14:56
PROVIDERS: PCP Internal Medicine; Visit Provider Internal Medicine Pulmonary Disease
DX: F17.210 Nicotine dependence, cigarettes, uncomplicated (principal)
CPT/HCPCS: 71271

== ENCOUNTER 2024-08-30 14:08 | Outpatient (CLI) | payer OTHER, SELFPAY ==
--- NOTE | 2024-08-30 14:19 | CT_ITS ---
FINAL REPORT TECHNIQUE: Thin section axial images were obtained through the lungs using a low-dose technique per lung cancer screening protocol. Reconstruction images were obtained using the axial data. Exam was performed using dose reduction technique. This study was performed with techniques to keep radiation doses as low as reasonably achievable (ALARA). Individualized dose reduction techniques using automated exposure control or adjustment of mA and/or kV according to the patient's size were employed. CLINICAL HISTORY: lung cancer screening FORMER SMOKER QUIT 11 YEARS AGO, 1PPD X20+ YEARS COMPARISON: 08/06/2023 FINDINGS: CTDLvol: 2.90 DLP: Nine 3.77 Former smoker, quit 11 years ago 20+ pack year history Lungs: Marked changes of emphysema are once again identified. There is left greater than right upper lobe scarring bilaterally, with an appearance similar to the prior exam. The previously described left lower lobe nodule is not identified on the current examination. No new nodules or consolidation are noted. Lymph nodes: No thoracic lymphadenopathy. Mediastinum: Heart size is normal. Coronary artery calcifications are present. Pleura/pericardium: No pleural or pericardial effusion. Other: No acute abnormality in the upper abdomen. IMPRESSION: Previously noted left lower lobe nodule not identified on current examination. No new nodules or consolidation are identified. Lung RADS: 1S, the S designations for changes of emphysema and coronary artery calcifications. Recommendation: 12-month follow-up LDCT Reviewed, Interpreted and Dictated by Chrystal Choi MD Transcribed by Kaela Diaz Authenticated and [facility]
[2024-08-30] MEDS: ALBUTEROL 0.083% 2.5 MG/3 ML NEB IH (14:56)
== END 2024-08-30 23:59 | disposition home or self-care (01) ==
LOC: RAD 14:09
PROVIDERS: PCP Internal Medicine; Visit Provider Internal Medicine Pulmonary Disease
DX: J44.9 Chronic obstructive pulmonary disease, unspecified (principal); R06.09 Other forms of dyspnea; Z87.891 Personal history of nicotine dependence; Z12.2 Encounter for screening for malignant neoplasm of respiratory organs
CPT/HCPCS: 71271; 94060; 94618; 94726; 94729; J7613